=== PATIENT | female | born 1980 | race Caucasian/White ===

== ENCOUNTER → 2018-02-12 09:33 | Outpatient (CLI) | payer MEDICAID, SELFPAY ==
--- NOTE | 2018-02-12 09:46 | MRI_ITS ---
STUDY: MRI LEFT ANKLE WITHOUT CONTRAST REASON FOR EXAM: Ankle pain for 20 years. TECHNIQUE: Standardized fat and water weighted pulse sequences were obtained in all 3 orthogonal planes. COMPARISON: None. FINDINGS: Normal subcutis adipose space. There is a very small volume of fluid in the retromalleolar posterior tibialis tendon sheath (inversion recovery sagittal images 4-6). The posterior tibialis tendon is morphologically normal. Normal flexor digitorum longus tendon. Normal flexor hallucis longus tendon. Normal peroneus longus and brevis tendons. Normal tibialis anterior tendon. Normal extensor hallucis longus tendon. Normal extensor digitorum longus tendons. Normal Achilles tendon and teno-osseous insertion. Normal plantar fascia. Normal plantar calcaneal tubercles. Normal intrinsic muscles of the rearfoot. Normal distal tibiofibular syndesmotic ligamentous complex. Normal lateral ligamentous complex. There is mild edema in the sinus tarsi (inversion recovery sagittal images 11, 12). Normal deltoid ligamentous complexes. Normal plantar calcaneonavicular (spring) ligament. There is a small tibiotalar joint effusion (inversion recovery sagittal image 10). Normal talar dome. There is a posterior subtalar joint effusion with synovitis (inversion recovery sagittal images 12, 13). Normal talonavicular articulation. Normal calcaneocuboid articulation. Normal navicular-cuneiform articulations. 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 There is an os trigonum. MRI/Lower Ext Joint Only (Routine) IMPRESSION: Nonosseous talocalcaneal coalition with bone edema. Very mild posterior tibialis tenosynovitis Mild edema in the sinus tarsi. Posterior subtalar joint effusion with synovitis. Small tibiotalar joint effusion. Electronically Signed: Gen Patino MD at 12:23 EDT Tel , Service support ,
--- NOTE | 2018-02-12 09:46 | MRI_ITS ---
STUDY: MRI RIGHT ANKLE WITHOUT CONTRAST REASON FOR EXAM: Ankle pain for 20 years, no specific injury. TECHNIQUE: Standardized fat and water weighted pulse sequences were obtained in all 3 orthogonal planes. COMPARISON: None. FINDINGS: Normal subcutis adipose space. The posterior tibialis tendon is morphologically normal. Normal flexor digitorum longus tendon. Normal flexor hallucis longus tendon. Normal peroneus longus and brevis tendons. Normal tibialis anterior tendon. Normal extensor hallucis longus tendon. Normal extensor digitorum longus tendons. Normal Achilles tendon and teno-osseous insertion. Normal plantar fascia. Normal plantar calcaneal tubercles. Normal intrinsic muscles of the rearfoot. Normal distal tibiofibular syndesmotic ligamentous complex. Normal lateral ligamentous complex. There is edema in the sinus tarsi (inversion recovery sagittal images 9, 10). Normal deltoid ligamentous complexes. Normal plantar calcaneonavicular (spring) ligament. There is a small tibiotalar joint effusion (inversion recovery sagittal image 11). Normal talar dome. There is a posterior subtalar joint effusion with synovitis (inversion recovery sagittal images 10, 11). Normal talonavicular articulation. Normal calcaneocuboid articulation. Normal navicular-cuneiform articulations. 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 MRI/Lower Ext Joint Only (Routine) IMPRESSION: Nonosseous talocalcaneal coalition with bone edema. Mild edema in the sinus tarsi. Posterior subtalar joint effusion with synovitis. Small tibiotalar joint effusion. No demonstrated posterior tibialis tendinosis/tenosynovitis. Electronically Signed: Gen Patino MD at 12:22 EDT Tel , Service support ,
== END ==
PROVIDERS: Family Provider Family Medicine; PCP Family Medicine; Visit Provider Podiatrist
DX: M76.821 Posterior tibial tendinitis, right leg (principal); M76.822 Posterior tibial tendinitis, left leg; M25.571 Pain in right ankle and joints of right foot; M25.572 Pain in left ankle and joints of left foot; R26.2 Difficulty in walking, not elsewhere classified; R26.81 Unsteadiness on feet
CPT/HCPCS: 73721

== ENCOUNTER → 2020-07-06 17:10 | Outpatient (CLI) | payer MEDICAID, SELFPAY | PROVIDERS: PCP Family Medicine; Referring Provider Family Medicine; Visit Provider Family Medicine | DX: Z20.828 Contact with and (suspected) exposure to other viral communicable diseases (principal) | CPT/HCPCS: 87635; C9803; U0003 ==

== ENCOUNTER 2020-07-14 15:05 | Emergency (ER) | payer MEDICAID, SELFPAY ==
[2020-07-14 15:06] VITALS: BP 199/150; PULSE 101; RESP 18; TEMP 36.2; O2SAT 97; BMI 33.9
--- NOTE | 2020-07-14 15:20 | EKG12_ITS ---
Test Reason : ABNL PAIN Blood Pressure : / mmHG Vent. Rate : 103 BPM Atrial Rate : 103 BPM P-R Int : 152 ms QRS Dur : 082 ms QT Int : 370 ms P-R-T Axes : 025 243 016 degrees QTc Int : 484 ms Sinus tachycardia Right superior axis deviation Abnormal ECG Confirmed by FRANKLIN BLUE, SUMMER ([id number]), medical editor HEIDE RODRIGUEZ ([id number]) on 07/17/2020 1:02:11 PM Referred By: CHULA Confirmed By:SUMMER REID MD
--- NOTE | 2020-07-14 15:30 | ED.DCSUM_ITS ---
History of Present Illness Chief Complaint: Abd Pain Informant: Patient Onset: Yesterday Context: Gradual Onset Timing: Continuous Current Severity: Moderate Maximum Severity: Severe Narrative: The patient is a 39-year-old female with medical history significant for hypertension the presents to the emergency department abdominal pain. The patient states her symptoms began last night. She describes a bandlike pain across her upper abdomen. She states that she will feel nauseated mildly short of breath. She denies any fevers or chills. She states that it has never fully resolved. Is been rather constant and is made worse with movement and breathing. She states she is never had pain like this before. She denies history of prior abdominal surgery. She states she is otherwise been in her normal state of health. She denies any sick contacts. She is moving her bowels without issue. She denies any urinary symptoms. Prior similar symptoms: No Recent Illness/Hospitalization: No Past Medical History - Allergies and Home Meds Allergies/Adverse Reactions: Allergies No Known Allergies Allergy (Verified 07/14/20 15:08) Primary Care Physician: Basilio Dunham MD [Primary Care Provider] - Prior records reviewed: Yes Past Medical History: - - Hypertension Surgical History: noncontributory Smoking Status: Never smoker Review of Systems General: Denies: Chills, Fever, Sweats Eyes: Denies: Visual changes - bilaterally, Diplopia ENT: Denies: Rhinorrhea, Sore throat Cardiovascular: Denies: Chest pain, Palpitations Respiratory: Reports: Dyspnea. Denies: Cough, Dyspnea on exertion Gastrointestinal: Reports: Abdominal pain, Nausea. Denies: Vomiting, Diarrhea, Melena, Hematochezia Genitourinary: Denies: Dysuria, Hematuria, Frequency Musculoskeletal: Reports: Back pain. Denies: Extremity Pain Skin: Denies: Rash, Wounds Neurological: Denies: Headache, Weakness, Numbness Physical Exam Vital Signs/Narrative: Vital Signs Temp Pulse Resp BP Pulse Ox 07/14/20 15:06 97.1 F L 101 H 18 199/150 H 97 Inital Vital Signs reviewed: Yes General: Well nourished, Well developed, No Acute Distress Head: Normocephalic, Atraumatic Eyes: Perrl, EOMI ENT: Moist mucous membranes, No rhinorrhea Neck: Supple, Nontender Cardiovascular: Regular rate, Regular rhythm, No murmurs Respiratory: No distress, CTA bilaterally, Chest nontender Abdomen: Soft, Nondistended, Normal bowel sounds, Tender. Negative for: Nontender, Guarding, Rebound tenderness Back: Nontender, Normal Inspection Extremities: Nontender, No edema Skin: Normal color, No rash Neurological: Alert, Oriented x3, Cranial nerves II-XII grossly intact, Normal Strength, Normal Sensation Psychological: Normal affect, Normal Mood Diagnostic/Tx/Re-eval Clinical Impression(s) from Imaging Studies Chest CTA 07/14/20 16:09 IMPRESSION: Mild nonspecific diffuse interstitial thickening. Mild atelectasis within the dependent portion lungs. No focal infiltration. No pulmonary embolus aortic aneurysm periaortic leak or dissection. Electronically Signed: Adair Martinez MD at 18:42 EDT , Service support , Abnormal Lab Results 07/14/20 07/14/20 07/14/20 15:30 15:30 15:30 WBC 12.5 H RBC 4.70 Hgb 13.4 Hct 41.1 MCV 87.4 MCH 28.5 MCHC 32.6 RDW Std Deviation 42.8 RDW Coeff of Lyndsey 13.3 Plt Count 445 MPV 8.9 Immature Gran % (Auto) 0.500 Neut % (Auto) 68.3 Lymph % (Auto) 24.1 [place] % (Auto) 5.9 Eos % (Auto) 0.6 Baso % (Auto) 0.6 Absolute Neuts (auto) 8.5 H Absolute Lymphs (auto) 3.00 Nucleated RBC % 0 D-Dimer Quant (PE/DVT) 0.62 H* Sodium 140 Potassium 4.0 Chloride 107 Carbon Dioxide 25.0 Anion Gap 8 BUN 12 Creatinine 1.06 H Estim Creat Clear Calc 67.37 Est GFR (MDRD) Af Amer 74 Est GFR (MDRD) Non-Af 61 BUN/Creatinine Ratio 11.3 Glucose 95 Calcium 9.1 Total Bilirubin 0.30 AST 13 L ALT 21 Alkaline Phosphatase 62 Troponin I < 0.015 Total Protein 8.2 Albumin 3.9 Globulin 4.3 H Albumin/Globulin Ratio 0.9 Lipase 91 Serum , Qual Urine Color Urine Clarity Urine pH Ur Specific [place] Urine Protein Urine Glucose (UA) Urine Ketones Urine Occult Blood Urine Nitrite Urine Bilirubin Urine Urobilinogen Ur Leukocyte Esterase Urine RBC Urine WBC Ur Squamous Epith Cells Urine Bacteria Urine Mucus 07/14/20 07/14/20 16:30 16:35 WBC RBC Hgb Hct MCV MCH MCHC RDW Std Deviation RDW Coeff of Lyndsey Plt Count MPV Immature Gran % (Auto) Neut % (Auto) Lymph % (Auto) [place] % (Auto) Eos % (Auto) Baso % (Auto) Absolute Neuts (auto) Absolute Lymphs (auto) Nucleated RBC % D-Dimer Quant (PE/DVT) Sodium Potassium Chloride Carbon Dioxide Anion Gap BUN Creatinine Estim Creat Clear Calc Est GFR (MDRD) Af Amer Est GFR (MDRD) Non-Af BUN/Creatinine Ratio Glucose Calcium Total Bilirubin AST ALT Alkaline Phosphatase Troponin I Total Protein Albumin Globulin Albumin/Globulin Ratio Lipase Serum , Qual NEGATIVE Urine Color Yellow Urine Clarity Clear Urine pH 7.0 Ur Specific [place] 1.005 Urine Protein Negative Urine Glucose (UA) Normal Urine Ketones Negative Urine Occult Blood 25 H Urine Nitrite Negative Urine Bilirubin Negative Urine Urobilinogen Normal Ur Leukocyte Esterase Negative Urine RBC 0 SEEN Urine WBC 0 SEEN Ur Squamous Epith Cells 0-5 SEEN Urine Bacteria 1+ Urine Mucus 0 SEEN - Medical Decision Making The patient presents with midepigastric pain, shortness of breath, nausea. She was tachycardic on arrival. I obtained a d-dimer. This was mildly elevated. The patient underwent CT of the chest with CT of abdomen pelvis. CT does not show acute pulmonary embolus. I did review the CT of her abdomen with the radiologist. There was some mild gastritis. There does appear to be some focal fullness of the pancreas consistent with a mild focal pancreatitis. Her appendix was mildly dilated without any evidence of acute appendicitis. She has absolutely no pain in the right lower quadrant or the right side of the abdomen. Most of the pain is in the epigastric area into the left side of her chest. The patient was treated with analgesics and is feeling improved. I do feel that this is either pancreatitis or gastritis. I did discuss options with the patient. She wants to attempt home therapy. She will be placed on clear liquids. She will begin a short course of analgesics and antiemetics. She also be placed on Pepcid. She is comfortable with this plan of care and will be disc harged. Impression 1. Pancreatitis 2. Gastritis ED Disposition - Plan for ED Patient: Instructions: ED Pancreatitis Prescriptions: Hydrocodone Bitart/Apap 5-325 [Madill 5MG-325MG] 1 tab PO Q6H PRN PRN 3 Days #10 tab PRN Reason: Pain Prescription Printed Famotidine [Pepcid] 20 mg PO BID #28 tab Prescription Printed Ondansetron [Zofran Odt] 4 mg PO Q8H PRN PRN #10 tab PRN Reason: Nausea Prescription Printed Referrals: Basilio Dunham MD [Primary Care Provider] -
[2020-07-14] MEDS: 0.9% Normal Saline 1,000 ML 1000 ML IV (15:49)
[2020-07-14] MEDS: Ondansetron 4 MG/2 ML Vial IV (15:49)
[2020-07-14] MEDS: Morphine 4 MG/ML Syringe IV (15:49)
[2020-07-14 15:53] LABS: Absolute Neutrophil Count 8.5 X10^3/uL (2.0-7.7); Basophil# 0.07 X10^3/uL; Basophil% 0.6 % (0-1); Eosinophil# 0.08 X10^3/uL; Eosinophils% 0.6 % (0-5); Hematocrit 41.1 % (37-47); Hemoglobin 13.4 g/dL (12.0-15.0); Lymphocyte % 24.1 % (19-41); Mean Corp Hgb Conc 32.6 g/dL (32-36); Mean Corpuscular Hgb 28.5 pg (27.0-32.0); Mean Corpuscular Volume 87.4 fL (81-99); Mean Platelet Vol. 8.9 fl (6.2-12.0); Monocyte# 0.74 X10^3/uL; Monocyte% 5.9 % (0-10); NRBC Flagged by Analyzer 0 % (0-5); Neutrophil % 68.3 % (47-70); Platelet Count 445 K/mm3 (150-450); RBC Distribution Width CV 13.3 % (11.6-14.6); RBC Distribution Width SD 42.8 fl (35.1-43.9); White Blood Count 12.5 K/mm3 (4.4-11.0)
[2020-07-14 16:08] LABS: D-Dimer Quantitative (DVT/PE) 0.62 FEU/ug/m (0.27-0.49)
--- NOTE | 2020-07-14 16:09 | CT_ITS ---
STUDY: CT ABDOMEN AND PELVIS WITH CONTRAST REASON FOR EXAM: Female, 39 years old. EPIGASTRIC PAIN THAT RADIATES TO BACK RADIATION DOSAGE (If Supplied By Facility): CTDIvol = ( 23.61 ) mGy, DLP = ( 1119.38 ) mGycm TECHNIQUE: Transaxial images were obtained from the dome of the diaphragm to the symphysis pubis without oral contrast. IV 100mL Isovue-370 was administered. Sagittal and coronal images were reconstructed. Individualized dose optimization techniques were used for this CT. COMPARISON: None. FINDINGS: The visualized lung bases are unremarkable. The visualized portions of the heart are within normal limits. Normal liver. Normal gallbladder and extrahepatic biliary system. Normal spleen. There is mild asymmetric prominence of the pancreatic head and uncinate process demonstrating slight hypoattenuation possibly representing focal pancreatitis. Normal bilateral adrenal glands. Normal right kidney. Normal left kidney. There is concentric thickening of the sesay of gastric fundus and narrowing of the lumen which may be consistent with nonspecific gastritis. Normal small intestine. Normal colon. The appendix is very mildly dilated which may be due to early appendicitis however there is no significant thickening of the sesay or periappendiceal edema. Clinical correlation recommended in this regard Normal abdominal aorta. Normal inferior vena cava. Normal retroperitoneum. Normal urinary bladder. There are cystic changes of both adnexa of uncertain significance but may be further assessed with pelvic sonogram Normal abdominal wall. Normal osseous structures. CT/Abdomen/Pelvis W IV Cont ONLY IMPRESSION: Findings may be consistent with nonspecific gastritis and possible focal pancreatitis within the head and uncinate process. Well-defined pancreatic mass is not visualized however this may be further assessed with MRI if clinically warranted Mildly dilated appendix without definitive evidence for acute appendicitis. N.B. : The above information has been verbally conveyed by Adair Martinez MD to Murtaza Mann MD, on 07/14/2020 19:31:30 (ET). Electronically Signed: Adair Martinez MD at 20:12 EDT , Service support ,
--- NOTE | 2020-07-14 16:09 | CT_ITS ---
STUDY: CTA CHEST REASON FOR EXAM: Female, 39 years old. EPIGASTRIC PAIN THAT RADIATES TO BACK, CP RADIATION DOSAGE (If Supplied By Facility): CTDIvol = ( 13.82 ) mGy, DLP = ( 494.75 ) mGycm TECHNIQUE: The examination was performed with the intravenous administration of IV 100mL Isovue-370. Post-processing of the angiographic images was performed, with multiplanar reformation and 3D reconstruction. Individualized dose optimization techniques were used for this CT. COMPARISON: None. FINDINGS: Normal enhancement of the main pulmonary artery and right and left pulmonary arteries. Normal enhancement of the bilateral peripheral pulmonary arteries. There is no demonstrated pulmonary embolism. Normal thoracic aorta and visualized great vessels. There is no demonstrated aortic dissection. Normal heart and pericardium. Normal mediastinum. Normal hilar regions. Normal visualized trachea and bronchi. The lungs are well expanded. Mild diffuse nonspecific interstitial thickening. Normal pleura. Mild atelectasis within the dependent portion of the lungs. No focal infiltration or pulmonary nodule Normal chest wall structures. Normal osseous structures. Normal visualized upper abdomen. CT/CTA Chest W/WO Contrast IMPRESSION: Mild nonspecific diffuse interstitial thickening. Mild atelectasis within the dependent portion lungs. No focal infiltration. No pulmonary embolus aortic aneurysm periaortic leak or dissection. Electronically Signed: Adair Martinez MD at 18:42 EDT , Service support ,
[2020-07-14 16:29] LABS: ALB/GLOB Ratio 0.9 RATIO (0.9-2.4); AST(SGOT) 13 U/L (15-37); Alanine Aminotransfer ALT/SGPT 21 U/L (13-56); Albumin, Serum 3.9 g/dL (3.2-5.0); Alkaline Phosphatase 62 U/L (45-117); Anion Gap 8 (5-15); BUN 12 mg/dL (7-18); BUN/Creat Ratio 11.3 RATIO (10-20); Calcium,Total 9.1 mg/dL (8.5-10.1); Chloride 107 mmol/L (98-107); Creatinine, Serum 1.06 mg/dL (0.55-1.02); EST Glomerular Filtration Rate 61 mL/min (>60); Est Glom Filt Rate - Afr Amer 74 mL/min (>60); Estimated Creatinine Clearance 67.37 ml/min; Globulin 4.3 g/dL (2.2-4.2); Glucose 95 mg/dL (74-106); Lipase 91 U/L (73-393); Protein, Total 8.2 g/dL (6.4-8.2); Sodium Level 140 mmol/L (136-145)
[2020-07-14] MEDS: HYDROmorphone 1 MG/ML Syringe IV (16:37)
[2020-07-14 16:44] LABS: Mucous, Urine 0 SEEN /hpf (<or=2+); Red Blood Cells-Urine 0 SEEN /hpf (0-5); White Blood Cells 0 SEEN /hpf (0-5)
[2020-07-14 17:06] LABS: Color, Urine Yellow (Yellow); Glucose, Dipstick Normal (Normal); Ketone-Dipstick Negative (Negative); Leukocyte Esterase-Dipstick Negative /ul (Negative); Nitrite-Dipstick Negative (Negative); Occult Blood-Urine 25 /ul (Negative); Protein-Dipstick Negative (Negative); Specific Gravity, Urine 1.005 (1.002-1.030); Urine Bilirubin Dipstick Negative (Negative); Urine Clarity Clear (Clear); Urine Urobilinogen Normal (Normal)
[2020-07-14 17:32] LABS: Internal QC Validated? YES +Cl - CLEAR BKGD; Pregnancy, Serum, hCG Quali. NEGATIVE Negative
[2020-07-14 17:38] VITALS: RESP 16
[2020-07-14 17:41] LABS: Bacteria 1+ /hpf (None Seen); Squamous Epithelial Cells - UA 0-5 SEEN /hpf (5-10)
[2020-07-14 19:07] VITALS: RESP 16
[2020-07-14] MEDS: HYDROmorphone 0.5 MG/0.5 ML SYRINGE IV (20:18)
[2020-07-14 20:37] VITALS: BP 180/100; PULSE 75; RESP 15; O2SAT 98
== END 2020-07-14 20:38 | disposition home or self-care (01) ==
LOC: ED 15:36
PROVIDERS: Emergency Provider Emergency Medicine; PCP Family Medicine
DX: K85.90 Acute pancreatitis without necrosis or infection, unspecified (principal); K29.70 Gastritis, unspecified, without bleeding; I10 Essential (primary) hypertension
CPT/HCPCS: 71275; 74177; 80053; 81001; 83690; 84484; 84703; 85025; 85379; 93005; 96374; 96375; 96376; 99284; J7030; Q9967; A4216; J2405

== ENCOUNTER 2020-07-20 18:41 | Inpatient (IN) | payer MEDICAID, SELFPAY ==
[2020-07-20 18:42] VITALS: BP 193/121; PULSE 99; RESP 16; TEMP 36.6; O2SAT 97; BMI 34.2
[2020-07-20 19:11] LABS: Absolute Lymphocyte Count 2.67 X10^3/uL (0.83-4.51); Absolute Neutrophil Count 7.5 X10^3/uL (2.0-7.7); Basophil# 0.05 X10^3/uL; Basophil% 0.5 % (0-1); Eosinophil# 0.12 X10^3/uL; Eosinophils% 1.1 % (0-5); Hematocrit 36.8 % (37-47); Hemoglobin 12.1 g/dL (12.0-15.0); Lymphocyte # 2.67 X10^3/ul (4.0); Lymphocyte % 24.1 % (19-41); Mean Corp Hgb Conc 32.9 g/dL (32-36); Mean Corpuscular Hgb 28.8 pg (27.0-32.0); Mean Corpuscular Volume 87.6 fL (81-99); Mean Platelet Vol. 8.7 fl (6.2-12.0); Monocyte# 0.67 X10^3/uL; Monocyte% 6.1 % (0-10); NRBC Flagged by Analyzer 0 % (0-5); Neutrophil # 7.48 X10^3/uL (2.7-7.7); Neutrophil % 67.6 % (47-70); Platelet Count 392 K/mm3 (150-450); RBC Distribution Width CV 13.2 % (11.6-14.6); RBC Distribution Width SD 42.2 fl (35.1-43.9); White Blood Count 11.1 K/mm3 (4.4-11.0)
[2020-07-20 19:26] LABS: Anion Gap 4 (5-15); BUN 14 mg/dL (7-18); BUN/Creat Ratio 12.6 RATIO (10-20); Calcium,Total 9.2 mg/dL (8.5-10.1); Chloride 106 mmol/L (98-107); Creatinine, Serum 1.11 mg/dL (0.55-1.02); EST Glomerular Filtration Rate 58 mL/min (>60); Est Glom Filt Rate - Afr Amer 70 mL/min (>60); Estimated Creatinine Clearance 64.33 ml/min; Glucose 85 mg/dL (74-106); Potassium 3.8 mmol/L (3.5-5.1); Sodium Level 137 mmol/L (136-145)
[2020-07-20 19:59] LABS: Bacteria 0 SEEN /hpf (None Seen); Mucous, Urine 0 SEEN /hpf (<or=2+); Red Blood Cells-Urine 0 SEEN /hpf (0-5); Squamous Epithelial Cells - UA 0 SEEN /hpf (5-10); White Blood Cells 0 SEEN /hpf (0-5)
[2020-07-20 20:01] LABS: Internal QC Validated? YES +Cl - CLEAR BKGD; Pregnancy, Serum, hCG Quali. NEGATIVE Negative
[2020-07-20 20:04] LABS: Color, Urine Yellow (Yellow); Glucose, Dipstick Normal (Normal); Ketone-Dipstick Negative (Negative); Leukocyte Esterase-Dipstick Negative /ul (Negative); Nitrite-Dipstick Negative (Negative); Occult Blood-Urine Negative /ul (Negative); Protein-Dipstick Negative (Negative); Urine Bilirubin Dipstick Negative (Negative); Urine Clarity Clear (Clear); Urine Urobilinogen Normal (Normal); Urine pH 6.5 (5.0 - 8.0)
--- NOTE | 2020-07-20 20:41 | CT_ITS ---
We are attempting to reach an attending provider to discuss findings. An addendum with communication details will be sent when the communication is complete. HISTORY: RLQ PAIN, PREV CT 07/14/20 SHOWED MILDLY DILATED APPENDIX W/O SIGNS OF APPENDICITIS ADDITIONAL HISTORY: None provided. EXAMINATION/TECHNIQUE: CT Abdomen And Pelvis W/ Contrast Injection CONTRAST: 100mL Isovue-300 IV contrast. Enteric contrast was given. A radiation dose optimization technique was used for this scan. COMPARISON: 07/14/2020 FINDINGS: LOWER THORAX: No consolidation or pleural effusion. LIVER: No concerning focal lesion. GALLBLADDER: No radiopaque calculi. BILE DUCTS: No significant biliary dilatation. SPLEEN: Unremarkable. PANCREAS: Unremarkable. ADRENAL GLANDS: Unremarkable. KIDNEYS/URETERS: Unremarkable. BOWEL: No bowel obstruction. No significant bowel wall thickening. APPENDIX: Enlarged measuring 11 mm with surrounding inflammatory changes. Trace adjacent fluid. No localized fluid collection. FREE FLUID: No significant free fluid. FREE AIR: None. LYMPH NODES: No pathologic appearing adenopathy. PERITONEUM, RETROPERITONEUM AND MESENTERY: Otherwise unremarkable. VASCULATURE: Unremarkable as imaged. PELVIS: Unremarkable bladder. ABDOMINAL WALL: Unremarkable. OSSEOUS AND SOFT TISSUE STRUCTURES: No acute skeletal findings. CT/Abdomen/Pelvis WITH Contrast IMPRESSION: Acute appendicitis. Individualized dose optimization techniques were used for this CT. at 2229 Reported and signed by: Shavonne White MD Electronically Signed: Shavonne White MD at 22:29 EDT Tel , Service support ,
[2020-07-20] MEDS: 0.9% Normal Saline 1,000 ML 150 ML IV (20:47)
[2020-07-20] MEDS: HYDROmorphone 1 MG/ML Syringe IV ×2 (20:47→23:16)
--- NOTE | 2020-07-20 20:47 | ED.DCSUM_ITS ---
History of Present Illness Chief Complaint: Abd Pain Informant: Patient Onset: Weeks - 1 Narrative: Patient sent in here by PCP for concerns of appendicitis with right lower quadrant pain. Patient history of upper abdominal pain started a week ago was seen in the ED 6 days ago with a work-up. She had no lower quadrant pain at that time reports everything was in the epigastric region. She was worked up and found to have nonspecific gastritis possible pancreatitis on CT. Labs reviewed noted at 12.5 white count time normal lipase. There was discussion with her PCP for close outpatient follow-up. She reports she followed up today. However 4 days ago pain started moving into the mid lower abdomen. She denies fevers vomiting or diarrhea. She denies urinary symptoms. She states pain has been persistent for 4 days, states the car rides and bumps have been worsening. She was found to have isolated right lower quadrant pain in the office was sent here. Her CT scan did note a mildly dilated appendix at that time, however clinically reported no right lower quadrant pain. Patient reports she ate a small bowl of spaghetti and salad at 5 PM this evening. She drank a bottle of water in triage. Past medical history of hypertension. Denies any surgical history is. Prior similar symptoms: No Past Medical History - Allergies and Home Meds Allergies/Adverse Reactions: Allergies No Known Allergies Allergy (Verified 07/20/20 18:42) Past Medical History: - - Hypertension Surgical History: noncontributory Smoking Status: Current every day smoker - Family History Maternal Family History: Reports: No pertinent history Review of Systems General: Denies: Chills, Fever, Sweats Eyes: Denies: Visual changes - bilaterally, Diplopia ENT: Denies: Rhinorrhea, Sore throat Cardiovascular: Denies: Chest pain, Palpitations Respiratory: Denies: Dyspnea, Cough, Dyspnea on exertion Gastrointestinal: Reports: Abdominal pain. Denies: Nausea, Vomiting, Diarrhea, Melena, Hematochezia Genitourinary: Denies: Dysuria, Hematuria, Frequency Musculoskeletal: Denies: Back pain, Extremity Pain Skin: Denies: Rash, Wounds Neurological: Denies: Headache, Weakness, Numbness Physical Exam Vital Signs/Narrative: Vital Signs Temp Pulse Resp BP Pulse Ox 07/20/20 18:42 97.9 F 99 16 193/121 H 97 Inital Vital Signs reviewed: Yes General: Well nourished, Well developed, No Acute Distress Head: Normocephalic, Atraumatic Eyes: Perrl, EOMI ENT: Moist mucous membranes, No rhinorrhea Neck: Supple, Nontender Cardiovascular: Regular rate, Regular rhythm, No murmurs Respiratory: No distress, CTA bilaterally, Chest nontender Abdomen: Soft, Nondistended, Normal bowel sounds, - - Right lower quadrant tenderness to deep palpation, no guarding or rebound, negative Rovsing's. Back: Nontender, Normal Inspection Extremities: Nontender, No edema Skin: Normal color, No rash Neurological: Alert, Oriented x3, Cranial nerves II-XII grossly intact, Normal Strength, Normal Sensation Psychological: Normal affect, Normal Mood Diagnostic/Tx/Re-eval Clinical Impression(s) from Imaging Studies Abdomen/Pelvis CT 07/20/20 20:41 IMPRESSION: Acute appendicitis. Individualized dose optimization techniques were used for this CT. at 2229 Reported and signed by: Shavonne White MD Electronically Signed: Shavonne White MD at 22:29 EDT Tel , Service support , ADDENDUM: 07/20/209 IMPRESSION: Acute appendicitis. Individualized dose optimization techniques were used for this CT. at 2229 Reported and signed by: Shavonne White MD N.B. : The above information has been verbally conveyed by Shavonne White MD to Ancelmo Miller DO, on 07/20/2020 22:32:42 (ET). Electronically Signed: Shavonne White MD at 22:29 EDT Tel , Service support , - Medical Decision Making Patient vital signs stable, patient had laboratory initiated in triage due to busy department. Labs reviewed had a white count 11.5 improved from 6 days ago. Creatinine normal. I added on a liver and lipase due to her nonspecific pancreatitis from 6 days ago. With now right lower quadrant abdominal pain in reported mild dilated appendix from 6 days ago, I did speak with on-call surgeon Dr. Baer, agrees with re-contrast imagings due to other nonspecific findings on her initial scan. Patient treated with Dilaudid, be kept n.p.o. with IV fluids. Surgeon did review the CT before the read. Confirms appendicitis. This was later confirmed by radiologist. She started on Zosyn edition Dilaudid, she will be taken to the OR this evening. She is admitted under surgery service. ED Disposition - Plan for ED Patient: Disposition: Acute Care [facility] Diagnosis: Acute appendicitis
[2020-07-20] MEDS: Ondansetron 4 MG/2 ML Vial IV (20:59)
[2020-07-20 21:05] LABS: Prothrombin Time (Protime)PT. 12.5 SECONDS (11.7-14.9)
[2020-07-20 21:14] LABS: AST(SGOT) 13 U/L (15-37); Alanine Aminotransfer ALT/SGPT 19 U/L (13-56); Albumin, Serum 3.6 g/dL (3.2-5.0); Alkaline Phosphatase 63 U/L (45-117); Bilirubin, Direct 0.08 mg/dL (0.00-0.30); Globulin 3.9 g/dL (2.2-4.2); Protein, Total 7.5 g/dL (6.4-8.2)
[2020-07-20 21:18] LABS: Lipase 80 U/L (73-393)
[2020-07-20 22:13] VITALS: RESP 16
--- NOTE | 2020-07-20 22:46 | PCM.CONS.GEN ---
Problem List (1) Acute appendicitis Status: Acute Qualifiers: Acute appendicitis type: with generalized peritonitis Appendicitis gangrene presence: unspecified whether gangrene present Appendicitis perforation presence: unspecified whether perforation present Appendicitis abscess presence: without abscess Qualified Code(s): K35.20 - Acute appendicitis with generalized peritonitis, without abscess Reason for Consult Date of Consultation: 07/20/20 History of Present Illness: Patient sent in here by PCP for concerns of appendicitis with right lower quadrant pain. Patient history of upper abdominal pain started a week ago was seen in the ED 6 days ago with a work-up. She had no lower quadrant pain at that time reports everything was in the epigastric region. She was worked up and found to have nonspecific gastritis possible pancreatitis on CT. Labs reviewed noted at 12.5 white count time normal lipase. There was discussion with her PCP for close outpatient follow-up. She reports she followed up today. However 4 days ago pain started moving into the mid lower abdomen. She denies fevers vomiting or diarrhea. She denies urinary symptoms. She states pain has been persistent for 4 days, states the car rides and bumps have been worsening. She was found to have isolated right lower quadrant pain in the office was sent here. Her CT scan did note a mildly dilated appendix at that time, however clinically reported no right lower quadrant pain. Patient reports she ate a small bowl of spaghetti and salad at 5 PM this evening. She drank a bottle of water in triage. Past medical history of hypertension. Denies any surgical history CAT scan of the abdomen and pelvis with IV and p.o. contrast was obtained tonight. Reading is consistent with acute appendicitis with inflammatory changes around the dilated appendix. There was also fluid in the pelvis. Past Medical History Past Medical History (Chronic Problems): Chronic Problems Tobacco use disorder (Chronic) Allergies No Known Allergies Allergy (Verified 07/20/20 18:42) Home Medications: Ambulatory Orders Medication Instructions Recorded Fluoxetine [Prozac] 60 mg PO DAILY 02/28/14 Hydrochlorothiazide [Hctz] 12.5 mg PO DAILY 11/10/16 Famotidine [Pepcid] 20 mg PO BID #28 tab 07/14/20 Ondansetron [Zofran Odt] 4 mg PO Q8H PRN PRN #10 tab 07/14/20 Surgical History: no surgical history, noncontributory Smoking Status: Current some day smoker - *Family History Maternal History Items: No pertinent history Review of Systems Constitutional: Reports: Anorexia Cardiovascular: Denies: Chest Pain, Chest Pressure, Chest Tightness, Palpitations Respiratory: Denies: Cough, Hemoptysis, Shortness of breath at rest, Shortness of breath upon exertion, Wheezing Gastrointestinal: Reports: Abdominal Pain, Nausea, Vomiting Genitourinary: Denies: Dysuria, Frequency, Hematuria, Urgency Patient Problems: Active and Suspected Problems Acute appendicitis (Acute) - Physical Exam Vitals/I&O's: Vital Signs Temp Pulse Resp BP Pulse Ox 97.9 F 99 16 193/121 H 97 07/20/20 18:42 07/20/20 18:42 07/20/20 22:13 07/20/20 18:42 07/20/20 18:42 Oxygen Delivery Method Room Air Weight: 212 lb Body Mass Index (BMI) 34.2 General: Alert, Oriented x3 Lungs: Clear to auscultation Cardiovascular: Regular rate, Regular Rhythm, No murmurs Abdomen: Soft, Tender - Patient has some generalized peritoneal signs. She really is not localized to the right lower quadrant and I am quite worried that she probably has a ruptured appendicitis. Laboratory Results 07/20/20 19:01: WBC 11.1 H, RBC 4.20, Hgb 12.1, Hct 36.8 L, MCV 87.6, MCH 28.8, MCHC 32.9, RDW Std Deviation 42.2, RDW Coeff of Lyndsey 13.2, Plt Count 392, MPV 8.7, Immature Gran % (Auto) 0.600, Neut % (Auto) 67.6, Lymph % (Auto) 24.1, [place] % (Auto) 6.1, Eos % (Auto) 1.1, Baso % (Auto) 0.5, Absolute Neuts (auto) 7.5, Absolute Lymphs (auto) 2.67, Nucleated RBC % 0 07/20/20 19:01: Sodium 137, Potassium 3.8, Chloride 106, Carbon Dioxide 27.0, Anion Gap 4 L, BUN 14, Creatinine 1.11 H, Estim Creat Clear Calc 64.33, Est GFR (MDRD) Af Amer 70, Est GFR (MDRD) Non-Af 58 L, BUN/Creatinine Ratio 12.6, Glucose 85, Calcium 9.2 07/20/20 19:01: Serum , Qual NEGATIVE 07/20/20 19:01: Total Bilirubin 0.20, Direct Bilirubin 0.08, AST 13 L, ALT 19, Alkaline Phosphatase 63, Total Protein 7.5, Albumin 3.6, Globulin 3.9 07/20/20 19:01: Lipase 80 07/20/20 19:01: PT 12.5, INR 1.0, APTT 31.0 07/20/20 19:45: Urine Color Yellow, Urine Clarity Clear, Urine pH 6.5, Ur Specific [place] 1.010, Urine Protein Negative, Urine Glucose (UA) Normal, Urine Ketones Negative, Urine Occult Blood Negative, Urine Nitrite Negative, Urine Bilirubin Negative, Urine Urobilinogen Normal, Ur Leukocyte Esterase Negative, Urine RBC 0 SEEN, Urine WBC 0 SEEN, Ur Squamous Epith Cells 0 SEEN, Urine Bacteria 0 SEEN, Urine Mucus 0 SEEN 07/20/20 21:00: Blood Type O NEGATIVE, Antibody Screen NEGATIVE Current Medications Sodium Chloride () 1,000 mls @ 150 mls/hr IV .[id number] KAREEM Last Admin: 07/20/20 20:47 Dose: 150 mls/hr Documented by: Piperacillin Sod/Tazobactam (Sod 4.5 gm/ Sodium Chloride) 100 mls @ 200 mls/hr IV X1 ONE Stop: 07/20/20 23:04 Assessment/Plan All Active Problems Acute appendicitis (Acute) Tachycardia (Acute) My plan is to perform a laparoscopic appendectomy. Risk benefits to include bleeding infection possible need for further surgery. Patient understands that she may have a ruptured appendix and/or possibly a retrocecal appendix and she may need to have a drain placed. Patient is also aware that she could get delayed abscesses from this as well. We briefly discussed possibilities of blood clots heart attacks pneumonias and strokes all questions asked were answered and she is willing to proceed. Office Visits / Consults: [id number] IP Consult L4 - Modifier 57
[2020-07-20 23:19] VITALS: BP 149/110; PULSE 98; RESP 16; TEMP 37; O2SAT 95; BMI 34.2
[2020-07-20 23:23] VITALS: BP 149/110; PULSE 98; RESP 16; TEMP 37; O2SAT 95
--- NOTE | 2020-07-20 23:32 | ED.RN ---
gave report to RN in OR. ok for pt.
--- NOTE | 2020-07-20 23:45 | APP_PTH ---
PATIENT: JENS LOCKE LOC: MS3 U#:[id number] AGE/SX: 39/F ROOM: MS305 RE07/21/[address]: Dr. Adarsh Baer MD : [id number] BED: 1 DIS: 07/24/2020 SPEC #: [id number] RECD: 07/21/20 08:48 STATUS: HANY HERRERA #: [id number] DAVID: 07/20/20 23:[address]: Adarsh Baer DEPT: SURGICAL PATHOLOGY RECD BY: Nabil Shook ENTERED: 07/21/20 09:22 SP TYPE: APPENDIX OTHR DR: Dr. Basilio Dunham MD Tissues: Appendix, NOS Procedures: Surgery Specimen Level III HEADER OPERATION: Laparoscopic appendectomy PRE-OP DIAGNOSIS: Acute appendicitis TISSUE SUBMITTED: Appendix MICROSCOPIC DIAGNOSIS Appendix, appendectomy: Acute eosinophilic appendicitis. Acute serositis. AM:luis 07/22/20 MICROSCOPIC DESCRIPTION Slides are reviewed. GROSS DESCRIPTION Received in fixative is one container labeled with the patient's name and designated appendix. The specimen consists of an appendix measuring 6.5 cm in length and up to 1 cm in diameter. No gross perforations are evident. Serial sections reveal a patent lumen with fecal material. No mass lesion is identified. C[employer]ing Barista sections are submitted in one cassette. / AM:luis 07/21/20 TC:2 CPT: 73284
--- NOTE | 2020-07-20 23:54 | OP.PCM_ITS ---
Problem List (1) Acute appendicitis Status: Acute Qualifiers: Acute appendicitis type: with generalized peritonitis Appendicitis gangrene presence: unspecified whether gangrene present Appendicitis perforation presence: with perforation Appendicitis abscess presence: without abscess Qualified Code(s): K35.20 - Acute appendicitis with generalized peritonitis, without abscess Report of Operation Date of Procedure: 07/20/20 Pre-Operative Diagnosis: Acute appendicitis Post-Operative Diagnosis: Ruptured retrocecal appendicitis Surgery/Procedure Performed:: Laparoscopic appendectomy Type of Anesthesia:: General Anesthesiologist: Karsten Arteaga Drains: 15 round Dexter-Villagomez Estimated Blood Loss (mL): <25 cc Description of Procedure: Patient was brought in the operating room. Placed in the supine position. Under excellent general trach intubation abdomen was sterilely prepped and draped in usual fashion. Local was injected infraumbilically. Dissection was carried down to the fascia. The fascia is grasped with a [place]. Varies needle was placed inside the abdomen. Abdomen was insufflated 15 torr. A 10/12 trocar was placed without difficulty. Suprapubic #5 trocar was placed the left lower quadrant #5 trocar was placed over these under direct visualization without injury to underlying structures. Patient was placed in the headdown and rotated to the left position patient was noted to have a retrocecal appendicitis that was probably at least a week old with pus then rupture noted. I had to mobilize the terminal ileum and the right colon and cecal area partially so that I could identify the base of the appendix I dissected the base of the appendix free first I placed a 45 linear cutter and transected I have good hemostasis it took quite a bit of sharp dissection to take the terminal ileum off of this ruptured appendix but I was able to do that I saw no injury to the terminal ileum I used the Enseal to come down on the mesoappendix I had good hemostasis I placed a specimen a specimen bag and delivered through the umbilical port. The entire area here was raw on the retroperitoneum I used touch cautery and [address] op obvious bleeding I irrigated out the area. I placed a 15 round Dexter-Villagomez drain from the right upper quadrant incision down across this ruptured area and into the pelvis. I sutured this to the skin with a 3-0 nylon. I remove the trochars under direct visualization good mistakes was noted. I closed the fascia the umbilical port with a [id number] stitch of 0 Vicryl. Skin incisions were closed with subcuticular stitches of 4-0 Monocryl. Steri-Strips were applied sterile dressings were applied and the patient tolerated the procedure well. - Admit VTE Documentation VTE Present on Admission: No VTE Mechan Device Prophylaxis: SCD's VTE Pharm Prophylaxis ordered?: No Reason prophylaxis not ordered:: Treatment Not Indicated [id number]: [id number] Laparoscopy appendectomy
[2020-07-21] VITALS (14 sets, daily range): BP systolic 138–171; BP diastolic 82–117; PULSE 96–110; RESP 14–18; TEMP 36.2–37.7; O2SAT 94–100; BMI 34.2
[2020-07-21] MEDS: Lactated Ringers 1,000 ML 100 ML IV ×3 (01:26→06:10)
[2020-07-21] MEDS: HYDROmorphone 0.5 MG/0.5 ML SYRINGE IV ×7 (04:40→22:25)
--- NOTE | 2020-07-21 04:55 | NURSING ---
Sats 87-88% on room air when pt was sleeping. O2 placed at 2L via n/c and sats are now 97%. Mayra GUPTA aware.
[2020-07-21 06:12] LABS: Absolute Lymphocyte Count 1.35 X10^3/uL (0.83-4.51); Absolute Neutrophil Count 11.1 X10^3/uL (2.0-7.7); Basophil# 0.04 X10^3/uL; Basophil% 0.3 % (0-1); Eosinophil# 0.02 X10^3/uL; Eosinophils% 0.2 % (0-5); Hematocrit 33.9 % (37-47); Hemoglobin 10.7 g/dL (12.0-15.0); Lymphocyte # 1.35 X10^3/ul (4.0); Lymphocyte % 10.1 % (19-41); Mean Corp Hgb Conc 31.6 g/dL (32-36); Mean Corpuscular Hgb 28.5 pg (27.0-32.0); Mean Corpuscular Volume 90.4 fL (81-99); Mean Platelet Vol. 8.9 fl (6.2-12.0); Monocyte# 0.73 X10^3/uL; Monocyte% 5.5 % (0-10); NRBC Flagged by Analyzer 0 % (0-5); Neutrophil # 11.11 X10^3/uL (2.7-7.7); Neutrophil % 83.4 % (47-70); Platelet Count 369 K/mm3 (150-450); RBC Distribution Width CV 13.4 % (11.6-14.6); RBC Distribution Width SD 44.3 fl (35.1-43.9); Red Blood Count 3.75 M/mm3 (4.2-5.4); White Blood Count 13.3 K/mm3 (4.4-11.0)
[2020-07-21] MEDS: oxyCODONE 5 MG Tablet PO ×5 (06:15→23:32)
[2020-07-21] MEDS: 0.9% Saline Lock 10 ML Syringe IV ×3 (06:15→17:34)
[2020-07-21 06:44] LABS: ALB/GLOB Ratio 0.9 RATIO (0.9-2.4); AST(SGOT) 11 U/L (15-37); Alanine Aminotransfer ALT/SGPT 17 U/L (13-56); Albumin, Serum 3.2 g/dL (3.2-5.0); Alkaline Phosphatase 53 U/L (45-117); Amylase 49 U/L (25-115); Anion Gap 4 (5-15); BUN 11 mg/dL (7-18); BUN/Creat Ratio 11.1 RATIO (10-20); Calcium,Total 8.1 mg/dL (8.5-10.1); Chloride 105 mmol/L (98-107); EST Glomerular Filtration Rate 66 mL/min (>60); Est Glom Filt Rate - Afr Amer 80 mL/min (>60); Estimated Creatinine Clearance 71.41 ml/min; Globulin 3.5 g/dL (2.2-4.2); Glucose 109 mg/dL (74-106); Lipase 51 U/L (73-393); Potassium 3.9 mmol/L (3.5-5.1); Protein, Total 6.7 g/dL (6.4-8.2); Sodium Level 136 mmol/L (136-145)
[2020-07-21] MEDS: FLUoxetine 20 MG Capsule 60 MG PO (08:43)
[2020-07-21] MEDS: hydroCHLOROthiazide 12.5mg 12.5 MG PO (08:44)
[2020-07-21] MEDS: Famotidine 20 MG Tablet PO ×2 (08:44→22:15)
--- NOTE | 2020-07-21 11:47 | CASEMGMT ---
RN CM Assessment Note Intro role of CM to patient who is awake and alert, but still very painful. Assessment abbreviated due to her pain. Presentation: abd pain Diagnosis: appendectomy for ruptured appendix PCP: Dr. Dunham Specialists: Dr. Baer Insurance: [facility] Prescription Benefit: yes LNOK: Daughter, son. Sister Camilla is listed as next of kin Living Arrangements: lives in apartment with 12 steps. Patient was able to do the stairs prior to surgery. States she will need to do stair on discharge at least to get into home Tranportation: Patient's boyfriend or family drive, pt does not drive. DME: none Patient DC Goals: Home, patient states she is not ready to go home due to pain. DC Plan: home on discharge. CM available for discharge planning coordination. Contact CM for any concerns/needs that may arise. Ernesto ENGLISH RN ACM
--- NOTE | 2020-07-21 14:38 | PCM.PN.SRG ---
Patient Problems: Active and Suspected Problems Acute appendicitis (Acute) Subjective: Still complaining of significant amounts of discomfort. Not passing any flatus as of yet. Objective: Dressings are dry LILLIAN drain only has serous fluid in it moderate amount of discomfort noted on palpation but no real peritoneal irritation - Physical Exam Vitals/I&O's: Vital Signs Temp Pulse Resp BP Pulse Ox 98.6 F 108 H 18 171/117 H 97 07/21/20 14:12 07/21/20 14:12 07/21/20 14:12 07/21/20 14:12 07/21/20 14:12 Oxygen Flow Rate (L/min) 2 Oxygen Delivery Method Room Air Weight: 212 lb Body Mass Index (BMI) 34.2 Intake and Output for Last 24 Hours 07/19/20 07/20/20 07/21/20 23:59 23:59 23:59 Intake Total 375 / 1000 4690.91 / 4690.91 Output Total 1750 / 1750 Balance 375 / 1000 2940.91 / 2940.91 Laboratory Results 07/20/20 19:01: WBC 11.1 H, RBC 4.20, Hgb 12.1, Hct 36.8 L, MCV 87.6, MCH 28.8, MCHC 32.9, RDW Std Deviation 42.2, RDW Coeff of Lyndsey 13.2, Plt Count 392, MPV 8.7, Immature Gran % (Auto) 0.600, Neut % (Auto) 67.6, Lymph % (Auto) 24.1, [place] % (Auto) 6.1, Eos % (Auto) 1.1, Baso % (Auto) 0.5, Absolute Neuts (auto) 7.5, Absolute Lymphs (auto) 2.67, Nucleated RBC % 0 07/20/20 19:01: Sodium 137, Potassium 3.8, Chloride 106, Carbon Dioxide 27.0, Anion Gap 4 L, BUN 14, Creatinine 1.11 H, Estim Creat Clear Calc 64.33, Est GFR (MDRD) Af Amer 70, Est GFR (MDRD) Non-Af 58 L, BUN/Creatinine Ratio 12.6, Glucose 85, Calcium 9.2 07/20/20 19:01: Serum , Qual NEGATIVE 07/20/20 19:01: Total Bilirubin 0.20, Direct Bilirubin 0.08, AST 13 L, ALT 19, Alkaline Phosphatase 63, Total Protein 7.5, Albumin 3.6, Globulin 3.9 07/20/20 19:01: Lipase 80 07/20/20 19:01: PT 12.5, INR 1.0, APTT 31.0 07/20/20 19:45: Urine Color Yellow, Urine Clarity Clear, Urine pH 6.5, Ur Specific [place] 1.010, Urine Protein Negative, Urine Glucose (UA) Normal, Urine Ketones Negative, Urine Occult Blood Negative, Urine Nitrite Negative, Urine Bilirubin Negative, Urine Urobilinogen Normal, Ur Leukocyte Esterase Negative, Urine RBC 0 SEEN, Urine WBC 0 SEEN, Ur Squamous Epith Cells 0 SEEN, Urine Bacteria 0 SEEN, Urine Mucus 0 SEEN 07/20/20 21:00: Blood Type O NEGATIVE, Antibody Screen NEGATIVE 07/21/20 05:30: WBC 13.3 H, RBC 3.75 L, Hgb 10.7 L, Hct 33.9 L, MCV 90.4, MCH 28.5, MCHC 31.6 L, RDW Std Deviation 44.3 H, RDW Coeff of Lyndsey 13.4, Plt Count 369, MPV 8.9, Immature Gran % (Auto) 0.500, Neut % (Auto) 83.4 H, Lymph % (Auto) 10.1 L, [place] % (Auto) 5.5, Eos % (Auto) 0.2, Baso % (Auto) 0.3, Absolute Neuts (auto) 11.1 H, Absolute Lymphs (auto) 1.35, Nucleated RBC % 0 07/21/20 05:30: Sodium 136, Potassium 3.9, Chloride 105, Carbon Dioxide 27.0, Anion Gap 4 L, BUN 11, Creatinine 1.00, Estim Creat Clear Calc 71.41, Est GFR (MDRD) Af Amer 80, Est GFR (MDRD) Non-Af 66, BUN/Creatinine Ratio 11.1, Glucose 109 H, Calcium 8.1 L, Total Bilirubin 0.40, AST 11 L, ALT 17, Alkaline Phosphatase 53, Total Protein 6.7, Albumin 3.2, Globulin 3.5, Albumin/Globulin Ratio 0.9, Amylase 49, Lipase 51 L Current Medications Famotidine (Pepcid) 20 mg PO BID KAREEM Last Admin: 07/21/20 08:44 Dose: 20 mg Documented by: Fluoxetine HCl (Prozac) 60 mg PO DAILY [facility] Last Admin: 07/21/20 08:43 Dose: 60 mg Documented by: Hydrochlorothiazide () 12.5 mg PO DAILY [facility] Last Admin: 07/21/20 08:44 Dose: 12.5 mg Documented by: Hydromorphone HCl (Dilaudid Inj) 0.5 - 1 mg IV Q2H PRN PRN PRN Reason: Pain Score 1-10/10 Last Admin: 07/21/20 14:16 Dose: 1 mg Documented by: Piperacillin Sod/Tazobactam (Sod 3.375 gm/ Sodium Chloride) 50 mls @ 12.5 mls/hr IV Q8 [facility] Last Admin: 07/21/20 14:09 Dose: 12.5 mls/hr Documented by: Lactated Ringer's () 1,000 mls @ 50 mls/hr IV .Q20H KAREEM Last Infusion: 07/21/20 10:27 Dose: 0 mls/hr Documented by: Sodium Chloride () 250 mls @ 15 mls/hr IV .[id number] PRN PRN Reason: Saline Flush Last Infusion: 07/21/20 14:10 Dose: 0 mls/hr Documented by: Sodium Chloride () 250 mls @ 15 mls/hr IV .[id number] PRN PRN Reason: Additional IVPB Infusion Ondansetron HCl (Zofran) 4 mg IV Q8H PRN PRN PRN Reason: NAUSEA Oxycodone HCl (Oxyir) 5 - 10 mg PO Q4H PRN PRN PRN Reason: Pain Score 6-10/10 Last Admin: 07/21/20 10:22 Dose: 10 mg Documented by: Sodium Chloride () 10 - 40 ml IV UD PRN PRN Reason: SALINE FLUSH Last Admin: 07/21/20 14:16 Dose: 10 ml Documented by: Medical Necessity - Tobacco Use Smoking Status: Current some day smoker Tobacco Use: Cigarettes Assessment/Plan All Active Problems Acute appendicitis (Acute) Tachycardia (Acute) Postoperative day #1. We will certainly need to be in another day continue IV antibiotics will allow her to advance her diet as she sees fit. I have encouraged her to get up and ambulate as much as possible.
[2020-07-22] VITALS (10 sets, daily range): BP systolic 143–161; BP diastolic 81–96; PULSE 75–100; RESP 18–20; TEMP 36.7–37.3; O2SAT 76–98
[2020-07-22] MEDS: HYDROmorphone 0.5 MG/0.5 ML SYRINGE IV ×3 (02:45→07:48)
[2020-07-22] MEDS: Ondansetron 4 MG/2 ML Vial IV ×2 (02:48→14:44)
[2020-07-22] MEDS: Lactated Ringers 1,000 ML 50 ML IV ×2 (05:24→20:32)
[2020-07-22] MEDS: oxyCODONE 5 MG Tablet PO ×4 (05:30→21:48)
--- NOTE | 2020-07-22 07:05 | PCM.PN.HOSP ---
Patient Problems: Active and Suspected Problems Acute appendicitis (Acute) Subjective: Ms Cunningham is a 39 yo female who presented to the ED yesterday by her PCP 2/2 RLQ pain with concern for appendicitis. She evidently started have pain in her upper abdomen about 1 week ago and was seen in the ED at that time (7 days ago). All of her pain was in the epigastric region at that time. Her workup at that time was non-specific with possible pancreatitis on CT. She was discharged with close outpt follow-up. About 4 days prior to presentation the pain started moving to her mid lower abdomen and then yesterday with f/u to her PCP she was noted to have RLQ pain. Upon presentation she denied fevers, vomiting and diarrhea. A CT done in the ED showed appendicitis. She did have peritoneal signs on exam. She was started on Zosyn in the ED and was taken to the OR last evening for a laparoscopic appendectomy. Her appendix was ruptured and pus was noted. A LILLIAN drain was placed at the conclusion of surgery. She currently is afebrile and hypertensive. VSS are stable with SpO2 95%. Her white count is elevated to 13.3 with a L shift and she is mildly anemic but her lab otherwise are stable. Pt currently is c/o pain and states that she is very uncomfortable. Was just dosed with 1/2 dose Dilaudid and nsg is at bedside and will get the other 1/2 dose. Pt was upset she wasnt given the full dose and I explained that while we want her pain controlled we do not want her overmedicated so it is better to go slowly. Also explained that pain meds could increase her risk for ileus. Vitals/I&O's: Vital Signs Temp Pulse Resp BP Pulse Ox 99.1 F 100 20 H 155/96 H 95 07/22/20 02:45 07/22/20 02:45 07/22/20 02:45 07/22/20 02:45 07/22/20 02:45 Oxygen Flow Rate (L/min) 2 Oxygen Delivery Method Nasal Cannula Weight: 96.162 kg Body Mass Index (BMI) 34.2 Intake and Output for Last 24 Hours 07/20/20 07/21/20 07/22/20 23:59 23:59 23:59 Intake Total 375 / 1000 5940.91 / 5940.91 1142.42 / 1142.42 Output Total 3260 / 3260 830 / 830 Balance 375 / 1000 2680.91 / 2680.91 312.42 / 312.42 General: Alert, Oriented x3, Cooperative, No apparent distress, Well developed, Well nourished, - - Middle aged WF lying in bed, nsg at bedside, pt appears mildly uncomfortable HEENT: Atraumatic, PERRLA, EOMI, Normocephalic, EAC Clear Oral: Moist Mucosa Lungs: Clear to auscultation, Normal air movement, No rhonchi, No wheeze, No rales Cardiovascular: Regular rate, Regular Rhythm, Normal S1, Normal S2, No murmurs, No Ectopic Activity, No rub noted, No Gallop Abdomen: Bowel Sounds Present, Soft, Non-Distended, No Hepato-splenomegaly, Passing Flatus, Tender - diffusely, - - incisions noted and without sig drainage or bleeding, R LILLIAN drain noted with serous fluid in bulb Extremities: No clubbing, No cyanosis, No edema, Capillary Refill Less than 3 Seconds, Peripheral Pulses Normal Neurological: Cranial nerves II-XII grossly intact, Neuro grossly intact Psych/Mental Status: Normal Affect, Agitated, Alert and oriented to time, place, person, mood and affect Current Medications Famotidine (Pepcid) 20 mg PO BID [facility] Last Admin: 07/21/20 22:15 Dose: 20 mg Documented by: Fluoxetine HCl (Prozac) 60 mg PO DAILY [facility] Last Admin: 07/21/20 08:43 Dose: 60 mg Documented by: Hydrochlorothiazide () 12.5 mg PO DAILY [facility] Last Admin: 07/21/20 08:44 Dose: 12.5 mg Documented by: Hydromorphone HCl (Dilaudid Inj) 0.5 - 1 mg IV Q2H PRN PRN PRN Reason: Pain Score 1-10/10 Last Admin: 07/22/20 02:45 Dose: 1 mg Documented by: Piperacillin Sod/Tazobactam (Sod 3.375 gm/ Sodium Chloride) 50 mls @ 12.5 mls/hr IV Q8 [facility] Last Admin: 07/22/20 05:31 Dose: 12.5 mls/hr Documented by: Lactated Ringer's () 1,000 mls @ 50 mls/hr IV .Q20H [facility] Last Admin: 07/22/20 05:24 Dose: 50 mls/hr Documented by: Sodium Chloride () 250 mls @ 15 mls/hr IV .[id number] PRN PRN Reason: Saline Flush Last Infusion: 07/22/20 05:33 Dose: 0 mls/hr Documented by: Sodium Chloride () 250 mls @ 15 mls/hr IV .[id number] PRN PRN Reason: Additional IVPB Infusion Ondansetron HCl (Zofran) 4 mg IV Q8H PRN PRN PRN Reason: NAUSEA Last Admin: 07/22/20 02:48 Dose: 4 mg Documented by: Oxycodone HCl (Oxyir) 5 - 10 mg PO Q4H PRN PRN PRN Reason: Pain Score 6-10/10 Last Admin: 07/22/20 05:30 Dose: 10 mg Documented by: Sodium Chloride () 10 - 40 ml IV UD PRN PRN Reason: SALINE FLUSH Last Admin: 07/21/20 17:34 Dose: 10 ml Documented by: Medical Necessity - Tobacco Use Smoking Status: Current some day smoker Tobacco Use: Cigarettes Assessment/Plan All Active Problems Acute appendicitis (Acute) Tachycardia (Acute) Perforated Appendix s/p Appendectomy POD #1 -Regular diet ordered per GS -IVF are at 50 cc/hr--> continue until PO intake is adequate for fluids -pain meds -bowel regimen -continue Zosyn -IS Sepsis with Peritonitis 2/2 Ruptured Appendix -continue Zosyn would treat for a total of 7-10 days -should be able to d/c on cipro to complete course once stable Leukocytosis -as above Acute Anemia -suspect related to surgery an volume status -no s/o acute bleeding -monitor and repeat in am HTN -on HCTZ 12.5 at home -this is ordered now -will continue an monitor Depression -continue Prozac GERD -continue H2 feli DVT Prophylaxis SCD and early ambulation Code Status -Full Inpatient E&M: 08277 Subs Hosp L2
[2020-07-22 07:18] LABS: Absolute Lymphocyte Count 1.54 X10^3/uL (0.83-4.51); Absolute Neutrophil Count 8.4 X10^3/uL (2.0-7.7); Basophil# 0.03 X10^3/uL; Basophil% 0.3 % (0-1); Eosinophil# 0.08 X10^3/uL; Eosinophils% 0.7 % (0-5); Hematocrit 34.8 % (37-47); Hemoglobin 10.8 g/dL (12.0-15.0); Lymphocyte # 1.54 X10^3/ul (4.0); Lymphocyte % 13.9 % (19-41); Mean Corpuscular Hgb 28.4 pg (27.0-32.0); Mean Corpuscular Volume 91.6 fL (81-99); Mean Platelet Vol. 8.7 fl (6.2-12.0); Monocyte# 0.97 X10^3/uL; Monocyte% 8.8 % (0-10); NRBC Flagged by Analyzer 0 % (0-5); Neutrophil % 75.9 % (47-70); Platelet Count 335 K/mm3 (150-450); RBC Distribution Width CV 13.3 % (11.6-14.6); RBC Distribution Width SD 44.4 fl (35.1-43.9); White Blood Count 11.1 K/mm3 (4.4-11.0)
[2020-07-22 07:49] LABS: ALB/GLOB Ratio 0.8 RATIO (0.9-2.4); AST(SGOT) 12 U/L (15-37); Alanine Aminotransfer ALT/SGPT 14 U/L (13-56); Albumin, Serum 2.9 g/dL (3.2-5.0); Alkaline Phosphatase 55 U/L (45-117); Anion Gap 5 (5-15); BUN 9 mg/dL (7-18); BUN/Creat Ratio 8.5 RATIO (10-20); Calcium,Total 8.3 mg/dL (8.5-10.1); Chloride 103 mmol/L (98-107); Creatinine, Serum 1.06 mg/dL (0.55-1.02); EST Glomerular Filtration Rate 61 mL/min (>60); Est Glom Filt Rate - Afr Amer 74 mL/min (>60); Estimated Creatinine Clearance 67.37 ml/min; Globulin 3.7 g/dL (2.2-4.2); Glucose 108 mg/dL (74-106); Potassium 3.6 mmol/L (3.5-5.1); Protein, Total 6.6 g/dL (6.4-8.2); Sodium Level 136 mmol/L (136-145)
[2020-07-22] MEDS: HYDROmorphone 1 MG/ML Syringe IV ×2 (08:52→23:36)
[2020-07-22] MEDS: FLUoxetine 20 MG Capsule 60 MG PO (10:30)
[2020-07-22] MEDS: Famotidine 20 MG Tablet PO ×2 (10:30→21:48)
[2020-07-22] MEDS: hydroCHLOROthiazide 12.5mg 12.5 MG PO (10:30)
--- NOTE | 2020-07-22 10:43 | CT_ITS ---
STUDY: CT ABDOMEN AND PELVIS WITH CONTRAST REASON FOR EXAM: Female, 39 years old. COMPLAINING OF ABDOMINAL PAIN NOT PASSING GAS. APPY 07/20 RADIATION DOSAGE (If Supplied By Facility): CTDIvol = ( 16.62 ) mGy, DLP = ( 1345.20 ) mGycm TECHNIQUE: Transaxial images were obtained from the dome of the diaphragm to the symphysis pubis with oral contrast. Oral and amp; IV Gastrografin and amp; 100mL Isovue-370 was administered. Sagittal and coronal images were reconstructed. Individualized dose optimization techniques were used for this CT. COMPARISON: Comparison is made with prior examination dated 07/20/2020. FINDINGS: Mild degree of increased markings at the right lung base suggestive of atelectasis. The visualized portions of the heart are within normal limits. Normal liver. Normal gallbladder and extrahepatic biliary system. Normal spleen. Normal pancreas. Normal bilateral adrenal glands. Normal right kidney. Normal left kidney. Normal visualized stomach. There is evidence of diffuse circumferential wall thickening of the distal ileum and terminal ileum. Minimally distended fluid-filled small bowel loops. Contrast is seen within the colon. Normal colon. The patient is status post appendectomy. A drainage tube is seen in the right lower quadrant at the site of the surgery. There are increased markings within the peritoneal fat in the right lower quadrant most likely secondary to postsurgical changes. Normal abdominal aorta. Normal inferior vena cava. Normal retroperitoneum. Normal urinary bladder. There is a 4.8 cm x 2.1 some septated cyst in the right ovary. There is also evidence of a 2.9 cm x 1.4 cm cyst in the left ovary. Normal abdominal wall. Normal osseous structures. CT/Abdomen/Pelvis WITH Contrast IMPRESSION: Status post appendectomy with postsurgical changes seen in the right lower quadrant. Percutaneous drainage catheter is seen at the operative site. Diffuse circumferential wall thickening of the terminal ileum and distal ileum. Bilateral ovarian cysts. Electronically Signed: Camacho Staley, at 11:10 EDT , Service support ,
--- NOTE | 2020-07-22 10:56 | NURSING ---
pt to ct scan via bed
[2020-07-22] MEDS: Ketorolac 15 MG/ML Vial IV ×2 (14:43→20:33)
[2020-07-22] MEDS: 0.9% Saline Lock 10 ML Syringe IV ×2 (20:34→23:36)
[2020-07-22] MEDS: Acetaminophen 500 MG Tablet 1000 MG PO (21:47)
--- NOTE | 2020-07-22 21:50 | NURSING ---
pt walked a half lap in the tran with the high school history teacher.
[2020-07-22] MEDS: Miconazole-7 Nitrate Cream 1 APPLIC VAGINAL (23:08)
--- NOTE | 2020-07-22 23:57 | NURSING ---
Removed fingernail mosotho and replaced pulse ox sensor. O2 sats immediately improved.
[2020-07-23 03:22] VITALS: BP 124/78; PULSE 87; RESP 16; TEMP 36.7; O2SAT 93
[2020-07-23] MEDS: Ketorolac 15 MG/ML Vial IV ×4 (03:23→20:42)
--- NOTE | 2020-07-23 05:47 | NURSING ---
Pt states she passed gas
[2020-07-23] MEDS: oxyCODONE 5 MG Tablet PO ×4 (05:48→23:13)
[2020-07-23] MEDS: Acetaminophen 500 MG Tablet 1000 MG PO ×3 (05:53→20:51)
[2020-07-23 08:19] LABS: Absolute Lymphocyte Count 0.86 X10^3/uL (0.83-4.51); Absolute Neutrophil Count 4.7 X10^3/uL (2.0-7.7); Basophil# 0.01 X10^3/uL; Basophil% 0.2 % (0-1); Eosinophil# 0.13 X10^3/uL; Eosinophils% 2.1 % (0-5); Hematocrit 34.4 % (37-47); Hemoglobin 10.8 g/dL (12.0-15.0); Lymphocyte # 0.86 X10^3/ul (4.0); Lymphocyte % 13.7 % (19-41); Mean Corp Hgb Conc 31.4 g/dL (32-36); Mean Corpuscular Hgb 28.4 pg (27.0-32.0); Mean Corpuscular Volume 90.5 fL (81-99); Mean Platelet Vol. 8.7 fl (6.2-12.0); Monocyte% 9.5 % (0-10); NRBC Flagged by Analyzer 0 % (0-5); Neutrophil # 4.66 X10^3/uL (2.7-7.7); Platelet Count 330 K/mm3 (150-450); RBC Distribution Width SD 42.9 fl (35.1-43.9); White Blood Count 6.3 K/mm3 (4.4-11.0)
--- NOTE | 2020-07-23 08:21 | PN_ITS ---
Patient Problems: Active and Suspected Problems Acute appendicitis (Acute) Subjective: Chief complaint: Follow-up after consultation for postoperative medical management. Patient seen and examined. No acute events overnight. This morning, she still complaining of abdominal pain but improved. Still complaining of nausea without vomiting. She had episode of diarrhea. She denies fever or chills. She has been afebrile, other vital signs are stable. - Physical Exam Vitals/I&O's: Vital Signs Temp Pulse Resp BP Pulse Ox 98.1 F 87 16 124/78 H 93 07/23/20 03:22 07/23/20 03:22 07/23/20 03:22 07/23/20 03:22 07/23/20 03:22 Oxygen Flow Rate (L/min) 2 Oxygen Delivery Method Room Air Weight: 212 lb 1.355 oz Body Mass Index (BMI) 34.2 Intake and Output for Last 24 Hours 07/21/20 07/22/20 07/23/20 23:59 23:59 23:59 Intake Total 5940.91 / 5940.91 2672.42 / 2672.42 486.25 / 486.25 Output Total 3260 / 3260 3460 / 3460 860 / 860 Balance 2680.91 / 2680.91 -787.58 / -787.58 -373.75 / -373.75 General: Alert, Oriented x3, Cooperative, - - She is in mild to moderate pain. HEENT: Atraumatic, PERRLA, EOMI, Normocephalic Oral: Moist Mucosa, No Gingival or Mucosal Lesions/ Ulcerations Neck: Supple, No JVD, Negative Carotid Bruits, Trachea Midline, Thyroid Normal Size and Texture Lungs: Clear to auscultation, Normal air movement, No rhonchi, No wheeze, No rales, Diminished Cardiovascular: Regular rate, Regular Rhythm, Normal S1, Normal S2, PMI Normal Abdomen: Soft, Non-Distended, No Hepato-splenomegaly, Hypoactive Bowel Sounds, Tender Extremities: No clubbing, No cyanosis, No edema Skin: No rashes, No breakdown Lymphatic: No Cervical, Supraclavicular, or Inguinal Adenopathy Neurological: Cranial nerves II-XII grossly intact, Neuro grossly intact Psych/Mental Status: Normal Affect, Appropriate, Alert and oriented to time, place, person, mood and affect Laboratory Results 10/01/20 07:45: WBC 6.3, RBC 3.80 L, Hgb 10.8 L, Hct 34.4 L, MCV 90.5, MCH 28.4, MCHC 31.4 L, RDW Std Deviation 42.9, RDW Coeff of Lyndsey 13.0, Plt Count 330, MPV 8.7, Immature Gran % (Auto) 0.500, Neut % (Auto) 74.0 H, Lymph % (Auto) 13.7 L, [place] % (Auto) 9.5, Eos % (Auto) 2.1, Baso % (Auto) 0.2, Absolute Neuts (auto) 4.7, Absolute Lymphs (auto) 0.86, Nucleated RBC % 0 Current Medications Acetaminophen (Tylenol) 1,000 mg PO Q8 [facility] Last Admin: 07/23/20 05:53 Dose: 1,000 mg Documented by: Famotidine (Pepcid) 20 mg PO BID [facility] Last Admin: 07/22/20 21:48 Dose: 20 mg Documented by: Fluoxetine HCl (Prozac) 60 mg PO DAILY [facility] Last Admin: 07/22/20 10:30 Dose: 60 mg Documented by: Hydrochlorothiazide () 12.5 mg PO DAILY [facility] Last Admin: 07/22/20 10:30 Dose: 12.5 mg Documented by: Hydromorphone HCl (Dilaudid Inj) 1 - 2 mg IV Q2H PRN PRN PRN Reason: Pain Score 1-10/10 Last Admin: 07/22/20 23:36 Dose: 1 mg Documented by: Piperacillin Sod/Tazobactam (Sod 3.375 gm/ Sodium Chloride) 50 mls @ 12.5 mls/hr IV Q8 [facility] Last Admin: 07/23/20 05:54 Dose: 12.5 mls/hr Documented by: Sodium Chloride () 250 mls @ 15 mls/hr IV .[id number] PRN PRN Reason: Saline Flush Last Infusion: 07/23/20 05:54 Dose: 0 mls/hr Documented by: Sodium Chloride () 250 mls @ 15 mls/hr IV .[id number] PRN PRN Reason: Additional IVPB Infusion Lactated Ringer's () 1,000 mls @ 50 mls/hr IV .Q20H [facility] Last Admin: 07/22/20 20:32 Dose: 50 mls/hr Documented by: Ketorolac Tromethamine (Toradol (Bkc)) 15 mg IV Q6H [facility] Stop: 07/23/20 21:01 Last Admin: 07/23/20 03:23 Dose: 15 mg Documented by: Miconazole Nitrate (Monistat 7) 1 applic VAGINAL QHS [facility] Last Admin: 07/22/20 23:08 Dose: 1 applicatio Documented by: Ondansetron HCl (Zofran) 4 mg IV Q8H PRN PRN PRN Reason: NAUSEA Last Admin: 07/22/20 14:44 Dose: 4 mg Documented by: Oxycodone HCl (Oxyir) 5 - 10 mg PO Q4H PRN PRN PRN Reason: Pain Score 6-10/10 Last Admin: 07/23/20 05:48 Dose: 10 mg Documented by: Sodium Chloride () 10 - 40 ml IV UD PRN PRN Reason: SALINE FLUSH Last Admin: 07/22/20 23:36 Dose: 10 ml Documented by: Medical Necessity - Tobacco Use Smoking Status: Current some day smoker Tobacco Use: Cigarettes Assessment/Plan All Active Problems Acute appendicitis (Acute) This is a 39 years old female patient presented to the emergency room because of abdominal pain, found to have acute appendicitis on CT scan abdomen, underwent laparoscopic appendectomy and she was found to have perforation with generalized peritonitis and without abscess formation. #1 acute perforated appendicitis/peritonitis: Status post laparoscopic appendectomy, postoperative day 3. Patient is on IV Zosyn, IV fluids and IV Dilaudid for pain. She is still having abdominal pain with nausea but improving. She has been afebrile, WBC is back to normal. LFT was unremarkable. Serum was negative. Lipase was normal. She is on full liquid diet. General surgery on the case. Plan to continue same treatment. #2 anemia: Acute postoperative anemia due to surgery and hemodilution. Baseline hemoglobin has been normal. Today's hemoglobin is 10.8 g/dL, no evidence of active bleeding. No indication for blood transfusion. Plan to monitor. #3 hypertension: Blood pressure stable, continue HCTZ. #4 depression: Stable, continue Prozac. #5 GERD: Continue Pepcid. #6 DVT prophylaxis: SCDs, ambulate. This note was generated with [employer] dictation software. It may contain incorrect words, spelling, and punctuation that were not noted in checking the note before signing. Inpatient E&M: 80452 Subs Hosp L2
[2020-07-23 08:50] VITALS: BP 134/82; PULSE 88; RESP 16; TEMP 36.9; O2SAT 93
[2020-07-23] MEDS: FLUoxetine 20 MG Capsule 60 MG PO (08:59)
[2020-07-23] MEDS: Famotidine 20 MG Tablet PO ×2 (08:59→20:51)
[2020-07-23] MEDS: hydroCHLOROthiazide 12.5mg 12.5 MG PO (08:59)
--- NOTE | 2020-07-23 09:55 | PN.SURG_ITS ---
Patient Problems: Active and Suspected Problems Acute appendicitis (Acute) Subjective: Patient states she feels slightly better than she did yesterday. She is passing some gas. She still has some nausea. Objective: Abdomen is soft she is tender around her incisions. - Physical Exam Vitals/I&O's: Vital Signs Temp Pulse Resp BP Pulse Ox 98.4 F 88 16 134/82 H 93 07/23/20 08:50 07/23/20 08:50 07/23/20 08:50 07/23/20 08:50 07/23/20 08:50 Oxygen Flow Rate (L/min) 2 Oxygen Delivery Method Room Air Weight: 212 lb 1.355 oz Body Mass Index (BMI) 34.2 Intake and Output for Last 24 Hours 07/21/20 07/22/20 07/23/20 23:59 23:59 23:59 Intake Total 5940.91 / 5940.91 2672.42 / 2672.42 536.25 / 536.25 Output Total 3260 / 3260 3460 / 3460 860 / 860 Balance 2680.91 / 2680.91 -787.58 / -787.58 -323.75 / -323.75 Laboratory Results 07/23/20 07:45: WBC 6.3, RBC 3.80 L, Hgb 10.8 L, Hct 34.4 L, MCV 90.5, MCH 28.4, MCHC 31.4 L, RDW Std Deviation 42.9, RDW Coeff of Lyndsey 13.0, Plt Count 330, MPV 8.7, Immature Gran % (Auto) 0.500, Neut % (Auto) 74.0 H, Lymph % (Auto) 13.7 L, [place] % (Auto) 9.5, Eos % (Auto) 2.1, Baso % (Auto) 0.2, Absolute Neuts (auto) 4.7, Absolute Lymphs (auto) 0.86, Nucleated RBC % 0 Current Medications Acetaminophen (Tylenol) 1,000 mg PO Q8 [facility] Last Admin: 07/23/20 05:53 Dose: 1,000 mg Documented by: Famotidine (Pepcid) 20 mg PO BID [facility] Last Admin: 07/23/20 08:59 Dose: 20 mg Documented by: Fluoxetine HCl (Prozac) 60 mg PO DAILY [facility] Last Admin: 07/23/20 08:59 Dose: 60 mg Documented by: Hydrochlorothiazide () 12.5 mg PO DAILY [facility] Last Admin: 07/23/20 08:59 Dose: 12.5 mg Documented by: Hydromorphone HCl (Dilaudid Inj) 1 - 2 mg IV Q2H PRN PRN PRN Reason: Pain Score 1-10/10 Last Admin: 07/22/20 23:36 Dose: 1 mg Documented by: Piperacillin Sod/Tazobactam (Sod 3.375 gm/ Sodium Chloride) 50 mls @ 12.5 mls/hr IV Q8 [facility] Last Infusion: 07/23/20 09:54 Dose: Infused Documented by: Sodium Chloride () 250 mls @ 15 mls/hr IV .[id number] PRN PRN Reason: Saline Flush Last Infusion: 07/23/20 09:54 Dose: 15 mls/hr Documented by: Sodium Chloride () 250 mls @ 15 mls/hr IV .[id number] PRN PRN Reason: Additional IVPB Infusion Lactated Ringer's () 1,000 mls @ 50 mls/hr IV .Q20H [facility] Last Admin: 07/22/20 20:32 Dose: 50 mls/hr Documented by: Ketorolac Tromethamine (Toradol (Bkc)) 15 mg IV Q6H [facility] Stop: 07/23/20 21:01 Last Admin: 07/23/20 08:59 Dose: 15 mg Documented by: Miconazole Nitrate (Monistat 7) 1 applic VAGINAL QHS [facility] Last Admin: 07/22/20 23:08 Dose: 1 applicatio Documented by: Ondansetron HCl (Zofran) 4 mg IV Q8H PRN PRN PRN Reason: NAUSEA Last Admin: 07/22/20 14:44 Dose: 4 mg Documented by: Oxycodone HCl (Oxyir) 5 - 10 mg PO Q4H PRN PRN PRN Reason: Pain Score 6-10/10 Last Admin: 07/23/20 05:48 Dose: 10 mg Documented by: Sodium Chloride () 10 - 40 ml IV UD PRN PRN Reason: SALINE FLUSH Last Admin: 07/22/20 23:36 Dose: 10 ml Documented by: Medical Necessity - Tobacco Use Smoking Status: Current some day smoker Tobacco Use: Cigarettes Assessment/Plan All Active Problems Acute appendicitis (Acute) Postoperative day #2. Continue the antibiotics were making headway's with regards to her white count and her blood pressure hopefully will be able to get her home tomorrow.
[2020-07-23] MEDS: Lactated Ringers 1,000 ML 50 ML IV (13:45)
[2020-07-23 13:50] VITALS: BP 130/87; PULSE 101; RESP 16; TEMP 36.8; O2SAT 95
[2020-07-23] MEDS: Ondansetron 4 MG/2 ML Vial IV (15:29)
[2020-07-23] MEDS: Miconazole-7 Nitrate Cream 1 APPLIC VAGINAL (20:45)
[2020-07-23 20:55] VITALS: BP 149/95; PULSE 86; RESP 16; TEMP 37.5; O2SAT 98
[2020-07-24 02:28] VITALS: BP 129/75; PULSE 78; RESP 18; TEMP 36.9; O2SAT 92
[2020-07-24] MEDS: Acetaminophen 500 MG Tablet 1000 MG PO (06:12)
[2020-07-24] MEDS: oxyCODONE 5 MG Tablet PO ×2 (06:12→10:48)
[2020-07-24 07:06] VITALS: O2SAT 94
--- NOTE | 2020-07-24 07:46 | PN_ITS ---
Patient Problems: Active and Suspected Problems Acute appendicitis (Acute) Subjective: Chief complaint: Follow-up after consultation for postoperative medical management Patient seen and examined. No acute events overnight. Abdominal pain continue to improve slowly, sometimes gets worse upon standing but it is tolerable. David ed fever or chills. She has been tolerating full liquid diet. Vital signs are stable. - Physical Exam Vitals/I&O's: Vital Signs Temp Pulse Resp BP Pulse Ox 98.4 F 78 18 129/75 H 94 07/24/20 02:28 07/24/20 02:28 07/24/20 02:28 07/24/20 02:28 07/24/20 07:06 Oxygen Flow Rate (L/min) 2 Oxygen Delivery Method Room Air Weight: 212 lb 1.355 oz Body Mass Index (BMI) 34.2 Intake and Output for Last 24 Hours 07/22/20 07/23/20 07/24/20 23:59 23:59 23:59 Intake Total 2672.42 / 2672.42 2101.08 / 2101.08 130.5 / 130.5 Output Total 3460 / 3460 1120 / 1200 160 / 160 Balance -787.58 / -787.58 981.08 / 901.08 -29.5 / -29.5 General: Alert, Oriented x3, Cooperative, No apparent distress HEENT: Atraumatic, PERRLA, EOMI, Normocephalic Oral: Moist Mucosa, No Gingival or Mucosal Lesions/ Ulcerations Neck: Supple, No JVD, Negative Carotid Bruits, Trachea Midline, Thyroid Normal Size and Texture Lungs: Clear to auscultation, Normal air movement, No rhonchi, No wheeze, No rales Cardiovascular: Regular rate, Regular Rhythm, Normal S1, Normal S2, PMI Normal Abdomen: Bowel Sounds Present, Soft, Non-Distended, No Hepato-splenomegaly, Tend er Extremities: No clubbing, No cyanosis, No edema Skin: No rashes, No breakdown Lymphatic: No Cervical, Supraclavicular, or Inguinal Adenopathy Neurological: Cranial nerves II-XII grossly intact, Neuro grossly intact Psych/Mental Status: Normal Affect, Appropriate, Alert and oriented to time, place, person, mood and affect Laboratory Results 07/23/20 07:45: WBC 6.3, RBC 3.80 L, Hgb 10.8 L, Hct 34.4 L, MCV 90.5, MCH 28.4, MCHC 31.4 L, RDW Std Deviation 42.9, RDW Coeff of Lyndsey 13.0, Plt Count 330, MPV 8.7, Immature Gran % (Auto) 0.500, Neut % (Auto) 74.0 H, Lymph % (Auto) 13.7 L, [place] % (Auto) 9.5, Eos % (Auto) 2.1, Baso % (Auto) 0.2, Absolute Neuts (auto) 4.7, Absolute Lymphs (auto) 0.86, Nucleated RBC % 0 Current Medications Acetaminophen (Tylenol) 1,000 mg PO Q8 [facility] Last Admin: 07/24/20 06:12 Dose: 1,000 mg Documented by: Famotidine (Pepcid) 20 mg PO BID [facility] Last Admin: 07/23/20 20:51 Dose: 20 mg Documented by: Fluoxetine HCl (Prozac) 60 mg PO DAILY [facility] Last Admin: 07/23/20 08:59 Dose: 60 mg Documented by: Hydrochlorothiazide () 12.5 mg PO DAILY [facility] Last Admin: 07/23/20 08:59 Dose: 12.5 mg Documented by: Hydromorphone HCl (Dilaudid Inj) 1 - 2 mg IV Q2H PRN PRN PRN Reason: Pain Score 1-10/10 Last Admin: 07/22/20 23:36 Dose: 1 mg Documented by: Piperacillin Sod/Tazobactam (Sod 3.375 gm/ Sodium Chloride) 50 mls @ 12.5 mls/hr IV Q8 [facility] Last Admin: 07/24/20 06:12 Dose: 12.5 mls/hr Documented by: Sodium Chloride () 250 mls @ 15 mls/hr IV .[id number] PRN PRN Reason: Saline Flush Last Infusion: 07/24/20 06:12 Dose: 0 mls/hr Documented by: Sodium Chloride () 250 mls @ 15 mls/hr IV .[id number] PRN PRN Reason: Additional IVPB Infusion Lactated Ringer's () 1,000 mls @ 50 mls/hr IV .Q20H [facility] Last Admin: 07/23/20 13:45 Dose: 50 mls/hr Documented by: Miconazole Nitrate (Monistat 7) 1 applic VAGINAL QHS [facility] Last Admin: 07/23/20 20:45 Dose: 1 applicatio Documented by: Ondansetron HCl (Zofran) 4 mg IV Q8H PRN PRN PRN Reason: NAUSEA Last Admin: 07/23/20 15:29 Dose: 4 mg Documented by: Oxycodone HCl (Oxyir) 5 - 10 mg PO Q4H PRN PRN PRN Reason: Pain Score 6-10/10 Last Admin: 07/24/20 06:12 Dose: 10 mg Documented by: Sodium Chloride () 10 - 40 ml IV UD PRN PRN Reason: SALINE FLUSH Last Admin: 07/22/20 23:36 Dose: 10 ml Documented by: Medical Necessity - Tobacco Use Smoking Status: Current some day smoker Tobacco Use: Cigarettes Assessment/Plan All Active Problems Acute appendicitis (Acute) This is a 39 years old female patient presented to the emergency room because of abdominal pain, found to have acute appendicitis on CT scan abdomen, underwent laparoscopic appendectomy and she was found to have perforation with generalized peritonitis and without abscess formation. #1 acute perforated appendicitis/peritonitis: Status post laparoscopic appendectomy, postoperative day 4. Remained on IV Zosyn, IV fluids and IV Dilaudid for pain. Abdominal pain has been improving slowly, pain is manageable. She is tolerating full liquid diet. Her vital signs are stable, afebrile. LFT was unremarkable. Serum was negative. Lipase was normal. General surgery on the case. Possible DC home today. #2 anemia: Acute postoperative anemia due to surgery and hemodilution. Baseline hemoglobin has been normal. Yesterday's hemoglobin is 10.8 g/dL, no evidence of active bleeding. No indication for blood transfusion. #3 hypertension: Blood pressure stable, continue HCTZ. #4 depression: Stable, continue Prozac. #5 GERD: Continue Pepcid. #6 DVT prophylaxis: SCDs, ambulate. This note was generated with [employer] dictation software. It may contain incorrect words, spelling, and punctuation that were not noted in checking the note before signing. Inpatient E&M: 99650 Subs Hosp L2
[2020-07-24 08:06] VITALS: BP 156/90; PULSE 80; RESP 16; TEMP 36.9; O2SAT 94
[2020-07-24] MEDS: Lactated Ringers 1,000 ML 50 ML IV (08:27)
[2020-07-24] MEDS: hydroCHLOROthiazide 12.5mg 12.5 MG PO (09:31)
[2020-07-24] MEDS: FLUoxetine 20 MG Capsule 60 MG PO (09:31)
[2020-07-24] MEDS: Famotidine 20 MG Tablet PO (09:31)
[2020-07-24] MEDS: Acetaminophen 325 MG Tablet PO (10:48)
[2020-07-24 11:19] VITALS: BP 156/90; PULSE 80; RESP 16; TEMP 36.9; O2SAT 94
--- NOTE | 2020-07-24 11:19 | PCM.DC.APPY ---
Discharge Diet: Light diet - advance as tolerated - if you have questions about your diet instructions, please talk to you doctor. Discharge Activity: May Not Drive - for 3-5 days or while taking narcotic pain meds. May shower in (days): 1 Call your doctor if your incision/area has: Continuous Slow Oozing, Sudden Increased Bleeding, Increased Pain/ Swelling, Increased Redness, Foul Smelling Discharge Call your doctor if you observe: Fever of 101 or Higher Suture Line Care: Avoid Pulling/Pushing, Avoid Pinching/Bending Additional Dressing/Incision Instructions:: Keep dressing clean and dry. Change or remove dressing in 2 days. Leave steri strips for 1 week. May protect with a gauze bandaid. Medications to take at Discharge Fluoxetine [Prozac] 60 mg PO DAILY 02/28/14 Hydrochlorothiazide [Hctz] 12.5 mg PO DAILY 11/10/16 Famotidine [Pepcid] 20 mg PO BID #28 tab 07/14/20 Ondansetron [Zofran Odt] 4 mg PO Q8H PRN PRN #10 tab 07/14/20 Gabapentin 300 mg PO QHS 07/21/20 busPIRone [Buspar] 5 mg PO TID 07/21/20 Oxycodone HCl/Acetaminophen [Percocet 5/325] 1 - 2 tablet PO Q4H PRN PRN 6 Days #30 tablet 07/24/20 Allergies/Adverse Reactions: Allergies No Known Allergies Allergy (Verified 07/20/20 18:42) The following prescriptions were given: Oxycodone HCl/Acetaminophen [Percocet 5/325] 1 - 2 tablet PO Q4H PRN PRN 6 Days #30 tablet PRN Reason: Pain Transmission Status: Received by NATALIYA CHUN-1953 [facility] Primary Care Physician: Basilio Dunham MD [Primary Care Provider] - Test Results: Test results from this visit will be discussed in further detail at your follow-up appointment, if applicable. Please Follow Up With: Adarsh Baer MD - [phone] When: Call to make a follow up appointment with your doctor in 1 week.
--- NOTE | 2020-07-24 11:21 | PCM.DC.SUM ---
Discharge Date and Diagnosis - Problem List Patient Problems: Active and Suspected Problems Acute appendicitis (Acute) Date of Admission: 08/19/20 Date of Discharge: 07/24/20 - Primary Discharge Diagnosis Acute Problems: Active Problems Acute appendicitis (Acute) - Secondary Discharge Diagnosis Chronic Problems: Chronic Problems GERD (gastroesophageal reflux disease) (Chronic) Hypertension (Chronic) Depression (Chronic) Tobacco use disorder (Chronic) Hospital Course and Treatment Operations: appendectomy - Laparoscopic appendectomy Summary of Care Provided: The patient is a 39 year old F who presented with a ruptured retrocecal appendicitis. Subsequently underwent a laparoscopic appendectomy with a drain placed on the she was continued on IV antibiotics her course improved over the next several days LILLIAN only had serous fluid coming out of it her white count improved to normalization. She is tolerating a diet. Her LILLIAN was removed and she was subsequently discharged home. She was not given any antibiotics. She was given a prescription for Percocet. Patient Problems: Active and Suspected Problems Acute appendicitis (Acute) Subjective: Pain is improved. Having bowel movements. Objective: LILLIAN drain was removed. Dressings are dry. - Physical Exam Vitals/I&O's: Vital Signs Temp Pulse Resp BP Pulse Ox 98.5 F 80 16 156/90 H 94 07/24/20 08:06 07/24/20 08:06 07/24/20 08:06 07/24/20 08:06 07/24/20 08:06 Oxygen Flow Rate (L/min) 2 Oxygen Delivery Method Room Air Weight: 212 lb 1.355 oz Body Mass Index (BMI) 34.2 Intake and Output for Last 24 Hours 07/22/20 07/23/20 07/24/20 23:59 23:59 23:59 Intake Total 2672.42 / 2672.42 2101.08 / 2101.08 1218.0 / 1218.0 Output Total 3460 / 3460 1120 / 1200 160 / 160 Balance -787.58 / -787.58 981.08 / 901.08 1058.0 / 1058.0 Current Medications Acetaminophen (Tylenol) 1,000 mg PO Q8 [facility] Last Admin: 07/24/20 06:12 Dose: 1,000 mg Documented by: Famotidine (Pepcid) 20 mg PO BID [facility] Last Admin: 07/24/20 09:31 Dose: 20 mg Documented by: Fluoxetine HCl (Prozac) 60 mg PO DAILY [facility] Last Admin: 07/24/20 09:31 Dose: 60 mg Documented by: Hydrochlorothiazide () 12.5 mg PO DAILY [facility] Last Admin: 07/24/20 09:31 Dose: 12.5 mg Documented by: Hydromorphone HCl (Dilaudid Inj) 1 - 2 mg IV Q2H PRN PRN PRN Reason: Pain Score 1-10/10 Last Admin: 07/22/20 23:36 Dose: 1 mg Documented by: Piperacillin Sod/Tazobactam (Sod 3.375 gm/ Sodium Chloride) 50 mls @ 12.5 mls/hr IV Q8 [facility] Last Infusion: 07/24/20 10:12 Dose: Infused Documented by: Sodium Chloride () 250 mls @ 15 mls/hr IV .[id number] PRN PRN Reason: Saline Flush Last Infusion: 07/24/20 07:00 Dose: Infused Documented by: Sodium Chloride () 250 mls @ 15 mls/hr IV .[id number] PRN PRN Reason: Additional IVPB Infusion Lactated Ringer's () 1,000 mls @ 50 mls/hr IV .Q20H [facility] Last Infusion: 07/24/20 10:30 Dose: Infused Documented by: Miconazole Nitrate (Monistat 7) 1 applic VAGINAL QHS [facility] Last Admin: 07/23/20 20:45 Dose: 1 applicatio Documented by: Ondansetron HCl (Zofran) 4 mg IV Q8H PRN PRN PRN Reason: NAUSEA Last Admin: 07/23/20 15:29 Dose: 4 mg Documented by: Oxycodone HCl (Oxyir) 5 - 10 mg PO Q4H PRN PRN PRN Reason: Pain Score 6-10/10 Last Admin: 07/24/20 06:12 Dose: 10 mg Documented by: Sodium Chloride () 10 - 40 ml IV UD PRN PRN Reason: SALINE FLUSH Last Admin: 07/22/20 23:36 Dose: 10 ml Documented by: Discharge Diet: Light diet - advance as tolerated - if you have questions about your diet instructions, please talk to you doctor. Discharge Activity: May Not Drive - for 3-5 days or while taking narcotic pain meds. May shower in (days): 1 Call your doctor if your incision/area has: Continuous Slow Oozing, Sudden Increased Bleeding, Increased Pain/ Swelling, Increased Redness, Foul Smelling Discharge Call your doctor if you observe: Fever of 101 or Higher Suture Line Care: Avoid Pulling/Pushing, Avoid Pinching/Bending Additional Dressing/Incision Instructions:: Keep dressing clean and dry. Change or remove dressing in 2 days. Leave steri strips for 1 week. May protect with a gauze bandaid. Home Medications: Medications to take at Discharge Fluoxetine [Prozac] 60 mg PO DAILY 02/28/14 Hydrochlorothiazide [Hctz] 12.5 mg PO DAILY 11/10/16 Famotidine [Pepcid] 20 mg PO BID #28 tab 07/14/20 Ondansetron [Zofran Odt] 4 mg PO Q8H PRN PRN #10 tab 07/14/20 Gabapentin 300 mg PO QHS 07/21/20 busPIRone [Buspar] 5 mg PO TID 07/21/20 Oxycodone HCl/Acetaminophen [Percocet 5/325] 1 - 2 tablet PO Q4H PRN PRN 6 Days #30 tablet 07/24/20 Following Prescriptions Were Given to Patient: Oxycodone HCl/Acetaminophen [Percocet 5/325] 1 - 2 tablet PO Q4H PRN PRN 6 Days #30 tablet PRN Reason: Pain Transmission Status: Received by NATALIYA CHUN-1953 [facility] Primary Care Physician: Basilio Dunham MD [Primary Care Provider] - Please Follow Up With: Adarsh Baer MD - [phone] When: Call to make a follow up appointment with your doctor in 1 week. Medical Necessity - Tobacco Use Smoking Status: Current some day smoker Tobacco Use: Cigarettes Meaningful Use Info Meaningful Use Diagnoses (Choose all that apply): None applicable
== END 2020-07-24 12:07 | disposition home or self-care (01) | DRG 233 ==
LOC: ED 20:41 → MS3 23:11
PROVIDERS: Admitting Provider Surgery; Emergency Provider Emergency Medicine; PCP Family Medicine; Referring Provider Surgery; Visit Provider Surgery
PROC: 0DTJ4ZZ Resection of Appendix, Percutaneous Endoscopic Approach (ICD-10-PCS; CPT 44970; principal; 2020-07-20 23:45)
DX: K35.32 Acute appendicitis with perforation, localized peritonitis, and gangrene, without abscess (principal); I10 Essential (primary) hypertension; Z23 Encounter for immunization; F17.210 Nicotine dependence, cigarettes, uncomplicated; R00.0 Tachycardia, unspecified; F32.9 Major depressive disorder, single episode, unspecified; K21.9 Gastro-esophageal reflux disease without esophagitis; D64.9 Anemia, unspecified; F41.9 Anxiety disorder, unspecified
CPT/HCPCS: 36415; 74177; 80048; 80053; 80076; 81001; 82150; 83690; 84703; 85025; 85610; 85730; 86850; 86900; 86901; 88304; 99251; 99284; 99406; J7030; J7050; J7120; Q9967; 90686; A4216; C1760; G0463; J2405

== ENCOUNTER 2021-05-09 00:48 | Emergency (ER) | payer MEDICAID, SELFPAY ==
[2020-07-21 02:18] VITALS: BMI 34.2
[2021-05-09] VITALS (7 sets, daily range): BP systolic 93–138; BP diastolic 58–105; PULSE 91–110; RESP 16–24; TEMP 36.2; O2SAT 84–97; BMI 33.7
--- NOTE | 2021-05-09 01:09 | EX.ED.SAOD ---
HPI History of Present Illness Chief Complaint: Overdose Detail of Chief Complaint: Patient went unconscious after a dose of IV heroin tonight. She states she Informant: patient and EMS Onset/Context/Timing Onset: Today Context: Sudden Onset Timing: Continuous Current Severity: Gone Maximum Severity: Severe Associated Symptoms Associated Symptoms: Negative for vomiting*, diarrhea* and fever* Narrative Narrative: 40-year-old female said she is new to using heroin. Was injected with IV heroin in her right arm earlier tonight. Reportedly at the scene by bystanders she was given Narcan x2. Squad gave her to intranasally and to IV to revive her. She reportedly was not cyanotic. She denies any complaints. No headache, chest pain, shortness of breath or abdominal pain. She denies any injury. Reportedly was sitting down when she went unconscious from the overdose. She also states she has been drinking today. Prior similar symptoms: No Recent Illness/Hospitalization: No [facility] Medical History Acute appendicitis Depression GERD (gastroesophageal reflux disease) Hypertension Tobacco use disorder Home Medications fluoxetine 60 mg PO DAILY 02/28/14 [History Last Taken 07/19/20 22:00] gabapentin 300 mg PO QHS 05/09/21 [History Last Taken Unknown] lisinopril 10 mg PO DAILY 05/09/21 [History Last Taken Unknown] lorazepam 05/09/21 [History Last Taken Unknown] Allergy/AdvReac Type Severity Reaction Status Date / Time No Known Allergies Allergy Verified 05/09/21 00:49 Surgical History History of laparoscopic appendectomy (~07/20/20) Social History Smoking Status: Current some day smoker tobacco type: cigarettes ROS ROS ED ROS Narrative Denies any recent illness. Review of Systems ROS Unobtainable: Denies due to encephalopathy Constitutional Constitutional ED: Denies fever(s) Eyes Eyes: Denies change in vision ENT ENT ED: Denies ear pain Cardiovascular Cardiovascular: Denies chest pain Respiratory/Chest Respiratory/Chest: Denies cough or dyspnea Gastrointestinal Gastrointestinal: Denies abdominal pain, diarrhea, nausea or vomiting Genitourinary Genitourinary ED: Denies dysuria or urinary frequency Musculoskeletal Musculoskeletal: Denies arthralgias or myalgias Integumentary Denies rash Neurologic Neurologic: Denies headache(s) Psychiatric Psychiatric: Denies depression Endocrine Endocrinology: Denies polydipsia or polyuria Hematologic/Lymphatic Hematologic/Lymphatic: Denies easy bruising Allergic/Immunologic Allergic/Immunologic ED: Denies urticaria EXAM Physical Exam Narrative Exam Narrative: Middle-aged female no acute distress. Vital signs stable afebrile. Does not look septic or toxic. Currently no acute distress. Awake and alert. H EENT exam unremarkable. Atraumatic. Neck nontender. Lungs clear to auscultation bilaterally. Heart regular rhythm rate about 110 no murmur. Chest wall nontender. Abdomen soft nontender. Moving all 4 extremities. Neurovascularly intact. Nontender. No edema. Bruising right forearm track ho right forearm. No infection. No warmth or redness. No cellulitis. Back nontender. Neurologically she is awake and alert. She is answering questions and following commands. She is forthcoming with answering the questions. Const Vital Signs: 05/09/21 00:52 05/09/21 01:25 05/09/21 01:43 Temperature 97.1 F L Temperature Source Oral Pulse Rate 110 H Respiratory Rate 16 Blood Pressure 138/105 H Blood Pressure Mean 116 Pulse Ox 95 92 96 Oxygen Delivery Method Room Air Nasal Cannula Nasal Cannula Oxygen Flow Rate (L/min) 4 05/09/21 02:43 05/09/21 03:34 05/09/21 04:26 Temperature Temperature Source Pulse Rate 91 100 95 Respiratory Rate 21 H 22 H 24 H Blood Pressure 99/63 122/87 H 93/58 L Blood Pressure Mean 75 98 69 Pulse Ox 97 97 93 Oxygen Delivery Method Nasal Cannula Nasal Cannula Room Air Oxygen Flow Rate (L/min) 2 2 Positive well nourished and well developed; Negative for unkempt General Appearance ED: well developed and NAD; Negative for unkempt HEENT Reports moist mucous membranes atraumatic; Negative for trauma or tenderness Eyes PERRL and EOMs intact bilaterally Neck no lymphadenopathy, supple and no JVD Thyroid: Negative for tender Lymph Lymphatic: no lymphadenopathy noted Chest Wall inspection of chest normal and palpation of chest normal Resp normal respiratory effort and clear to auscultation bilaterally Cardio regular rhythm, S1 normal heart sound, S2 normal heart sound and no murmurs Cardio Narrative: No murmur appreciated. Rate: tachycardic GI soft to palpation, non-tender, non-distended and no masses Inspection: Negative for abdominal distention Palpation: Negative for tender, guarding or rigid Back/Spine no CVA tenderness Extremity Extremity Narrative: Bruising right forearm. Track ho right forearm. No signs of infection. Normal range of motion. Nontender. No deformity. General Extremety ED: Negative for edema or tenderness General Extremity: Negative for edema Neuro oriented x3 and CN's II-XII intact bilaterally Sensorium / Orientation: alert, oriented to person, oriented to place and oriented to time; Negative for confused, lethargic or stuporous Motor Exam: strength 5/5 throughout Psych mental status grossly normal and thought process normal Appearance: Negative for unkempt Skin Lesions: no lesions Rashes: no rashes MDM MDM MDM Narrative Medical decision making narrative: Patient an accidental heroin overdose tonight. She will be counseled on drug abuse and the risk of due to overdose. Alcohol level be obtained in the BGT. Her exam at this time is benign. She will be observed. Repeat exam at 2:08 AM patient is resting comfortably. I woke her up. When she goes to sleep she desats she was placed on 4 L nasal cannula O2. Currently she is in no distress. Her lungs remain clear on exam. Patient was given 1 additional dose of Narcan in the emergency department. She has been observed throughout the night. She clinically has no objective reason for hypoxia. That is since resolved. She has been resting throughout the night and has been watched in the emergency department multiple hours. She is not on oxygen anymore and her pulse ox is in the mid 90s or higher. Clinically looks good on repeat exam at 6:35 AM and will be discharged to home. Lab Data Attestation: I reviewed the patient's lab results. Lab results narrative: While patient was being observed in the emergency department she would go to sleep and would become hypoxic with a pulse ox in the mid 80s. With her accidental heroin overdose tonight my concern was that she may have possibly aspirated. Obtained portable 1 view chest x-ray which showed no acute process. CBC shows a normal white count 8. Hemoglobin 12. Her alcohol level was only 35 which is well below intoxicated level. Her glucose is 122. Electrolytes unremarkable normal creatinine and gap. Labs: Laboratory Results - last 24 hr 05/09/21 05/09/21 05/09/21 01:12 01:15 01:15 WBC RBC Hgb Hct MCV MCH MCHC RDW Std Deviation RDW Coeff of Lyndsey Plt Count MPV Immature Gran % (Auto) Neut % (Auto) Lymph % (Auto) Sutton % (Auto) Eos % (Auto) Baso % (Auto) Absolute Neuts (auto) Absolute Lymphs (auto) Nucleated RBC % Sodium 132 L Potassium 4.8 Chloride 100 Carbon Dioxide 18.0 L Anion Gap 14 BUN 8 Creatinine 1.03 H Estim Creat Clear Calc 68.65 Est GFR (MDRD) Af Amer 76 Est GFR (MDRD) Non-Af 63 BUN/Creatinine Ratio 7.8 L Glucose 117 H Calcium 8.3 L Ethyl Alcohol 35.0 POC Glucose 122 H 05/09/21 01:45 WBC 8.8 RBC 4.33 Hgb 12.1 Hct 37.5 MCV 86.6 MCH 27.9 MCHC 32.3 RDW Std Deviation 41.6 RDW Coeff of Lyndsey 13.4 Plt Count 341 MPV 8.6 Immature Gran % (Auto) 0.600 Neut % (Auto) 76.4 H Lymph % (Auto) 17.6 L Sutton % (Auto) 4.8 Eos % (Auto) 0.3 Baso % (Auto) 0.3 Absolute Neuts (auto) 6.7 Absolute Lymphs (auto) 1.54 Nucleated RBC % 0 Sodium Potassium Chloride Carbon Dioxide Anion Gap BUN Creatinine Estim Creat Clear Calc Est GFR (MDRD) Af Amer Est GFR (MDRD) Non-Af BUN/Creatinine Ratio Glucose Calcium Ethyl Alcohol POC Glucose Radiography Diagnostic Testing: Radiology Impression Chest X-Ray 05/09/21 01:40 IMPRESSION: Normal x-ray examination of the chest. Electronically Signed: Jojo Zamora MD at 2:07 EDT , Service support , Portable 1 view chest x-ray interpreted by myself shows no acute abnormality. Radiologist also read the film and agrees. Rhythm Strip Rhythm Strip: Sinus Tach Rate: 107 Ectopy: None EKG Initial EKG: Attestation: I personally reviewed and interpreted this EKG as follows: Interpretation: Sinus Rhythm, No Acute Injury Pattern and Sinus Tachycardia Comments: Sinus tachycardia rate of 107 no acute signs of HI nor ischemia. Prior EKG tracings: not available for review Discharge Plan Triage Chief Complaint: Overdose ED Provider: Willi Hernandez Dx/Rx/DC Orders Clinical Impression: Accidental heroin overdose, Drug abuse Instructions: Heroin Addiction, ED Overdose, Opiate Prescriptions: No Action fluoxetine 20 MG capsule 60 mg PO DAILY RF: 0 lisinopril 10 mg tablet 10 mg PO DAILY RF: 0 lorazepam 0.5 mg tablet RF: 0 gabapentin 300 mg capsule 300 mg PO QHS RF: 0 Primary Care Provider: Basilio Dunham Referrals: Basilio Dunham MD [Primary Care Provider] - As Needed [facility] [STAFF PHYSICIAN] - As soon as possible Activity Restrictions/Additional Instructions: Strongly recommend you following up with 180. You need to stop the cycle of heroin or any other drug use before you become addicted or you.I have an accidental overdose. Disposition Disposition: Home, Self Care
[2021-05-09 01:21] LABS: Bedside Glucose 122 mg/dL (70-110)
--- NOTE | 2021-05-09 01:40 | EKG12_ITS ---
Test Reason : OVERDOSE Blood Pressure : / mmHG Vent. Rate : 107 BPM Atrial Rate : 107 BPM P-R Int : 150 ms QRS Dur : 086 ms QT Int : 364 ms P-R-T Axes : 026 053 028 degrees QTc Int : 485 ms Sinus tachycardia Otherwise normal ECG Confirmed by FRANKLIN BLUE, SUMMER ([id number]), desk editor HEIDE RODRIGUEZ ([id number]) on 05/10/2021 2:27:14 PM Referred By: MEAGHAN Confirmed By:SUMMER REID MD
--- NOTE | 2021-05-09 01:40 | RAD_ITS ---
STUDY: X-RAY CHEST REASON FOR EXAM: Female, 40 years old. chest pain TECHNIQUE: Single AP portable view of the chest. COMPARISON: 11/10/2016. FINDINGS: The lungs are clear and expanded. There is no demonstrated pleural abnormality. Normal size heart. Normal mediastinum and maykel. Normal visualized pulmonary arteries. Normal visualized aortic arch and descending thoracic aorta. Normal visualized thoracic spine. Normal visualized ribs, clavicles, and shoulders. There is no demonstrated abnormality of the visualized soft tissue structures of the upper abdomen. RAD/Chest 1 View (Portable) IMPRESSION: Normal x-ray examination of the chest. Electronically Signed: Jojo Zamora MD at 2:07 EDT , Service support ,
[2021-05-09 01:52] LABS: Absolute Lymphocyte Count 1.54 X10^3/uL (0.83-4.51); Absolute Neutrophil Count 6.7 X10^3/uL (2.0-7.7); Basophil# 0.03 X10^3/uL; Basophil% 0.3 % (0-1); Eosinophil# 0.03 X10^3/uL; Eosinophils% 0.3 % (0-5); Hematocrit 37.5 % (37-47); Hemoglobin 12.1 g/dL (12.0-15.0); Lymphocyte # 1.54 X10^3/ul (0.83-4.51); Lymphocyte % 17.6 % (19-41); Mean Corp Hgb Conc 32.3 g/dL (32-36); Mean Corpuscular Hgb 27.9 pg (27.0-32.0); Mean Corpuscular Volume 86.6 fL (81-99); Mean Platelet Vol. 8.6 fl (6.2-12.0); Monocyte# 0.42 X10^3/uL; Monocyte% 4.8 % (0-10); NRBC Flagged by Analyzer 0 % (0-5); Neutrophil % 76.4 % (47-70); Platelet Count 341 K/mm3 (150-450); RBC Distribution Width CV 13.4 % (11.6-14.6); RBC Distribution Width SD 41.6 fl (35.1-43.9); Red Blood Count 4.33 M/mm3 (4.2-5.4); White Blood Count 8.8 K/mm3 (4.4-11.0)
[2021-05-09 02:05] LABS: Anion Gap 14 (5-15); BUN 8 mg/dL (7-18); BUN/Creat Ratio 7.8 RATIO (10-20); Calcium,Total 8.3 mg/dL (8.5-10.1); Chloride 100 mmol/L (98-107); Creatinine, Serum 1.03 mg/dL (0.55-1.02); EST Glomerular Filtration Rate 63 mL/min (>60); Est Glom Filt Rate - Afr Amer 76 mL/min (>60); Estimated Creatinine Clearance 68.65 ml/min; Glucose 117 mg/dL (74-106); Potassium 4.8 mmol/L (3.5-5.1); Sodium Level 132 mmol/L (136-145)
[2021-05-09] MEDS: Naloxone 2 MG/2 ML Syringe IV (02:40)
--- NOTE | 2021-05-09 02:41 | ED.RN ---
pt ambulated with pulse ox, pt pulse ox dropped to 86% and she was very unsteady, got the pt back into bed, narcan given.
== END 2021-05-09 06:46 | disposition home or self-care (01) ==
PROVIDERS: Emergency Provider Emergency Medicine; PCP Family Medicine
DX: T40.1X1A Poisoning by heroin, accidental (unintentional), initial encounter (principal); F17.210 Nicotine dependence, cigarettes, uncomplicated; I10 Essential (primary) hypertension; F32.9 Major depressive disorder, single episode, unspecified; Z79.899 Other long term (current) drug therapy
CPT/HCPCS: 71045; 80048; 82077; 82962; 85025; 93005; 96374; 99285; A4216

== ENCOUNTER 2021-06-11 22:09 | Emergency (ER) | payer MEDICAID, SELFPAY ==
[2021-06-11 22:10] VITALS: BP 140/91; PULSE 117; RESP 18; TEMP 36.6; O2SAT 96; BMI 33.9
--- NOTE | 2021-06-11 22:13 | RAD_ITS ---
STUDY: X-RAY - RIGHT RADIUS AND ULNA REASON FOR EXAM: Female, 40 years old. INJURY, shut arm in door, mid forearm reason TECHNIQUE: AP and lateral radiographic view(s) of the forearm. COMPARISON: None. FINDINGS: Mid forearm soft tissue swelling noted. Normal visualized radius. Normal visualized ulna. There is no demonstrated acute fracture. RAD/Forearm 2 Views IMPRESSION: Mid forearm soft tissue swelling without underlying fracture. Electronically Signed: Carlito Kumar MD at 22:38 EDT Tel , Service support ,
[2021-06-11 23:01] VITALS: BP 140/91; PULSE 105; RESP 15; O2SAT 97
--- NOTE | 2021-06-11 23:01 | EDS_ITS ---
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 No other injuries. [facility] Medical History Acute appendicitis Depression GERD (gastroesophageal reflux disease) Hypertension Tobacco use disorder Home Medications fluoxetine 60 mg PO DAILY 02/28/14 [History Last Taken 07/19/20 22:00] gabapentin 300 mg PO QHS 05/09/21 [History Last Taken Unknown] lisinopril 10 mg PO DAILY 05/09/21 [History Last Taken Unknown] lorazepam 05/09/21 [History Last Taken Unknown] Allergy/AdvReac Type Severity Reaction Status Date / Time No Known Allergies Allergy Verified 06/11/21 22:12 Surgical History History of laparoscopic appendectomy (~07/20/20) Social History Smoking Status: Current some day smoker tobacco type: cigarettes ROS ROS ED Constitutional Constitutional ED: Denies chills or fever(s) Musculoskeletal Musculoskeletal: Reports extremity pain; Denies neck pain Integumentary Reports other Details: Right upper extremity bruising ; Denies Abrasions, rash or wounds Neurologic Neurologic: Denies paresthesias or weakness EXAM Physical Exam Const Vital Signs: 06/11/21 22:10 Temperature 97.8 F Temperature Source Temporal Pulse Rate 117 H Respiratory Rate 18 Blood Pressure 140/91 H Blood Pressure Mean 107 Pulse Ox 96 Oxygen Delivery Method Room Air Positive well nourished and well developed General Appearance ED: well developed and NAD Neck full ROM and supple Back/Spine normal ROM and normal to inspection Extremity Extremity Narrative: Multiple ecchymoses/small hematomas dorsal and volar right mid forearm. No apparent injuries at the wrist or the elbow. Contusions are tender. All compartments are soft and nondistended. Full range of motion at the wrist, fingers, and elbow without any bony tenderness. Neuro oriented x3, no focal motor deficits and no sensory deficits noted Sensorium / Orientation: alert Psych mental status grossly normal and thought process normal Skin no wounds Rashes: no rashes MDM MDM MDM Narrative Medical decision making narrative: 2 view x-ray of the right forearm is negative on my interpretation. Radiologist confirms. Patient was given Naprosyn, ice pack, note for work, supportive care advised. No evidence of compartment syndrome at this time she is doing well clinically. Radiography Diagnostic Testing: Radiology Impression Forearm X-Ray 06/11/21 22:13 IMPRESSION: Mid forearm soft tissue swelling without underlying fracture. Electronically Signed: Carlito Kumar MD at 22:38 EDT Tel , Service support , Discharge Plan Triage Chief Complaint: Upper Extremity Injury ED Provider: Arun Armstrong Dx/Rx/DC Orders Clinical Impression: Contusion of forearm, right Instructions: ED Contusion, Upper Extremity Prescriptions: No Action fluoxetine 20 MG capsule 60 mg PO DAILY RF: 0 lisinopril 10 mg tablet 10 mg PO DAILY RF: 0 lorazepam 0.5 mg tablet RF: 0 gabapentin 300 mg capsule 300 mg PO QHS RF: 0 Stand Alone Forms: ED Work / School Excuse Primary Care Provider: Basilio uDnham Referrals: Basilio Dunham MD [Primary Care Provider] - As Needed Disposition Disposition: Home, Self Care
[2021-06-11] MEDS: Naproxen 250 MG Tablet 500 MG PO (23:25)
== END 2021-06-11 23:01 | disposition home or self-care (01) ==
LOC: ED 23:30
PROVIDERS: Emergency Provider Emergency Medicine; PCP Family Medicine
DX: S50.11XA Contusion of right forearm, initial encounter (principal); F17.210 Nicotine dependence, cigarettes, uncomplicated; W22.09XA Striking against other stationary object, initial encounter
CPT/HCPCS: 73090; 99283

== ENCOUNTER 2021-08-10 23:56 | Emergency (ER) | payer MEDICAID, SELFPAY ==
[2021-08-10 23:57] VITALS: BP 201/138; PULSE 86; RESP 15; TEMP 36.2; O2SAT 99; BMI 34.2
[2021-08-11 01:49] VITALS: PULSE 72; RESP 18; O2SAT 95
[2021-08-11 01:52] VITALS: BP 178/110
--- NOTE | 2021-08-11 03:20 | EDS_ITS ---
HPI History of Present Illness Chief Complaint: Dental Informant: patient Onset/Context/Timing Onset: Days (4) Context: Gradual Onset Timing: Continuous Quality: Aching Location: Left lower molar Worsened by: Nothing Relieved by: - (Nothing) Associated Symptoms Assocated Symptom - Dental: jaw swelling, face swelling, cold sensitivity and hot sensitivity; Negative for fever Narrative Narrative: Patient presents with toothache that has been getting worse over the past 4 days. Patient states she has an appoint with her dentist later today but she does not feel she can take the pain until then. Patient describes her pain as aching. Patient states the pain is over the left lower molar. Patient states she has been taking Tylenol and ibuprofen with no improvement. Patient states she has also been using Orajel with no improvement. Patient admits to hot and cold sensitivity. Patient also admits to some mild jaw and facial swelling. Patient states she is on an antibiotic for an infection in her tooth. [facility] Medical History Acute appendicitis Depression GERD (gastroesophageal reflux disease) Hypertension Physical exam, pre-employment Tobacco use disorder Home Medications fluoxetine 80 mg PO DAILY 02/28/14 [History Last Taken 07/19/20 22:00] gabapentin 300 mg PO QHS PRN 05/09/21 [History Last Taken Unknown] lisinopril 10 mg PO DAILY 05/09/21 [History Last Taken Unknown] amoxicillin 875 mg PO BID 08/11/21 [History Last Taken Unknown] Allergy/AdvReac Type Severity Reaction Status Date / Time No Known Allergies Allergy Verified 08/10/21 23:57 Surgical History History of laparoscopic appendectomy (~07/20/20) Social History Smoking Status: Current some day smoker tobacco type: cigarettes ROS ROS ED Constitutional Constitutional ED: Denies chills or fever(s) Eyes Eyes: Denies blurry vision or change in vision ENT ENT ED: Denies rhinorrhea or sore throat Cardiovascular Cardiovascular: Denies chest pain or palpitations Respiratory/Chest Respiratory/Chest: Reports cough and dyspnea Gastrointestinal Gastrointestinal: Reports nausea and vomiting Genitourinary Genitourinary ED: Denies dysuria or hematuria Musculoskeletal Musculoskeletal: Denies back pain or neck pain Integumentary Denies abscess or rash Neurologic Neurologic: Denies headache(s) or weakness Allergic/Immunologic Allergic/Immunologic ED: Denies mouth swelling or urticaria EXAM Physical Exam Const Vital Signs: 08/10/21 23:57 08/11/21 01:49 08/11/21 01:52 Temperature 97.2 F L Temperature Source Temporal Pulse Rate 86 72 Respiratory Rate 15 18 Blood Pressure 201/138 H 178/110 H Blood Pressure Mean 159 132 Pulse Ox 99 95 Oxygen Delivery Method Room Air Room Air 08/11/21 03:24 Temperature Temperature Source Pulse Rate 74 Respiratory Rate 16 Blood Pressure Blood Pressure Mean Pulse Ox Oxygen Delivery Method Positive well nourished and well developed General Appearance ED: well developed HEENT HEENT Narrative: There is tenderness over the left lower first molar. There are dental caries which have been filled. There is mild gingival edema. There is no fluctuance. There is no discharge or drainage. There is no abscess. There is no sublingual edema. There is no evidence of Sergio's angina. Mouth ED: Yes oral and palatal mucosa normal Mouth: oral and palatal mucosa normal Teeth and Gingiva: caries Throat: posterior oropharynx normal Eyes PERRL Neck supple and no JVD General: normal visual inspection; Negative for anterior neck swelling or submandibular swelling Resp normal respiratory effort and clear to auscultation bilaterally Cardio regular rate and regular rhythm Neuro oriented x3, CN's II-XII intact bilaterally, moves all extremities, no focal motor deficits and no sensory deficits noted Sensorium / Orientation: alert Psych mental status grossly normal MDM MDM MDM Narrative Medical decision making narrative: Patient was given an injection of morphine here. Patient was instructed to follow-up with her dentist later today. Patient was instructed to return if worse in any way. Patient was instructed to continue her antibiotics until gone. Patient understood and was agreeable with the plan. All questions were answered. Discharge Plan Triage Chief Complaint: Dental ED Provider: Floyd Cummings Dx/Rx/DC Orders Clinical Impression: Odontalgia Instructions: ED Dental Pain Prescriptions: No Action fluoxetine 20 MG capsule 80 mg PO DAILY RF: 0 lisinopril 10 mg tablet 10 mg PO DAILY RF: 0 gabapentin 300 mg capsule 300 mg PO QHS PRN (Reason: Cramps) RF: 0 amoxicillin 875 mg tablet 875 mg PO BID RF: 0 Primary Care Provider: Basilio Dunham Referrals: Basilio Dunham MD [Primary Care Provider] - Dentist,Your [STAFF PHYSICIAN] - Keep Baljinder appointment Disposition Disposition: Home, Self Care Discharge Date/Time: 08/11/21 03:46
[2021-08-11 03:24] VITALS: PULSE 74; RESP 16
[2021-08-11] MEDS: Morphine 4 MG/ML Syringe IM (03:27)
== END 2021-08-11 03:46 | disposition home or self-care (01) ==
PROVIDERS: Emergency Provider Emergency Medicine; PCP Family Medicine
DX: K08.89 Other specified disorders of teeth and supporting structures (principal); F17.210 Nicotine dependence, cigarettes, uncomplicated; I10 Essential (primary) hypertension; F32.9 Major depressive disorder, single episode, unspecified; Z79.899 Other long term (current) drug therapy
CPT/HCPCS: 96372; 99282

== ENCOUNTER 2021-12-10 19:34 | Emergency (ER) | payer MEDICAID, SELFPAY ==
[2021-12-10 19:35] VITALS: BP 156/113; PULSE 102; RESP 18; TEMP 35.6; BMI 33.0
--- NOTE | 2021-12-10 20:50 | CT_ITS ---
STUDY: CT ABDOMEN AND PELVIS WITH CONTRAST REASON FOR EXAM: Female, 41 years old. luq pain RADIATION DOSAGE (If Supplied By Facility): CTDIvol = ( 12.97 ) mGy, DLP = ( 1041.71 ) mGycm TECHNIQUE: Transaxial images were obtained from the dome of the diaphragm to the symphysis pubis without oral contrast. IV 100mL Isovue-370 was administered. Sagittal and coronal images were reconstructed. Individualized dose optimization techniques were used for this CT. COMPARISON: None. FINDINGS: The visualized lung bases are unremarkable. The visualized portions of the heart are within normal limits. Normal liver. Normal gallbladder and extrahepatic biliary system. Normal spleen. Normal pancreas. Normal bilateral adrenal glands. Normal right kidney. Normal left kidney. Normal visualized stomach. Normal small intestine. Normal colon. There are surgical clips in the region of the appendix consistent with a prior appendectomy. Normal abdominal aorta. Normal inferior vena cava. Normal retroperitoneum. Normal urinary bladder. Normal visualized uterus. Normal abdominal wall. Normal osseous structures. CT/Abdomen/Pelvis W IV Cont ONLY IMPRESSION: Normal enhanced CT of the abdomen and pelvis. Electronically Signed: Travis Sutton DO at 22:36 [facility] ,
--- NOTE | 2021-12-10 20:51 | ED.VIS.GI ---
HPI HPI - GI History of Present Illness Chief Complaint: Abd Pain Narrative Narrative: 41-year-old female with left upper quadrant pain for 4 months. She states it comes and goes. It sometimes achy and sometimes sharp. She has no nausea, vomiting, diarrhea, constipation. She denies urinary complaints. She is been able to eat and drink normally. She is making normal urine and stool. She has previous history of appendicitis and appendectomy. She has past medical history of hypertension. PFSH PFS Medical History Acute appendicitis Cocaine abuse Depression GERD (gastroesophageal reflux disease) Hypertension Physical exam, pre-employment Tobacco use disorder Home Medications fluoxetine 80 mg PO DAILY 02/28/14 [History Last Taken 07/19/20 22:00] gabapentin 300 mg PO QHS PRN 05/09/21 [History Last Taken Unknown] lisinopril 10 mg PO DAILY 05/09/21 [History Last Taken Unknown] amoxicillin 875 mg PO BID 08/11/21 [History Last Taken Unknown] Allergy/AdvReac Type Severity Reaction Status Date / Time No Known Allergies Allergy Verified 08/10/21 23:57 Surgical History History of laparoscopic appendectomy (~07/20/20) Social History Smoking Status: Current some day smoker tobacco type: cigarettes ROS ROS ED Constitutional Constitutional ED: Denies chills or fever(s) ENT ENT ED: Denies rhinorrhea or sore throat Cardiovascular Cardiovascular: Denies chest pain or palpitations Respiratory/Chest Respiratory/Chest: Denies cough, dyspnea or sputum Gastrointestinal Gastrointestinal: Reports abdominal pain; Denies constipation, diarrhea, nausea or vomiting Genitourinary Genitourinary ED: Denies dysuria or hematuria Musculoskeletal Musculoskeletal: Denies arthralgias, back pain, myalgias or neck pain Integumentary Denies rash Neurologic Neurologic: Denies headache(s) or weakness Psychiatric Psychiatric: Denies anxiety or depression EXAM Physical Exam Const Vital Signs: 12/10/21 19:35 Temperature 96.1 F L Temperature Source Temporal Pulse Rate 102 H Respiratory Rate 18 Blood Pressure 156/113 H Blood Pressure Mean 127 Positive well nourished and obese General Appearance ED: NAD; Negative for pallor Nutritional Appearance: obese HEENT Reports moist mucous membranes normocephalic and atraumatic Eyes PERRL and EOMs intact bilaterally General Eye ED: Negative for pale conjunctiva or scleral icterus Resp normal respiratory effort and clear to auscultation bilaterally Cardio regular rate and regular rhythm GI non-distended Auscultation: normoactive bowel sounds Palpation: soft and tender LUQ Neuro CN's II-XII intact bilaterally and moves all extremities Sensorium / Orientation: alert, oriented to person, oriented to place and oriented to time Motor Exam: strength 5/5 throughout Psych mental status grossly normal and thought process normal Skin General Skin Exam: Negative for jaundice or pallor MDM MDM MDM Narrative Medical decision making narrative: 41-year-old female presenting with left upper quadrant pain which has had for 4 months and it waxes and wanes. She states it is always there and always hurts but sometimes it hurts worse. Is not associated with food. She does not have fever, chills, nausea, vomiting, diarrhea, constipation. She has not seen another provider for this in the last 4 months. I did obtain blood work and her CBC and CMP are within normal limits. Urinalysis is negative for infection. Patient states that the last time she was told that she was fine she ended up with a ruptured appendicitis. For this reason I did do a CT of the abdomen pelvis with IV contrast which was negative for acute intra-abdominal findings. She was given Toradol for her pain. She states her pain is still not gone. I did certified rehabilitation counselor her that if she had 4 months of pain I likely would not be able to make her pain go away but I would give her referral to Dr. Metzger that she has chronic abdominal pain. She was amenable to this. She will be discharged home in stable condition. Impression: 1. Abdominal pain Lab Data Attestation: I reviewed the patient's lab results. Labs: Laboratory Results - last 24 hr 12/10/21 12/10/21 12/10/21 21:26 21:26 21:38 WBC 9.9 RBC 4.31 Hgb 12.3 Hct 37.2 MCV 86.3 MCH 28.5 MCHC 33.1 RDW Std Deviation 42.9 RDW Coeff of Lyndsey 13.8 Plt Count 380 MPV 8.7 Immature Gran % (Auto) 0.400 Neut % (Auto) 58.7 Lymph % (Auto) 31.3 [place] % (Auto) 8.9 Eos % (Auto) 0.4 Baso % (Auto) 0.3 Absolute Neuts (auto) 5.8 Absolute Lymphs (auto) 3.08 Nucleated RBC % 0 Sodium 140 Potassium 3.5 Chloride 109 H Carbon Dioxide 26.0 Anion Gap 5 BUN 18 Creatinine 1.16 H Estim Creat Clear Calc 60.35 Est GFR (MDRD) Af Amer 66 Est GFR (MDRD) Non-Af 55 L BUN/Creatinine Ratio 15.5 Glucose 85 Calcium 9.1 Total Bilirubin 0.30 AST 13 L ALT 17 Alkaline Phosphatase 54 Total Protein 7.4 Albumin 3.7 Globulin 3.7 Albumin/Globulin Ratio 1.0 Lipase 108 Urine Color Yellow Urine Clarity Clear Urine pH 5.0 Ur Specific [place] 1.025 Urine Protein 30 H Urine Glucose (UA) Normal Urine Ketones 5 H Urine Occult Blood 10 H Urine Nitrite Negative Urine Bilirubin Negative Urine Urobilinogen Normal Ur Leukocyte Esterase 25 H Urine RBC 0 SEEN Urine WBC 0-5 SEEN Ur Squamous Epith Cells 0-5 SEEN Urine Bacteria 0 SEEN Hyaline Casts 0-5 SEEN Urine Mucus 0 SEEN Radiography Diagnostic Testing: Clinical Impression(s) from Imaging Studies Abdomen/Pelvis CT 12/10/21 20:50 IMPRESSION: Normal enhanced CT of the abdomen and pelvis. Electronically Signed: Travis Sutton DO at 22:36 EST , Discharge Plan Triage Chief Complaint: Abd Pain ED Provider: Javon Somers Dx/Rx/DC Orders Instructions: ED Abdominal Pain Unkn Cause Fem Prescriptions: No Action fluoxetine 20 MG capsule 80 mg PO DAILY RF: 0 lisinopril 10 mg tablet 10 mg PO DAILY RF: 0 gabapentin 300 mg capsule 300 mg PO QHS PRN (Reason: Cramps) RF: 0 amoxicillin 875 mg tablet 875 mg PO BID RF: 0 Primary Care Provider: Basilio Dunham Referrals: Korey Metzger DO [STAFF PHYSICIAN] - As soon as possible Basilio Dunham MD [Primary Care Provider] - Disposition Disposition: Home, Self Care Discharge Date/Time: 12/10/21 23:52
[2021-12-10] MEDS: Ondansetron 4 MG/2 ML Vial IV (21:31)
[2021-12-10] MEDS: Ketorolac 15 MG/ML Vial IV (21:31)
[2021-12-10 21:41] LABS: Absolute Lymphocyte Count 3.08 X10^3/uL (0.83-4.51); Absolute Neutrophil Count 5.8 X10^3/uL (2.0-7.7); Basophil# 0.03 X10^3/uL; Basophil% 0.3 % (0-1); Eosinophil# 0.04 X10^3/uL; Eosinophils% 0.4 % (0-5); Hematocrit 37.2 % (37-47); Hemoglobin 12.3 g/dL (12.0-15.0); Lymphocyte # 3.08 X10^3/ul (0.83-4.51); Lymphocyte % 31.3 % (19-41); Mean Corp Hgb Conc 33.1 g/dL (32-36); Mean Corpuscular Hgb 28.5 pg (27.0-32.0); Mean Corpuscular Volume 86.3 fL (81-99); Mean Platelet Vol. 8.7 fl (6.2-12.0); Monocyte# 0.88 X10^3/uL; Monocyte% 8.9 % (0-10); NRBC Flagged by Analyzer 0 % (0-5); Neutrophil # 5.78 X10^3/uL (2.7-7.7); Neutrophil % 58.7 % (47-70); Platelet Count 380 K/mm3 (150-450); RBC Distribution Width CV 13.8 % (11.6-14.6); RBC Distribution Width SD 42.9 fl (35.1-43.9); Red Blood Count 4.31 M/mm3 (4.2-5.4); White Blood Count 9.9 K/mm3 (4.4-11.0)
[2021-12-10 21:47] LABS: Bacteria 0 SEEN /hpf (None Seen); Mucous, Urine 0 SEEN /hpf (<or=2+); Red Blood Cells-Urine 0 SEEN /hpf (0-5)
[2021-12-10 21:52] LABS: Color, Urine Yellow (Yellow); Glucose, Dipstick Normal (Normal); Ketone-Dipstick 5 mg/dl (Negative); Leukocyte Esterase-Dipstick 25 /ul (Negative); Nitrite-Dipstick Negative (Negative); Occult Blood-Urine 10 /ul (Negative); Protein-Dipstick 30 mg/dl (Negative); Specific Gravity, Urine 1.025 (1.002-1.030); Urine Bilirubin Dipstick Negative (Negative); Urine Clarity Clear (Clear); Urine Urobilinogen Normal (Normal)
[2021-12-10 21:52] LABS: AST(SGOT) 13 U/L (15-37); Alanine Aminotransfer ALT/SGPT 17 U/L (13-56); Albumin, Serum 3.7 g/dL (3.2-5.0); Alkaline Phosphatase 54 U/L (45-117); Anion Gap 5 (5-15); BUN 18 mg/dL (7-18); BUN/Creat Ratio 15.5 RATIO (10-20); Calcium,Total 9.1 mg/dL (8.5-10.1); Chloride 109 mmol/L (98-107); Creatinine, Serum 1.16 mg/dL (0.55-1.02); EST Glomerular Filtration Rate 55 mL/min (>60); Est Glom Filt Rate - Afr Amer 66 mL/min (>60); Estimated Creatinine Clearance 60.35 ml/min; Globulin 3.7 g/dL (2.2-4.2); Glucose 85 mg/dL (74-106); Lipase 108 U/L (73-393); Potassium 3.5 mmol/L (3.5-5.1); Protein, Total 7.4 g/dL (6.4-8.2); Sodium Level 140 mmol/L (136-145)
[2021-12-10 22:05] LABS: Hyaline Cast 0-5 SEEN /lpf (0-5); Squamous Epithelial Cells - UA 0-5 SEEN /hpf (5-10); White Blood Cells 0-5 SEEN /hpf (0-5)
== END 2021-12-10 23:52 | disposition home or self-care (01) ==
PROVIDERS: Emergency Provider Student in an Organized Health Care Education/Training Program; PCP Family Medicine; Visit Provider Student in an Organized Health Care Education/Training Program
DX: R10.12 Left upper quadrant pain (principal); F17.210 Nicotine dependence, cigarettes, uncomplicated; E66.9 Obesity, unspecified
CPT/HCPCS: 74177; 80053; 81001; 83690; 85025; 96374; 96375; 96376; 99281; 99282; Q9967; A4216; J2405

== ENCOUNTER 2022-05-27 20:38 | Emergency (ER) | payer MEDICAID, SELFPAY ==
[2022-05-27 20:39] VITALS: BP 172/130; PULSE 122; RESP 20; TEMP 37.1; O2SAT 100; BMI 34.7
--- NOTE | 2022-05-27 21:10 | EKG12_ITS ---
Test Reason : CP Blood Pressure : / mmHG Vent. Rate : 121 BPM Atrial Rate : 121 BPM P-R Int : 130 ms QRS Dur : 088 ms QT Int : 318 ms P-R-T Axes : 028 113 017 degrees QTc Int : 451 ms Sinus tachycardia Low voltage QRS (Limb Leads) Poor R wave progression Confirmed by GARRICK BLUE, LUCILA ([id number]), art editor HEIDE RODRIGUEZ ([id number]) on 05/30/2022 1:06:35 PM Referred By: KARIS Confirmed By:LUCILA MCCAULEY MD
[2022-05-27 21:24] LABS: Absolute Lymphocyte Count 2.51 X10^3/uL (0.83-4.51); Absolute Neutrophil Count 11.4 X10^3/uL (2.0-7.7); Basophil# 0.05 X10^3/uL; Basophil% 0.3 % (0-1); Eosinophil# 0.01 X10^3/uL; Eosinophils% 0.1 % (0-5); Hematocrit 41.7 % (37-47); Hemoglobin 13.3 g/dL (12.0-15.0); Lymphocyte # 2.51 X10^3/ul (0.83-4.51); Lymphocyte % 16.5 % (19-41); Mean Corp Hgb Conc 31.9 g/dL (32-36); Mean Corpuscular Hgb 27.8 pg (27.0-32.0); Mean Corpuscular Volume 87.2 fL (81-99); Mean Platelet Vol. 8.8 fl (6.2-12.0); Monocyte# 1.12 X10^3/uL; Monocyte% 7.4 % (0-10); NRBC Flagged by Analyzer 0 % (0-5); Neutrophil # 11.39 X10^3/uL (2.7-7.7); Neutrophil % 75.1 % (47-70); Platelet Count 485 K/mm3 (150-450); RBC Distribution Width CV 14.6 % (11.6-14.6); RBC Distribution Width SD 46.4 fl (35.1-43.9); Red Blood Count 4.78 M/mm3 (4.2-5.4); White Blood Count 15.2 K/mm3 (4.4-11.0)
[2022-05-27] MEDS: Mag Hydrox/Al Hydrox/Simeth 30 ML UDC PO (21:28)
--- NOTE | 2022-05-27 21:29 | ED.VIS.CHEST ---
HPI History of Present Illness Chief Complaint: Chest Pain Informant: patient Onset/Context/Timing Onset: Today Activity at onset: activity on onset (Awoke with symptoms) Timing: Continuous Quality: Positive for Heaviness Location: Left Chest (Radiating into left shoulder and left periscapular area, now the right shoulder as well) Current Severity: Moderate Maximum Severity: Moderate Worsened By: Nothing; Not Worsened By Breathing Relieved By: Nothing Associated Symptoms: Positive for Vomiting (Once this morning), Dyspnea and Palpitations ([place] some racing some today, but not prior to the onset of discomfort); Negative for Diaphoresis, Cough, Fever or Lightheadedness Narrative Narrative: Patient states she has had chest heaviness all day today. She woke up with it. She states she drank beer heavily last night with others. States she has had this heaviness before, but it has never lasted this long, all day and evening. She states when she walks upstairs she is a little short of breath but that is better when she rests. She denies any leg pain or swelling. No history of DVT or PE. She is a smoker, but not regularly, and she is on no exogenous female hormones. No recent long trips or immobilization or surgery/hospitalization. She denies any pleuritic nature to the discomfort. She admits that the discomfort persisted longer than usual so it has freaked me out. Patient states she has been having left upper quadrant pain as well, but that is chronic, she states it is a little worse than usual but similar. She states she has had that ever since my appendix burst and needed surgery. [facility] Medical History Acute appendicitis Cocaine abuse Depression GERD (gastroesophageal reflux disease) Hypertension Physical exam, pre-employment Tobacco use disorder Home Medications fluoxetine 20 mg capsule 80 mg PO DAILY mood 02/28/14 [History Last Taken 07/19/20 22:00] gabapentin 300 mg capsule 300 mg PO QHS PRN Cramps 05/09/21 [History Last Taken Unknown] lisinopril 10 mg tablet 10 mg PO DAILY 05/09/21 [History Last Taken Unknown] Allergy/AdvReac Type Severity Reaction Status Date / Time No Known Allergies Allergy Verified 08/10/21 23:57 Surgical History History of laparoscopic appendectomy (~07/20/20) Social History (Updated 05/27/22 @ 23:[address] Arun Armstrong MD) Smoking Status: Current some day smoker tobacco type: cigarettes substance use type: crack/cocaine ROS ROS ED Constitutional Constitutional ED: Denies chills or fever(s) Eyes Eyes: Denies change in vision or diplopia ENT ENT ED: Denies rhinorrhea or sore throat Cardiovascular Cardiovascular: Reports chest pain and racing heartbeat; Denies leg edema, orthopnea or palpitations Respiratory/Chest Respiratory/Chest: Reports dyspnea on exertion; Denies cough or orthopnea Gastrointestinal Gastrointestinal: Reports as per HPI, abdominal pain and vomiting; Denies diarrhea or nausea Genitourinary Genitourinary ED: Denies dysuria or hematuria Musculoskeletal Musculoskeletal: Denies back pain or neck pain Integumentary Denies abscess or rash Neurologic Neurologic: Denies headache(s), paresthesias or weakness Psychiatric Psychiatric: Reports anxiety; Denies suicidal thoughts EXAM Physical Exam Const Vital Signs: 05/27/22 20:39 05/27/22 20:48 05/27/22 21:24 Temperature 98.7 F Temperature Source Oral Pulse Rate 122 H Respiratory Rate 20 H Respiratory Effort Normal Non-Labored Blood Pressure 172/130 H Blood Pressure Mean 144 Pulse Ox 100 Oxygen Delivery Method Room Air Room Air 05/27/22 22:26 Temperature Temperature Source Pulse Rate 120 H Respiratory Rate 18 Respiratory Effort Blood Pressure 176/100 H Blood Pressure Mean 125 Pulse Ox 97 Oxygen Delivery Method Room Air Positive well nourished, well developed and obese General Appearance ED: well developed and NAD Nutritional Appearance: obese HEENT Reports moist mucous membranes normocephalic and atraumatic Eyes PERRL and EOMs intact bilaterally Neck full ROM and supple Resp normal respiratory effort and clear to auscultation bilaterally Cardio regular rate, regular rhythm and no murmurs Rate: tachycardic GI non-distended GI Narrative: Mild tenderness left upper quadrant without guarding or rebound otherwise benign abdomen Auscultation: normoactive bowel sounds Palpation: soft Back/Spine no CVA tenderness General Back: other FROM Extremity normal to inspection General Extremety ED: Negative for edema, pulses abnormal or tenderness General Extremity: Negative for edema or pulses abnormal Neuro oriented x3, CN's II-XII intact bilaterally and no sensory deficits noted Sensorium / Orientation: awake and alert Motor Exam: strength 5/5 throughout Psych mental status grossly normal Psych Narrative: Anxious but otherwise unremarkable psychiatric exam Skin no rashes or lesions noted and no wounds Heart Score History: Moderately Suspicious ECG: Normal Age: </= 45 years Risk Factors: 1 or 2 Risk Factors Troponin: </= Normal Limit Score: 2 MDM MDM MDM Narrative Medical decision making narrative: While obtaining work-up, patient was initially given a GI cocktail given her history of chronic left upper quadrant pain and the fact that she drank a lot of alcohol last night, considering the possibility of GI-related chest discomfort and alcoholic gastritis. This did not help her chest discomfort at all. She remained with a resting tachycardia, now down to 115 range from the 120s, clinically stable and speaking in full sentences without tachypnea. She has a nonspecific leukocytosis of 15.2, her troponin is well within normal limits at 12 after having pain all day, but her D-dimer is elevated so she was sent for CT angiography of the chest after reviewing her 1 view chest x-ray which on my interpretation is normal. CT angiography shows no definite pulmonary emboli and no other definite acute pathology. Small pulmonary nodules were noted, she is a smoker, but they are small and no specific follow-up is recommended. Other than her resting tachycardia, she is clinically stable. I saw that she has a history of substance use in her chart; I asked her about this. She states she does not use any IV drugs, she did once and has not since then. She does however, occasionally use cocaine and her last use was last night while she was drinking with friends. She developed no chest discomfort last night, and today her EKG shows no ischemic abnormalities and her troponin is negative making cocaine chest pain a less likely etiology for her symptoms, which are also less suspicious for PE. She also states that she has been having symptoms similar to this off-and-on for somewhere between 6 months and a year, but she has never been seen in the ER for it because it was never this severe. She did talk to her PCP about it, he wanted her to get a cardiac stress test and some other tests that she is unsure of, and she admits that she did not follow-up for those tests. She has been hypertensive here, and she states her blood pressure always seems to be up despite her being compliant with her blood pressure medication, and often times when it is up she gets chest tightness and anxiety similar to what she has had today, which could also be the primary cause of her discomfort. I also discussed with her of not able to rule out atrial tachycardia, she does not want to undergo cardioversion right now. At this time I recommend following up closely with her doctor and avoiding cocaine use. Prior to discharge she was given doses of oral clonidine and IV Ativan, she has a ride home and she is comfortable with this overall plan. Lab Data Attestation: I reviewed the patient's lab results. Labs: Laboratory Results - last 24 hr 05/27/22 05/27/22 05/27/22 21:00 21:00 21:00 WBC 15.2 H RBC 4.78 Hgb 13.3 Hct 41.7 MCV 87.2 MCH 27.8 MCHC 31.9 L RDW Std Deviation 46.4 H RDW Coeff of Lyndsey 14.6 Plt Count 485 H MPV 8.8 Immature Gran % (Auto) 0.600 Neut % (Auto) 75.1 H Lymph % (Auto) 16.5 L [place] % (Auto) 7.4 Eos % (Auto) 0.1 Baso % (Auto) 0.3 Absolute Neuts (auto) 11.4 H Absolute Lymphs (auto) 2.51 Nucleated RBC % 0 D-Dimer Quant (PE/DVT) 0.72 H* Sodium 136 Potassium 3.7 Chloride 101 Carbon Dioxide 25.0 Anion Gap 10 BUN 14 Creatinine 1.10 H Estim Creat Clear Calc 63.64 Est GFR (MDRD) Af Amer 71 Est GFR (MDRD) Non-Af 58 L BUN/Creatinine Ratio 12.7 Glucose 102 Calcium 9.6 Troponin I High Sens 12 Radiography Chest X-Ray - ED: 1 View, Read by ED Physician, No Acute Disease and No Infiltrates Diagnostic Testing: Clinical Impression(s) from Imaging Studies Chest X-Ray 05/27/22 21:56 IMPRESSION: 1. No radiographic evidence of acute cardiopulmonary disease. Electronically Signed: Murtaza Ceballos DO at 22:16 EDT , Chest CTA 05/27/22 22:10 IMPRESSION: No pulmonary embolism exemplified. Inadequate density of contrast lower lobes could obscure pulmonary emboli in the lower lobes. No pulmonary embolism suggested. No acute cardiopulmonary disease. Several right and left upper lobe pulmonary nodules, 4 mm or smaller; no follow-up recommended unless patient has had a significant cancer risk. Electronically Signed: Murtaza DO Lin at 23:12 EDT , Rhythm Strip Rhythm Strip: Sinus Tach Rate: 120 Ectopy: None EKG Initial EKG: Attestation: I personally reviewed and interpreted this EKG as follows: Interpretation: No Acute Injury Pattern and Sinus Tachycardia Discharge Plan Triage Chief Complaint: Chest Pain ED Provider: Arun Armstrong Dx/Rx/DC Orders Clinical Impression: Chest pain, Tachycardia, Anxiety, Accelerated hypertension, Cocaine abuse Instructions: ED Chest Pain, Uncertain Cause Prescriptions: No Action fluoxetine 20 MG capsule 80 mg PO DAILY lisinopril 10 mg tablet 10 mg PO DAILY gabapentin 300 mg capsule 300 mg PO QHS PRN (Reason: Cramps) Label Comments: take 1 capsule by mouth at bedtime Primary Care Provider: Basilio Dunham Referrals: Basilio Dunham MD [Primary Care Provider] - 3-5 Days Disposition Disposition: Home, Self Care
[2022-05-27 21:41] LABS: Anion Gap 10 (5-15); BUN 14 mg/dL (7-18); BUN/Creat Ratio 12.7 RATIO (10-20); Calcium,Total 9.6 mg/dL (8.5-10.1); Chloride 101 mmol/L (98-107); EST Glomerular Filtration Rate 58 mL/min (>60); Est Glom Filt Rate - Afr Amer 71 mL/min (>60); Estimated Creatinine Clearance 63.64 ml/min; Glucose 102 mg/dL (74-106); Potassium 3.7 mmol/L (3.5-5.1); Sodium Level 136 mmol/L (136-145); Troponin-I HS 12 pg/mL (3.0-54.0)
[2022-05-27 21:45] LABS: D-Dimer Quantitative (DVT/PE) 0.72 FEU/ug/m (0.27-0.49)
--- NOTE | 2022-05-27 21:56 | RAD_ITS ---
INDICATION: chest pain EXAMINATION/TECHNIQUE: X-RAY - XR Chest 1 View COMPARISON: 05/09/2021 chest x-ray FINDINGS: LINES/DEVICES: None. LUNGS: Symmetric normal lung volumes. No airspace opacity or abnormal interstitial pattern. No nodule or mass. No pleural effusion or pneumothorax. MEDIASTINUM AND CARDIOVASCULAR STRUCTURES: Normal size and contour of the cardiomediastinal silhouette. No evidence of pulmonary vascular congestion. BONES AND SOFT TISSUES: No fracture or focal osseous lesion. RAD/Chest 1 View (Portable) IMPRESSION: 1. No radiographic evidence of acute cardiopulmonary disease. Electronically Signed: Murtaza Ceballos DO at 22:16 EDT ,
--- NOTE | 2022-05-27 22:10 | CT_ITS ---
STUDY: CTA CHEST REASON FOR EXAM: Female, 41 years old. cp, sob, tachycardia, elevated d-dimer RADIATION DOSAGE (If Supplied By Facility): CTDIvol = ( 11.43 ) mGy, DLP = ( 565.02 ) mGycm TECHNIQUE: The examination was performed with the intravenous administration of IV 100mL Isovue-370. Post-processing of the angiographic images was performed, with multiplanar reformation and 3D reconstruction. Individualized dose optimization techniques were used for this CT. COMPARISON: Chest x-ray from earlier the same evening and CT angiography of the chest 07/14/2020. FINDINGS: High density contrast in the main pulmonary arteries and upper lobe pulmonary arteries however significantly decreased density of contrast in the lung bases. No significant motion. No pulmonary artery filling defect exemplified however minimal contrast in the lower lobe segmental arteries could miss a pulmonary embolism. If there is high clinical concern for pulmonary embolism, repeat exam should be considered. No right heart strain or other findings suspicious for pulmonary embolism. No pulmonary infarct. Normal size heart. No pericardial fluid. No mediastinal or hilar lymphadenopathy. There is a small sliding hiatal hernia. No airspace opacity or abnormal interstitial pattern. There several small pulmonary nodules, 4 mm or smaller seen in the right and left upper lobes; axial image 217, left upper lobe, axial image 208 right upper lobe and to 2 right upper lobe and image 171 right upper lobe. Thyroid gland and base of the neck are within normal limits. No axillary lymphadenopathy. No fracture or focal osseous lesion. Visualized solid and hollow viscus organs are within normal limits of the exam. CT/CTA Chest W/WO Contrast IMPRESSION: No pulmonary embolism exemplified. Inadequate density of contrast lower lobes could obscure pulmonary emboli in the lower lobes. No pulmonary embolism suggested. No acute cardiopulmonary disease. Several right and left upper lobe pulmonary nodules, 4 mm or smaller; no follow-up recommended unless patient has had a significant cancer risk. Electronically Signed: Murtaza Ceballos DO at 23:12 EDT ,
[2022-05-27] MEDS: 0.9% Normal Saline 1,000 ML 999 ML IV (22:24)
[2022-05-27 22:26] VITALS: BP 176/100; PULSE 120; RESP 18; O2SAT 97
[2022-05-27] MEDS: LORazepam 2 MG/ML Syringe 1 MG IV (23:38)
[2022-05-27] MEDS: cloNIDine HCl 0.2 MG Tablet PO (23:39)
[2022-05-27 23:41] VITALS: BP 170/126; PULSE 116; RESP 18; O2SAT 99
[2022-05-28 00:16] VITALS: BP 155/99; PULSE 105; RESP 18; O2SAT 100
== END 2022-05-28 00:23 | disposition home or self-care (01) ==
PROVIDERS: Emergency Provider Emergency Medicine; PCP Family Medicine; Visit Provider Emergency Medicine
DX: R07.9 Chest pain, unspecified (principal); F14.10 Cocaine abuse, uncomplicated; R00.0 Tachycardia, unspecified; F41.9 Anxiety disorder, unspecified; I10 Essential (primary) hypertension; F17.210 Nicotine dependence, cigarettes, uncomplicated; E66.9 Obesity, unspecified; F32.A Depression, unspecified; Z79.899 Other long term (current) drug therapy
CPT/HCPCS: 71045; 71275; 80048; 84484; 85025; 85379; 93005; 96374; 99284; Q9967

== ENCOUNTER 2022-05-28 20:39 | Emergency (ER) | payer MEDICAID, SELFPAY ==
[2022-05-28 20:41] VITALS: BP 114/64; PULSE 126; RESP 20; TEMP 36.7; O2SAT 94; BMI 34.7
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
--- NOTE | 2022-05-28 22:02 | EKG12_ITS ---
Test Reason : Blood Pressure : / mmHG Vent. Rate : 107 BPM Atrial Rate : 107 BPM P-R Int : 136 ms QRS Dur : 080 ms QT Int : 354 ms P-R-T Axes : 011 -54 003 degrees QTc Int : 472 ms Sinus tachycardia Left anterior fascicular block Anterolateral infarct , age undetermined Abnormal ECG Confirmed by FRANKLIN BLUE, SUMMER ([id number]), market editor HEIDE RODRIGUEZ ([id number]) on 05/30/2022 1:16:34 PM Referred By: Confirmed By:SUMMER REID MD
--- NOTE | 2022-05-28 22:04 | CT_ITS ---
STUDY: CT BRAIN WITHOUT CONTRAST REASON FOR EXAM: Female, 41 years old. ams RADIATION DOSAGE (If Supplied By Facility): CTDIvol = ( 44.99 ) mGy, DLP = ( 745.49 ) mGycm TECHNIQUE: Transaxial CT imaging of the brain was performed without administration of intravenous contrast material. Individualized dose optimization techniques were used for this CT. COMPARISON: No relevant priors. FINDINGS: Normal soft tissue structures. Normal calvarium. Normal size ventricles and extra-axial spaces for the patient''s age. Normal white matter tracts of the cerebral hemispheres. Normal basal ganglia and thalami. Normal brainstem. Normal cerebellum. There is no intracranial hemorrhage. There are no findings of an acute ischemic infarction. Normal visualized paranasal sinuses. CT/Brain/Head without Contrast IMPRESSION: Normal unenhanced CT scan of the brain. Electronically Signed: Travis Sutton DO at 23:07 EDT ,
[2022-05-28] MEDS: Aspirin 81 MG TAB.CHEW 324 MG PO (22:19)
[2022-05-28 22:28] LABS: Absolute Lymphocyte Count 2.38 X10^3/uL (0.83-4.51); Absolute Neutrophil Count 7.5 X10^3/uL (2.0-7.7); Basophil# 0.04 X10^3/uL; Basophil% 0.4 % (0-1); Eosinophil# 0.01 X10^3/uL; Eosinophils% 0.1 % (0-5); Hematocrit 37.1 % (37-47); Lymphocyte # 2.38 X10^3/ul (0.83-4.51); Mean Corp Hgb Conc 32.3 g/dL (32-36); Mean Corpuscular Hgb 27.8 pg (27.0-32.0); Mean Corpuscular Volume 85.9 fL (81-99); Mean Platelet Vol. 8.7 fl (6.2-12.0); Monocyte# 0.85 X10^3/uL; Monocyte% 7.9 % (0-10); NRBC Flagged by Analyzer 0 % (0-5); Neutrophil # 7.45 X10^3/uL (2.7-7.7); Platelet Count 417 K/mm3 (150-450); RBC Distribution Width CV 14.2 % (11.6-14.6); RBC Distribution Width SD 44.2 fl (35.1-43.9); Red Blood Count 4.32 M/mm3 (4.2-5.4); White Blood Count 10.8 K/mm3 (4.4-11.0)
--- NOTE | 2022-05-28 22:34 | RAD_ITS ---
STUDY: X-RAY CHEST REASON FOR EXAM: Female, 41 years old. chest pain TECHNIQUE: Single AP portable view of the chest. COMPARISON: Chest x-ray yesterday FINDINGS: The lungs are clear and expanded. There is no demonstrated pleural abnormality. Normal size heart. Normal mediastinum and maykel. Normal visualized pulmonary arteries. Normal visualized aortic arch and descending thoracic aorta. Normal visualized thoracic spine. Normal visualized ribs, clavicles, and shoulders. There is no demonstrated abnormality of the visualized soft tissue structures of the upper abdomen. RAD/Chest 1 View (Portable) IMPRESSION: Normal x-ray examination of the chest. Electronically Signed: Travis Sutotn DO at 22:53 EDT ,
[2022-05-28 22:57] LABS: Alcohol, Blood (Medical)-Serum < 3.0 mg/dL
[2022-05-28 23:01] LABS: Amphetamine Urine VISTA POSITIVE (<1000 ng/mL); Barbiturate Urine VISTA NEGATIVE (< 200 ng/mL); Benzodiazepine Urine VISTA NEGATIVE (< 200 ng/mL); Cocaine Urine VISTA POSITIVE (< 300 ng/mL); Ecstacy Urine VISTA POSITIVE (< 500 ng/mL); Methadone Urine VISTA NEGATIVE (< 300 ng/mL); PCP Urine VISTA NEGATIVE (< 25 ng/mL); THC Urine VISTA NEGATIVE (< 50 ng/mL); Vista UDS pH Range 4
[2022-05-28 23:02] LABS: ALB/GLOB Ratio 1.1 RATIO (0.9-2.4); AST(SGOT) 20 U/L (15-37); Alanine Aminotransfer ALT/SGPT 20 U/L (13-56); Alkaline Phosphatase 60 U/L (45-117); Anion Gap 8 (5-15); BUN 25 mg/dL (7-18); BUN/Creat Ratio 9.7 RATIO (10-20); Calcium,Total 9.6 mg/dL (8.5-10.1); Chloride 105 mmol/L (98-107); Creatinine, Serum 2.59 mg/dL (0.55-1.02); EST Glomerular Filtration Rate 22 mL/min (>60); Est Glom Filt Rate - Afr Amer 26 mL/min (>60); Estimated Creatinine Clearance 27.03 ml/min; Globulin 3.8 g/dL (2.2-4.2); Glucose 101 mg/dL (74-106); Lipase 116 U/L (73-393); Potassium 3.7 mmol/L (3.5-5.1); Protein, Total 7.8 g/dL (6.4-8.2); Sodium Level 137 mmol/L (136-145); Troponin-I HS 10 pg/mL (3.0-54.0)
[2022-05-28] MEDS: 0.9% Normal Saline 1,000 ML 999 ML IV (23:15)
== END 2022-05-29 00:19 | disposition home or self-care (01) ==
PROVIDERS: Emergency Provider Student in an Organized Health Care Education/Training Program; PCP Family Medicine; Visit Provider Student in an Organized Health Care Education/Training Program
DX: N17.9 Acute kidney failure, unspecified (principal); F15.10 Other stimulant abuse, uncomplicated; F14.10 Cocaine abuse, uncomplicated; F17.210 Nicotine dependence, cigarettes, uncomplicated; F41.9 Anxiety disorder, unspecified; F32.A Depression, unspecified; I10 Essential (primary) hypertension; Z79.899 Other long term (current) drug therapy
CPT/HCPCS: 70450; 71045; 80053; 80307; 82077; 83690; 84484; 85025; 93005; 99283; J7030

== ENCOUNTER 2022-08-12 23:13 | Emergency (ER) | payer MEDICAID, SELFPAY ==
[2022-08-12 23:14] VITALS: BP 158/116; PULSE 126; RESP 18; TEMP 36.4; BMI 32.3
--- NOTE | 2022-08-13 00:04 | EX.ED.DYSGE1 ---
HPI History of Present Illness Chief Complaint: Ear Problem Informant: patient Narrative Narrative: Increasing left facial burning and pain today. Last 2 weeks had some sinus congestion left ear pain. She [facility] a [facility] placed on Sudafed and Flonase. She has been using Tylenol. Burning started today. No facial weakness. No fevers. Denies similar symptoms in the past. Prior similar symptoms: No PFSH PFSH Medical History Acute appendicitis Cocaine abuse Depression GERD (gastroesophageal reflux disease) Hypertension Physical exam, pre-employment Tobacco use disorder Home Medications fluoxetine 20 mg capsule 80 mg PO DAILY mood 02/28/14 [History Last Taken 07/19/20 22:00] gabapentin 300 mg capsule 300 mg PO QHS PRN Cramps 05/09/21 [History Last Taken Unknown] lisinopril 10 mg tablet 10 mg PO DAILY 05/09/21 [History Last Taken Unknown] carbamazepine 100 mg tablet,extended release,12 hr (Tegretol XR) 100 mg PO BID #14 tabs 08/12/22 [Rx Last Taken Unknown] Allergy/AdvReac Type Severity Reaction Status Date / Time No Known Allergies Allergy Verified 08/10/21 23:57 Surgical History History of laparoscopic appendectomy (~07/20/20) Social History Smoking Status: Current some day smoker tobacco type: cigarettes substance use type: crack/cocaine ROS ROS ED Constitutional Constitutional ED: Denies chills, fever(s) or sweats Eyes Eyes: Denies change in vision ENT ENT ED: Reports other Details: Left facial burning ; Denies dysphagia or sore throat Cardiovascular Cardiovascular: Denies chest pain, leg edema, palpitations or racing heartbeat Respiratory/Chest Respiratory/Chest: Denies cough, dyspnea or dyspnea on exertion Gastrointestinal Gastrointestinal: Denies abdominal pain, diarrhea, nausea or vomiting Genitourinary Genitourinary ED: Denies dysuria, hematuria or urinary frequency Musculoskeletal Musculoskeletal: Denies back pain, extremity pain or neck pain Integumentary Denies rash or wounds Neurologic Neurologic: Denies headache(s), paresthesias or weakness EXAM Physical Exam Const Vital Signs: 08/12/22 23:14 08/12/22 23:14 Temperature 97.5 F L 97.5 F L Temperature Source Temporal Temporal Pulse Rate 126 H 126 H Respiratory Rate 18 18 Blood Pressure 158/116 H 158/116 H Blood Pressure Mean 130 130 Constitutional Narrative: Patient is tearful, answering questions appropriately. Nontoxic. HEENT Reports moist mucous membranes HEENT Narrative: Tender palpation left forehead left maxillary there is no rash. TMs are normal bilaterally. No swollen turbinates. No posterior pharyngeal erythema. normocephalic and atraumatic Eyes PERRL, EOMs intact bilaterally and conjunctivae normal General Eye ED: Yes normal appearance of both eyes Neck no lymphadenopathy and supple General: Negative for tenderness Chest Wall Chest: Negative for tenderness Resp normal respiratory effort and normal air movement Effort and Inspection: symmetric chest movement; Negative for respiratory distress Cardio regular rhythm and no murmurs Rate: tachycardic Peripheral Pulses: pulses 2+ throughout GI normal to inspection, nondistended, normoactive bowel sounds and non-tender Palpation: Negative for guarding or rebound tenderness present Back/Spine no CVA tenderness and no thoracic nor lumbar tenderness Extremity normal to inspection General Extremety ED: Negative for edema or tenderness General Extremity: Negative for edema Neuro oriented x3 and no sensory deficits noted Sensorium / Orientation: awake and alert Skin no rashes or lesions noted and no wounds MDM MDM MDM Narrative Medical decision making narrative: Patient exam concerns for left-sided trigeminal neuralgia. There is no current rash. Discussed with patient treatment recommendations. She started on Tegretol. She is appointment on Monday to see her doctor. From review of records seen 2 months ago had JULITA creatinine 2.59. Creatinine clearance was 22. She had a talk screen positive for cocaine, amphetamines, ecstasy. Apparently admitted to having a drug binge at that time. With her history discussed avoiding NSAIDs for her to continue Tylenol. Tegretol will be continued 100 mg twice daily at this time. She will follow-up with her PCP as scheduled on Monday for reevaluation with outpatient retesting. Discharge Plan Triage Chief Complaint: Ear Problem ED Provider: Ancelmo Miller Dx/Rx/DC Orders Clinical Impression: Trigeminal neuralgia of left side of face, CKD (chronic kidney disease), Left facial pain Instructions: ED Trigeminal Neuralgia Prescriptions: New carbamazepine [Tegretol XR] 100 mg tablet extended release 12 hr 100 mg PO BID Qty: 14 0RF No Action fluoxetine 20 MG capsule 80 mg PO DAILY lisinopril 10 mg tablet 10 mg PO DAILY gabapentin 300 mg capsule 300 mg PO QHS PRN (Reason: Cramps) Label Comments: take 1 capsule by mouth at bedtime Primary Care Provider: Basilio Dunham Referrals: Basilio Dunham MD [Primary Care Provider] - Keep Baljinder appointment Activity Restrictions/Additional Instructions: Take medication as prescribed for your symptoms. Keep your follow-up with your doctor on Monday for reevaluation. He also had creatinine of 2.59 on your last visit 2 months ago that needs to be rechecked as an outpatient. Disposition Disposition: Home, Self Care
[2022-08-13] MEDS: carBAMazepine 200 MG Tablet 100 MG PO (00:09)
== END 2022-08-13 00:14 | disposition home or self-care (01) ==
LOC: ED 08-13 00:07
PROVIDERS: Emergency Provider Emergency Medicine; PCP Family Medicine; Visit Provider Emergency Medicine
DX: G50.0 Trigeminal neuralgia (principal); N18.9 Chronic kidney disease, unspecified; R51.9 Headache, unspecified; F17.210 Nicotine dependence, cigarettes, uncomplicated
CPT/HCPCS: 99283

== ENCOUNTER 2022-09-20 20:58 | Emergency (ER) | payer MEDICAID, SELFPAY ==
[2022-09-20 20:59] VITALS: BP 220/135; PULSE 100; RESP 16; TEMP 36.7; O2SAT 100; BMI 33.6
--- NOTE | 2022-09-20 21:58 | EDS_ITS ---
HPI History of Present Illness Chief Complaint: Dental Informant: patient Onset/Context/Timing Onset: Days (2 days) Context: Gradual Onset Current Severity: Moderate Maximum Severity: Severe Narrative Narrative: Patient presents secondary to left-sided dental pain. She states that a couple years ago they tried to extract her wisdom tooth but was not able. She was most to see an oral surgeon but never followed up. 2 days ago the left lower jaw became painful. When she woke from a nap tonight her left face was swollen. [facility] Medical History Acute appendicitis Cocaine abuse Depression GERD (gastroesophageal reflux disease) Hypertension Physical exam, pre-employment Tobacco use disorder Home Medications fluoxetine 20 mg capsule 80 mg PO DAILY mood 02/28/14 [History Last Taken 07/19/20 22:00] gabapentin 300 mg capsule 300 mg PO QHS PRN Cramps 05/09/21 [History Last Taken Unknown] lisinopril 10 mg tablet 10 mg PO DAILY 05/09/21 [History Last Taken Unknown] carbamazepine 100 mg tablet,extended release,12 hr (Tegretol XR) 100 mg PO BID #14 tabs 08/12/22 [Rx Last Taken Unknown] hydrocodone-acetaminophen 5-325mg 5mg-325mg 1 tab PO Q6H PRN pain 3 days #10 tabs 09/20/22 [Rx Last Taken Unknown] penicillin V potassium 250 mg tablet 500 mg PO 4X/DAY #40 tabs 09/20/22 [Rx Last Taken Unknown] Allergy/AdvReac Type Severity Reaction Status Date / Time No Known Allergies Allergy Verified 09/20/22 20:58 Surgical History History of laparoscopic appendectomy (~07/20/20) Social History Smoking Status: Current some day smoker tobacco type: cigarettes substance use type: crack/cocaine ROS ROS ED Constitutional Constitutional ED: Denies chills or fever(s) Eyes Eyes: Denies change in vision or discharge from eye(s) ENT ENT ED: Reports other Details: Left-sided dental pain ; Denies discharge from eye(s), rhinorrhea or sore throat Cardiovascular Cardiovascular: Denies chest pain or palpitations Respiratory/Chest Respiratory/Chest: Denies cough or dyspnea Gastrointestinal Gastrointestinal: Denies abdominal pain, nausea or vomiting Genitourinary Genitourinary ED: Denies difficulty urinating or dysuria Musculoskeletal Musculoskeletal: Denies back pain or extremity pain Integumentary Denies Abrasions or rash Neurologic Neurologic: Denies headache(s) or weakness Psychiatric Psychiatric: Denies anxiety or depression Allergic/Immunologic Allergic/Immunologic ED: Denies lip swelling or urticaria EXAM Physical Exam Const Vital Signs: 09/20/22 20:59 Temperature 98.0 F Temperature Source Temporal Pulse Rate 100 Respiratory Rate 16 Blood Pressure 220/135 H Blood Pressure Mean 163 Pulse Ox 100 Oxygen Delivery Method Room Air Positive well nourished and well developed General Appearance ED: well developed HEENT Reports normocephalic and head/scalp atraumatic HEENT Narrative: Minimal left-sided facial edema. No erythema. Intraoral examination reveals that the left third mandibular molar is growing in an abnormal angle. The left second molar had been previously extracted. Posterior pharynx examination is unremarkable. There is no evidence of Sergio's angina. Eyes PERRL and EOMs intact bilaterally Neck supple Chest Wall inspection of chest normal and palpation of chest normal Resp normal respiratory effort and clear to auscultation bilaterally Cardio regular rate and regular rhythm GI normal to inspection, nondistended, normoactive bowel sounds Palpation: soft Extremity normal to inspection Neuro oriented x3 and no sensory deficits noted Sensorium / Orientation: alert Motor Exam: strength 5/5 throughout Psych mental status grossly normal Skin no rashes or lesions noted MDM MDM MDM Narrative Medical decision making narrative: Patient be treated with Dayday Qureshi. She is going to call her dentist tomorrow. I will have blood pressure rechecked prior to discharge. Discharge Plan Triage Chief Complaint: Dental ED Provider: Cyndi Acevedo Dx/Rx/DC Orders Clinical Impression: Odontalgia Instructions: ED Dental Pain Prescriptions: New penicillin V potassium 250 mg tablet 500 mg PO 4X/DAY Qty: 40 0RF hydrocodone-acetaminophen 5-325 mg tablet 1 tab PO Q6H PRN (Reason: pain) 3 Days Qty: 10 0RF No Action fluoxetine 20 MG capsule 80 mg PO DAILY lisinopril 10 mg tablet 10 mg PO DAILY gabapentin 300 mg capsule 300 mg PO QHS PRN (Reason: Cramps) Label Comments: take 1 capsule by mouth at bedtime carbamazepine [Tegretol XR] 100 mg tablet extended release 12 hr 100 mg PO BID Qty: 14 0RF Primary Care Provider: Basilio Dunham Referrals: Basilio Dunham MD [Primary Care Provider] - Activity Restrictions/Additional Instructions: Follow-up with your dentist as soon as possible. Disposition Disposition: Home, Self Care
[2022-09-20] MEDS: HYDROcodone Bitartrate/Apap 5/325 Tablet PO (22:02)
[2022-09-20] MEDS: Penicillin Vk 250 MG Tablet 500 MG PO (22:02)
[2022-09-20 22:31] VITALS: BP 195/120; BP 200/125; PULSE 75; RESP 15; O2SAT 97
== END 2022-09-20 22:32 | disposition home or self-care (01) ==
PROVIDERS: Emergency Provider Emergency Medicine; PCP Family Medicine; Visit Provider Emergency Medicine
DX: K08.89 Other specified disorders of teeth and supporting structures (principal); F17.210 Nicotine dependence, cigarettes, uncomplicated
CPT/HCPCS: 99283

== ENCOUNTER 2023-03-13 03:10 | Emergency (ER) | payer MEDICAID, SELFPAY ==
[2023-03-13 03:11] VITALS: BP 126/99; PULSE 120; RESP 28; TEMP 36.6; O2SAT 100; BMI 30.2
--- NOTE | 2023-03-13 03:16 | EKG12_ITS ---
Test Reason : DYSRHYTHMIA Blood Pressure : / mmHG Vent. Rate : 109 BPM Atrial Rate : 109 BPM P-R Int : 124 ms QRS Dur : 090 ms QT Int : 376 ms P-R-T Axes : 023 -31 038 degrees QTc Int : 506 ms Sinus tachycardia Left axis deviation Abnormal ECG Confirmed by FRANKLIN BLUE, SUMMER ([id number]), television news video editor HEIDE RODRIGUEZ ([id number]) on 03/15/2023 2:14:30 PM Referred By: PL Confirmed By:SUMMER REID MD
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
[2023-03-13] MEDS: 0.9% Normal Saline 1,000 ML 1000 ML IV (03:24)
[2023-03-13 03:35] LABS: Absolute Lymphocyte Count 3.25 X10^3/uL (0.83-4.51); Absolute Neutrophil Count 7.7 X10^3/uL (2.0-7.7); Basophil# 0.04 X10^3/uL; Basophil% 0.3 % (0-1); Eosinophil# 0.03 X10^3/uL; Eosinophils% 0.3 % (0-5); Hematocrit 34.3 % (37-47); Hemoglobin 11.4 g/dL (12.0-15.0); Lymphocyte # 3.25 X10^3/ul (0.83-4.51); Lymphocyte % 27.1 % (19-41); Mean Corp Hgb Conc 33.2 g/dL (32-36); Mean Corpuscular Hgb 28.3 pg (27.0-32.0); Mean Corpuscular Volume 85.1 fL (81-99); Mean Platelet Vol. 9.1 fl (6.2-12.0); Monocyte# 0.93 X10^3/uL; Monocyte% 7.8 % (0-10); NRBC Flagged by Analyzer 0 % (0-5); Neutrophil # 7.69 X10^3/uL (2.7-7.7); Platelet Count 420 K/mm3 (150-450); RBC Distribution Width CV 14.4 % (11.6-14.6); RBC Distribution Width SD 44.2 fl (35.1-43.9); Red Blood Count 4.03 M/mm3 (4.2-5.4)
--- NOTE | 2023-03-13 03:45 | RAD_ITS ---
INDICATION: SOB EXAMINATION/TECHNIQUE: X-RAY - XR Chest 1 View AP portable. 3:42 AM COMPARISON: 05/28/2022 FINDINGS: LINES/DEVICES: None. LUNGS: No consolidation. No pneumothorax. MEDIASTINUM: Unremarkable. CARDIAC SILHOUETTE: Not enlarged. BONES AND SOFT TISSUES: No acute abnormalities. RAD/Chest 1 View (Portable) IMPRESSION: No evidence of active intrathoracic disease. Electronically Signed: Cherri Holder MD at 4:17 EDT ,
[2023-03-13 03:50] LABS: Alcohol, Blood (Medical)-Serum < 3.0 mg/dL
[2023-03-13 03:53] LABS: Anion Gap 16 (5-15); BUN 20 mg/dL (7-18); BUN/Creat Ratio 7.2 RATIO (10-20); Calcium,Total 9.9 mg/dL (8.5-10.1); Chloride 102 mmol/L (98-107); Creatinine, Serum 2.79 mg/dL (0.55-1.02); EST Glomerular Filtration Rate 20 mL/min (>60); Est Glom Filt Rate - Afr Amer 24 mL/min (>60); Glucose 109 mg/dL (74-106); Potassium 3.5 mmol/L (3.5-5.1); Sodium Level 136 mmol/L (136-145)
[2023-03-13 04:08] LABS: Internal QC Validated? YES +Cl - CLEAR BKGD; Pregnancy, Serum, hCG Quali. NEGATIVE Negative
[2023-03-13 04:36] LABS: Blood Gas Specimen Type VEN; O2 Delivery Device Room Air; VBG BASE EXCESS -6 mmol/L (-1.0-3.5); VBG Bicarbonate 17 mmol/L (22-26); VBG PO2 41 mmHg (25-40); VBG SO2 84 % (50-70); VBG TCO2 17 mmol/L (23-33); VBG pCO2 19.8 mmHg (41-51); VBG pH 7.53 (7.32-7.42)
[2023-03-13 04:42] LABS: Salicylate 2.2 mg/dL (2.8-20.0)
--- NOTE | 2023-03-13 04:44 | ED.RN ---
Pt behavior bizarre and acting erratic. Pt thrashing and attempting to leave room multiple times. Pt instructed to stay in room to receive IV fluids and stay on night monitor. Pt stated, You're a lot of help bitch. Pt then yelled through closed door I'll walk out of here. Dr. Champion notified about pt wishes.
[2023-03-13 04:50] LABS: Amphetamine Urine VISTA POSITIVE (<1000 ng/mL); Barbiturate Urine VISTA NEGATIVE (< 200 ng/mL); Benzodiazepine Urine VISTA NEGATIVE (< 200 ng/mL); Cocaine Urine VISTA NEGATIVE (< 300 ng/mL); Ecstacy Urine VISTA POSITIVE (< 500 ng/mL); Methadone Urine VISTA NEGATIVE (< 300 ng/mL); PCP Urine VISTA NEGATIVE (< 25 ng/mL); THC Urine VISTA NEGATIVE (< 50 ng/mL); Vista UDS pH Range 4
[2023-03-13] MEDS: LORazepam 2 MG/ML Syringe 1 MG IV (05:05)
[2023-03-13 05:19] LABS: Carboxyhemoglobin Frac (CO) 1.1 % (0.0-1.5)
[2023-03-13 05:28] VITALS: BP 144/89; PULSE 109; RESP 22; O2SAT 100
== END 2023-03-13 05:28 | disposition home or self-care (01) ==
PROVIDERS: Emergency Provider Emergency Medicine; PCP Family Medicine; Visit Provider Emergency Medicine
DX: F15.180 Other stimulant abuse with stimulant-induced anxiety disorder (principal); F17.210 Nicotine dependence, cigarettes, uncomplicated; I10 Essential (primary) hypertension; F32.A Depression, unspecified; Z79.899 Other long term (current) drug therapy
CPT/HCPCS: 71045; 80048; 80307; 80320; 80329; 82077; 82375; 82803; 84703; 85025; 93005; 96361; 96374; 99284; J7030; A4216; G0480

== ENCOUNTER 2023-03-30 09:06 | Emergency (ER) | payer MEDICAID, SELFPAY ==
[2023-03-30 09:11] VITALS: BP 161/106; PULSE 121; RESP 16; TEMP 36.7; O2SAT 98; BMI 32.3
--- NOTE | 2023-03-30 09:21 | NURSING ---
PT extremely paranoid, pacing, attempting to enter nurses station, not direcetable not wanting to stay in room to be assessed by physician. RN Camille advised that pt to can either stay in room to be seen or leave as she was outside of nurses' station yelling. Pt ambulated out of ambulance bay. HRO and security notified.
--- NOTE | 2023-03-30 09:31 | ED.RN ---
Patient brought back in by HRO so be seen at a patient. Dr. Armstrong attempting to assess patient, pt. refuses to answer questions and is asking for sarah
--- NOTE | 2023-03-30 09:54 | ED.RN ---
Dr. jaramillo attempting to assess pt. Pt. refusing exam and continues to say Where is sarah get sarah
[2023-03-30] MEDS: Ziprasidone IM 20 MG/ML VIAL IM (09:58)
[2023-03-30 10:15] LABS: Absolute Lymphocyte Count 2.53 X10^3/uL (0.83-4.51); Absolute Neutrophil Count 5.8 X10^3/uL (2.0-7.7); Basophil# 0.06 X10^3/uL; Basophil% 0.6 % (0-1); Eosinophil# 0.02 X10^3/uL; Eosinophils% 0.2 % (0-5); Hematocrit 36.8 % (37-47); Hemoglobin 12.1 g/dL (12.0-15.0); Lymphocyte # 2.53 X10^3/ul (0.83-4.51); Lymphocyte % 27.1 % (19-41); Mean Corp Hgb Conc 32.9 g/dL (32-36); Mean Corpuscular Hgb 28.3 pg (27.0-32.0); Mean Corpuscular Volume 86.2 fL (81-99); Mean Platelet Vol. 8.7 fl (6.2-12.0); Monocyte# 0.84 X10^3/uL; NRBC Flagged by Analyzer 0 % (0-5); Neutrophil # 5.82 X10^3/uL (2.7-7.7); Neutrophil % 62.6 % (47-70); Platelet Count 536 K/mm3 (150-450); RBC Distribution Width CV 14.1 % (11.6-14.6); RBC Distribution Width SD 44.3 fl (35.1-43.9); Red Blood Count 4.27 M/mm3 (4.2-5.4); White Blood Count 9.3 K/mm3 (4.4-11.0)
[2023-03-30 10:16] LABS: Mucous, Urine 0 SEEN /hpf (<or=2+)
[2023-03-30 10:26] LABS: Color, Urine Yellow (Yellow); Glucose, Dipstick 50 mg/dl (Normal); Ketone-Dipstick 50 mg/dl (Negative); Leukocyte Esterase-Dipstick 25 /ul (Negative); Nitrite-Dipstick Positive (Negative); Occult Blood-Urine 25 /ul (Negative); Protein-Dipstick 30 mg/dl (Negative); Urine Bilirubin Dipstick Negative (Negative); Urine Clarity Sl. Cloudy (Clear); Urine Urobilinogen 1 mg/dl (Normal)
[2023-03-30 10:36] LABS: ALB/GLOB Ratio 1.1 RATIO (0.9-2.4); AST(SGOT) 19 U/L (15-37); Alanine Aminotransfer ALT/SGPT 24 U/L (13-56); Albumin, Serum 4.3 g/dL (3.2-5.0); Alkaline Phosphatase 60 U/L (45-117); Anion Gap 6 (5-15); BUN 22 mg/dL (7-18); Calcium,Total 9.5 mg/dL (8.5-10.1); Chloride 109 mmol/L (98-107); Creatinine, Serum 1.47 mg/dL (0.55-1.02); EST Glomerular Filtration Rate 42 mL/min (>60); Est Glom Filt Rate - Afr Amer 50 mL/min (>60); Estimated Creatinine Clearance 47.15 ml/min; Glucose 98 mg/dL (74-106); Potassium 3.9 mmol/L (3.5-5.1); Protein, Total 8.3 g/dL (6.4-8.2); Sodium Level 136 mmol/L (136-145); Thyroid Stim Hormone (TSH) 0.95 uIU/mL (0.358-3.74)
[2023-03-30 10:37] LABS: Internal QC Validated? YES +Cl - CLEAR BKGD; Pregnancy, Serum, hCG Quali. NEGATIVE Negative
[2023-03-30 10:37] LABS: Bacteria 2+ /hpf (None Seen); Red Blood Cells-Urine 0-5 SEEN /hpf (0-5); Squamous Epithelial Cells - UA 0-5 SEEN /hpf (5-10); Transitional Epithelial - Ur 0-5 SEEN /hpf (0-5); White Blood Cells 0-5 SEEN /hpf (0-5)
[2023-03-30 10:42] LABS: Alcohol, Blood (Medical)-Serum < 3.0 mg/dL
--- NOTE | 2023-03-30 10:42 | CT_ITS ---
STUDY: CT BRAIN WITHOUT CONTRAST REASON FOR EXAM: Female, 42 years old. Altered mental status RADIATION DOSAGE (If Supplied By Facility): CTDIvol = ( 44.99 ) mGy, DLP = ( 880.47 ) mGycm TECHNIQUE: Transaxial CT imaging of the brain was performed without administration of intravenous contrast material. Individualized dose optimization techniques were used for this CT. COMPARISON: Comparison is made with prior study May 28, 2022. FINDINGS: Normal soft tissue structures. Normal calvarium. Normal size ventricles and extra-axial spaces for the patient''s age. Questionable focal area decreased attenuation in the right frontal lobe deep in the white matter. Correlation with MRI is recommended. Normal basal ganglia and thalami. Normal brainstem. Normal cerebellum. There is no intracranial hemorrhage. There are no findings of an acute ischemic infarction. Normal visualized paranasal sinuses. CT/Brain/Head without Contrast IMPRESSION: Questionable focal area of decreased attenuation in the right frontal lobe deep in the white matter. Correlation with MRI is recommended. Electronically Signed: Camacho Staley MD at 11:07 EDT ,
[2023-03-30 10:53] LABS: Amphetamine Urine VISTA POSITIVE (<1000 ng/mL); Barbiturate Urine VISTA NEGATIVE (< 200 ng/mL); Benzodiazepine Urine VISTA NEGATIVE (< 200 ng/mL); Cocaine Urine VISTA NEGATIVE (< 300 ng/mL); Ecstacy Urine VISTA POSITIVE (< 500 ng/mL); Methadone Urine VISTA NEGATIVE (< 300 ng/mL); PCP Urine VISTA NEGATIVE (< 25 ng/mL); THC Urine VISTA NEGATIVE (< 50 ng/mL); Vista UDS pH Range 5
[2023-03-30 11:33] VITALS: RESP 17
[2023-03-30 11:50] VITALS: PULSE 88; O2SAT 97
--- NOTE | 2023-03-30 12:34 | MRI_ITS ---
HISTORY: psychosis, abnormal CT. TECHNIQUE: Multiplanar and multisequence MR images of the brain were obtained without contrast. 281 images. COMPARISON: CT earlier same day. FINDINGS: BRAIN PARENCHYMA: Multiple foci and small zones of increased T2 FLAIR signal in the bilateral cerebral white matter, some with a perpendicular orientation to the lateral ventricles and accounting for this CT findings. No abnormal focus of restricted diffusion. No acute intracranial hemorrhage identified. CSF SPACES: Cerebral ventricles, cortical sulci, and other extra-axial CSF spaces within normal limits in size for age. No significant midline shift or other mass effect.No extra-axial fluid collection. VASCULAR SYSTEM: Major intracranial flow voids are maintained. PARANASAL SINUSES AND MASTOID AIR CELLS: Trace fluid in the mastoid air cells. ORBITS: Symmetric contents. MRI/Brain without Contrast IMPRESSION: Moderate chronic white matter changes which can be seen with chronic small vessel ischemic gliosis, other vascular etiology, or sequela of nonspecific demyelination or inflammation. No evidence for acute infarct. Electronically Signed: Mary Najera MD at 15:01 EDT ,
--- NOTE | 2023-03-30 12:37 | EX.ED.VIS.PS ---
HPI HPI - Psych History of Present Illness Chief Complaint: Substance Abuse Informant: patient and EMS Narrative Narrative: Patient was brought here by EMS after the police were called because she was agitated, running around the neighborhood early in the morning, screaming, and altered. The was apparently alerted to this by the police and did not know this was occurring prior. The patient is here alone, when I asked her what brought her to the ER, she seems disoriented, she does not know, she tries to leave, she tries to go to the water fountain behind the nursing station, she tells staff this is ridiculous, what did you do with Jewel? The patient is redirected to her room, and she goes on and on about someone named him and is asking us what we did with Jewel, and that we should have him arrested, etc. She is not making any sense. She is not giving appropriate answers to questions. She admitted to police here that she had used methamphetamine and also admitted that she was having some type of hallucinations. [facility] Medical History Acute appendicitis Cocaine abuse Depression GERD (gastroesophageal reflux disease) Hypertension Physical exam, pre-employment Tobacco use disorder Home Medications fluoxetine 20 mg capsule 80 mg PO DAILY mood 02/28/14 [History Last Taken 07/19/20 22:00] gabapentin 300 mg capsule 300 mg PO QHS PRN Cramps 05/09/21 [History Last Taken Unknown] lisinopril 10 mg tablet 10 mg PO DAILY 05/09/21 [History Last Taken Unknown] carbamazepine 100 mg tablet,extended release,12 hr (Tegretol XR) 100 mg PO BID #14 tabs 08/12/22 [Rx Last Taken Unknown] hydrocodone-acetaminophen 5-325mg 5mg-325mg 1 tab PO Q6H PRN pain 3 days #10 tabs 09/20/22 [Rx Last Taken Unknown] penicillin V potassium 250 mg tablet 500 mg PO 4X/DAY #40 tabs 09/20/22 [Rx Last Taken Unknown] Allergy/AdvReac Type Severity Reaction Status Date / Time No Known Allergies Allergy Verified 09/20/22 20:58 Surgical History History of laparoscopic appendectomy (~07/20/20) Social History Smoking Status: Current some day smoker tobacco type: cigarettes substance use type: crack/cocaine ROS ROS ED Constitutional Constitutional ED: Denies chills or fever(s) Eyes Eyes: Denies change in vision or diplopia ENT ENT ED: Reports ear pain left; Denies rhinorrhea or sore throat Cardiovascular Cardiovascular: Denies chest pain or palpitations Respiratory/Chest Respiratory/Chest: Denies cough or dyspnea Gastrointestinal Gastrointestinal: Denies abdominal pain, diarrhea, nausea or vomiting Genitourinary Genitourinary ED: Denies dysuria or hematuria Musculoskeletal Musculoskeletal: Denies back pain or neck pain Integumentary Denies abscess or rash Neurologic Neurologic: Reports headache(s); Denies paresthesias or weakness Psychiatric Psychiatric: Reports as per HPI, confusion and paranoia; Denies suicidal ideation EXAM Physical Exam Const Vital Signs: 03/30/23 09:11 03/30/23 11:33 03/30/23 11:50 Temperature 98.1 F Temperature Source Temporal Pulse Rate 121 H 88 Respiratory Rate 16 17 Blood Pressure 161/106 H Blood Pressure Mean 124 Pulse Ox 98 97 Oxygen Delivery Method Room Air Room Air Room Air 03/30/23 13:01 03/30/23 15:10 Temperature Temperature Source Pulse Rate 94 Respiratory Rate 17 18 Blood Pressure 120/93 H Blood Pressure Mean 102 Pulse Ox 99 Oxygen Delivery Method Room Air Room Air Positive well nourished and well developed General Appearance ED: well developed and NAD HEENT Reports moist mucous membranes HEENT Narrative: normal external ear exam, nontender mastoid processes bilat. Refuses further ear examination. normocephalic and atraumatic Eyes PERRL and EOMs intact bilaterally Neck full ROM, no lymphadenopathy and supple General: Negative for tenderness Resp normal respiratory effort and clear to auscultation bilaterally Cardio regular rate, regular rhythm and no murmurs GI non-tender and non-distended Auscultation: normoactive bowel sounds Palpation: soft Back/Spine no CVA tenderness General Back: other FROM Extremity normal to inspection General Extremety ED: Negative for edema, pulses abnormal or tenderness General Extremity: Negative for edema or pulses abnormal Neuro CN's II-XII intact bilaterally, no sensory deficits noted and gait normal Neuro Narrative: not oriented; will not answer all questions; psychomotor agitation Sensorium / Orientation: awake and alert Motor Exam: strength 5/5 throughout Psych Psych Narrative: Agitated. Psychomotor agitation. Walking around the room in the hallways, occasionally redirectable, not physically violent. Keeps talking about Jewel and asking people where he is and does not understand why we would not know Skin no rashes or lesions noted and no wounds MDM MDM MDM Narrative Medical decision making narrative: The patient seems psychotic, and she does not appear to have the capacity to make appropriate decisions for herself and her care at this time, so I pink slipped her temporarily so that we could keep her here and run medical testing. See below, the capacity assessment was performed at this time. I tried multiple times, as did staff to redirect the patient verbally, but she really was not comprehending any of this. I put an order in for a as needed dose of Geodon, she ended up being amenable to it and we gave it to her so that we could help keep her from being so agitated to enable us to perform testing including a CT of the head which was done. I reviewed the images and the report which I agree with. An MRI was recommended since the patient has an abnormality in the frontal lobe on CT that is nonspecific. Before getting the MRI, her Jewel arrived who was not here before, and I had this discussion with him, and expressed my concern that the frontal lobe manages behavior and this abnormality could be related to her acute psychosis. He understands this, and the reason for the MRI, but states she is much better now and he suspects this was all related to her using methamphetamine which she has a history of doing but she has never been this bad as far as being agitated and psychotic. We were able to obtain the MRI reviewed those images and the report which I agree with, basically shows chronic abnormalities that could be consistent with a demyelinating or other primary ORGAN TUNER pathology, it could also be due to chronic abnormalities due to microvascular disease which could be related to her chronic drug use in my judgment. I discussed all this with the patient and her . She is comfortable with going home with them, she is making more sense now and is redirectable verbally, and I am comfortable with him taking her home which is what he wants to do. I recommend close outpatient neurologic follow-up, and advised that it may be helpful to see if her condition persists if she stops using methamphetamine. The rest of her work-up was unremarkable. It is noted that she tested positive for nitrite on her urine, but the rest of it is negative so I am sending it for a culture but I do not think it needs to be treated, she denies any urinary symptoms. History & Record Review Discussion w/independent historian: Patient and Family Additional record(s) reviewed:: Prior ED visit (prior episodes of paranoia, suspected to be drug-induced) Lab Data Attestation: I reviewed the patient's lab results. Labs: Laboratory Results - last 24 hr 03/30/23 03/30/23 03/30/23 10:03 10:03 10:03 WBC 9.3 RBC 4.27 Hgb 12.1 Hct 36.8 L MCV 86.2 MCH 28.3 MCHC 32.9 RDW Std Deviation 44.3 H RDW Coeff of Lyndsey 14.1 Plt Count 536 H MPV 8.7 Immature Gran % (Auto) 0.500 Neut % (Auto) 62.6 Lymph % (Auto) 27.1 [place] % (Auto) 9.0 Eos % (Auto) 0.2 Baso % (Auto) 0.6 Absolute Neuts (auto) 5.8 Absolute Lymphs (auto) 2.53 Nucleated RBC % 0 Sodium 136 Potassium 3.9 Chloride 109 H Carbon Dioxide 21.0 Anion Gap 6 BUN 22 H Creatinine 1.47 H Estim Creat Clear Calc 47.15 Est GFR (MDRD) Af Amer 50 L Est GFR (MDRD) Non-Af 42 L BUN/Creatinine Ratio 15.0 Glucose 98 Calcium 9.5 Total Bilirubin 0.80 AST 19 ALT 24 Alkaline Phosphatase 60 Total Protein 8.3 H Albumin 4.3 Globulin 4.0 Albumin/Globulin Ratio 1.1 TSH 0.95 Serum , Qual Urine Color Urine Clarity Urine pH Ur Specific [place]co Urine Protein Urine Glucose (UA) Urine Ketones Urine Occult Blood Urine Nitrite Urine Bilirubin Urine Urobilinogen Ur Leukocyte Esterase Urine RBC Urine WBC Ur Squamous Epith Cells Ur Transition Epith Cell Urine Bacteria Urine Mucus Urine Opiates Screen Urine Methadone Screen Ur Barbiturates Screen Ur Phencyclidine Scrn Ur Amphetamines Screen MDMA (Ecstasy) Screen U Benzodiazepines Scrn Urine Cocaine Screen U Cannabinoids Screen Ur Drug Screen Comment Ethyl Alcohol < 3.0 03/30/23 03/30/23 03/30/23 10:03 10:10 10:10 WBC RBC Hgb Hct MCV MCH MCHC RDW Std Deviation RDW Coeff of Lyndsey Plt Count MPV Immature Gran % (Auto) Neut % (Auto) Lymph % (Auto) [place] % (Auto) Eos % (Auto) Baso % (Auto) Absolute Neuts (auto) Absolute Lymphs (auto) Nucleated RBC % Sodium Potassium Chloride Carbon Dioxide Anion Gap BUN Creatinine Estim Creat Clear Calc Est GFR (MDRD) Af Amer Est GFR (MDRD) Non-Af BUN/Creatinine Ratio Glucose Calcium Total Bilirubin AST ALT Alkaline Phosphatase Total Protein Albumin Globulin Albumin/Globulin Ratio TSH Serum , Qual NEGATIVE Urine Color Yellow Urine Clarity Sl. Cloudy Urine pH 5.0 Ur Specific [place]co 1.030 Urine Protein 30 H Urine Glucose (UA) 50 H Urine Ketones 50 H Urine Occult Blood 25 H Urine Nitrite Positive H Urine Bilirubin Negative Urine Urobilinogen 1 H Ur Leukocyte Esterase 25 H Urine RBC 0-5 SEEN Urine WBC 0-5 SEEN Ur Squamous Epith Cells 0-5 SEEN Ur Transition Epith Cell 0-5 SEEN Urine Bacteria 2+ Urine Mucus 0 SEEN Urine Opiates Screen NEGATIVE Urine Methadone Screen NEGATIVE Ur Barbiturates Screen NEGATIVE Ur Phencyclidine Scrn NEGATIVE Ur Amphetamines Screen POSITIVE H MDMA (Ecstasy) Screen POSITIVE H U Benzodiazepines Scrn NEGATIVE Urine Cocaine Screen NEGATIVE U Cannabinoids Screen NEGATIVE Ur Drug Screen Comment Ethyl Alcohol Radiography Diagnostic Testing: Clinical Impression(s) from Imaging Studies Brain CT 03/30/23 10:42 IMPRESSION: Questionable focal area of decreased attenuation in the right frontal lobe deep in the white matter. Correlation with MRI is recommended. Electronically Signed: Camacho Staley MD at 11:07 EDT , Brain MRI 03/30/23 12:34 IMPRESSION: Moderate chronic white matter changes which can be seen with chronic small vessel ischemic gliosis, other vascular etiology, or sequela of nonspecific demyelination or inflammation. No evidence for acute infarct. Electronically Signed: Mary Najera MD at 15:01 EDT , Rhythm Strip Rhythm Strip: Sinus Tach Rate: 115 Ectopy: None Discharge Plan Triage Chief Complaint: Substance Abuse ED Provider: Arun Armstrong Dx/Rx/DC Orders Clinical Impression: Acute psychosis, Methamphetamine abuse Prescriptions: No Action fluoxetine 20 MG capsule 80 mg PO DAILY lisinopril 10 mg tablet 10 mg PO DAILY gabapentin 300 mg capsule 300 mg PO QHS PRN (Reason: Cramps) Label Comments: take 1 capsule by mouth at bedtime carbamazepine [Tegretol XR] 100 mg tablet extended release 12 hr 100 mg PO BID Qty: 14 0RF penicillin V potassium 250 mg tablet 500 mg PO 4X/DAY Qty: 40 0RF hydrocodone-acetaminophen 5-325 mg tablet 1 tab PO Q6H PRN (Reason: pain) 3 Days Qty: 10 0RF Primary Care Provider: Basilio Dunham Referrals: Omar Dickerson MD [Non-Staff -Ordering Privileges] - As soon as possible Basilio Dunham MD [Primary Care Provider] - [facility] [Non-Staff] - (if desired for addiction/drug abuse problems) Disposition Disposition: Home, Self Care Capacity Capacity Assessment Tool Can the patient make a choice & communicate that choice?: No Can the patient understand benefits, risks and alternatives?: No Can the patient make a logical, rational choice?: No Is there an impending, emergent risk to the patient?: Unable to Determine (Prior to testing/work-up, but nothing obvious clinically on exam) Does the patient have an Advance Directive?: No Is there a Surrogate Available?: No
[2023-03-30 13:01] VITALS: RESP 17
--- NOTE | 2023-03-30 13:03 | ED.RN ---
WHEN THIS RN WAS COMPLETING MRI QUESTIONNAIRE, PT STATES SHE GETS CLAUSTROPHOBIC AND HAS RESTLESS LEGS. PT DENIES WANTING ANY MEDICATION PRIOR TO MRI. DR. KARIS COOL.
[2023-03-30 15:10] VITALS: BP 120/93; PULSE 94; RESP 18; O2SAT 99
[2023-03-30 15:55] VITALS: BP 132/66; PULSE 98; RESP 18; TEMP 37.4; O2SAT 99
--- NOTE | 2023-03-30 16:01 | ED.RN ---
PER DR. DYSON PT OKAY TO BE DISCHARGED WITH [facility]. THIS RN GAVE DISCHARGE INSTRUCTIONS TO BOTH PT AND [facility], INSTRUCTED PT NOT TO DRIVE.
== END 2023-03-30 16:11 | disposition home or self-care (01) ==
PROVIDERS: Emergency Provider Emergency Medicine; PCP Family Medicine; Visit Provider Emergency Medicine
DX: F23 Brief psychotic disorder (principal); F15.10 Other stimulant abuse, uncomplicated; F17.210 Nicotine dependence, cigarettes, uncomplicated
CPT/HCPCS: 70450; 70551; 80053; 80307; 81001; 82077; 84443; 84703; 85025; 87077; 87086; 87088; 87186; 87811; 96372; 99283; J3486

== ENCOUNTER 2025-05-08 21:24 | Emergency (ER) | payer SELFPAY ==
[2025-05-08 21:25] VITALS: BP 252/164; PULSE 100; RESP 20; TEMP 37.1; O2SAT 99; BMI 28.4
[2025-05-08] MEDS: Lorazepam 2 MG/ML WCH Syringe IM (22:37)
--- OUTSIDE RECORDS SUMMARY | 2025-05-08 22:39 | XMS RPT_ITS | CCD ---
Author Organization [facility] Team Providers Care Oxygen Therapy Technician Name Role Phone Basilio Colón MD Primary Care Provider BASILIO COLÓN Primary Care Unavailable RANJIT MCLEOD Admitting Unavailable EVA CHRISTIANSON Attending Unavailable Basilio Colón MD Primary Care Provider Yobani BLUE, Demario SO Unavailable Basilio Colón Primary Care Unavailable Ancelmo Miller Attending Unavailable Cyndi Acevedo Attending Unavailable Basilio Colón Primary Care Unavailable Basilio Colón Primary Care Unavailable Manjeet Champion Attending Unavailable Arun Armstrong Attending Unavailable Basilio Colón Primary Care Unavailable Arun Armstrong Attending Unavailable Basilio Colón Primary Care Unavailable Eldon, Basilio Primary Care Unavailable Javon Somers Attending Unavailable PHYSICIAN, NOT RECORDED Primary Care Physician Basilio Newby MD Primary Care Provider Yobani BLUE, Demario SO Unavailable [phone] BASILIO COLÓN MD Primary Care Physician DR RICARDO PITTS DO Attending Unavailable BASILIO COLÓN MD Primary Care Unavailable JAIDEN ROMERO MD Attending Unavail able PHYSICIAN, NOT RECORDED Primary Care UnavailDR RICARDO Ivy DO Attending Unavailable BASILIO COLÓN MD Primary Care Unavailable Steffanie Christian APRN.CNP Unavailable Marine Moya APRN.CNP Unavailable Medications Current Medications Medication Drug Class(es) Dates Sig (Normalized) Sig (Original) acetaminophen 325 mg / HYDROcodone bitartrate 5 mg oral tablet (15 sources) Opioid Agonist Start: 03-26-2024 End: 03-28-2024 take 1 tablet by mouth three times daily [place] 325- 5 mg oral tablet Dose = 1 tab(s), Oral, TID, X 2 day(s), # 6 tab(s), 0 Refill(s), Abscess, 72.7 Start Date: 03/26/24 Stop Date: 03/28/24 Status: Ordered Start: 09-24-2022 take 1 tablet by [facility] th every six hours as needed for pain HYDROcodone-acetaminophen (NORCO) 5-325 mg per tablet Indications: Lumbar radiculitis Take 1 tablet by mouth every 6 hours as needed for pain. 12 tablet 0 09/24/2022 Active Start: 09-20-2022 take 1 tablet by [facility] th every six hours Hydrocodone-Acetaminophen Active 1 TABLE T PO EVERY 6 HOURS 10 September 20, 2022 Start: 09-08-2022 take 1 tablet by [facility] th every eight hours as needed for pain HYDROcodone-acetaminophen (NORCO) 5-325 mg per tablet Indications: Lumbar radiculitis Take 1 tablet by mouth every 8 hours as needed for pain. 28 tablet 0 09/08/2022 Active Start: 07-14-2020 End: 07-17-2020 take 1 tablet by mouth every six hours as needed Hydrocodone-Acetaminophen Discontinued 1 TABLET PO EVERY 6 HOURS NEEDED 07 25July 14, 2020 July 17, 2020 12:03am Start: 08-21-2013 End: 11-28-2013 take 1 tablet by mouth every six hours as needed Hydrocodone-Acetaminophen Discontinued 1 - 2 TABLET PO EVERY 6 HOURS NEEDED 2013 11:00pm November 28, 2013 6:23pm Start: 08-21-2013 End: 11-28-2013 take 1 tablet by mouth every six hours as needed Hydrocodone-Acetaminophen Discontinued 1 - 2 TABLET PO EVERY 6 HOURS NEEDED August 21, 2013 12:00am November 28, 2013 7:23pm Comment on above: Take 1 tablet by [facility] th every 8 hours as needed for pain. Take 1 tablet by [facility] th every 6 hours as needed for pain. Blood Pressure Monitor (BLOOD PRESSURE KIT) (4 sources) Start: 05-18-2023 Blood Pressure Monitor (BLOOD PRESSURE KIT) Indications: Essential hypertension 1 Each once daily. 1 Each 05/18/2023 Active Start: 05-18-2023 Blood Pressure Monitor (BLOOD PRESSURE KIT) Indications: Essential hypertension 1 Each once daily. 1 Each 0 05/18/2023 Active Comment on above: 1 Each once daily. 12 hr carBAMazepine 100 mg extended release oral tablet (2 sources) Mood Stabilizer Start: 08-12-20 take 1 tablet by mouth twice daily Carbamazepine (Tegretol Xr) 100 mg tablet extended release 12 hr Active 100 MG PO TWICE A DAY August 12, 2022 12:00am cephalexin 500 mg oral capsule (1 source) Cephalosporin Antibacterial Start: 03-26-20 End: 04-05-20 cephalexin 500 mg oral capsule Dose : 500 mg = 1 cap(s), Oral, QID, Take with a probiotic, X 10 day(s), # 40 cap(s), 0 Refill(s), 04/05/24 10:12:00 PM EDT, 72.7 Start Date: 03/26/24 Stop Date: 04/05/24 Status: Ordered doxycycline hyclate 100 mg oral tablet (1 source) Tetracycline-class Drug Start: 03-26-20 End: 04-05-20 doxycycline hyclate 100 mg oral tablet Dose : 100 mg = 1 tab(s), Oral, BID, Take with a probiotic, X 10 day(s), # 20 tab(s), 0 Refill(s), 04/05/24 10:12:00 PM EDT, 72.7 Start Date: 03/26/24 Stop Date: 04/05/24 Status: Ordered fluconazole 150 mg oral tablet (1 source) Azole Antifungal Start: 02-02-20 End: 02-02-20 take 1 tablet by mouth once fluconazole (DIFLUCAN) 150 mg tablet Take 1 tablet by mouth one time only for 1 dose. 1 tablet 0 02/01/2022 02/01/2022 Active Comment on above: Take 1 tablet by [facility] one time only for 1 dose. gabapentin 300 mg oral capsule (11 sources) Anti-epileptic Agent Start: 05-18-20 End: 08-16-20 take 1 capsule by mouth once daily at bedtime gabapentin (NEURONTIN) 300 mg capsule Indications: Lumbar radiculitis Take 1 capsule by mouth daily at bedtime for 90 days. 30 capsule 2 05/18/2023 08/16/2023 Active Start: 05-09-2021 End: 12-07-2022 take 300 mg by mouth at bedtime Gabapentin Active 300 MG PO AT BEDTIME May 09, 2021 12:00am Start: 03-24-2021 take 1 capsule by mo [facility] once daily at bedtime gabapentin (NEURONTIN) 300 mg capsule Take 1 capsule by mouth daily at bedtime for 90 days. 30 capsule 5 03/24/2021 Active Comment on above: Take 1 capsule by mo [facility] daily at bedtime for 90 days. Take 1 capsule by mo [facility] three times daily for 90 days. lisinopril 20 mg oral tablet (16 sources) Angiotensin Converting Enzyme Inhibitor Start: take 1 tablet by mouth once daily lisinopril (ZESTRIL) 20 mg tablet Indications: Essential hypertension Take 1 tablet by mouth once daily. 30 tablet 2 05/18/2023 Active Start: 05-09-2021 End: 12-01-2022 take 10 mg by mouth once daily Lisinopril Active 10 MG PO DAILY May 09, 2021 12:00am Comment on above: Take 1 tablet by [facility] once daily. metroNIDAZOLE 500 mg oral tablet (1 source) Nitroimidazole Antimicrobial Start: 02-23-20 End: 03-01-20 take 1 tablet by mouth twice daily metroNIDAZOLE (FLAGYL) 500 mg tablet Indications: Bacterial vaginosis Take 1 tablet by mouth twice daily for 7 days. 14 tablet 0 02/22/2023 03/01/2023 Active Comment on above: Take 1 tablet by [facility] twice daily for 7 days. naproxen 250 mg oral tablet (1 source) Nonsteroidal Anti-inflammatory Drug Start: 09-17-20 End: 09-27-20 naproxen 250 mg oral tablet Dose : 250 mg = 1 tab(s), Oral, BID, X 10 day(s), # 20 tab(s), 0 Refill(s), 09/27/23 1:48:00 AM EST Start Date: 09/17/23 Stop Date: 09/27/23 Status: Ordered PARoxetine hydrochloride 20 mg oral tablet (4 sources) Serotonin Reuptake Inhibitor Start: 05-18-20 take 1 tablet by mouth once daily PARoxetine (PAXIL) 20 mg tablet Indications: Mood disorder Take 1 tablet by mouth once daily. 30 tablet 2 05/18/2023 Active Comment on above: Take 1 tablet by [facility] th once daily. penicillin v potassium 250 mg oral tablet (2 sources) Start: 09-20-20 take 500 mg by mouth four times daily Penicillin V Potassium Active 500 MG PO 4 TIMES DAILY September 20, 2022 1:00am Completed/Discontinued Medications Medication Drug Class(es) Dates Sig (Normalized) Sig (Original) acetaminophen 325 mg / oxyCODONE hydrochloride 5 mg oral tablet (4 sources) Opioid Agonist Start: 07-24-2020 End: 07-30-2020 take 1 tablet by mouth every four hours as needed Oxycodone-Acetamino phen Discontinued 1 - 2 TABLET PO EVERY 4 HOURS NEEDED 21 04July 24, 2020 July 30, 2020 12:02am busPIRone hydrochloride 5 mg oral tablet (5 sources) Start: 03-24-2021 take 1 tablet by mouth three times daily busPIRone (BUSPAR) 5 mg tablet Indications: Anxiety Take 1 tablet by mouth three times daily. 90 tablet 5 03/24/2021 Active Comment on above: Take 1 tablet by [facility] th three times daily. cyclobenzaprine hydrochloride 10 mg oral tablet (5 sources) Muscle Relaxant Start: 03-24-2021 take 1 tablet by mouth three times daily as needed cyclobenzaprine (FLEXERIL) 10 mg tablet Indications: Tension headache Take 1 tablet by mouth three times daily as needed (primarily bedtime). 30 tablet 1 03/24/2021 Active Comment on above: Take 1 tablet by [facility] three times daily as needed (primarily bedtime). diazePAM 2 mg oral tablet (4 sources) Benzodiazepine Start: 08-21-2013 End: 11-28-2013 take 2 mg by mouth three times daily as needed Diazepam Discontinued 2 MG PO 3 TIMES DAILY NEEDED August 21, 2013 12:00am November 28, 2013 7:23pm FLUoxetine 20 mg oral capsule (11 sources) Serotonin Reuptake Inhibitor Start: 09-02-2022 take 3 capsules by mouth once daily FLUoxetine (PROZAC) 20 mg capsule Indications: Anxiety Take 3 capsules by mouth once daily. 90 capsule 5 09/02/2022 Active Start: 12-14-2021 take 3 capsules by m outh once daily FLUoxetine (PROZAC) 20 mg capsule Take 3 capsules by mouth once daily. 90 capsule 5 12/14/2021 Active Start: 02-28-2014 take 80 mg by mouth once daily Fluoxetine Active 80 MG PO DAILY February 28, 2014 12:00am Comment on above: Take 3 capsules by m [facility] once daily. L. acidophilus-L. rhamnosus 15 billion cell cap (5 sources) Start: 02-01-20 22 take 1 capsule by mouth once daily L. acidophilus-L. rhamnosus 15 billion cell cap Take 1 capsule by mouth once daily. Keep in the refrigerator. 30 capsule 11 01/31/2022 Active Comment on above: Take 1 capsule by mo [facility] once daily. Keep in the refrigerator. omeprazole 20 mg delayed release oral capsule (5 sources) Proton Pump Inhibitor Start: 01-01-20 take 1 capsule by mouth once daily before breakfast omeprazole (PRILOSEC) 20 mg capsule Indications: Abdominal pain, unspecified abdominal location , Left lower quadrant abdominal pain Take 1 capsule by mouth daily before breakfast. 1/2 hr before meal. 30 capsule 1 12/31/2020 Active Comment on above: Take 1 capsule by [facility] daily before breakfast. 1/2 hr before meal. ondansetron 4 mg disintegrating oral tablet (5 sources) Serotonin-3 Receptor Antagonist Start: 07-20-20 take 1 tablet by mouth every eight hours as needed ondansetron orally disintegrating (ZOFRAN ODT) 4 mg disintegrating tablet Take 1 tablet by mouth every 8 hours as needed. 20 tablet 0 07/20/2020 Active Comment on above: Take 1 tablet by [facility] every 8 hours as needed. Problems Active Problems Problem Classification Problem Date Documented Date Episodic/Chronic Anxiety disorders (17 sources) Anxiety; Translations: [Anxiety disorder, unspecified] Onset: 05-07-2013 05-07-2013 Chronic Appendicitis and other appendiceal conditions (4 sources) Acute appendicitis; Translations: [Unspecified acute appendicitis] 07-31-2020 Episodic Cardiac dysrhythmias (4 sources) Tachycardia; Translations: [Tachycardia, unspecified] 06-05-2022 Episodic Chronic kidney disease (2 sources) Chronic kidney disease; Translations: [Chronic kidney disease, unspecified] 08-13-2022 Chronic Esophageal disorders (16 sources) Gastroesophageal reflux disease; Translations: [Gastro-esophageal reflux disease without esophagitis] Onset: 01-31-2022 01-31-2022 Chronic Essential hypertension (17 sources) Malignant hypertension; Translations: [Essential (primary) hypertension] Onset: 11-02-2016 09-02-2022 Chronic Headache; including migraine (2 sources) Pain in face; Translations: [Left-sided face pain] 08-13-2022 Episodic Headache; including migraine (1 source) Headache; including migraine; Translations: [Headache, unspecified] Onset: 08-18-2022 Immunizations and screening for infectious disease (11 sources) Patient encounter status; Translations: [Encounter for screening for infections with a predominantly sexual mode of transmission] Episodic Osteoarthritis (12 sources) Localized, primary osteoarthritis of the ankle and/or foot; Translations: [Primary osteoarthritis, unspecified ankle and foot] Onset: 04-07-2017 04-07-2017 Chronic Other connective tissue disease (1 source) Enthesopathy; Translations: [Enthesopathy, unspecified] Onset: 09-17-2023 Episodic Other female genital disorders (1 source) Vaginal irritation; Translations: [Other specified noninflammatory disorders of vagina] Episodic Other female genital disorders (1 source) Vaginal discharge; Translations: [Other specified noninflammatory disorders of vagina] Episodic Other hereditary and degenerative nervous system conditions (8 sources) Restless legs; Translations: [Restless legs syndrome] Onset: 09-02-2022 09-02-2022 Chronic Other nervous system disorders (2 sources) Trigeminal neuralgia; Translations: [Trigeminal neuralgia] 08-13-2022 Episodic Other nutritional; endocrine; and metabolic disorders (7 sources) Obese class I; Translations: [Obesity, unspecified] Onset: 09-23-2022 09-24-2022 Chronic Residual codes; unclassified (1 source) Severe pain; Translations: [Pain, unspecified] 05-26-2023 Episodic Schizophrenia and other psychotic disorders (1 source) Brief psychotic disorder; Translations: [Acute psychosis] 03-30-2023 Episodic Skin and subcutaneous tissue infections (1 source) Abscess of skin and/or subcutaneous tissue; Translations: [Cutaneous abscess, unspecified] Onset: 03-26-2024 Episodic Substance-related disorders (20 sources) Drug abuse; Translations: [Other psychoactive substance abuse, uncomplicated] Onset: 01-31-2022 01-31-2022 Chronic Superficial injury; contusion (4 sources) Contusion of forearm; Translations: [Contusion of right forearm, initial encounter] 06-11-2021 Episodic Past or Other Problems Problem Classification Problem Date Documented Date Episodic/Chronic Disorders of teeth and jaw (11 sources) Toothache; Translations: [Other specified disorders of teeth and supporting structures] Onset: 09-21-2022 Resolved: 09-24-2022 08-19-2021 Episodic Mood disorders (7 sources) Depressive disorder; Translations: [Depression] Onset: 12-11-2012 Resolved: 03-24-2021 07-31-2020 Chronic Mycoses (2 sources) Opportunistic mycosis; Translations: [Candidiasis, unspecified] Onset: 09-23-2022 Resolved: 09-24-2022 09-24-2022 Episodic Nonspecific chest pain (9 sources) Chest pain; Translations: [Chest pain, unspecified] Onset: 06-01-2022 11-11-2016 Episodic Other connective tissue disease (12 sources) Bilateral dysfunction of posterior tibial tendon of feet; Translations: [Posterior tibial tendinitis, right leg] Onset: 04-07-2017 04-07-2017 Episodic Other lower respiratory disease (8 sources) Multiple nodules of lung; Translations: [Other nonspecific abnormal finding of lung field] Onset: 06-08-2022 06-08-2022 Episodic Other non-traumatic joint disorders (12 sources) Flail joint; Translations: [Flail joint, unspecified ankle and foot] Onset: 04-07-2017 04-07-2017 Episodic Residual codes; unclassified (12 sources) Tobacco user; Translations: [Tobacco use] Onset: 01-31-2022 01-31-2022 Episodic Spondylosis; intervertebral disc disorders; other back problems (14 sources) Sciatica; Translations: [Sciatica, unspecified side] Onset: 03-19-2014 03-19-2014 Episodic Substance-related disorders (20 sources) Opioid abuse; Translations: [Opioid use, unspecified, uncomplicated] Onset: 05-10-2021 05-10-2021 Episodic Unclassified (1 source) Patient encounter status 01-21-2025 Results Test Name Value Interpretation Reference Range Facility .Auto Diffon 03-26-2024 Basophil, Absolute 0.0 10 3/mcL Normal 0.0-0.2 [facility] ([place]) Comment on above: Performed By: #### B MP, CBC, GFR, ADIFF, W, ANEU #### [address] [address] Basophils/100 WBC (Bld) 0.5 % Normal 0.0-2.5 [facility] ([place]) Comment on above: Performed By: #### B MP, CBC, GFR, ADIFF, MDW, ANEU #### [address] [address] Eosinophil, Absolute 0.2 10 3/mcL Normal 0.0-0.4 [facility] ([place]) Comment on above: Performed By: #### B MP, CBC, GFR, ADIFF, W, ANEU #### [address] [address] Eosinophils/100 WBC (Bld) 2.5 % Normal 0.0-7.0 [facility] ([place]) Comment on above: Performed By: #### B MP, CBC, GFR, ADIFF, MDW, ANEU #### [address] [address] Lymphocyte, Absolute 2.2 10 3/mcL Normal 0.8-3.9 [facility] ([place]) Comment on above: Performed By: #### B MP, CBC, GFR, ADIFF, W, ANEU #### [address] [address] Lymphocytes/100 WBC (Bld) 29.8 % Normal 10.0-50.0 [facility] ([place]) Comment on above: Performed By: #### B MP, CBC, GFR, ADIFF, MDW, ANEU #### [address] [address] Monocyte, Absolute 0.6 10 3/mcL Normal 0.2-1.0 [facility] ([place]) Comment on above: Performed By: #### B MP, CBC, GFR, ADIFF, MDW, ANEU #### [address] [address] Monocytes/100 WBC (Bld) 7.8 % Normal 1.7-13.0 [facility] ([place]) Comment on above: Performed By: #### B MP, CBC, GFR, VALERIA ALSTON, ANEU #### [address] [address] Neutrophils/100 WBC (Bld) 59.4 % Normal 37.0-80.0 [facility] ([place]) Comment on above: Performed By: #### B MP, CBC, GFR, VAELRIA ALSTON, ANEU #### [address] [address] .GFRon 03-26-2024 GFR Non- 56 ml/min/1.73sqm Normal [facility] ([place]) Comment on above: Result Comment: GFR Population mean for , Non- Americans Ages 20-29 = 116 mL/min/1.73 sq.m. Ages 30-39 = 107 mL/min/1.73 sq.m. Ages 40-49 = 99 mL/min/1.73 sq.m. Ages 50-59 = 93 mL/min/1.73 sq.m. Ages 60-69 = 85 mL/min/1.73 sq.m. Ages 70+ = 75 mL/min/1.73 sq.m. Chronic Kidney Disease: Less than 60 mL/min/1.73 square meters End Stage Renal Disease: Less than 15 mL/min/1.73 square meters Performed By: #### B MP, CBC, GFR, VALERIA ALSTON, ANEU #### [address] [address] GFR 67 ml/min/1.73sqm Normal [facility] ([place]) Comment on above: Result Comment: GFR Population mean for , Non- Americans Ages 20-29 = 116 mL/min/1.73 sq.m. Ages 30-39 = 107 mL/min/1.73 sq.m. Ages 40-49 = 99 mL/min/1.73 sq.m. Ages 50-59 = 93 mL/min/1.73 sq.m. Ages 60-69 = 85 mL/min/1.73 sq.m. Ages 70+ = 75 mL/min/1.73 sq.m. Chronic Kidney Disease: Less than 60 mL/min/1.73 square meters End Stage Renal Disease: Less than 15 mL/min/1.73 square meters Performed By: #### B MP, CBC, GFR, VALERIA ALSTON, ANEU #### [address] [address] .MDWon 03-26-2024 Monocyte Distribution Width 17.38 Normal 0.00-20.00 [facility] ([place] Comment on above: Result Comment: For ED adult patients suspected of sepsis, MDW<=20.0 does not rule out sepsis or risk of sepsis Performed By: #### B MP, CBC, GFR, VALERIA ALSTON, ANEU #### [address] [address] .NEUABSon 03-26-2024 Neutrophil, Absolute 4.3 10 3/mcL Normal 2.9-6.2 [facility] ([place]) Comment on above: Performed By: #### B MP, CBC, GFR, VALERIA ALSTON, ANEU #### [address] [address] BMPon 03-26-2024 BUN/Creatinine Ratio 14 ratio Normal 7-27 [facility]) Comment on above: Performed By: #### B MP, CBC, GFR, VALERIA ALSTON, ANEU #### [address] [address] Calcium [Mass/Vol] 8.5 mg/dL Normal 8.4-10.2 [facility] ([place]) Comment on above: Performed By: #### B MP, CBC, GFR, VALERIA ALSTON, ANEU #### [address] [address] Chloride [Moles/Vol] 103 mmol/L Normal 98-107 [facility] ([place] Comment on above: Performed By: #### B MP, CBC, GFR, ADVALERIA ÁLVAREZ, ANEU #### [address] [address] CO2 [Moles/Vol] 30 mmol/L High 22-29 [facility] ([place] Comment on above: Performed By: #### B MP, CBC, GFR, VALERIA ALSTON, ANEU #### [address] [address] Creatinine [Mass/Vol] 1.08 mg/dL High 0.55-1.02 [facility] ([place]) Comment on above: Performed By: #### B MP, CBC, GFR, VALERIA ALSTON, ANEU #### [address] [address] Electrolyte Balance 6.0 mEq/L Normal 4.0-15.0 [facility] ([place]) Comment on above: Performed By: #### B MP, CBC, GFR, VALERIA ALSTON, ANEU #### [address] [address] Glucose [Mass/Vol] 96 mg/dL Normal 70-105 [facility] ([place] Comment on above: Performed By: #### B MP, CBC, GFR, VALERIA ALSTON, ANEU #### [address] [address] Potassium [Moles/Vol] 3.5 mmol/L Normal 3.5-5.1 [facility] ([place]) Comment on above: Performed By: #### B MP, CBC, GFR, VALERIA ALSTON, ANEU #### [address] [address] Sodium [Moles/Vol] 139 mmol/L Normal 136-145 [facility] ([place] Comment on above: Performed By: #### B MP, CBC, GFR, VALERIA ALSTON, ANEU #### [address] [address] Urea nitrogen [Mass/Vol] 15 mg/dL Normal 7-18 [facility] ([place] Comment on above: Performed By: #### B MP, CBC, GFR, VALERIA ALSTON, ANEU #### [address] [address] CBCon 03-26-2024 Erythrocyte distribution width (RBC) [Ratio] 13.3 % Normal 11.5-14.5 [facility] ([place] Comment on above: Performed By: #### B MP, CBC, GFR, VALERIA ALSTON, ANEU #### [address] [address] Hematocrit (Bld) [Volume fraction] 34.6 % Low 37.0-47.0 [facility] ([place] Comment on above: Performed By: #### B MP, CBC, GFR, VALERIA ALSTON, ANEU #### [address] [address] Hgb 11.5 G/dL Low 12.0-16.0 [facility] ([place] Comment on above: Performed By: #### B MP, CBC, GFR, VALERIA ALSTON, ANEU #### [address] [address] MCH (RBC) [Entitic mass] 29.0 pg Normal 27.0-31.2 [facility] ([place] Comment on above: Performed By: #### B MP, CBC, GFR, VALERIA ALSTON, ANEU #### [address] [address] MCHC 33.3 G/dL Normal 33.0-37.0 [facility] ([place] Comment on above: Performed By: #### B MP, CBC, GFR, VALERIA ALSTON, ANEU #### [address] [address] MCV (RBC) [Entitic vol] 87.1 fL Normal 80.0-94.0 [facility] ([place] Comment on above: Performed By: #### B MP, CBC, GFR, VALERIA ALSTON, ANEU #### [address] [address] Platelet 393 10 3/mcL Normal 130-400 [facility] ([place] Comment on above: Performed By: #### B MP, CBC, GFR, VALERIA ALSTON, ANEU #### [address] [address] Platelet mean volume (Bld) [Entitic vol] 6.1 fL Low 7.4-10.4 [facility] ([place] Comment on above: Performed By: #### B MP, CBC, GFR, VALERIA ALSTON, ANEU #### [address] [place], [place] [address] RBC 3.98 10 6/mcL Low 4.20-5.40 [facility] ([place] Comment on above: Performed By: #### B MP, CBC, GFR, VALERIA ALSTON, ANEU #### [address] [place], [place] [address] WBC 7.2 10 3/mcL Normal 4.6-10.8 [facility] ([place] Comment on above: Performed By: #### B MP, CBC, GFR, VALERIA ALSTON, ANEU #### [address] [place], [place] [address] LABORATORYOrdered By: SYSTEM SYSTEM on 03-26-2024 Basophil, Absolute 0.0 103/mcL Normal 0.0 - 0.2 10^3/mcL AO Workflow SS Basophils/100 WBC (Bld) 0.5 % Normal 0.0 - 2.5 % AO Workflow SS Calcium [Mass/Vol] 8.5 mg/dL Normal 8.4 - 10. 2 mg/dL AO ADM SS Chloride [Moles/Vol] 103 mmol/L Normal 98 - 10 7 mmol/L AO ADM SS CO2 [Moles/Vol] 30 mmol/L High 22 - 29 mmol/L AO AD M SS Creatinine [Mass/Vol] 1.08 mg/dL High 0.55 - 1.02 mg/dL AO ADM SS Electrolyte Balance 6.0 mEq/L Normal 4.0 - 15 .0 mEq/L AO ADM SS Eosinophil, Absolute 0.2 103/mcL Normal 0.0 - 0 .4 10^3/mcL AO Workflow SS Eosinophils/100 WBC (Bld) 2.5 % Normal 0.0 - 7.0 % AO Workflow SS Erythrocyte distribution width (RBC) [Ratio] 13.3 % Normal 11.5 - 14.5 % AO Workflow SS GFR/1.73 sq M.predicted among blacks MDRD (S/P/Bld) [Vol rate/Area] 67 ml/min/1.73sqm Invalid Interpretation Code AO Chemistry S Comment on above: Interpretive Data: GFR Population mean for , Non- Americans Ages 20-29 = 116 mL/min/1.73 sq.m. Ages 30-39 = 107 mL/min/1.73 sq.m. Ages 40-49 = 99 mL/min/1.73 sq.m. Ages 50-59 = 93 mL/min/1.73 sq.m. Ages 60-69 = 85 mL/min/1.73 sq.m. Ages 70+ = 75 mL/min/1.73 sq.m. Chronic Kidney Disease: Less than 60 mL/min/1.73 square meters End Stage Renal Disease: Less than 15 mL/min/1.73 square meters GFR/1.73 sq M.predicted among non-blacks MDRD (S/P/Bld) [Vol rate/Area] 56 ml/min/1.73sqm Invalid Interpretation Code AO Chemistry S Comment on above: Interpretive Data: GFR Population mean for , Non- Americans Ages 20-29 = 116 mL/min/1.73 sq.m. Ages 30-39 = 107 mL/min/1.73 sq.m. Ages 40-49 = 99 mL/min/1.73 sq.m. Ages 50-59 = 93 mL/min/1.73 sq.m. Ages 60-69 = 85 mL/min/1.73 sq.m. Ages 70+ = 75 mL/min/1.73 sq.m. Chronic Kidney Disease: Less than 60 mL/min/1.73 square meters End Stage Renal Disease: Less than 15 mL/min/1.73 square meters Glucose [Mass/Vol] 96 mg/dL Normal 70 - 105 mg/dL AO ADM SS Hematocrit (Bld) [Volume fraction] 34.6 % Low 37.0 - 47.0 % AO Workflow SS Hemoglobin (Bld) [Mass/Vol] 11.5 G/dL Low 12.0 - 16.0 G/dL AO Workflow SS Lymphocyte, Absolute 2.2 103/mcL Normal 0.8 - 3 .9 10^3/mcL AO Workflow SS Lymphocytes/100 WBC (Bld) 29.8 % Normal 10.0 - 50.0 % AO Workflow SS MCH (RBC) [Entitic mass] 29.0 pg Normal 27.0 - 31.2 pg AO Workflow SS MCHC 33.3 G/dL Normal 33.0 - 37.0 G/dL AO Workflow SS MCV (RBC) [Entitic vol] 87.1 fL Normal 80.0 - 94.0 fL AO Workflow SS Monocyte distribution width Auto (Bld) [Entitic vol] 17.38 1 Normal 0.00 - 20.00 AO Workflow SS Comment on above: Result Comment: For ED adult patients suspected of sepsis, MDW<=20.0 does not rule out sepsis or risk of sepsis Monocyte, Absolute 0.6 103/mcL Normal 0.2 - 1.0 10^3/mcL AO Workflow SS Monocytes/100 WBC (Bld) 7.8 % Normal 1.7 - 13.0 % AO Workflow SS Neutrophil, Absolute 4.3 103/mcL Normal 2.9 - 6 .2 10^3/mcL AO Workflow SS Neutrophils/100 WBC (Bld) 59.4 % Normal 37.0 - 80.0 % AO Workflow SS Platelet mean volume (Bld) [Entitic vol] 6.1 fL Low 7.4 - 10.4 fL AO Workflow SS Platelets (Bld) [#/Vol] 393 103/mcL Normal 130 - 400 10^3/mcL AO Workflow SS Potassium [Moles/Vol] 3.5 mmol/L Normal 3.5 - 5.1 mmol/L AO ADM SS RBC (Bld) [#/Vol] 3.98 106/mcL Low 4.20 - 5.4 0 10^6/mcL AO Workflow SS Sodium [Moles/Vol] 139 mmol/L Normal 136 - 145 mmol/L AO ADM SS Urea nitrogen [Mass/Vol] 15 mg/dL Normal 7 - 18 mg/dL AO ADM SS Urea nitrogen/Creatinine [Mass ratio] 14 ratio Normal 7 - 27 ratio AO ADM SS WBC (Bld) [#/Vol] 7.2 103/mcL Normal 4.6 - 10.8 10^3/mcL AO Workflow SS XR ELBOW MINIMUM 3 VIEWS LEF Ton 09-17-2023 XR ELBOW MINIMUM 3 VIEWS LEFT ORIGINAL EXAMINATION: THREE XRAY VIEWS OF THE LEFT ELBOW 09/17/2023 1:36 am COMPARISON: None. HISTORY: ORDERING SYSTEM PROVIDED HISTORY: Reason for Exam: pain FINDINGS: There is no fracture of the left elbow. Radiohumeral and ulnohumeral alignment is normal. The joint spaces are normal. There is no evidence of joint effusion. No soft tissue swelling is detected. IMPRESSION: No radiographic abnormality of the left elbow. Interpreted by: Walter Salazar MD Preliminary Report By: Walter Salazar MD Electronically signed By Walter Salazar MD Dictated Date: 09/17/2023 1:40:42 AM Prelim Date: 09/17/2023 1:41:53 AM Sign Date: 09/17/2023 1:41:53 AM Ordering Provider: JAIDEN ROMERO [facility] ([place] Urine Cultureon 04-01-2023 [facility] Escherichia coli [place] Count >100,000 Escherichia coli: REACTION Ampicillin Islt MARITZA >=32 R Ampicillin+Sulbac Islt MARITZA 16 I ceFAZolin Islt MARITZA <=4 S Cefepime Islt MARITZA <=0.12 S cefTRIAXone Islt MARITZA <=0.25 S Ciprofloxacin Islt MARITZA >=4 R Ertapenem Islt MARITZA <=0.12 S B-Lactamase Extended Susc Islt NEG Gentamicin Islt MARITZA <=1 S Imipenem Islt MARITZA <=0.25 S levoFLOXacin Islt MARITZA >=8 R Nitrofurantoin Islt MARITZA <=16 S Pip+Tazo Islt MARITZA <=4 S Tobramycin Islt MARITZA <=1 S TMP SMX Islt MARITZA <=20 S Normal [facility] Comment on above: Performed By: #### M 100.2200 #### [facility] [address] [place], [address] Absolute lymphocyte countOrd ered By: Dr. Armstrong on 03-30-2023 Lymphocytes Auto (Unsp spec) [#/Vol] 2.53 10*3/uL 0.83-4.51 [facility] Alcohol, Blood (Medical)-Ser umon 03-30-2023 SERUM ETOH < 3.0 Normal [facility] Comment on above: Result Comment: The serum:whole blood ethanol ratio is approximately 1.14 and varies slightly with hematocrit. Medical Alcohol reference interval and critical value in non-tolerant individuals; 50 - 100 Impairment 100 Intoxication 100 - 250 Severe Poisoning 250 - 400 Deep/possible fatal coma Performed By: #### L 505.5000, L100.0100, L500.4050, L700.6800, L501.9520, L501.9100 #### [facility] [place], [address] Basophil percentageOrdered B y: Dr. Armstrong on 03-30-2023 Basophil percentage 0-5 SEEN /hpf 0-5 [facility] Basophils/100 WBC (Bld) 0.6 % 0-1 [facility] Bilirubin [Mass/Vol] 0.80 mg/dL 0.20-1.00 [facility] Comment on above: For patients on eltr ombopag therapy, use of Dimension Ashley TBIL is not recommended. Chloride [Moles/Vol] 109 mmol/L 98-107 [facility] Eosinophils/100 WBC (Bld) 0.2 % 0-5 [facility] Glucose [Mass/Vol] 98 mg/dL 74-106 [facility] Neutrophils (Bld) [#/Vol] 5.8 10*3/uL 2.0-7.7 [facility] Neutrophils/100 WBC (Bld) 62.6 % 47-70 [facility] Potassium [Moles/Vol] 3.9 mmol/L 3.5-5.1 [facility] Protein [Mass/Vol] 8.3 g/dL 6.4-8.2 [facility] Sodium [Moles/Vol] 136 mmol/L 136-145 [facility] WBC (Bld) [#/Vol] 9.3 10*3/uL 4.4-11.0 [facility] Beta hCG serum qualOrdered B y: Dr. Armstrong on 03-30-2023 Beta HCG ( test) Ql Negative [facility] Bilirubin Test strip Ql (U)O rdered By: Dr. Armstrong on 03-30-2023 Bilirubin Ql (U) Negative Negative [facility] Blood erythrocytes count (nu mber/volume)Ordered By: Dr. Armstrong on 03-30-2023 RBC (Bld) [#/Vol] 4.27 10*6/uL 4.2-5.4 [facility] Blood hemoglobin measurement (mass/volume)Ordered By: Dr. Armstrong on 03-30-2023 Hemoglobin (Bld) [Mass/Vol] 12.1 g/dL 12.0-15.0 [facility] Blood lymphocytes/100 leukoc ytesOrdered By: Dr. Armstrong on 03-30-2023 Lymphocytes/100 WBC (Bld) 27.1 % 19-41 [facility] Blood monocytes/100 leukocyt esOrdered By: Dr. Armstrong on 03-30-2023 Monocytes/100 WBC (Bld) 9.0 % 0-10 [facility] Blood platelet mean volumeOr dered By: Dr. Armstrong on 03-30-2023 Platelet mean volume (Bld) [Entitic vol] 8.7 fL 6.2-12.0 [facility] Brain without Contraston Brain without Contrast [facility] Imaging Services [address] [place] [address] Brain without Contrast MR#: [id number] Acct: [id number] Name: KASSIDY LOCKE Rep #: [id number] : 1980 F 42 From: Mary morin MD PCP: Dr. Basilio Colón MD Status: [facility] ER Study: Brain without Contrast Date of Exam: 03/30/23 Exam# [id number] Ordering Dr: Arun Armstrong MD HISTORY: psychosis, abnormal CT. TECHNIQUE: Multiplanar and multisequence MR images of the brain were obtained without contrast. 281 images. COMPARISON: CT earlier same day. FINDINGS: BRAIN PARENCHYMA: Multiple foci and small zones of increased T2 FLAIR signal in the bilateral cerebral white matter, some with a perpendicular orientation to the lateral ventricles and accounting for this CT findings. No abnormal focus of restricted diffusion. No acute intracranial hemorrhage identified. CSF SPACES: Cerebral ventricles, cortical sulci, and other extra-axial CSF spaces within normal limits in size for age. No significant midline shift or other mass effect.No extra-axial fluid collection. VASCULAR SYSTEM: Major intracranial flow voids are maintained. PARANASAL SINUSES AND MASTOID AIR CELLS: Trace fluid in the mastoid air cells. ORBITS: Symmetric contents. MRI/Brain without Contrast IMPRESSION: Moderate chronic white matter changes which can be seen with chronic small vessel ischemic gliosis, other vascular etiology, or sequela of nonspecific demyelination or inflammation. No evidence for acute infarct. Electronically Signed: Mary Najera MD at 15:01 EDT , CC: Dr. Arun Armstrong MD; Dr. Basilio Colón MD Char Filter Tank Tender: Signed Normal [facility] Brain/Head without Contrasto n 03-30-2023 Brain/Head without Contrast [facility] Imaging Services [address] [place] [address] Brain/Head without Contrast MR#: [id number] Acct: [id number] Name: KASSIDY LOCKE Rep #: [id number] : 1980 F 42 From: Camacho kimbrough MD PCP: Dr. Basilio Colón MD Status: REG ER Study: Brain/Head without Contrast Date of Exam: 06/14 Exam# [id number] Ordering Dr: Arun Armstrong MD STUDY: CT BRAIN WITHOUT CONTRAST REASON FOR EXAM: Female, 42 years old. Altered mental status RADIATION DOSAGE (If Supplied By Facility): CTDIvol = ( 44.99 ) mGy, DLP = ( 880.47 ) mGycm TECHNIQUE: Transaxial CT imaging of the brain was performed without administration of intravenous contrast material. Individualized dose optimization techniques were used for this CT. COMPARISON: Comparison is made with prior study May 28, 2022. FINDINGS: Normal soft tissue structures. Normal calvarium. Normal size ventricles and extra-axial spaces for the patient''s age. Questionable focal area decreased attenuation in the right frontal lobe deep in the white matter. Correlation with MRI is recommended. Normal basal ganglia and thalami. Normal brainstem. Normal cerebellum. There is no intracranial hemorrhage. There are no findings of an acute ischemic infarction. Normal visualized paranasal sinuses. CT/Brain/Head without Contrast IMPRESSION: Questionable focal area of decreased attenuation in the right frontal lobe deep in the white matter. Correlation with MRI is recommended. Electronically Signed: Camacho Staley MD at 11:07 EDT , CC: Dr. Arun Armstrong MD; Dr. Basilio Colón MD Char Filter Tank Tender: Signed Normal [facility] CBC W/Diff, Automatedon 06-0 -2022 Absolute Lymph 2.53 X10 3/uL Normal 0.83-4.51 [facility] Comment on above: Performed By: #### L 505.5000, L100.0100, L500.4050, L700.6800, L501.9520, L501.9100 #### [facility] [address] [place], [address] Absolute Neut 5.8 X10 3/uL Normal 2.0-7.7 [facility] Comment on above: Performed By: #### L 505.5000, L100.0100, L500.4050, L700.6800, L501.9520, L501.9100 #### [facility] [address] [place], [address] Basophils/100 WBC (Bld) 0.6 % Normal 0-1 [facility] Comment on above: Performed By: #### L 505.5000, L100.0100, L500.4050, L700.6800, L501.9520, L501.9100 #### [facility] [address] [place], [address] Eosinophils/100 WBC (Bld) 0.2 % Normal 0-5 [facility] Comment on above: Performed By: #### L 505.5000, L100.0100, L500.4050, L700.6800, L501.9520, L501.9100 #### [facility] [address] [place], [address] Erythrocyte distribution width (RBC) [Ratio] 14.1 % Normal 11.6-14.6 [facility] Comment on above: Performed By: #### L 505.5000, L100.0100, L500.4050, L700.6800, L501.9520, L501.9100 #### [facility] [address] [place], [address] Hematocrit (Bld) [Volume fraction] 36.8 % Low 37-47 [facility] Comment on above: Performed By: #### L 505.5000, L100.0100, L500.4050, L700.6800, L501.9520, L501.9100 #### [facility] [address] [place], [address] Hemoglobin (Bld) [Mass/Vol] 12.1 g/dL Normal 12.0-15.0 [facility] Comment on above: Performed By: #### L 505.5000, L100.0100, L500.4050, L700.6800, L501.9520, L501.9100 #### [facility] [address] [place], [address] IG% 0.500 Normal 0.0-0.9 [facility] Comment on above: Result Comment: IG% - Immature Granulocytes (promyelocytes, myelocytes and metamyelocytes) > 1% indicates that a LEFT SHIFT is Present. Performed By: #### L 505.5000, L100.0100, L500.4050, L700.6800, L501.9520, L501.9100 #### [facility] [address] [place], [address] Lymphocytes/100 WBC (Bld) 27.1 % Normal 19-41 [facility] Comment on above: Performed By: #### L 505.5000, L100.0100, L500.4050, L700.6800, L501.9520, L501.9100 #### [facility] [address] [place], [address] MCH (RBC) [Entitic mass] 28.3 pg Normal 27.0-32.0 [facility] Comment on above: Performed By: #### L 505.5000, L100.0100, L500.4050, L700.6800, L501.9520, L501.9100 #### [facility] [address] [place], [address] MCHC (RBC) [Mass/Vol] 32.9 g/dL Normal 32-36 [facility] Comment on above: Performed By: #### L 505.5000, L100.0100, L500.4050, L700.6800, L501.9520, L501.9100 #### [facility] [address] [place], [address] MCV (RBC) [Entitic vol] 86.2 fL Normal 81-99 [facility] Comment on above: Performed By: #### L 505.5000, L100.0100, L500.4050, L700.6800, L501.9520, L501.9100 #### [facility] [address] [place], [address] Monocytes/100 WBC (Bld) 9.0 % Normal 0-10 [facility] Comment on above: Performed By: #### L 505.5000, L100.0100, L500.4050, L700.6800, L501.9520, L501.9100 #### [facility] [address] [place], [address] Neutrophils/100 WBC (Bld) 62.6 % Normal 47-70 [facility] Comment on above: Performed By: #### L 505.5000, L100.0100, L500.4050, L700.6800, L501.9520, L501.9100 #### [facility] [address] [place], [address] Nucleated RBC (Bld) [#/Vol] 0 10*3/uL Normal 0-5 [facility] Comment on above: Performed By: #### L 505.5000, L100.0100, L500.4050, L700.6800, L501.9520, L501.9100 #### [facility] [address] [place], [address] Platelet mean volume (Bld) [Entitic vol] 8.7 fL Normal 6.2-12.0 [facility] Comment on above: Performed By: #### L 505.5000, L100.0100, L500.4050, L700.6800, L501.9520, L501.9100 #### [facility] [address] [place], [address] Platelets (Bld) [#/Vol] 536 10*3/uL High 150-450 [facility] Comment on above: Performed By: #### L 505.5000, L100.0100, L500.4050, L700.6800, L501.9520, L501.9100 #### [facility] [address] [place], [address] RBC (Bld) [#/Vol] 4.27 10*6/uL Normal 4.2-5.4 [facility] Comment on above: Performed By: #### L 505.5000, L100.0100, L500.4050, L700.6800, L501.9520, L501.9100 #### [facility] [address] [place], [address] RDW SD 44.3 fl High 35.1-43.9 [facility] Comment on above: Performed By: #### L 505.5000, L100.0100, L500.4050, L700.6800, L501.9520, L501.9100 #### [facility] [address] [place], [address] WBC (Bld) [#/Vol] 9.3 10*3/uL Normal 4.4-11.0 [facility] Comment on above: Performed By: #### L 505.5000, L100.0100, L500.4050, L700.6800, L501.9520, L501.9100 #### [facility] [address] [place], [address] COVID 19 AG RAPID (ALONSO CAPPS Jared)on 03-30-2023 SARS-CoV-2 (COVID-19) RNA JORGITO+probe Ql (Unsp spec) *Negative results from patients with symptom onset beyond five days should be treated as presumptive and confirmed by a molecular assay if clinically necessary. Negative results should not be used as the sole basis for treatment or for patient management. SARS-CoV-2 Ag Resp Ql IA.rapid *Positive results do not differentiate between SARS-CoV and SARS-CoV-2. If differentiation of the specific SARS virus is desired an additional sample and an additional order is required. SARS-CoV-2 Ag Resp Ql IA.rapid * This test has not been FDA cleared or approved; the test has been authorized by FDA under an Emergency Use Authorization (EAU) for use by laboratories certified under CLIA that meet the requirements to perform moderate, high, or waived complexity tests. SARS-CoV-2 Ag Resp Ql IA.rapid Normal Reference Range: Negative SARS-CoV-2 (COVID 19) Negative RAPID METHOD [employer] COVID19 Ag Card Normal [facility] Comment on above: Performed By: #### L 501.4020, L100.0100, L500.2500 #### [facility] [address] [place], [address] COVID-19 virus antigen assay Ordered By: Dr. Armstrong on 03-30-2023 SARS-CoV-2 (COVID-19) Ag IA.rapid Ql (Resp) [facility] Comprehensive Metabolic Prof ilon 03-30-2023 Albumin [Mass/Vol] 4.3 g/dL Normal 3.2-5.0 [facility] Comment on above: Performed By: #### L 505.5000, L100.0100, L500.4050, L700.6800, L501.9520, L501.9100 #### [facility] [address] [place], [address] Albumin/Globulin [Mass ratio] 1.1 {ratio} Normal 0.9-2.4 [facility] Comment on above: Performed By: #### L 505.5000, L100.0100, L500.4050, L700.6800, L501.9520, L501.9100 #### [facility] [address] [place], [address] ALK P 60 U/L Normal 45-117 [facility] Comment on above: Performed By: #### L 505.5000, L100.0100, L500.4050, L700.6800, L501.9520, L501.9100 #### [facility] [address] [place], [address] ALT [Catalytic activity/Vol] 24 U/L Normal 13-56 [facility] Comment on above: Performed By: #### L 505.5000, L100.0100, L500.4050, L700.6800, L501.9520, L501.9100 #### [facility] [address] [place], [address] AST [Catalytic activity/Vol] 19 U/L Normal 15-37 [facility] Comment on above: Performed By: #### L 505.5000, L100.0100, L500.4050, L700.6800, L501.9520, L501.9100 #### [facility] [address] [place], [address] Bilirubin [Mass/Vol] 0.80 mg/dL Normal 0.20-1.00 [facility] Comment on above: Result Comment: For patients on eltrombopag therapy, use of Dimension Ashley TBIL is not recommended. Performed By: #### L 505.5000, L100.0100, L500.4050, L700.6800, L501.9520, L501.9100 #### [facility] [address] [place], [address] BUN/CRE 15.0 RATIO Normal 10-20 [facility] Comment on above: Performed By: #### L 505.5000, L100.0100, L500.4050, L700.6800, L501.9520, L501.9100 #### [facility] [address] [place], [address] CA,Total 9.5 mg/dL Normal 8.5-10.1 [facility] Comment on above: Performed By: #### L 505.5000, L100.0100, L500.4050, L700.6800, L501.9520, L501.9100 #### [facility] [address] [place], [address] Chloride [Moles/Vol] 109 mmol/L High 98-107 [facility] Comment on above: Performed By: #### L 505.5000, L100.0100, L500.4050, L700.6800, L501.9520, L501.9100 #### [facility] [address] [place], [address] CO2 [Moles/Vol] 21.0 mmol/L Normal 21.0-32.0 [facility] Comment on above: Performed By: #### L 505.5000, L100.0100, L500.4050, L700.6800, L501.9520, L501.9100 #### [facility] [address] [facility] [address] Creatinine [Mass/Vol] 1.47 mg/dL High 0.55-1.02 [facility] Comment on above: Result Comment: The validity of the calculated GFR GFRAA in patients over 70 years has not been determined. Clinical correlation is essential. Performed By: #### L 505.5000, L100.0100, L500.4050, L700.6800, L501.9520, L501.9100 #### [facility] [address] [place], [address] ECRCL 47.15 ml/min Normal [facility] Comment on above: Performed By: #### L 505.5000, L100.0100, L500.4050, L700.6800, L501.9520, L501.9100 #### [facility] [address] [place], [address] EST GFR - AA 50 mL/min Low >60 [facility] Comment on above: Result Comment: Afri can Wallisian GFR Calc Performed By: #### L 505.5000, L100.0100, L500.4050, L700.6800, L501.9520, L501.9100 #### [facility] [address] [place], [address] GAP 6 Normal 5-15 [facility] Comment on above: Performed By: #### L 505.5000, L100.0100, L500.4050, L700.6800, L501.9520, L501.9100 #### [facility] [address] [place], [address] GFR/1.73 sq M.predicted among non-blacks MDRD (S/P/Bld) [Vol rate/Area] 42 mL/min/{1.73_m2} Low >60 [facility] Comment on above: Result Comment: Non- GFR Calc Performed By: #### L 505.5000, L100.0100, L500.4050, L700.6800, L501.9520, L501.9100 #### [facility] [address] [place], [address] Globulin (S) [Mass/Vol] 4.0 g/dL Normal 2.2-4.2 [facility] Comment on above: Performed By: #### L 505.5000, L100.0100, L500.4050, L700.6800, L501.9520, L501.9100 #### [facility] [address] [place], [address] Glucose [Mass/Vol] 98 mg/dL Normal 74-106 [facility] Comment on above: Performed By: #### L 505.5000, L100.0100, L500.4050, L700.6800, L501.9520, L501.9100 #### [facility] [address] [place], [address] Potassium [Moles/Vol] 3.9 mmol/L Normal 3.5-5.1 [facility] Comment on above: Performed By: #### L 505.5000, L100.0100, L500.4050, L700.6800, L501.9520, L501.9100 #### [facility] [address] [place], [address] Sodium [Moles/Vol] 136 mmol/L Normal 136-145 [facility] Comment on above: Performed By: #### L 505.5000, L100.0100, L500.4050, L700.6800, L501.9520, L501.9100 #### [facility] [address] [place], [address] T PROT 8.3 g/dL High 6.4-8.2 [facility] Comment on above: Performed By: #### L 505.5000, L100.0100, L500.4050, L700.6800, L501.9520, L501.9100 #### [facility] [address] [place], [address] Urea nitrogen [Mass/Vol] 22 mg/dL High 7-18 [facility] Comment on above: Performed By: #### L 505.5000, L100.0100, L500.4050, L700.6800, L501.9520, L501.9100 #### [facility] [address] [place], [address] Determination of erythrocyte mean corpuscular volume (MCV)Ordered By: Dr. Armstrong on 03-30-2023 MCV (RBC) [Entitic vol] 86.2 fL 81-99 [facility] Emergency Department Summary on 03-30-2023 Emergency Department Summary [facility] Medical Records Department [address] [place] [address] Emergency Department Summary 03/30/23 MR#: [id number] Acct: [id number] Name: KASSIDY LOCKE Rep #: [id number] : 1980 42 From: Arun Armstrong MD PCP: Dr. Basilio Colón MD Status:REG ER Location: ED HPI HPI - Psych History of Present Illness Chief Complaint: Substance Abuse Informant: patient and EMS Narrative Narrative: Patient was brought here by EMS after the police were called because she was agitated, running around the neighborhood early in the morning, screaming, and altered. The was apparently alerted to this by the police and did not know this was occurring prior. The patient is here alone, when I asked her what brought her to the ER, she seems disoriented, she does not know, she tries to leave, she tries to go to the water fountain behind the nursing station, she tells staff this is ridiculous, what did you do with Jewel? The patient is redirected to her room, and she goes on and on about someone named him and is asking us what we did with Jewel, and that we should have him arrested, etc. She is not making any sense. She is not giving appropriate answers to questions. She admitted to police here that she had used methamphetamine and also admitted that she was having some type of hallucinations. [facility] Medical History Acute appendicitis Cocaine abuse Depression GERD (gastroesophageal reflux disease) Hypertension Physical exam, pre-employment Tobacco use disorder Home Medications fluoxetine 20 mg capsule 80 mg PO DAILY mood 02/28/14 [History Last Taken 07/19/20 22:00] gabapentin 300 mg capsule 300 mg PO QHS PRN Cramps 05/09/21 [History Last Taken Unknown] lisinopril 10 mg tablet 10 mg PO DAILY 05/09/21 [History Last Taken Unknown] carbamazepine 100 mg tablet,extended release,12 hr (Tegretol XR) 100 mg PO BID #14 tabs 08/12/22 [Rx Last Taken Unknown] hydrocodone-acetaminoph en 5-325mg 5mg-325mg 1 tab PO Q6H PRN pain 3 days #10 tabs 09/20/22 [Rx Last Taken Unknown] penicillin V potassium 250 mg tablet 500 mg PO 4X/DAY #40 tabs 09/20/22 [Rx Last Taken Unknown] Allergy/AdvReac Type Severity Reaction Status Date / Time No Known Allergies Allergy Verified 09/20/22 20:58 Surgical History History of laparoscopic appendectomy ( 07/20/20) Social History Smoking Status: Current some day smoker tobacco type: cigarettes substance use type: crack/cocaine ROS ROS ED Constitutional Constitutional ED: Denies chills or fever(s) Eyes Eyes: Denies change in vision or diplopia ENT ENT ED: Reports ear pain left; Denies rhinorrhea or sore throat Cardiovascular Cardiovascular: Denies chest pain or palpitations Respiratory/Chest Respiratory/Chest: Denies cough or dyspnea Gastrointestinal Gastrointestinal: Denies abdominal pain, diarrhea, nausea or vomiting Genitourinary Genitourinary ED: Denies dysuria or hematuria Musculoskeletal Musculoskeletal: Denies back pain or neck pain Integumentary Denies abscess or rash Neurologic Neurologic: Reports headache(s); Denies paresthesias or weakness Psychiatric Psychiatric: Reports as per HPI, confusion and paranoia; Denies suicidal ideation EXAM Physical Exam Const Vital Signs: 03/30/23 09:11 03/30/23 11:33 03/30/23 11:50 Temperature 98.1 F Temperature Source Temporal Pulse Rate 121 H 88 Respiratory Rate 16 17 Blood Pressure 161/106 H Blood Pressure Mean 124 Pulse Ox 98 97 Oxygen Delivery Method Room Air Room Air Room Air 03/30/23 13:01 03/30/23 15:10 Temperature Temperature Source Pulse Rate 94 Respiratory Rate 17 18 Blood Pressure 120/93 H Blood Pressure Mean 102 Pulse Ox 99 Oxygen Delivery Method Room Air Room Air Positive well nourished and well developed General Appearance ED: well developed and NAD HEENT Reports moist mucous membranes HEENT Narrative: normal external ear exam, nontender mastoid processes bilat. Refuses further ear examination. normocephalic and atraumatic Eyes PERRL and EOMs intact bilaterally Neck full ROM, no lymphadenopathy and supple General: Negative for tenderness Resp normal respiratory effort and clear to auscultation bilaterally Cardio regular rate, regular rhythm and no murmurs GI non-tender and non-distended Auscultation: normoactive bowel sounds Palpation: soft Back/Spine no CVA tenderness General Back: other FROM Extremity normal to inspection General Extremety ED: Negative for edema, pulses abnormal or tenderness General Extremity: Negative for edema or pulses abnormal Neuro CN's II-XII intact bilateral (more content not included)... Normal [facility] Hematocrit Auto (Bld) [Volum e fraction]Ordered By: Dr. Armstrong on 03-30-2023 Hematocrit (Bld) [Volume fraction] 36.8 % 37-47 [facility] Ketones Test strip Ql (U)Ord ered By: Dr. Armstrong on 03-30-2023 Ketones Ql (U) 50 mg/dl Negative [facility] Laboratory - Chemistry and C hemistry - challengeOrdered By: Dr. Armstrong on 03-30-2023 ALP [Catalytic activity/Vol] 60 U/L 45-117 [facility] ALT [Catalytic activity/Vol] 24 U/L 13-56 [facility] CO2 [Moles/Vol] 21.0 mmol/L 21.0-32.0 [facility] Globulin (S) [Mass/Vol] 4.0 g/dL 2.2-4.2 [facility] Urea nitrogen/Creatinine [Mass ratio] 15.0 mg/mg 10-20 [facility] - Drug toxicology Ordered By: Dr. Armstrong on 03-30-2023 Amphetamines Ql (U) Positive <1000 ng/mL [facility] Benzodiazepines Ql (U) Negative < 200 ng/mL [facility] Cannabinoids Screen Ql (U) Negative < 50 ng/mL [facility] Cocaine Ql (U) Negative < 300 ng/mL [facility] Opiates Ql (U) Negative < 300 ng/mL [facility] - Hematology and Cell countsOrdered By: Dr. Armstrong on 03-30-2023 Erythrocyte distribution width (RBC) [Entitic vol] 44.3 fL 35.1-43.9 [facility] Erythrocyte distribution width (RBC) [Ratio]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 palpable mass. No bruit is heard. GENITOURINARY: No tenderness over the bladder. No CVA tenderness. No history of incontinence. MUSCULOSKELETAL: Atraumatic. No peripheral ed (more content not included)... Normal [facility] HCO3 (dA) [Moles/Vol]Order ed By: Dr. Champion on 03-13-2023 HCO3 (Bld) [Moles/Vol] 17 mmol/L - [facility] Hematocrit Auto (Bld) [Volum e fraction]Ordered By: Dr. Champion on 03-13-2023 Hematocrit (Bld) [Volume fraction] 34.3 % 37-47 [facility] - Chemistry and C hemistry - challengeOrdered By: Dr. Champion on 03-13-2023 CO2 [Moles/Vol] 17 mmol/L 23-33 [facility] CO2 [Moles/Vol] 18.0 mmol/L 21.0-32.0 [facility] Urea nitrogen/Creatinine [Mass ratio] 7.2 mg/mg 10-20 [facility] - Drug toxicology Ordered By: Dr. Champion on 03-13-2023 Amphetamines Ql (U) Positive <1000 ng/mL [facility] Benzodiazepines Ql (U) Negative < 200 ng/mL [facility] Cannabinoids Screen Ql (U) Negative < 50 ng/mL [facility] Cocaine Ql (U) Negative < 300 ng/mL [facility] Opiates Ql (U) Negative < 300 ng/mL [facility] - Hematology and Cell countsOrdered By: Dr. Champion on 03-13-2023 Erythrocyte distribution width (RBC) [Entitic vol] 44.2 fL 35.1-43.9 [facility] Erythrocyte distribution width (RBC) [Ratio] 14.4 % 11.6-14.6 [facility] Immature granulocytes/100 WBC (Bld) 0.500 % 0.0-0.9 [facility] Comment on above: IG% - Immature Granu locytes (promyelocytes, myelocytes and metamyelocytes) > 1% indicates that a LEFT SHIFT is Present. MCH (RBC) [Entitic mass] 28.3 pg 27.0-32.0 [facility] Nucleated RBC/100 WBC (Bld) [Ratio] 0 % 0-5 [facility] MCHC Auto (RBC) [Mass/Vol]Or dered By: Dr. Champion on 03-13-2023 MCHC (RBC) [Mass/Vol] 33.2 g/dL 32-36 [facility] No Panel InformationOrdered By: Dr. Champion on 03-13-2023 Bed Mix Venous Bld PCO2 at Pat Temp 19.8 mmHg 41-51 [facility] Blood Gas Specimen Type TIARRA [facility] Oxygen Delivery Device Room Air [facility] Venous Blood Base Excess -6 mmol/L -1.0-3.5 [facility] Methyl Alcohol Level, Quant See comment [facility] Comment on above: TEST RESULTS LIMITS Methanol <0.10 g/dL 0.000-0.010 Detection Limit = 0.010This test was developed and its performance characteristicsdetermined by [employer]. It has not been cleared orapproved by the Food and Drug Administration.Performed at: [address] [id number] Director: Ilan Diamond MD, Phone: [phone] MDMA (Ecstasy) Screen Positive < 500 ng/mL [facility] Urine Barbiturates Screen Negative < 200 ng/mL [facility] Urine Drug Screen Comment [facility] Comment on above: CONFIRMATORY TESTING FOR ALL POSITIVE URINE DRUG SCREENRESULTS WILL ONLY BE SENT OUT UPON PHYSICIAN ORDER. VISTA Urine Drug Screen methods provide only preliminaryanalytical test results. A more specific alternate chemicalmethod must be used in order to obtain a confirmedanalytical result. Gas chromatography/mass spectrometery(GC/MS) is the preferred confirmatory method. Clinicalconsideration and professional judgement should be appliedto any drug of abuse test result, particularly whenpreliminary positive results are used. URINE TCA TESTING MUST BE ORDERED SEPARATELY. USE TESTMNEMONIC: [facility] Urine Methadone Screen Negative < 300 ng/mL [facility] Estimated Creatinine Clearance Calc 25.80 ml/min [facility] Estimated GFR (MDRD) Amer 24 mL/min >60 [facility] Comment on above: GFR Calc Estimated GFR (MDRD) Non-Af Amer 20 mL/min >60 [facility] Comment on above: Non- GFR Calc Ethyl Alcohol Level < 3.0 mg/dL [facility] Comment on above: The serum:whole bloo d ethanol ratio is approximately 1.14and varies slightly with hematocrit. Medical Alcohol reference interval and critical value innon-tolerant individuals; 50 - 100 Impairment 100 Intoxication 100 - 250 Severe Poisoning 250 - 400 Deep/possible fatal coma PO2 venousOrdered By: Dr. Lisa xiong on 03-13-2023 Oxygen (BldV) [Partial pressure] 41 mm[Hg] 25-40 [facility] Platelets bldOrdered By: Dr. Champion on 03-13-2023 Platelets (Bld) [#/Vol] 420 10*3/uL 150-450 [facility] ,Serum,hCG Quali.on 03-13-2023 HCG, SERUM QUAL Negative Normal [facility] Comment on above: Performed By: #### L 501.4020, L100.0100, L500.2500 #### [facility] [address] [place], [address] Salicylateon 03-13-2023 SALICYLATE 2.2 mg/dL Low 2.8-20.0 [facility] Comment on above: Performed By: #### L 501.4020, L100.0100, L500.2500 #### [facility] [address] [place], [address] Serum or plasma calcium andres urement (mass/volume)Ordered By: Dr. Champion on 03-13-2023 Calcium [Mass/Vol] 9.9 mg/dL 8.5-10.1 [facility] Serum or plasma creatinine m easurement (mass/volume)Ordered By: Dr. Champion on 03-13-2023 Creatinine [Mass/Vol] 2.79 mg/dL 0.55-1.02 [facility] Comment on above: The validity of the calculated GFR & GFRAA in patients over 70 years has not been determined. Clinical correlation is essential. Serum or plasma salicylates measurement (mass/volume)Ordered By: Dr. Champion on 03-13-2023 Salicylates [Mass/Vol] 2.2 mg/dL 2.8-20.0 [facility] Serum or plasma urea nitroge n measurement (mass/volume)Ordered By: Dr. Champion on 03-13-2023 Urea nitrogen [Mass/Vol] 20 mg/dL 7-18 [facility] Thin prep Papanicolaou smear with manual screeningOrdered By: Dr. Champion on 03-13-2023 Thin prep Papanicolaou smear with manual screening 16 5-15 [facility] Urine Drug Screen (VISTA)on 03-13-2023 AMPHETAMINES Positive Abnormal <1000 ng/mL [facility] Comment on above: Performed By: #### L 501.4020, L100.0100, L500.2500 #### [facility] [address] [place], [address] BARBITIURATES Negative Normal < 200 ng/mL [facility] Comment on above: Performed By: #### L 501.4020, L100.0100, L500.2500 #### [facility] [address] [place], [address] BENZODIAZIPINE Negative Normal < 200 ng/mL [facility] Comment on above: Performed By: #### L 501.4020, L100.0100, L500.2500 #### [facility] [address] [place] [id number] COCAINE Negative Normal < 300 ng/mL [facility] Comment on above: Performed By: #### L 501.4020, L100.0100, L500.2500 #### [facility] [address] [place], [address] ECSTACY Positive Abnormal < 500 ng/mL [facility] Comment on above: Performed By: #### L 501.4020, L100.0100, L500.2500 #### [facility] [address] [place], [address] METHADONE Negative Normal < 300 ng/mL [facility] Comment on above: Performed By: #### L 501.4020, L100.0100, L500.2500 #### [facility] [address] [place], [address] OPIATES Negative Normal < 300 ng/mL [facility] Comment on above: Performed By: #### L 501.4020, L100.0100, L500.2500 #### [facility] [address] [place], [address] PCP Negative Normal < 25 ng/mL [facility] Comment on above: Performed By: #### L 501.4020, L100.0100, L500.2500 #### [facility] [address] [place], [address] THC Negative Normal < 50 ng/mL [facility] Comment on above: Performed By: #### L 501.4020, L100.0100, L500.2500 #### [facility] [address] [place], [address] VISTA UDS PH 4 Normal [facility] Comment on above: Performed By: #### L 501.4020, L100.0100, L500.2500 #### [facility] [address] [place], [address] Urine phencyclidine (PCP) de tectionOrdered By: Dr. Champion on 03-13-2023 Phencyclidine Ql (U) Negative < 25 ng/mL [facility] Venous Blood Gason 3 Blood Gas Type TIARRA Normal [facility] Comment on above: Performed By: #### L 501.4020, L100.0100, L500.2500 #### [facility] [address] [place], [address] CO2 [Moles/Vol] 17 mmol/L Low 23-33 [facility] Comment on above: Performed By: #### L 501.4020, L100.0100, L500.2500 #### [facility] [address] [place], [address] HCO3 (Bld) [Moles/Vol] 17 mmol/L Low 22-26 [facility] Comment on above: Performed By: #### L 501.4020, L100.0100, L500.2500 #### [facility] [address] [place], [address] O2 Delivery Dev Room Air Normal [facility] Comment on above: Performed By: #### L 501.4020, L100.0100, L500.2500 #### [facility] [address] [place], [address] VBG BE -6 mmol/L Low -1.0-3.5 [facility] Comment on above: Performed By: #### L 501.4020, L100.0100, L500.2500 #### [facility] [address] [place], [address] VBG pCO2 19.8 mmHg Low 41-51 [facility] Comment on above: Performed By: #### L 501.4020, L100.0100, L500.2500 #### [facility] [address] [place], [address] VBG pH 7.53 High 7.32-7.42 [facility] Comment on above: Performed By: #### L 501.4020, L100.0100, L500.2500 #### [facility] [address] [place], [address] VBG PO2 41 mmHg High 25-40 [facility] Comment on above: Performed By: #### L 501.4020, L100.0100, L500.2500 #### [facility] [address] [place], [address] VBG SO2 84 High 50-70 [facility] Comment on above: Performed By: #### L 501.4020, L100.0100, L500.2500 #### [facility] [address] [place], [address] Vital signsOrdered By: Dr. Latanya jordan on 03-13-2023 Oxygen saturation in Blood 84 % 50-70 [facility] pH measurementOrdered By: Dr Micheal Champion on 03-13-2023 pH (Unsp spec) 7.53 [pH] 7.32-7.42 [facility] BACTERIAL VAGINOSIS AMPLIFIC ATIONon 02-22-2023 Lactobacillus crispatus+gasseri+radha enii + Gardnerella vaginalis + Atopobium vaginae rRNA JORGITO+probe Ql (Vag fld) Positive Abnormal Negative for bacterial vaginosis [facility] C. trachomatis+N. gonorrhoea e DNA JORGITO+probe Ql (Unsp spec)on 02-22-2023 C. trachomatis DNA JORGITO+probe Ql (Unsp spec) Negative Negative for Chlamydia trachomatis by amplificaton [facility] N. gonorrhoeae DNA JORGITO+probe Ql (Unsp spec) Negative Negative for Neisseria gonorrhoeae by amplification [facility] EVELYN / TRICHOMONAS AMPLIF ICATIONon 02-22-2023 C. glabrata RNA JORGITO+probe Ql (Vag fld) Negative Negative for Evelyn glabrata [facility] Evelyn albicans, C. dubliniensis, C. parapsilosis, and C. tropicalis RNA JORGITO+probe Ql (Vag fld) Negative Negative for Evelyn species [facility] T. vaginalis DNA JORGITO+probe Ql (Unsp spec) Negative Negative for Trichomonas vaginalis by amplification [facility] HEP B SURF AG SCRNon 023 HBV surface Ag Ql (S) Negative Negative [facility] HEP C AB IA W/CONF SCRNon HCV Ab Ql (S) Negative Negative [facility] HIV 1+2 Ab IA Qlon HIV 1 and 2 Ab IA.rapid Nom [facility] HIV 1+2 Ab+HIV1 p24 Ag IA Ql Non-Reactive Nonreactive [facility] HIV Interpretation [facility] Reagin and Treponema pallidu m IgG and IgM [Interp]on 02-21-2023 Syphilis Interpretation Cannot exclude recent Treponemal infection if specimen collected within 7-10 days after appearance of suspect lesions or 2-3 weeks after an exposure. Clinical correlation is required. [facility] T. pallidum IgG+IgM IA Ql (S) Non-Reactive Nonreactive [facility] CNDSon 09-24-2022 CNDS HNO ID: [id number] Author: Eva Christianson DO Service: Hospital Medicine Author Type: Physician Type: Discharge Summary Filed: 09/24/2022 8:19 PM Note Text: DISCHARGE SUMMARY PATIENT NAME: Kassidy Locke Code Status: Full Code Highest Readmission Risk Score: 12 The 30 day readmissions risk score is derived from an internally validated risk model which evaluates patient level characteristics, utilization history, medication orders and lab results up until the day of discharge. Patients with a score of 40 or above are considered highest risk for readmission. Specific patient level drivers will be listed at the bottom of the summary. Admission Information Admission Information ADMIT DATE: 09/21/2022 DISCHARGE DATE: 09/24/2022 MY DOCTORS AND MEDICAL TEAM: My Main Hospital Doctor: Eva Christianson DO Primary Care Provider: Basilio Colón MD My Medical Team Members: Treatment Team: Attending Provider: Eva Christianson DO Consulting: Arti Werner DMD Attending: MR TONY GARCIA MY CONDITION AT DISCHARGE: Good REASON I WAS IN THE HOSPITAL: Dental abscess SUMMARY OF WHAT HAPPENED WHILE I WAS IN THE HOSPITAL: Patient admitted for IV antibiotics and pain control, went to surgery for tooth extraction. Treated for antibiotic-induced yeast infection that was starting from outpatient prior penicillin, supportive care. Discussed follow-up with Dr. Hilton for Monday at office. OTHER PROBLEMS/DIAGNOSIS: Principal Problem (Resolved): Dental abscess Active Problems: Anxiety Sciatica Essential hypertension Gastroesophageal reflux disease Tobacco user RLS (restless legs syndrome) Nicotine use disorder, F17.2 Obesity, Class I, BMI 30-34.9 Resolved Problems: Antibiotic-induced yeast infection OPERATIONS PERFORMED WHILE IN THE HOSPITAL: Tooth extraction IMPORTANT TEST/PROCEDURES: No procedures performed TEST RESULTS NOT AVAILABLE AT THIS TIME: No pending results Discharge Disposition Discharge Disposition: Home With Self Care Activity When You Leave the Hospital No driving for: No driving while taking narcotic pain medication Resume pre-hospital activity Diet Instructions Resume your pre-hospital diet Soft Foods For Pain When You Leave the Hospital Apply a covered cold pack to the area Use acetaminophen (Tylenol) as recommended on the bottle Wound/Surgical Site Care Some bleeding from the wound/surgical site can be expected. If excessive, see a doctor at once Call Your Doctor If There is an unusual odor from the wound area There is severe pain at the operative site You have a severe headache You have lightheadedness, fainting, or confusion You have persistent nausea/vomiting over 24 hours You have persistent or heavy bleeding You have redness, swelling, pus or drainage from the wound You have swollen glands or cold and clammy skin Your temperature is greater than 101F Follow Up Appointments Follow-Up Appointment Call to confirm but was discussed When: In 2 days Patient/Parents to call for appointment?: Yes Demario Hilton MD, DDS [phone] [address] [id number] PCP Requested Referral Additional Provider to Provider Information: Treatment Team: Attending Provider: Eva Christianson DO Consulting: Arti Werner DMD Attending: MR TONY GARCIA Transitions of Care Critical Issues: SPECIALIST FOLLOW-UP: Demario Hilton MD, DDS LABS AND PROCEDURES PENDING AT DISCHARGE: No pending results. FOLLOW-UP APPOINTMENTS ALREADY SCHEDULED WITH A [facility] PROVIDER: No future appointments. ALLERGIES No Known Allergies DISCHARGE MEDICATION: Current Discharge Medication List CONTINUE these medications which have CHANGED HYDROcodone-acetaminoph en (NORCO) 1 tablet Take 1 tablet by mouth every 6 hours as needed for pain. Qty: 12 tablet Refills: 0 Associated Diagnoses:Lumbar radiculitis CONTINUE these medications which have NOT CHANGED gabapentin (NEURONTIN) 300 mg Take 300 mg by mouth three times daily. Qty: 90 capsule Refills: 2 FLUoxetine (PROzac) 60 mg Take 60 mg by mouth once daily. Qty: 90 capsule Refills: 5 Associated Diagnoses:Anxiety lisinopril (ZESTRIL, PRINIVIL) 10 mg Take 10 mg by mouth once daily. Qty: 30 tablet Refills: 5 Associated Diagnoses:Essential hypertension STOP taking these medications penicillin V potassium (V-CILLIN, VEETIDS) 500 mg Comments: Reason for Stopping: Discharge Physical Exam: VITAL SIGNS: BP 165/99 Pulse 79 Temp 36.5 ?C (97.7 ?F) (Oral) Resp 17 Ht 170.2 cm (5' 7) Wt 96.7 kg (213 lb 3.2 oz) LMP 01/11/2022 (Exact Date) SpO2 96% BMI 33.39 kg/m? GENERAL: Alert, no distress, cooperative, Morbidly Obese LUNGS: Lungs clear to auscultation, Good diaphragmatic excursion CARDIAC: Normal S1 and S2; no rubs, murmurs, or gallops ABDOMEN: Abdomen soft, non-tender, BS normal, No masses or organomegaly EXTREMI (more content not included)... [facility] ANES POSTPROC EVALon 022 ANES POSTPROC EVAL HNO ID: [id number] Author: Carlito Manuel DO Service: ? Author Type: Physician Type: Anesthesia Postprocedure Evaluation Filed: 09/23/2022 3:27 PM Note Text: POST ANESTHESIA EVALUATION NOTE : 1980 Procedure Summary Date: 09/23/22 Room / Location: OR / OR Anesthesia Start: 1408 Anesthesia Stop: 1441 Procedures: EXTRACTION TEETH (Mouth) EXAM UNDER ANESTHESIA ORAL (Mouth) Diagnosis: Unspecified dental caries (Unspecified dental caries [K02.9]) Surgeons: Demario Hilton MD, DDS Responsible Provider: Carlito Manuel DO Anesthesia Type: general ASA Status: 2 Anesthesia Type: general Airway Type: LMA Last Vitals Vitals Value Taken Time BP 149/82 09/23/22 1515 Temp 36.9 ?C (98.4 ?F) 09/23/22 1454 Pulse 83 09/23/22 1525 Resp 20 09/23/22 1515 SpO2 96 % 09/23/22 1525 Vitals shown include unvalidated device data. Post Anesthesia Patient Status Patient Evaluation: PACU. Neurological Status: aware and responsive. Pulmonary Status: breathing comfortably on room air Airway Control: returned to baseline unsupported. Cardiovascular Status: stable. Pain Management: clinically adequate Postoperative Hydration: acceptable. Intraoperative Events: no significant anesthesia events Post Operative Nausea/Vomiting Status: no significant post operative nausea or vomiting Recommendation: continue current plan of care. Anesthesia Observations No Documentation SIGNATURE: Carlito Manuel DO PATIENT NAME: Kassidy Locke DATE: September 23, 2022 TIME: 3:27 PM CSN: [id number] [facility] ANES PRE-OPon 09-23-2022 ANES PRE-OP HNO ID: [id number] Author: Pelon Nolasco MD Service: Anesthesiology Author Type: Physician Type: Anesthesia Preprocedure Evaluation Filed: 09/23/2022 1:55 PM Note Text: ANESTHESIOLOGY DAY OF SURGERY NOTE : 1980 Procedure Information Date/Time: 09/23/22 1400 Procedures: EXTRACTION TEETH (Mouth) EXAM UNDER ANESTHESIA ORAL (Mouth) Location: MR OR 10 / MR OR Surgeons: Demario Hilton MD, DDS Estimated body mass index is 33.39 kg/m? as calculated from the following: Height as of this encounter: 170.2 cm (5' 7). Weight as of this encounter: 96.7 kg (213 lb 3.2 oz). Most recent hematocrit and potassium results: Hematocrit 38.8 09/21/2022 Potassium 4.2 09/21/2022 Relevant Problems CARDIO (+) Essential hypertension GI (+) Gastroesophageal reflux disease I - PHYSICAL EVALUATION AIRWAY Patient intubated: No. Tracheostomy tube not present Mallampati: II. TM distance: >3 FB. Neck ROM: full ROM without neurological symptoms. Mouth opening: adequate. Short neck: no. Thick neck: no Marley present: no DENTAL Dental findings: teeth intact. Additional exam findings: no II - ANESTHESIA PLAN ASA Score: 2 Anesthetic Plan: general The patient is not a current smoker. NPO Status: adequate [address] Monitoring Plan Monitoring plan: standard ASA. Post Procedure Analgesic Plan Postoperative analgesic plan: parenteral or oral opioids and multimodal analgesia. Informed Consent Anesthetic risks, benefits, alternatives, personnel and consent discussed: yes. Patient / Responsible [employer] agrees to proceed: yes Patient / Surrogate agrees to blood products: blood products not planned Potential Anesthesia issues that may suggest increased risk of complications or contraindication to planned procedure: potential difficult intubation. No vitals data found for the desired time range. Facility-Administered Medications as of 09/23/2022 Medication Dose Route Frequency - [MAR Hold due to Transfer] fluconazole 200 mg tab(s) (DIFLUCAN) 200 mg ORAL ONCE - [MAR Hold due to Transfer] FLUoxetine 60 mg cap(s) (PROzac) 60 mg ORAL DAILY - [MAR Hold due to Transfer] gabapentin 300 mg cap(s) (NEURONTIN) 300 mg ORAL q 8 H PRN - [MAR Hold due to Transfer] famotidine 20 mg injection (PEPCID) 20 mg INTRAVENOUS BID - [] iv contrast (radiology procedure) INTRAVENOUS DIRECTED PRN - [COMPLETED] keTORolac 15 mg injection (TORADOL) 15 mg INTRAVENOUS ONCE - [COMPLETED] morphine 4 mg injection 4 mg INTRAVENOUS ONCE - [COMPLETED] NaCl 0.9% 1,000 mL iv bolus 1,000 mL INTRAVENOUS ONCE - [MAR Hold due to Transfer] NaCl 0.9% iv flush bag 20 mL INTRAVENOUS PRN - [MAR Hold due to Transfer] sodium chloride 0.9 % (flush) 3-5 mL (BD POSIFLUSH) 3-5 mL INTRAVENOUS q 12 H - [MAR Hold due to Transfer] dextrose 5% in NaCl 0.9% iv infusion 75 mL/hr INTRAVENOUS CONTINUOUS - [MAR Hold due to Transfer] morphine 4 mg injection 4 mg INTRAVENOUS q 3 H PRN - [MAR Hold due to Transfer] senna 17.2 mg tab(s) (SENOKOT) 17.2 mg ORAL DAILY PRN - [MAR Hold due to Transfer] lisinopril 10 mg tab(s) (ZESTRIL, PRINIVIL) 10 mg ORAL DAILY - [MAR Hold due to Transfer] clindamycin iv piggyback 600 mg in D5W 50 mL (CLEOCIN) 600 mg INTRAVENOUS q 6 H - [MAR Hold due to Transfer] keTORolac 15 mg injection (TORADOL) 15 mg INTRAVENOUS q 6 H Outpatient Medications as of 09/23/2022 Medication Sig - gabapentin (NEURONTIN) 300 mg capsule Take 1 capsule by mouth three times daily for 90 days. (Patient taking differently: Take 300 mg by mouth three times daily as needed (sciatic nerve pain).) - HYDROcodone-acetaminoph en (NORCO) 5-325 mg per tablet Take 1 tablet by mouth every 8 hours as needed for pain. - FLUoxetine (PROZAC) 20 mg capsule Take 3 capsules by mouth once daily. - lisinopril (ZESTRIL, PRINIVIL) 10 mg tablet Take 1 tablet by mouth once daily. I have interviewed and examined the patient. I have reviewed the medical record and/or the pre-anesthesia evaluation, pertinent labs, and test results. This contains updated information obtained within 48 hours of Surgery/Procedure. SIGNATURE: Pelon Nolasco MD PATIENT NAME: Kassidy Locke DATE: September 23, 2022 TIME: 1:52 PM CSN: [id number] [facility] Bacteria Spec Anaerobe Culto n 09-23-2022 Bacteria identified Anaer cx Nom (Unsp spec) Negative [facility] Comment on above: Performed By: #### 2 4321-2, HCG #### [facility] CLIA [id number] [address] [place] Bacteria Wnd Culton 09-23-20 22 Bacteria identified Cx Nom (Wound) ORGANISM ID: 1 Few Haemophilus parainfluenzae ORGANISM ID: 2 Few normal respiratory anderson GRAM STAIN: Rare Polymorphonuclear leukocytes No organisms seen Abnormal [facility] Comment on above: Performed By: #### 2 4321-2, HCG #### [facility] CLIA [id number] [address] [id number] [place] CONSULT PROGon 09-22-2022 CONSULT PROG HNO ID: [id number] Author: Demario Hilton MD, DDS Service: Oral/Maxillofacial Surgery Author Type: Dentist Type: Consult Progress Note Filed: 09/22/2022 9:49 PM Note Text: Summary: OMS Consult note OMS Consultation Note HD #1 42 yo f admitted overnight with left sided facial swelling. Patient states she was seen at [facility] and subsequently presented to [facility] ED. Patient complains of 2-3 day history of increasing swelling and pain of the left face and jaw. PMH/MEDS/PSH/PSocH/Jevon rgies noted in chart AF VSS WBC 10 Focused exam Sitting up in bed talking on phone at exam. Denies SOA, dypsnea, dysphagia Moderate left sided facial swelling at the level of the left mandibular angle. Soft and tender to palpation No overlying skin erythema and no extraoral drainage noted Inferior border of them mandible easily palpated and soft General dentition in reasonable condition Impacted tooth # 17 palpated intraorally with cusp tip protruding through gingiva and vary tender to palpation at this location Moderate limitation in mouth opening due to pain, but not concerning for severe trismus CT reviewed Panorex pending A/P 42 yo f with left buccal space/submasseteric space abscess likely associated with # 17 Plan for obtaining panorex and then to OR tomorrow afternoon for extraction # 17 with Incision and drainage NPO at midnight Continue IV ABX Normal [facility] Basic metabolic 2000 panelon 09-21-2022 Anion gap [Moles/Vol] 9 mmol/L Normal 5-16 [facility] Comment on above: Order Comment: Speci men Type: BLOOD SPECIMEN Ordering Facility: [facility] Address: [address] [place] [address] Performed By: #### 2 4321-2, HCG #### [facility] CLIA [id number] [address] [place] [address] [place] Calcium [Mass/Vol] 9.4 mg/dL Normal 8.5-10.5 [facility] Comment on above: Order Comment: Speci men Type: BLOOD SPECIMEN Ordering Facility: [facility] Address: [address] [address] Performed By: #### 2 4321-2, HCG #### [facility] CLIA [id number] [address] [place] [address] [place] Chloride [Moles/Vol] 103 mmol/L Normal 98-107 [facility] Comment on above: Order Comment: Speci men Type: BLOOD SPECIMEN Ordering Facility: [facility] Address: [address] [address] Performed By: #### 2 4321-2, HCG #### [facility] CLIA [id number] [address] [place] [address] [place] CO2 [Moles/Vol] 25 mmol/L Normal 21-32 [facility] Comment on above: Order Comment: Speci men Type: BLOOD SPECIMEN Ordering Facility: [facility] Address: [address] [address] Performed By: #### 2 4321-2, HCG #### [facility] CLIA [id number] [address] [place] [address] [facility] Creatinine [Mass/Vol] 0.74 mg/dL Normal 0.51-0.95 [facility] Comment on above: Order Comment: Natai partha Type: BLOOD SPECIMEN Ordering Facility: [facility] Address: [address] [place] [address] Result Comment: Jodi ents receiving either N-Acetylcysteine (NAC) or Metamizole prior to venipuncture, may have falsely depressed results. Performed By: #### 2 4321-2, HCG #### [facility] CLIA [id number] [address] [place] [address] [facility] ESTIMATED GLOMERULAR FILTRATION RATE 104 mL/min/1.73m??? Normal >=60 [facility] Comment on above: Order Comment: Jaz chavis Type: BLOOD SPECIMEN Ordering Facility: [facility] Address: [address] [place] [address] Result Comment: Denita mated Glomerular Filtration Rate (eGFR) is calculated using the 2020 CKD-EPI creatinine equation. This equation utilizes serum creatinine, sex, and age as parameters. The creatinine assay has traceable calibration to isotope dilution-mass spectrometry. Refer to KDIGO guidelines for clinical interpretation. In patients with unstable renal function, e.g. those with acute kidney injury, the eGFR may not accurately reflect actual GFR. Performed By: #### 2 4321-2, HCG #### [facility] CLIA [id number] [address] [place] [address] [place] Glucose [Mass/Vol] 95 mg/dL Normal 70-100 [facility] Comment on above: Order Comment: Natai partha Type: BLOOD SPECIMEN Ordering Facility: [facility] Address: [address] [place] [address] Result Comment: The [place] Diabetes Association (ADA) provides guidance for cutoff values for fasting glucose and random glucose. The ADA defines fasting as no caloric intake for at least 8 hours. Fasting plasma glucose results between 100 to 125 mg/dL indicate increased risk for diabetes (prediabetes). Fasting plasma glucose results greater than or equal to 126 mg/dL meet the criteria for diagnosis of diabetes. In the absence of unequivocal hyperglycemia, results should be confirmed by repeat testing. In a patient with classic symptoms of hyperglycemia or hyperglycemic crisis, random plasma glucose results greater than or equal to 200 mg/dL meet the criteria for diagnosis of diabetes. Reference: Standards of Medical Care in Diabetes 2016, [place] [employer] Association. Diabetes Care. 2016.39(Suppl 1). Results may be falsely elevated after the administration of Sulfapyridine. Results may be falsely depressed after the administration of Sulfasalazine. Performed By: #### 2 4321-2, HCG #### [facility] CLIA [id number] [address] [place] [address] [place] Potassium [Moles/Vol] 4.2 mmol/L Normal 3.5-5.1 [facility] Comment on above: Order Comment: Speci men Type: BLOOD SPECIMEN Ordering Facility: [facility] Address: [address] [place] [address] Performed By: #### 2 4321-2, HCG #### [facility] CLIA [id number] [address] [place] [address] [place] Sodium [Moles/Vol] 137 mmol/L Normal 136-145 [facility] Comment on above: Order Comment: Speci men Type: BLOOD SPECIMEN Ordering Facility: [facility] Address: [address] [address] Performed By: #### 2 4321-2, HCG #### [facility] CLIA [id number] [address] [place] [address] [place] Urea nitrogen [Mass/Vol] 14 mg/dL Normal 7-26 [facility] Comment on above: Order Comment: Speci men Type: BLOOD SPECIMEN Ordering Facility: [facility] Address: [address] [address] Performed By: #### 2 4321-2, HCG #### [facility] CLIA [id number] [address] [place] [address] [place] CBC W Auto Differential pane l (Bld)on 09-21-2022 Basophils (Bld) [#/Vol] 0.04 10*3/uL Normal <0.11 [facility] Comment on above: Order Comment: Speci men Type: BLOOD SPECIMEN Ordering Facility: [facility] Address: [address] [address] Performed By: #### 5 7021-8 #### [facility] CLIA [id number] [address] [place] [address] [place] Basophils/100 WBC (Bld) 0.4 % Normal [facility] Comment on above: Order Comment: Speci men Type: BLOOD SPECIMEN Ordering Facility: [facility] Address: [address] [address] Performed By: #### 5 7021-8 #### [facility] CLIA [id number] [address] [place] [address] [place] Differential cell count method Nom (Bld) Auto Normal [facility] Comment on above: Order Comment: Speci men Type: BLOOD SPECIMEN Ordering Facility: [facility] Address: [address] [address] Performed By: #### 5 7021-8 #### [facility] CLIA [id number] [address] [place] [address] [place] Eosinophils (Bld) [#/Vol] 0.07 10*3/uL Normal <0.46 [facility] Comment on above: Order Comment: Speci men Type: BLOOD SPECIMEN Ordering Facility: [facility] Address: [address] [address] Performed By: #### 5 7021-8 #### [facility] CLIA [id number] [address] [place] [address] [place] Eosinophils/100 WBC (Bld) 0.7 % Normal [facility] Comment on above: Order Comment: Speci men Type: BLOOD SPECIMEN Ordering Facility: [facility] Address: [address] [address] Performed By: #### 5 7021-8 #### [facility] CLIA [id number] [address] [place] [address] [place] Erythrocyte distribution width (RBC) [Ratio] 14.6 % Normal 11.5-15.0 [facility] Comment on above: Order Comment: Speci men Type: BLOOD SPECIMEN Ordering Facility: [facility] Address: [address] [place] [address] Performed By: #### 5 7021-8 #### [facility] CLIA [id number] [address] [place] [address] [place] Hematocrit (Bld) [Volume fraction] 38.8 % Normal 36.0-46.0 [facility] Comment on above: Order Comment: Speci men Type: BLOOD SPECIMEN Ordering Facility: [facility] Address: [address] [place] [address] Performed By: #### 5 7021-8 #### [facility] CLIA [id number] [address] [place] [address] [place] Hemoglobin (Bld) [Mass/Vol] 12.7 g/dL Normal 11.5-15.5 [facility] Comment on above: Order Comment: Speci men Type: BLOOD SPECIMEN Ordering Facility: [facility] Address: [address] [place] [address] Performed By: #### 5 7021-8 #### [facility] CLIA [id number] [address] [place] [address] [place] Immature granulocytes (Bld) [#/Vol] 0.05 10*3/uL Normal <0.10 [facility] Comment on above: Order Comment: Speci men Type: BLOOD SPECIMEN Ordering Facility: [facility] Address: [address] [place] [address] Performed By: #### 5 7021-8 #### [facility] CLIA [id number] [address] [place] [address] [place] Immature granulocytes/100 WBC (Bld) 0.5 % Normal [facility] Comment on above: Order Comment: Speci men Type: BLOOD SPECIMEN Ordering Facility: [facility] Address: [address] [place], [place] [address] [address] Performed By: #### 5 7021-8 #### [facility] CLIA [id number] [address] [place] [address] [place] Lymphocytes (Bld) [#/Vol] 2.42 10*3/uL Normal 1.00-4.00 [facility] Comment on above: Order Comment: Speci men Type: BLOOD SPECIMEN Ordering Facility: [facility] Address: [address] [place] [address] Performed By: #### 5 7021-8 #### [facility] CLIA [id number] [address] [place] [address] [place] Lymphocytes/100 WBC (Bld) 24.1 % Normal [facility] Comment on above: Order Comment: Speci men Type: BLOOD SPECIMEN Ordering Facility: [facility] Address: [address] [address] Performed By: #### 5 7021-8 #### [facility] CLIA [id number] [address] [place] [address] [place] MCH (RBC) [Entitic mass] 28.0 pg Normal 26.0-34.0 [facility] Comment on above: Order Comment: Speci men Type: BLOOD SPECIMEN Ordering Facility: [facility] Address: [address] [place] [address] Performed By: #### 5 7021-8 #### [facility] CLIA [id number] [address] [place] [address] [place] MCHC (RBC) [Mass/Vol] 32.7 g/dL Normal 30.5-36.0 [facility] Comment on above: Order Comment: Speci men Type: BLOOD SPECIMEN Ordering Facility: [facility] Address: [address] [place] [address] [address] Performed By: #### 5 7021-8 #### [facility] CLIA [id number] [address] [place] [address] [place] MCV (RBC) [Entitic vol] 85.5 fL Normal 80.0-100.0 [facility] Comment on above: Order Comment: Speci men Type: BLOOD SPECIMEN Ordering Facility: [facility] Address: [address] [address] Performed By: #### 5 7021-8 #### [facility] CLIA [id number] [address] [place] [address] [place] Monocytes (Bld) [#/Vol] 0.61 10*3/uL Normal <0.87 [facility] Comment on above: Order Comment: Speci men Type: BLOOD SPECIMEN Ordering Facility: [facility] Address: [address] [address] Performed By: #### 5 7021-8 #### [facility] CLIA [id number] [address] [place] [address] [place] Monocytes/100 WBC (Bld) 6.1 % Normal [facility] Comment on above: Order Comment: Speci men Type: BLOOD SPECIMEN Ordering Facility: [facility] Address: [address] Performed By: #### 5 7021-8 #### [facility] CLIA [id number] [address] [place] [address] [place] Neutrophils (Bld) [#/Vol] 6.84 10*3/uL Normal 1.45-7.50 [facility] Comment on above: Order Comment: Speci men Type: BLOOD SPECIMEN Ordering Facility: [facility] Address: [address] Performed By: #### 5 7021-8 #### [facility] CLIA [id number] [address] [place] [address] [place] Neutrophils/100 WBC (Bld) 68.2 % Normal [facility] Comment on above: Order Comment: Speci men Type: BLOOD SPECIMEN Ordering Facility: [facility] Address: [address] [address] Performed By: #### 5 7021-8 #### [facility] CLIA [id number] [address] [place] [address] [place] Nucleated RBC (Bld) [#/Vol] 10*3/uL Normal <0.01 [facility] Comment on above: Order Comment: Speci men Type: BLOOD SPECIMEN Ordering Facility: [facility] Address: [address] [address] Performed By: #### 5 7021-8 #### [facility] CLIA [id number] [address] [place] [address] [place] Nucleated RBC/100 WBC (Bld) [Ratio] 0.0 /100 WBC Normal [facility] Comment on above: Order Comment: Speci men Type: BLOOD SPECIMEN Ordering Facility: [facility] Address: [address] [place] [address] Performed By: #### 5 7021-8 #### [facility] CLIA [id number] [address] [place] [address] [place] Platelet mean volume (Bld) [Entitic vol] 8.3 fL Low 9.0-12.7 [facility] Comment on above: Order Comment: Speci men Type: BLOOD SPECIMEN Ordering Facility: [facility] Address: [address] [place] [address] Performed By: #### 5 7021-8 #### [facility] CLIA [id number] [address] [place] [address] [place] Platelets (Bld) [#/Vol] 375 10*3/uL Normal 150-400 [facility] Comment on above: Order Comment: Speci men Type: BLOOD SPECIMEN Ordering Facility: [facility] Address: [address] [place] [address] Performed By: #### 5 7021-8 #### [facility] CLIA [id number] [address] [place] [address] [place] RBC (Bld) [#/Vol] 4.54 10*6/uL Normal 3.90-5.20 [facility] Comment on above: Order Comment: Speci men Type: BLOOD SPECIMEN Ordering Facility: [facility] Address: [address] [place] [address] Performed By: #### 5 7021-8 #### [facility] CLIA [id number] [address] [place], [place] [id number] [facility] WBC (Bld) [#/Vol] 10.03 10*3/uL Normal 3.70-11.00 [facility] Comment on above: Order Comment: Speci men Type: BLOOD SPECIMEN Ordering Facility: [facility] Address: [place] [address] Performed By: #### 5 7021-8 #### [facility] CLIA [id number] [address] [place], [place] [id number] [facility] CONSULTon 09-21-2022 CONSULT HNO ID: [id number] Author: Arti Werner DMD Service: Dentistry Author Type: Resident Type: Consults Filed: 09/21/2022 5:46 PM Note Text: EMERGENCY DEPARTMENT NOTE: SUBJECTIVE: This is a 42 year old female with Tooth pain, Swelling in mouth, and Facial swelling. Onset was 1 day(s) ago, with worsening course since that time. The symptoms are localized to the left side of face. The patient also complains of inability to eat. The patient denies fever, chest pain, shortness of breath, and inability to swallow. PMH: PAST MEDICAL HISTORY Diagnosis Date Dysthymic disorder Depression (non-psychotic) Generalized anxiety disorder Anxiety, Generalized Hypertension ALLERGIES: ALLERGIES No Known Allergies MEDICATIONS: Current Facility-Administered Medications Medication Dose Route Frequency iv contrast (radiology procedure) INTRAVENOUS DIRECTED PRN NaCl 0.9% 1,000 mL iv bolus 1,000 mL INTRAVENOUS ONCE Current Outpatient Medications Medication Sig penicillin V potassium (V-CILLIN, VEETIDS) 250 mg tablet Take 500 mg by mouth four times daily. Start 09/21/22 for 10 days gabapentin (NEURONTIN) 300 mg capsule Take 1 capsule by mouth three times daily for 90 days. (Patient taking differently: Take 300 mg by mouth three times daily as needed (sciatic nerve pain).) HYDROcodone-acetaminoph en (NORCO) 5-325 mg per tablet Take 1 tablet by mouth every 8 hours as needed for pain. FLUoxetine (PROZAC) 20 mg capsule Take 3 capsules by mouth once daily. lisinopril (ZESTRIL, PRINIVIL) 10 mg tablet Take 1 tablet by mouth once daily. OBJECTIVE: Vital signs reviewed. General appearance: alert, moderate distress. Nose: normal, no crusting, no turbinate hypertrophy. Dental exam Buccal swelling , Submandibular swelling, and Trismus. Caries #17 Oropharynx: normal, no exudate present, and uvula midline ED COURSE: Triage notes reviewed and Vital signs reviewed The attending who evaluated and managed this patient was Dr. Salazar. ASSESSMENT / PLAN: Patient presents with buccal swelling secondary to caries #17. Patient has difficulty opening. Angle of mandible can be palpated bilaterally. Buccal tissue tender intra and extraorally. Patient to be admitted for IV antibiotics. Photo taken and discussed with Dr. Hilton. Patient to follow-up with oral surgery after admitted to hospital. Patient given opportunity to ask questions with all answered. Arti Werner, KYA [facility] CT NECK SOFT TISSUE W IVCONo n 09-21-2022 CT NECK SOFT TISSUE W IVCON * * *Final Report* * * DATE OF EXAM: Sep 21 2022 3:45PM 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 Technique: Enhanced neck CT with reconstructions Contrast: Isovue 250 Contrast Dose (cc): 100 Route of Administration: IV CT Dose-Length Product (DLP): 322.77 mGy*cm CT Dose Reduction Employed: Automated exposure control(AEC) and iterative recon Comparison:None Result: Left masseter muscle enlargement and hyperenhancement with surrounding inflammatory changes including involvement of the left platysma and ventral margin of the parotid gland. Left mandibular molar periapical lucency approximately 4 mm presumably periapical abscess. Artifact from dental amalgam with no convincing subperiosteal abscess. No peripherally enhancing muscle/soft tissue collection to suggest abscess. Unremarkable intracranial contents, orbits, paranasal sinuses, suggestive ears, oral cavity, pharynx, larynx, trachea, superior mediastinum, lung apices, vessels, and remaining glandular structures. Mild reversal normal cervical lordosis with multilevel degenerative changes without significant canal or neural foraminal compromise. No superimposed lytic or blastic process. Impression: Left masseter myositis and surrounding cellulitis presumably from left third mandibular molar periapical abscess. 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 Author Type: Registered Nurse Type: ED Notes Filed: 09/21/2022 9:23 PM Note Text: Report called to May GUPTA on 2M at this time [facility] ED NOTE HNO ID: [id number] Author: Liset Cano RN Service: ? Author Type: Registered Nurse Type: ED Notes Filed: 09/21/2022 9:03 PM Note Text: Attempt x1 to call report, unsuccessful, phone rang so long phone started ringing busy [facility] ED NOTE HNO ID: [id number] Author: Josue Kumar RPh Service: ? Author Type: Pharmacist Type: ED Notes Filed: 09/21/2022 5:14 PM Note Text: PHARMACY MEDICATION REVIEW Patient Name: Kassidy Locke : 1980 The below information represents the best possible medication history: Yes Medication history completed by: ED Pharmacist Josue Kumar RPh Source of history: Patient: Reliability of source: Appears reliable, clearly identified: Medication name, Medication route, Medication frequency, Timing of last dose, and Indications and Pharmacy records: [facility] Medication nonadherence identified: No barriers noted Reconciliation completed: No, patient not yet admitted. Patient interested in Bedside Delivery Services or using OP Pharmacy at discharge? No Preferred outpatient pharmacy: [id number] - [place] [address] - [address] [facility] [phone] [id number] Allergies: No Known Allergies Prior to Admission Medications Prescriptions Last Dose Informant Patient Reported? Taking? FLUoxetine (PROZAC) 20 mg capsule 09/21/2022 No Yes Sig: Take 3 capsules by mouth once daily. HYDROcodone-acetaminoph en (NORCO) 5-325 mg per tablet 09/21/2022 No Yes Sig: Take 1 tablet by mouth every 8 hours as needed for pain. gabapentin (NEURONTIN) 300 mg capsule No Yes Sig: Take 1 capsule by mouth three times daily for 90 days. Patient taking differently: Take 300 mg by mouth three times daily as needed (sciatic nerve pain). lisinopril (ZESTRIL, PRINIVIL) 10 mg tablet 09/21/2022 No Yes Sig: Take 1 tablet by mouth once daily. penicillin V potassium (V-CILLIN, VEETIDS) 250 mg tablet 09/21/2022 Yes Yes Sig: Take 500 mg by mouth four times daily. Start 09/21/22 for 10 days Facility-Administered Medications: None Josue Kumar RPh 09/21/2022 [facility] ED PROV NOTEon 09-21-2022 ED PROV NOTE HNO ID: [id number] Author: Oracio Valente MD Service: ? Author Type: Physician Type: ED Provider Notes Filed: 09/21/2022 5:14 PM Note Text: ED Provider Note Patient Name: Kassidy Locke : 1980 SERVICE DATE: 09/21/22 History Patient presents with: Dental Problem: Pt has dental abscess to left side of mouth, started antibiotics yesterday, was told to come here because we have an [employer] professional sports dentist 2-year-old presents here to the ED for evaluation of dental pain. History of hypertension, nondiabetic, no current dentist. Has had some left-sided mandibular molar odontalgia and in the last 24 hours has developed significant swelling of the left side of her face to the point where she has trismus. No fevers. She is able to take sips of water through a straw but really cannot eat any food. Denies chest pain shortness of breath abdominal pain or vomiting. No other acute complaints. Presents here to the ED for evaluation. PAST MEDICAL HISTORY Diagnosis Date Dysthymic disorder Depression (non-psychotic) Generalized anxiety disorder Anxiety, Generalized Hypertension PAST SURGICAL HISTORY Procedure Laterality Date NONE FAMILY HISTORY Problem Relation Age of Onset Diabetes Maternal Grandmother Diabetes Sister Social History Tobacco Use Smoking status: Every Day Types: Cigarettes Smokeless tobacco: Never Tobacco comments: has a Juul, not used lately Substance and Sexual Activity Alcohol use: No Comment: occasionally Drug use: No Sexual activity: Yes Partners: Male control/protection: None Comment: ok ALLERGIES No Known Allergies Review of Systems All other systems reviewed and are negative. Physical Exam Vitals [09/21/22 1223] BP Pulse Temp Temp src Resp SpO2 Weight Height (!) 215/117 (!) 98 37.2 ?C (98.9 ?F) Oral 17 98 % 98.9 kg (218 lb) 1.702 m (5' 7) Physical Exam HENT: Head: Normocephalic and atraumatic. Comments: Moderate amount of asymmetric left-sided facial swelling with induration over the left mandibular cheek area. Mild erythema. Nose: Nose normal. Mouth/Throat: Mouth: Mucous membranes are moist. Comments: 1 fingerbreadth trismus present. Intraoral inspection reveals no sublingual edema. No drooling dysphonia or stridor. She does have tenderness over a left mandibular molar with palpation. Eyes: Extraocular Movements: Extraocular movements intact. Pupils: Pupils are equal, round, and reactive to light. Cardiovascular: Rate and Rhythm: Normal rate and regular rhythm. Pulmonary: Effort: Pulmonary effort is normal. Breath sounds: Normal breath sounds. Abdominal: Palpations: Abdomen is soft. Tenderness: There is no abdominal tenderness. Musculoskeletal: Cervical back: Neck supple. Skin: General: Skin is warm and dry. Neurological: General: No focal deficit present. Mental Status: She is alert and oriented to person, place, and time. Psychiatric: Mood and Affect: Mood normal. Behavior: Behavior normal. Diagnostic Testing ED Labs Ordered and Reviewed CBC + DIFF - Abnormal; Notable for the following components: Result Value Ref Range MPV 8.3 (*) 9.0 - 12.7 fL All other components within normal limits Narrative: This is an appended report. These results have been appended to a previously verified report. BASIC METABOLIC PNL - Normal SEPSIS LACTATE - Normal Procedures ED Course / Clinical Impression ED Course as of 09/21/224 Oracio Valente's Documentation MonSep 21, [address] Werner. Agrees with IV antibiotic therapy and admission. She will discuss with Dr. Hilton. Will likely recommend require tooth extraction. Clinical Impressions as of 09/21/221713 Periapical abscess Results for orders placed or performed during the hospital encounter of 09/21/22 BASIC METABOLIC PNL Result Value Ref Range Glucose 95 70 - 100 mg/dL BUN 14 7 - 26 mg/dL Creatinine 0.74 0.51 - 0.95 mg/dL Sodium 137 136 - 145 mmol/L Potassium 4.2 3.5 - 5.1 mmol/L Chloride 103 98 - 107 mmol/L CO2 25 21 - 32 mmol/L Anion Gap 9 5 - 16 mmol/L Calcium, Total 9.4 8.5 - 10.5 mg/dL Estimated Glomerular Filtration Rate 104 >=60 mL/min/1.73m? CBC + DIFF Result Value Ref Range WBC 10.03 3.70 - 11.00 k/uL RBC 4.54 3.90 - 5.20 m/uL Hemoglobin 12.7 11.5 - 15.5 g/dL Hematocrit 38.8 36.0 - 46.0 % MCV 85.5 80.0 - 100.0 fL MCH 28.0 26.0 - 34.0 pg MCHC 32.7 30.5 - 36.0 g/dL RDW-CV 14.6 11.5 - 15.0 % Platelet Count 375 150 - 400 k/uL MPV 8.3 (L) 9.0 - 12.7 fL Neut% 68.2 % Abs Neut 6.84 1.45 - 7.50 k/uL Lymph% 24.1 % Abs Lymph 2.42 1.00 - 4.00 k/uL Arthur% 6.1 % Abs Arthur 0.61 <0.87 k/uL Eosin% 0.7 % Abs Eosin 0.07 <0.46 k/uL Baso% 0.4 % Abs Baso 0.04 <0.11 k/uL Immature Gran % 0.5 % Abs Immature Gran 0.05 <0.10 k/uL NRBC 0.0 /100 WBC Absolute nRBC <0.01 <0.01 k/uL Diff Type Auto SEPSIS LACTATE (more content not included)... Normal [facility] HCG QUAL BLDon 09-21-2022 HCG, QUALITATIVE Negative Normal Negative [facility] Comment on above: Order Comment: Speci men Type: BLOOD SPECIMEN Ordering Facility: [facility] Address: [place] [address] Performed By: #### 2 4321-2, HCG #### [facility] CLIA [id number] [address] [place] [address] [place] HISTORY PHYSICALon HISTORY PHYSICAL HNO ID: [id number] Author: Ranjit Mcleod MD Service: Hospital Medicine Author Type: Physician Type: HANDP Filed: 09/21/2022 5:41 PM Note Text: INTERNAL MEDICINE ADMISSION NOTE HISTORY AND PHYSICAL Patient Name: Kassidy Locke Admission Date: 09/21/2022 Date of Evaluation: 09/21/2022 Time of Evaluation: 5:29 PM CHIEF COMPLAINT: Left facial swelling. HPI: Kassidy Locke is a 42 year old with PMH of HTN and tobacco use. Presents with 1 day of left facial swelling, nausea yesterday. She had dental cavities for two years Afebrile. Patient denies sob, fever, headache, vomiting, diarrhea, or dysuria. REVIEW OF SYSTEMS: (since the onset of symptoms) 12 points review of system negative except above PAST MEDICAL HISTORY: PAST MEDICAL HISTORY Diagnosis Date Dysthymic disorder Depression (non-psychotic) Generalized anxiety disorder Anxiety, Generalized Hypertension PAST SURGICAL HISTORY: PAST SURGICAL HISTORY Procedure Laterality Date NONE SOCIAL HISTORY: Social History Tobacco Use Smoking status: Every Day Types: Cigarettes Smokeless tobacco: Never Tobacco comments: has a Juul, not used lately Substance Use Topics Alcohol use: No Comment: occasionally Drug use: No FAMILY HISTORY: FAMILY HISTORY Problem Relation Age of Onset Diabetes Maternal Grandmother Diabetes Sister HOME MEDICATIONS: Current Facility-Administered Medications Medication Dose Route Frequency iv contrast (radiology procedure) INTRAVENOUS DIRECTED PRN NaCl 0.9% 1,000 mL iv bolus 1,000 mL INTRAVENOUS ONCE Current Outpatient Medications Medication Sig penicillin V potassium (V-CILLIN, VEETIDS) 250 mg tablet Take 500 mg by mouth four times daily. Start 09/21/22 for 10 days gabapentin (NEURONTIN) 300 mg capsule Take 1 capsule by mouth three times daily for 90 days. (Patient taking differently: Take 300 mg by mouth three times daily as needed (sciatic nerve pain).) HYDROcodone-acetaminoph en (NORCO) 5-325 mg per tablet Take 1 tablet by mouth every 8 hours as needed for pain. FLUoxetine (PROZAC) 20 mg capsule Take 3 capsules by mouth once daily. lisinopril (ZESTRIL, PRINIVIL) 10 mg tablet Take 1 tablet by mouth once daily. ALLERGIES: ALLERGIES No Known Allergies PHYSICAL EXAM: Vital Signs: BP 188/108 Pulse (!) 92 Temp 37.2 ?C (98.9 ?F) (Oral) Resp 18 Ht 170.2 cm (5' 7) Wt 98.9 kg (218 lb) LMP 01/11/2022 (Exact Date) SpO2 97% BMI 34.14 kg/m? Body mass index is 34.14 kg/m?. General: Tearful. Eyes: Sclera anicteric ENMT: Left face swelling with warmth and erythema. Pulm: CTAB CV: RRR, S1/2 audible, no murmur Abd: Soft, non-tender, non-distended. BS+ Ext: No edema. Atraumatic Skin: No rashes Neuro: AANDO x 3. No focal deficits. DATA: LABORATORY TESTS: CBC: Recent Labs 09/21/22 1330 WBC 10.03 HB 12.7 PLT 375 MCV 85.5 NEUTP 68.2 ABSNEUT 6.84 LYMPHP 24.1 CHEM: Recent Labs 09/21/22 1330 NA 137 K 4.2 CA 9.4 ANION 9 CHLOR 103 CO2 25 GLUC 95 BUN 14 CREAT 0.74 HEPATIC: No results for input(s): ALT, AST, TBILI, ALKPHOS, ALB, TPROT, LIPASE in the last 168 hours. URINALYSIS:No results for input(s): SPGR, UBACTERIA, LEUKEST, SSA, UWBC, URBC, UHB, UPROT, UGLUC, UKET in the last 168 hours. Invalid input(s): NITR COAG: No results for input(s): APTT, INR in the last 168 hours. CARDIAC: No results for input(s): CKMB, CKMBP, TROPT, PBNP in the last 168 hours. Lab Results Component Value Date/Time CULT 10,000 - <50,000 CFU/ml Normal urogenital anderson 10/11/2017 03:21 PM BMP Latest Ref Rng AND Units 09/21/2022 12/31/2020 06/14/2019 GLUCOSE 70 - 100 mg/dL 95 88 66(L) BUN 7 - 26 mg/dL 14 22(H) 16 CREATININE 0.51 - 0.95 mg/dL 0.74 1.02(H) 0.95 SODIUM 136 - 145 mmol/L 137 141 138 POTASSIUM 3.5 - 5.1 mmol/L 4.2 3.8 3.4(L) CHLORIDE 98 - 107 mmol/L 103 104 99 CO2 21 - 32 mmol/L 25 28 23 ANION GAP 5 - 16 mmol/L 9 9 16 CALCIUM, TOTAL 8.5 - 10.5 mg/dL 9.4 9.4 9.1 eGFR >=60 mL/min/1.73m? 104 >60 >60 EGFR- - - >60 >60 EGFR-ALL OTHER RACES . - >60 >60 RADIOLOGY: CT NECK SOFT TISSUE W IVCON Result Date: 09/21/2022 Impression: Left masseter myositis and surrounding cellulitis presumably from left third mandibular molar periapical abscess. ASSESSMENT: Kassidy Locke is a 42 year old with PMH of HTN and tobacco use. Presented with 1 day of left facial swelling # Left dental abscess complicated by left masseter myositis # HTN urgency. Due to pain - IV clindamycin - C/w IV fluids - Schedule toradol 15mg q6hr - Morphine 4 mg IV prn q3 hours - prn senna - NPO pending dental recs - Cont home lisinopril 10mg daily # Tobacco use. Cessation recommended. Offered nicotine patch. Pt refused. Disclaimer This dictation was created using voice recognition software. Phonetic and/or minor grammatical errors may exist. SIGNATURE: Ranjit (more content not included)... [facility] SARS-CoV-2 RNA Resp Ql JORGITO+p dawood 09-21-2022 SARS-CoV-2 (COVID-19) RNA JORGITO+probe Ql (Resp) COVID 19 RESULT: SARS-CoV-2 (Agent of COVID-19) Not Detected by RT-PCR or equivalent method. This test has been authorized by FDA under an Emergency Use Authorization (EUA). [facility] Comment on above: Performed By: #### S LACT #### [facility] CLIA [id number] [address] [place] [address] [facility] SEPSIS LACTATEon 09-21-2022 Lactate [Moles/Vol] 0.6 mmol/L Normal 0.4-2.0 [facility] Comment on above: Order Comment: Speci men Type: BLOOD SPECIMEN Ordering Facility: [facility] Address: [place] [address] Performed By: #### S LACT #### [facility] CLIA [id number] [address] [place] [address] [facility] Emergency Department Summary on 09-20-2022 Emergency Department Summary [facility] Medical Records Department [address] [place] [address] Emergency Department Summary 09/20/22 MR#: [id number] Acct: [id number] Name: KASSIDY LOCKE Rep #: [id number] : 1980 42 From: Cyndi Acevedo MD PCP: Dr. Basilio Colón MD Status:DEP ER Location: ED HPI History of Present Illness Chief Complaint: Dental Informant: patient Onset/Context/Timing Onset: Days (2 days) Context: Gradual Onset Current Severity: Moderate Maximum Severity: Severe Narrative Narrative: Patient presents secondary to left-sided dental pain. She states that a couple years ago they tried to extract her wisdom tooth but was not able. She was most to see an oral surgeon but never followed up. 2 days ago the left lower jaw became painful. When she woke from a nap tonight her left face was swollen. [facility] Medical History Acute appendicitis Cocaine abuse Depression GERD (gastroesophageal reflux disease) Hypertension Physical exam, pre-employment Tobacco use disorder Home Medications fluoxetine 20 mg capsule 80 mg PO DAILY mood 02/28/14 [History Last Taken 07/19/20 22:00] gabapentin 300 mg capsule 300 mg PO QHS PRN Cramps 05/09/21 [History Last Taken Unknown] lisinopril 10 mg tablet 10 mg PO DAILY 05/09/21 [History Last Taken Unknown] carbamazepine 100 mg tablet,extended release,12 hr (Tegretol XR) 100 mg PO BID #14 tabs 08/12/22 [Rx Last Taken Unknown] hydrocodone-acetaminoph en 5-325mg 5mg-325mg 1 tab PO Q6H PRN pain 3 days #10 tabs 09/20/22 [Rx Last Taken Unknown] penicillin V potassium 250 mg tablet 500 mg PO 4X/DAY #40 tabs 09/20/22 [Rx Last Taken Unknown] Allergy/AdvReac Type Severity Reaction Status Date / Time No Known Allergies Allergy Verified 09/20/22 20:58 Surgical History History of laparoscopic appendectomy ( 07/20/20) Social History Smoking Status: Current some day smoker tobacco type: cigarettes substance use type: crack/cocaine ROS ROS ED Constitutional Constitutional ED: Denies chills or fever(s) Eyes Eyes: Denies change in vision or discharge from eye(s) ENT ENT ED: Reports other Details: Left-sided dental pain ; Denies discharge from eye(s), rhinorrhea or sore throat Cardiovascular Cardiovascular: Denies chest pain or palpitations Respiratory/Chest Respiratory/Chest: Denies cough or dyspnea Gastrointestinal Gastrointestinal: Denies abdominal pain, nausea or vomiting Genitourinary Genitourinary ED: Denies difficulty urinating or dysuria Musculoskeletal Musculoskeletal: Denies back pain or extremity pain Integumentary Denies Abrasions or rash Neurologic Neurologic: Denies headache(s) or weakness Psychiatric Psychiatric: Denies anxiety or depression Allergic/Immunologic Allergic/Immunologic ED: Denies lip swelling or urticaria EXAM Physical Exam Const Vital Signs: 09/20/22 20:59 Temperature 98.0 F Temperature Source Temporal Pulse Rate 100 Respiratory Rate 16 Blood Pressure 220/135 H Blood Pressure Mean 163 Pulse Ox 100 Oxygen Delivery Method Room Air Positive well nourished and well developed General Appearance ED: well developed HEENT Reports normocephalic and head/scalp atraumatic HEENT Narrative: Minimal left-sided facial edema. No erythema. Intraoral examination reveals that the left third mandibular molar is growing in an abnormal angle. The left second molar had been previously extracted. Posterior pharynx examination is unremarkable. There is no evidence of Sergio's angina. Eyes PERRL and EOMs intact bilaterally Neck supple Chest Wall inspection of chest normal and palpation of chest normal Resp normal respiratory effort and clear to auscultation bilaterally Cardio regular rate and regular rhythm GI normal to inspection, nondistended, normoactive bowel sounds Palpation: soft Extremity normal to inspection Neuro oriented x3 and no sensory deficits noted Sensorium / Orientation: alert Motor Exam: strength 5/5 throughout Psych mental status grossly normal Skin no rashes or lesions noted MDM MDM MDM Narrative Medical decision making narrative: Patient be treated with [place] and Pen-Vee K. She is going to call her dentist tomorrow. I will have blood pressure rechecked prior to discharge. Discharge Plan Triage Chief Complaint: Dental ED Provider: Cyndi Acevedo Dx/Rx/DC Orders Clinical Impression: Odontalgia Instructions: ED Dental Pain Prescriptions: New penicillin V potassium 250 mg tablet 500 mg PO 4X/DAY Qty: 40 0RF hydrocodone-acetaminoph en 5-325 mg tablet 1 tab PO Q6H PRN (Reason: pain) 3 Days Qty: 10 0RF No Action f (more content not included)... Normal [facility] Emergency Department Summary on 08-13-2022 Emergency Department Summary [facility] Medical Records Department [address] [place] [address] Emergency Department Summary 08/13/22 MR#: [id number] Acct: [id number] Name: KASSIDY LOCKE Rep #: [id number] : 1980 41 From: Ancelmo Daily PCP: Dr. Basilio Colón MD Status:REG ER Location: ED HPI History of Present Illness Chief Complaint: Ear Problem Informant: patient Narrative Narrative: Increasing left facial burning and pain today. Last 2 weeks had some sinus congestion left ear pain. She saw [facility] a week ago placed on Sudafed and Flonase. She has been using Tylenol. Burning started today. No facial weakness. No fevers. Denies similar symptoms in the past. Prior similar symptoms: No PFSH PFSH Medical History Acute appendicitis Cocaine abuse Depression GERD (gastroesophageal reflux disease) Hypertension Physical exam, pre-employment Tobacco use disorder Home Medications fluoxetine 20 mg capsule 80 mg PO DAILY mood 02/28/14 [History Last Taken 07/19/20 22:00] gabapentin 300 mg capsule 300 mg PO QHS PRN Cramps 05/09/21 [History Last Taken Unknown] lisinopril 10 mg tablet 10 mg PO DAILY 05/09/21 [History Last Taken Unknown] carbamazepine 100 mg tablet,extended release,12 hr (Tegretol XR) 100 mg PO BID #14 tabs 08/12/22 [Rx Last Taken Unknown] Allergy/AdvReac Type Severity Reaction Status Date / Time No Known Allergies Allergy Verified 08/10/21 23:57 Surgical History History of laparoscopic appendectomy ( 07/20/20) Social History Smoking Status: Current some day smoker tobacco type: cigarettes substance use type: crack/cocaine ROS ROS ED Constitutional Constitutional ED: Denies chills, fever(s) or sweats Eyes Eyes: Denies change in vision ENT ENT ED: Reports other Details: Left facial burning ; Denies dysphagia or sore throat Cardiovascular Cardiovascular: Denies chest pain, leg edema, palpitations or racing heartbeat Respiratory/Chest Respiratory/Chest: Denies cough, dyspnea or dyspnea on exertion Gastrointestinal Gastrointestinal: Denies abdominal pain, diarrhea, nausea or vomiting Genitourinary Genitourinary ED: Denies dysuria, hematuria or urinary frequency Musculoskeletal Musculoskeletal: Denies back pain, extremity pain or neck pain Integumentary Denies rash or wounds Neurologic Neurologic: Denies headache(s), paresthesias or weakness EXAM Physical Exam Const Vital Signs: 08/12/22 23:14 08/12/22 23:14 Temperature 97.5 F L 97.5 F L Temperature Source Temporal Temporal Pulse Rate 126 H 126 H Respiratory Rate 18 18 Blood Pressure 158/116 H 158/116 H Blood Pressure Mean 130 130 Constitutional Narrative: Patient is tearful, answering questions appropriately. Nontoxic. HEENT Reports moist mucous membranes HEENT Narrative: Tender palpation left forehead left maxillary there is no rash. TMs are normal bilaterally. No swollen turbinates. No posterior pharyngeal erythema. normocephalic and atraumatic Eyes PERRL, EOMs intact bilaterally and conjunctivae normal General Eye ED: Yes normal appearance of both eyes Neck no lymphadenopathy and supple General: Negative for tenderness Chest Wall Chest: Negative for tenderness Resp normal respiratory effort and normal air movement Effort and Inspection: symmetric chest movement; Negative for respiratory distress Cardio regular rhythm and no murmurs Rate: tachycardic Peripheral Pulses: pulses 2+ throughout GI normal to inspection, nondistended, normoactive bowel sounds and non-tender Palpation: Negative for guarding or rebound tenderness present Back/Spine no CVA tenderness and no thoracic nor lumbar tenderness Extremity normal to inspection General Extremety ED: Negative for edema or tenderness General Extremity: Negative for edema Neuro oriented x3 and no sensory deficits noted Sensorium / Orientation: awake and alert Skin no rashes or lesions noted and no wounds MDM MDM MDM Narrative Medical decision making narrative: Patient exam concerns for left-sided trigeminal neuralgia. There is no current rash. Discussed with patient treatment recommendations. She started on Tegretol. She is appointment on Monday to see her doctor. From review of records seen 2 months ago had JULITA creatinine 2.59. Creatinine clearance was 22. She had a talk screen positive for cocaine, amphetamines, ecstasy. Apparently admitted to having a drug binge at that time. With her history discussed avoiding NSAIDs for her to continue Tylenol. Tegretol will be continued 100 mg twice daily at this time. She will follow-up with her PCP as scheduled on Monday for reevaluation with outpatient retesting. Disch (more content not included)... Normal [facility] 12 Lead EKGon 05-29-2022 12 Lead EKG [facility] Cardiovascular Services [address] [place] [address] 12 Lead EKG 05/28/22 2210 MR#: [id number] Acct: [id number] Name: KASSIDY LOCKE Rep #: [id number] : 1980 41 From: Stuart Acosta MD Attending Dr: Status: DEP ER Ordering Dr: Javon Somers DO Date: 05/28/22 Location: ED Sex: F C Admitted: Test Reason : Blood Pressure : / mmHG Vent. Rate : 107 BPM Atrial Rate : 107 BPM P-R Int : 136 ms QRS Dur : 080 ms QT Int : 354 ms P-R-T Axes : 011 -54 003 degrees QTc Int : 472 ms Sinus tachycardia Left anterior fascicular block Anterolateral infarct , age undetermined Abnormal ECG Confirmed by FRANKLIN BLUE, STUART ([id number]), prepared foods supervisor HEIDE RODRIGUEZ ([id number]) on 05/30/2022 1:16:34 PM Referred By: Confirmed By:STUART ACOSTA MD 05/30/22 1316 Date Stuart Acosta MD CC: Dr. Javon Somers DO; Dr. Basilio Colón MD Signed Normal [facility] Alcohol, Blood (Medical)-Ser umon 05-29-2022 SERUM ETOH < 3.0 Normal [facility] Comment on above: Result Comment: The serum:whole blood ethanol ratio is approximately 1.14 and varies slightly with hematocrit. Medical Alcohol reference interval and critical value in non-tolerant individuals; 50 - 100 Impairment 100 Intoxication 100 - 250 Severe Poisoning 250 - 400 Deep/possible fatal coma Performed By: #### L 501.4020, L100.0100, L500.2500 #### [facility] [address] [facility], [address] Brain/Head without Contrasto n 05-29-2022 Brain/Head without Contrast [facility] Imaging Services [address] [place] [address] Brain/Head without Contrast MR#: [id number] Acct: [id number] Name: KASSIDY LOCKE Rep #: [id number] : 1980 F 41 From: Travis Sutton DO PCP: Dr. Basilio Colón MD Status: REG ER Study: Brain/Head without Contrast Date of Exam: 04/13 Exam# [id number] Ordering Dr: Javon Somers DO STUDY: CT BRAIN WITHOUT CONTRAST REASON FOR EXAM: Female, 41 years old. ams RADIATION DOSAGE (If Supplied By Facility): CTDIvol = ( 44.99 ) mGy, DLP = ( 745.49 ) mGycm TECHNIQUE: Transaxial CT imaging of the brain was performed without administration of intravenous contrast material. Individualized dose optimization techniques were used for this CT. COMPARISON: No relevant priors. FINDINGS: Normal soft tissue structures. Normal calvarium. Normal size ventricles and extra-axial spaces for the patient''s age. Normal white matter tracts of the cerebral hemispheres. Normal basal ganglia and thalami. Normal brainstem. Normal cerebellum. There is no intracranial hemorrhage. There are no findings of an acute ischemic infarction. Normal visualized paranasal sinuses. CT/Brain/Head without Contrast IMPRESSION: Normal unenhanced CT scan of the brain. Electronically Signed: Travis Sutton DO at 23:07 EDT , CC: Dr. Javon Somers DO; Dr. Basilio Colón MD Char Filter Tank Tender: Signed Normal [facility] CBC W/Diff, Automatedon 08-0 Absolute Lymph 2.38 X10 3/uL Normal 0.83-4.51 [facility] Comment on above: Performed By: #### L 501.4020, L100.0100, L500.2500 #### [facility] [address] [place], [address] Absolute Neut 7.5 X10 3/uL Normal 2.0-7.7 [facility] Comment on above: Performed By: #### L 501.4020, L100.0100, L500.2500 #### [facility] [address] [place], [address] Basophils/100 WBC (Bld) 0.4 % Normal 0-1 [facility] Comment on above: Performed By: #### L 501.4020, L100.0100, L500.2500 #### [facility] [address] [place], [address] Eosinophils/100 WBC (Bld) 0.1 % Normal 0-5 [facility] Comment on above: Performed By: #### L 501.4020, L100.0100, L500.2500 #### [facility] [address] [facility] [place], [address] Erythrocyte distribution width (RBC) [Ratio] 14.2 % Normal 11.6-14.6 [facility] Comment on above: Performed By: #### L 501.4020, L100.0100, L500.2500 #### [facility] [address] [facility], [address] Hematocrit (Bld) [Volume fraction] 37.1 % Normal 37-47 [facility] Comment on above: Performed By: #### L 501.4020, L100.0100, L500.2500 #### [facility] [address] [place], [address] Hemoglobin (Bld) [Mass/Vol] 12.0 g/dL Normal 12.0-15.0 [facility] Comment on above: Performed By: #### L 501.4020, L100.0100, L500.2500 #### [facility] [address] [facility], [address] IG% 0.600 Normal 0.0-0.9 [facility] Comment on above: Result Comment: IG% - Immature Granulocytes (promyelocytes, myelocytes and metamyelocytes) > 1% indicates that a LEFT SHIFT is Present. Performed By: #### L 501.4020, L100.0100, L500.2500 #### [facility] [address] [facility] [place], [address] Lymphocytes/100 WBC (Bld) 22.0 % Normal 19-41 [facility] Comment on above: Performed By: #### L 501.4020, L100.0100, L500.2500 #### [facility] [address] [place], [address] MCH (RBC) [Entitic mass] 27.8 pg Normal 27.0-32.0 [facility] Comment on above: Performed By: #### L 501.4020, L100.0100, L500.2500 #### [facility] [address] [place], [address] MCHC (RBC) [Mass/Vol] 32.3 g/dL Normal 32-36 [facility] Comment on above: Performed By: #### L 501.4020, L100.0100, L500.2500 #### [facility] [address] [place], [address] MCV (RBC) [Entitic vol] 85.9 fL Normal 81-99 [facility] Comment on above: Performed By: #### L 501.4020, L100.0100, L500.2500 #### [facility] [address] [place], [address] Monocytes/100 WBC (Bld) 7.9 % Normal 0-10 [facility] Comment on above: Performed By: #### L 501.4020, L100.0100, L500.2500 #### [facility] [address] [place], [address] Neutrophils/100 WBC (Bld) 69.0 % Normal 47-70 [facility] Comment on above: Performed By: #### L 501.4020, L100.0100, L500.2500 #### [facility] [address] [place], [address] Nucleated RBC (Bld) [#/Vol] 0 10*3/uL Normal 0-5 [facility] Comment on above: Performed By: #### L 501.4020, L100.0100, L500.2500 #### [facility] [address] [place], [address] Platelet mean volume (Bld) [Entitic vol] 8.7 fL Normal 6.2-12.0 [facility] Comment on above: Performed By: #### L 501.4020, L100.0100, L500.2500 #### [facility] [address] [place], [address] Platelets (Bld) [#/Vol] 417 10*3/uL Normal 150-450 [facility] Comment on above: Performed By: #### L 501.4020, L100.0100, L500.2500 #### [facility] [address] [place], [address] RBC (Bld) [#/Vol] 4.32 10*6/uL Normal 4.2-5.4 [facility] Comment on above: Performed By: #### L 501.4020, L100.0100, L500.2500 #### [facility] [address] [place], [address] RDW SD 44.2 fl High 35.1-43.9 [facility] Comment on above: Performed By: #### L 501.4020, L100.0100, L500.2500 #### [facility] [address] [place], [address] WBC (Bld) [#/Vol] 10.8 10*3/uL Normal 4.4-11.0 [facility] Comment on above: Performed By: #### L 501.4020, L100.0100, L500.2500 #### [facility] [address] [place], [address] Chest 1 View (Portable)on Chest 1 View (Portable) [facility] Imaging Services [address] [place] [address] Chest 1 View (Portable) MR#: [id number] Acct: [id number] Name: KASSIDY LOCKE Rep #: [id number] : 1980 F 41 From: Travis Sutton DO PCP: Dr. Basilio Colón MD Status: REG ER Study: Chest 1 View (Portable) Date of Exam: 05/28/22 Exam# [id number] Ordering Dr: Javon Somers DO STUDY: X-RAY CHEST REASON FOR EXAM: Female, 41 years old. chest pain TECHNIQUE: Single AP portable view of the chest. COMPARISON: Chest x-ray yesterday FINDINGS: The lungs are clear and expanded. There is no demonstrated pleural abnormality. Normal size heart. Normal mediastinum and maykel. Normal visualized pulmonary arteries. Normal visualized aortic arch and descending thoracic aorta. Normal visualized thoracic spine. Normal visualized ribs, clavicles, and shoulders. There is no demonstrated abnormality of the visualized soft tissue structures of the upper abdomen. RAD/Chest 1 View (Portable) IMPRESSION: Normal x-ray examination of the chest. Electronically Signed: Travis Sutton DO at 22:53 EDT , CC: Dr. Javon Somers DO; Dr. Basilio Colón MD Char Filter Tank Tender: Signed Normal [facility] Comprehensive Metabolic Prof ilon 05-29-2022 Albumin [Mass/Vol] 4.0 g/dL Normal 3.2-5.0 [facility] Comment on above: Order Comment: 'TROP ' Serial specimen #1, #2 or #3: 1 Performed By: #### L 501.4020, L100.0100, L500.2500 #### [facility] [address] [place], [address] Albumin/Globulin [Mass ratio] 1.1 {ratio} Normal 0.9-2.4 [facility] Comment on above: Order Comment: 'TROP ' Serial specimen #1, #2 or #3: 1 Performed By: #### L 501.4020, L100.0100, L500.2500 #### [facility] [address] [place], [address] ALK P 60 U/L Normal 45-117 [facility] Comment on above: Order Comment: 'TROP ' Serial specimen #1, #2 or #3: 1 Performed By: #### L 501.4020, L100.0100, L500.2500 #### [facility] [address] [place], [address] ALT [Catalytic activity/Vol] 20 U/L Normal 13-56 [facility] Comment on above: Order Comment: 'TROP ' Serial specimen #1, #2 or #3: 1 Performed By: #### L 501.4020, L100.0100, L500.2500 #### [facility] [address] [place], [address] AST [Catalytic activity/Vol] 20 U/L Normal 15-37 [facility] Comment on above: Order Comment: 'TROP ' Serial specimen #1, #2 or #3: 1 Performed By: #### L 501.4020, L100.0100, L500.2500 #### [facility] [address] [place], [address] Bilirubin [Mass/Vol] 0.60 mg/dL Normal 0.20-1.00 [facility] Comment on above: Order Comment: 'TROP ' Serial specimen #1, #2 or #3: 1 Result Comment: For patients on eltrombopag therapy, use of Dimension Ashley TBIL is not recommended. Performed By: #### L 501.4020, L100.0100, L500.2500 #### [facility] [address] [place], [address] BUN/CRE 9.7 RATIO Low 10-20 [facility] Comment on above: Order Comment: 'TROP ' Serial specimen #1, #2 or #3: 1 Performed By: #### L 501.4020, L100.0100, L500.2500 #### [facility] [address] [place], [address] CA,Total 9.6 mg/dL Normal 8.5-10.1 [facility] Comment on above: Order Comment: 'TROP ' Serial specimen #1, #2 or #3: 1 Performed By: #### L 501.4020, L100.0100, L500.2500 #### [facility] [address] [place], [address] Chloride [Moles/Vol] 105 mmol/L Normal 98-107 [facility] Comment on above: Order Comment: 'TROP ' Serial specimen #1, #2 or #3: 1 Performed By: #### L 501.4020, L100.0100, L500.2500 #### [facility] [address] [place], [address] CO2 [Moles/Vol] 24.0 mmol/L Normal 21.0-32.0 [facility] Comment on above: Order Comment: 'TROP ' Serial specimen #1, #2 or #3: 1 Performed By: #### L 501.4020, L100.0100, L500.2500 #### [facility] [address] [place], [address] Creatinine [Mass/Vol] 2.59 mg/dL High 0.55-1.02 [facility] Comment on above: Order Comment: 'TROP ' Serial specimen #1, #2 or #3: 1 Result Comment: The validity of the calculated GFR GFRAA in patients over 70 years has not been determined. Clinical correlation is essential. Performed By: #### L 501.4020, L100.0100, L500.2500 #### [facility] [address] [place], [address] ECRCL 27.03 ml/min Normal [facility] Comment on above: Order Comment: 'TROP ' Serial specimen #1, #2 or #3: 1 Performed By: #### L 501.4020, L100.0100, L500.2500 #### [facility] [address] [place], [address] EST GFR - AA 26 mL/min Low >60 [facility] Comment on above: Order Comment: 'TROP ' Serial specimen #1, #2 or #3: 1 Result Comment: Afri can Wallisian GFR Calc Performed By: #### L 501.4020, L100.0100, L500.2500 #### [facility] [address] [place], [address] GAP 8 Normal 5-15 [facility] Comment on above: Order Comment: 'TROP ' Serial specimen #1, #2 or #3: 1 Performed By: #### L 501.4020, L100.0100, L500.2500 #### [facility] [address] [place], [address] GFR/1.73 sq M.predicted among non-blacks MDRD (S/P/Bld) [Vol rate/Area] 22 mL/min/{1.73_m2} Low >60 [facility] Comment on above: Order Comment: 'TROP ' Serial specimen #1, #2 or #3: 1 Result Comment: Non- GFR Calc Performed By: #### L 501.4020, L100.0100, L500.2500 #### [facility] [address] [place], [address] Globulin (S) [Mass/Vol] 3.8 g/dL Normal 2.2-4.2 [facility] Comment on above: Order Comment: 'TROP ' Serial specimen #1, #2 or #3: 1 Performed By: #### L 501.4020, L100.0100, L500.2500 #### [facility] [address] [place], [address] Glucose [Mass/Vol] 101 mg/dL Normal 74-106 [facility] Comment on above: Order Comment: 'TROP '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 L 501.4020, L100.0100, L500.2500 #### [facility] [address] [place], [address] MCH (RBC) [Entitic mass] 27.8 pg Normal 27.0-32.0 [facility] Work Phone: Comment on above: Performed By: #### L 501.4020, L100.0100, L500.2500 #### [facility] [address] [place], [address] Nucleated RBC (Bld) [#/Vol] 0 10*3/uL Normal 0-5 [facility] Comment on above: Performed By: #### L 501.4020, L100.0100, L500.2500 #### [facility] [address] [place], [address] RDW SD 46.4 fl High 35.1-43.9 [facility] Comment on above: Performed By: #### L 501.4020, L100.0100, L500.2500 #### [facility] [address] [place], [address] Chest 1 View (Portable)on Chest 1 View (Portable) [facility] Imaging Services [address] [place] [address] Chest 1 View (Portable) MR#: [id number] Acct: [id number] Name: KASSIDY LOCKE Rep #: [id number] : 1980 F 41 From: Murtaza Ceballos DO PCP: Dr. Basilio Colón MD Status: REG ER Study: Chest 1 View (Portable) Date of Exam: 05/27/22 Exam# [id number] Ordering Dr: Arun Armstrong MD INDICATION: chest pain EXAMINATION/TECHNIQUE: X-RAY - XR Chest 1 View COMPARISON: 05/09/2021 chest x-ray FINDINGS: LINES/DEVICES: None. LUNGS: Symmetric normal lung volumes. No airspace opacity or abnormal interstitial pattern. No nodule or mass. No pleural effusion or pneumothorax. MEDIASTINUM AND CARDIOVASCULAR STRUCTURES: Normal size and contour of the cardiomediastinal silhouette. No evidence of pulmonary vascular congestion. BONES AND SOFT TISSUES: No fracture or focal osseous lesion. RAD/Chest 1 View (Portable) IMPRESSION: 1. No radiographic evidence of acute cardiopulmonary disease. Electronically Signed: Murtaza Ceballos DO at 22:16 EDT , CC: Dr. Arun Armstrong MD; Dr. Basilio Colón MD Char Filter Tank Tender: Signed Normal [facility] D-Dimer Quantitative (DVT/PE )on 05-27-2022 D-DIMER QUANT 0.72 FEU/ug/m Invalid Interpretation Code 0.27-0.49 [facility] Comment on above: Result Comment: CRIT ICAL VALUE VERIFIED. CALLED TO GAUTAM REDDY RN ED 05/27/222143 Murtaza Moreno. RESULTS READ BACK BY SAME . D-Dimer ELEVATED (>0.49): Additional studies and clinical assessments are indicated to conclude diagnosis of: Deep Vein Thrombosis (DVT) or Pulmonary Embolism (PE) Performed By: #### L 501.4020, L100.0100, L500.2500 #### [facility] [address] [place], [address] Determination of erythrocyte mean corpuscular volume (MCV)on 05-27-2022 MCV (RBC) [Entitic vol] 87.2 fL Normal 81-99 [facility] Work Phone: Comment on above: Performed By: #### L 501.4020, L100.0100, L500.2500 #### [facility] [address] [place], [address] Emergency Department Summary on 05-27-2022 Emergency Department Summary [facility] Medical Records Department [address] [place] [address] Emergency Department Summary 05/27/22 MR#: [id number] Acct: [id number] Name: KASSIDY LOCKE Rep #: [id number] : 1980 41 From: Arun Armstrong MD PCP: Dr. Basilio Colón MD Status:REG ER Location: ED HPI History of Present Illness Chief Complaint: Chest Pain Informant: patient Onset/Context/Timing Onset: Today Activity at onset: activity on onset (Awoke with symptoms) Timing: Continuous Quality: Positive for Heaviness Location: Left Chest (Radiating into left shoulder and left periscapular area, now the right shoulder as well) Current Severity: Moderate Maximum Severity: Moderate Worsened By: Nothing; Not Worsened By Breathing Relieved By: Nothing Associated Symptoms: Positive for Vomiting (Once this morning), Dyspnea and Palpitations (Flushing some racing some today, but not prior to the onset of discomfort); Negative for Diaphoresis, Cough, Fever or Lightheadedness Narrative Narrative: Patient states she has had chest heaviness all day today. She woke up with it. She states she drank beer heavily last night with others. States she has had this heaviness before, but it has never lasted this long, all day and evening. She states when she walks upstairs she is a little short of breath but that is better when she rests. She denies any leg pain or swelling. No history of DVT or PE. She is a smoker, but not regularly, and she is on no exogenous female hormones. No recent long trips or immobilization or surgery/hospitalization . She denies any pleuritic nature to the discomfort. She admits that the discomfort persisted longer than usual so it has freaked me out. Patient states she has been having left upper quadrant pain as well, but that is chronic, she states it is a little worse than usual but similar. She states she has had that ever since my appendix burst and needed surgery. [facility] Medical History Acute appendicitis Cocaine abuse Depression GERD (gastroesophageal reflux disease) Hypertension Physical exam, pre-employment Tobacco use disorder Home Medications fluoxetine 20 mg capsule 80 mg PO DAILY mood 02/28/14 [History Last Taken 07/19/20 22:00] gabapentin 300 mg capsule 300 mg PO QHS PRN Cramps 05/09/21 [History Last Taken Unknown] lisinopril 10 mg tablet 10 mg PO DAILY 05/09/21 [History Last Taken Unknown] Allergy/AdvReac Type Severity Reaction Status Date / Time No Known Allergies Allergy Verified 08/10/21 23:57 Surgical History History of laparoscopic appendectomy ( 07/20/20) Social History (Updated 05/27/22 @ 23:[address] Arun Armstrong MD) Smoking Status: Current some day smoker tobacco type: cigarettes substance use type: crack/cocaine ROS ROS ED Constitutional Constitutional ED: Denies chills or fever(s) Eyes Eyes: Denies change in vision or diplopia ENT ENT ED: Denies rhinorrhea or sore throat Cardiovascular Cardiovascular: Reports chest pain and racing heartbeat; Denies leg edema, orthopnea or palpitations Respiratory/Chest Respiratory/Chest: Reports dyspnea on exertion; Denies cough or orthopnea Gastrointestinal Gastrointestinal: Reports as per HPI, abdominal pain and vomiting; Denies diarrhea or nausea Genitourinary Genitourinary ED: Denies dysuria or hematuria Musculoskeletal Musculoskeletal: Denies back pain or neck pain Integumentary Denies abscess or rash Neurologic Neurologic: Denies headache(s), paresthesias or weakness Psychiatric Psychiatric: Reports anxiety; Denies suicidal thoughts EXAM Physical Exam Const Vital Signs: 05/27/22 20:39 05/27/22 20:48 05/27/22 21:24 Temperature 98.7 F Temperature Source Oral Pulse Rate 122 H Respiratory Rate 20 H Respiratory Effort Normal Non-Labored Blood Pressure 172/130 H Blood Pressure Mean 144 Pulse Ox 100 Oxygen Delivery Method Room Air Room Air 05/27/22 22:26 Temperature Temperature Source Pulse Rate 120 H Respiratory Rate 18 Respiratory Effort Blood Pressure 176/100 H Blood Pressure Mean 125 Pulse Ox 97 Oxygen Delivery Method Room Air Positive well nourished, well developed and obese General Appearance ED: well developed and NAD Nutritional Appearance: obese HEENT Reports moist mucous membranes normocephalic and atraumatic Eyes PERRL and EOMs intact bilaterally Neck full ROM and supple Resp normal respiratory effort and clear to auscultation bilaterally Cardio regular rate, regular rhythm and no murmurs Rate: tachycardic GI non-distended GI Narrative: Mild tenderness left upper quadrant without guarding or rebound otherwise benign abdomen Auscultati (more content not included)... Normal [facility] L501.4020on 05-27-2022 TROPONIN-I HS 12 pg/mL Normal 3.0-54.0 [facility] Comment on above: Order Comment: 'TROP ' Serial specimen #1, #2 or #3: 1 Result Comment: Plea se Note: New Test Units and Gender Specific Reference Ranges. For more information see Policy Stat Procedure Ashley High Sensitivity Troponin (TNIH) and attachments. Performed By: #### L [id number], L100.0100, L500.2500 #### [facility] [address] [place], [place], [id number] Laboratory - Chemistry and C hemistry - challengeon 05-27-2022 Urea nitrogen/Creatinine [Mass ratio] 12.7 mg/mg 10-20 [facility] Work Phone: Laboratory - Hematology and Cell countson 05-27-2022 Erythrocyte distribution width (RBC) [Entitic vol] 46.4 fL 35.1-43.9 [facility] Work Phone: Immature granulocytes/100 WBC (Bld) 0.600 % 0.0-0.9 [facility] Work Phone: Comment on above: IG% - Immature Granu locytes (promyelocytes, myelocytes and metamyelocytes) > 1% indicates that a LEFT SHIFT is Present. Nucleated RBC/100 WBC (Bld) [Ratio] 0 % 0-5 [facility] Work Phone: MCHC [Mass/volume] by Automa leoncio counton 05-27-2022 MCHC (RBC) [Mass/Vol] 31.9 g/dL Low 32-36 [facility] Work Phone: Comment on above: Performed By: #### L 501.4020, L100.0100, L500.2500 #### [facility] [address] [place], [place], [id number] No Panel Informationon 05-27 D-Dimer Quantitative (PE/DVT) 0.72 FEU/ug/m 0.27-0.49 [facility] Work Phone: Comment on above: CRITICAL VALUE VERIF IED. CALLED TO GAUTAM REDDY RN ED05/27/[id number] Murtaza Moreno.RESULTS READ BACK BY SAME . D-Dimer ELEVATED (>0.49): Additional studies and clinicalassessments are indicated to conclude diagnosis of:Deep Vein Thrombosis (DVT) or Pulmonary Embolism (PE) Estimated Creatinine Clearance Calc 63.64 ml/min [facility] Work Phone: Estimated GFR (MDRD) Amer 71 mL/min >60 [facility] Work Phone: Comment on above: GFR Calc Estimated GFR (MDRD) Non-Af Amer 58 mL/min >60 [facility] Work Phone: Comment on above: Non- GFR Calc Troponin I High Sensitivity 12 pg/mL 3.0-54.0 [facility] Work Phone: Comment on above: Please Note: New Shalonda t Units and Gender Specific Reference Ranges. For more information see Policy Stat Procedure Ashley High Sensitivity Troponin (TNIH) and attachments. Platelets bldon 05-27-2022 Platelets (Bld) [#/Vol] 485 10*3/uL High 150-450 [facility] Work Phone: Comment on above: Performed By: #### L [id number], L100.0100, L500.2500 #### [facility] [address] [place], [place], [id number] Serum or plasma calcium andres urement (mass/volume)on 05-27-2022 Calcium [Mass/Vol] 9.6 mg/dL 8.5-10.1 [facility] Work Phone: Serum or plasma creatinine m easurement (mass/volume)on 05-27-2022 Creatinine [Mass/Vol] 1.10 mg/dL High 0.55-1.02 [facility] Work Phone: Comment on above: The validity of the calculated GFR & GFRAA in patients over 70 years has not been determined. Clinical correlation is essential. Order Comment: 'TROP ' Serial specimen #1, #2 or #3: 1 Result Comment: The validity of the calculated GFR GFRAA in patients over 70 years has not been determined. Clinical correlation is essential. Performed By: #### L [id number], L100.0100, L500.2500 #### [facility] [address] [place], [place], [id number] Serum or plasma urea nitroge n measurement (mass/volume)on 05-27-2022 Urea nitrogen [Mass/Vol] 14 mg/dL Normal 7-18 [facility] Work Phone: Comment on above: Order Comment: 'TROP ' Serial specimen #1, #2 or #3: 1 Performed By: #### L [id number], L100.0100, L500.2500 #### [facility] [address] [place], [place], [id number] Thin prep Papanicolaou smear with manual screeningon 05-27-2022 Thin prep Papanicolaou smear with manual screening 10 5-15 [facility] Work Phone: SLIME SCREENINGon 02-07-[address] [facility] CNPNon 10-26-2017 [facility] KASSIDY SCOTT ([id number]) 1980 FDate Time Provider Department10/26/17 NICOLE GREEN (RN) CDLBME During your visit today, we recorded the following information about you:Nicole Green RN, RN 10/26/2017 1:24 PM SignedAttempted to call patient twice for reminder and instructions, no answer and novoicemail available.Allergies As of Date: 10/26/2017(No Known Allergies)Date Reviewed: 10/11/2017Reviewed by: Fela Lopez LPN - Fully AssessedReason for Visit: Reminder Call [1940]Prescriptions as of 10/26/2017 Sig: GABAPENTIN 300 MG CAPSULE Take 1 capsule by mouth daily* HYDROCHLOROTHIAZIDE 12.5 MG C* Take 1 capsule by mouth once * FLUOXETINE 20 MG CAPSULE Take 3 capsules by mouth once* CYCLOBENZAPRINE 10 MG TABLET Take 1 tablet by mouth three *Problem List As Of Date 10/26/2017 Noted Resolved Depression [F32.9] INVALID FOR* Anxiety [F41.9] INVALID FOR* Sciatica [M54.30] INVALID FOR* Essential hypertension [I10] INVALID FOR* Posterior tibial tendon dysfunction, bilateral *INVALID FOR* Primary localized osteoarthrosis, ankle and carmel*INVALID FOR* Flail joint, unspecified ankle and foot [M25.27*INVALID FOR* Status:Closed by NICOLE GREEN on 10/26/17 [facility] Vital Signs Date Time Vital Sign Value Performing Clinician Facility 03-26-2024 22:40-0400 Blood Pressure Cuff Size DR RICARDO PITTS DO [facility] 03-26-2024 22:40-[address] RICARDO PITTS DO [facility] 03-26-2024 22:40-[address] RICARDO PITTS DO [facility] 03-26-2024 22:40-0400 Diastolic Blood Pressure Non-Invasive 77 mm[Hg] DR RICARDO PITTS DO [facility] 03-26-2024 22:40-0400 Heart rate 94 /min DR RICARDO PITTS DO [facility] 03-26-2024 22:40-0400 Respiratory rate 18 /min DR RICARDO PITTS DO [facility] 03-26-2024 22:40-0400 Systolic Blood Pressure Non-Invasive 149 mm[Hg] DR RICARDO PITTS DO [facility] 03-26-2024 20:22-0400 Blood Pressure Cuff Size DR RICARDO PITTS DO [facility] 03-26-2024 20:22-[address] RICARDO PITTS DO [facility] 03-26-2024 20:22-[address] RICARDO PITTS DO [facility] 03-26-2024 20:22-0400 Body height 167.[address] RICARDO PITTS DO [facility] 03-26-2024 20:22-0400 Body temperature 98.6 [degF] DR RICARDO PITTS DO [facility] 03-26-2024 20:22-0400 Body weight 72.[address] RICARDO PITTS DO [facility] 03-26-2024 20:22-0400 Diastolic Blood Pressure Non-Invasive 136 mm[Hg] DR RICARDO PITTS DO [facility] 03-26-2024 20:22-0400 Heart rate 111 /min DR RICARDO PITTS DO [facility] 03-26-2024 20:22-0400 Respiratory rate 18 /min DR RICARDO PITTS DO [facility] 03-26-2024 20:22-0400 Systolic Blood Pressure Non-Invasive 210 mm[Hg] DR RICARDO PITTS DO [facility] 09-17-2023 02:20-0500 Diastolic Blood Pressure Non-Invasive 121 mm[Hg] JAIDEN ROMERO MD [facility] 09-17-2023 02:20-0500 Systolic Blood Pressure Non-Invasive 185 mm[Hg] JAIDEN ROMERO MD [facility] 09-17-2023 02:05-0500 Diastolic Blood Pressure Non-Invasive 134 mm[Hg] JAIDEN ROMERO MD [facility] 09-17-2023 02:05-0500 Heart rate 95 /min JAIDEN ROMERO MD [facility] 09-17-2023 02:05-0500 Systolic Blood Pressure Non-Invasive 188 mm[Hg] JAIDEN ROMERO MD [facility] 09-17-2023 01:43-0500 Diastolic Blood Pressure Non-Invasive 130 mm[Hg] JAIDEN ROMERO MD [facility] 09-17-2023 01:43-0500 Systolic Blood Pressure Non-Invasive 206 mm[Hg] JAIDEN ROMERO MD [facility] 09-17-2023 00:47-0500 Body height 167.6 cm JAIDEN ROMERO MD [facility] 09-17-2023 00:47-0500 Body temperature 99.14 [degF] JAIDEN ROMERO MD [facility] 09-17-2023 00:47-0500 Body weight 86.4 kg JAIDEN ROMERO MD [facility] 09-17-2023 00:47-0500 Heart rate 98 /min JAIDEN ROMERO MD [facility] 09-17-2023 00:47-0500 Respiratory rate 20 /min JAIDEN ROMERO MD [facility] 05-26-2023 13:35-0400 Body temperature 97.59 [degF] Corey Man SENIOR TELLER.[employer] OFFICER Work Phone: [facility] 05-26-2023 13:35-0400 Body weight 83.37 kg Corey Man SENIOR TELLER.[employer]TELLIGENCE OFFICER Work Phone: [facility] 05-26-2023 13:35-0400 Diastolic blood pressure 76 mm[Hg] Corey Man SENIOR TELLER.[employer] INTELLIGENCE OFFICER Work Phone: [facility] 05-26-2023 13:35-0400 Heart rate 83 /min Corey Man SENIOR TELLER.[employer] INTELLIGENCE OFFICER Work Phone: [facility] 05-26-2023 13:35-0400 Respiratory rate 18 /min Corey Man SENIOR TELLER.[employer] INTELLIGENCE OFFICER Work Phone: [facility] 05-26-2023 13:35-0400 Systolic blood pressure 122 mm[Hg] Corey Man SENIOR TELLER.[employer]IS[employer]OR INTELLIGENCE OFFICER Work Phone: [facility] 03-30-2023 15:55-0400 Body temperature 99.3 [degF] [facility] 03-30-2023 15:55-0400 Diastolic blood pressure 66 mm[Hg] [facility] 03-30-2023 15:55-0400 Heart rate 98 /min [facility] 03-30-2023 15:55-0400 Respiratory rate 18 /min [facility] 03-30-2023 15:55-0400 SaO2% (BldA) [Mass fraction] 99 % [facility] 03-30-2023 15:55-0400 Systolic blood pressure 132 mm[Hg] [facility] 03-30-2023 09:11-0400 Body height 167.[address] [facility] 03-30-2023 09:11-0400 Body mass index (BMI) [Ratio] 32.3 kg/m2 [facility] 03-30-2023 09:11-0400 Body weight 90.[address] [facility] 03-13-2023 05:28-0400 Diastolic blood pressure 89 mm[Hg] [facility] 03-13-2023 05:28-0400 Heart rate 109 /min [facility] 03-13-2023 05:28-0400 Respiratory rate 22 /min [facility] 03-13-2023 05:28-0400 SaO2% (BldA) [Mass fraction] 100 % [facility] 03-13-2023 05:28-0400 Systolic blood pressure 144 mm[Hg] [facility] 03-13-2023 03:11-0400 Body mass index (BMI) [Ratio] 30.2 kg/m2 [facility] 03-13-2023 03:11-0400 Body temperature 97.8 [degF] [facility] 03-13-2023 03:11-0400 Body weight 87.[address] [facility] 02-21-2023 09:57-0400 Body weight 92.53 kg Robina Gong APRN.CNM Work Phone: [facility] 02-21-2023 09:57-0400 Diastolic blood pressure 74 mm[Hg] Robina Gong APRN.CNM Work Phone: [facility] 02-21-2023 09:57-0400 Systolic blood pressure 122 mm[Hg] Robina Beltran GARZA Work Phone: [facility] 09-20-2022 22:31-0500 Diastolic blood pressure 125 mm[Hg] [facility] Work Phone: 09-20-2022 22:31-0500 Heart rate 75 /min [facility] Work Phone: 09-20-2022 22:31-0500 Respiratory rate 15 /min [facility] Work Phone: 09-20-2022 22:31-0500 SaO2% (BldA) [Mass fraction] 97 % [facility] Work Phone: 09-20-2022 22:31-0500 Systolic blood pressure 200 mm[Hg] [facility] Work Phone: 09-20-2022 20:59-0500 Body height 170.[address] [facility] Work Phone: 09-20-2022 20:59-0500 Body mass index (BMI) [Ratio] 33.6 kg/m2 [facility] Work Phone: 09-20-2022 20:59-0500 Body temperature 98 [degF] [facility] Work Phone: 09-20-2022 20:59-0500 Body weight 97.[address] [facility] Work Phone: 09-08-2022 14:31-0500 Diastolic blood pressure 130 mm[Hg] NA Hernandez PA-C Work Phone: [facility] 09-08-2022 14:31-0500 Heart rate 101 /min NA Hernandez PA-C Work Phone: [facility] 09-08-2022 14:31-0500 Systolic blood pressure 171 mm[Hg] NA Hernandez PA-C Work Phone: [facility] 09-08-2022 14:28-0500 Respiratory rate 20 /min NA Hernandez PA-C Work Phone: [facility] 09-08-2022 14:28-0500 SaO2% (BldA) [Mass fraction] 100 % NA Hernandez PA-C Work Phone: [facility] 08-12-2022 23:14-0400 Body mass index (BMI) [Ratio] 32.3 kg/m2 [facility] Work Phone: 08-12-2022 23:14-0400 Body temperature 97.5 [degF] [facility] Work Phone: 08-12-2022 23:14-0400 Body weight 93.[address] [facility] Work Phone: 08-12-2022 23:14-0400 Diastolic blood pressure 116 mm[Hg] [facility] Work Phone: 08-12-2022 23:14-0400 Heart rate 126 /min [facility] Work Phone: 08-12-2022 23:14-0400 Respiratory rate 18 /min [facility] Work Phone: 08-12-2022 23:14-0400 Systolic blood pressure 158 mm[Hg] [facility] Work Phone: 05-28-2022 20:41-0400 Body height 167.[address] [facility] Work Phone: 05-28-2022 20:41-0400 Body mass index (BMI) [Ratio] 34.7 kg/m2 [facility] Work Phone: 05-28-2022 20:41-0400 Body temperature 98.1 [degF] [facility] Work Phone: 05-28-2022 20:41-0400 Body weight 97.[address] [facility] Work Phone: 05-28-2022 20:41-0400 Diastolic blood pressure 64 mm[Hg] [facility] Work Phone: 05-28-2022 20:41-0400 Heart rate 126 /min [facility] Work Phone: 05-28-2022 20:41-0400 Respiratory rate 20 /min [facility] Work Phone: 05-28-2022 20:41-0400 SaO2% (BldA) [Mass fraction] 94 % [facility] Work Phone: 05-28-2022 20:41-0400 Systolic blood pressure 114 mm[Hg] [facility] Work Phone: 05-28-2022 00:16-0400 Diastolic blood pressure 99 mm[Hg] [facility] Work Phone: 05-28-2022 00:16-0400 Heart rate 105 /min [facility] Work Phone: 05-28-2022 00:16-0400 Respiratory rate 18 /min [facility] Work Phone: 05-28-2022 00:16-0400 SaO2% (BldA) [Mass fraction] 100 % [facility] Work Phone: 05-28-2022 00:16-0400 Systolic blood pressure 155 mm[Hg] [facility] Work Phone: 05-27-2022 20:39-0400 Body height [address] [facility] Work Phone: 05-27-2022 20:39-0400 Body mass index (BMI) [Ratio] 34.7 kg/m2 [facility] Work Phone: 05-27-2022 20:39-0400 Body temperature 98.7 [degF] [facility] Work Phone: 05-27-2022 20:39-0400 Body weight 97.[address] [facility] Work Phone: 01-31-2022 10:59-0400 Body height 166.4 cm Ayanna Bradford SENIOR TELLER.[facility] Work Phone: [facility] 01-31-2022 10:59-0400 Body weight 97.07 kg Ayanna Bradford SENIOR TELLER.[employer] INTELLIGENCE OFFICER Work Phone: [facility] 01-31-2022 10:59-0400 Diastolic blood pressure 86 mm[Hg] Ayanna Bradford SENIOR TELLER.MULT[employer]OR INTELLIGENCE OFFICER Work Phone: [facility] 01-31-2022 10:59-0400 Systolic blood pressure 128 mm[Hg] Ayanna Bradford SENIOR TELLER.MULT[employer]OR INTELLIGENCE OFFICER Work Phone: [facility] Encounters Encounter Date Encounter Type Care Provider Facility Start: 01-21-2025 End: 02-21-2025 ambulatory Basilio Colón MD Work Phone: [facility] Start: 03-26-2024 End: 03-26-2024 Emergency department patient visit DR RICARDO PITTS DO [facility] Start: 02-21-2024 ambulatory Basilio Colón MD Work Phone: [facility] Start: 09-17-2023 End: 09-17-2023 Emergency department patient visit JAIDEN ROMERO MD [facility] Start: 05-26-2023 End: 05-26-2023 Patient encounter procedure Corey Conway SENIOR TELLER.[employer] INTELLIGENCE OFFICER Work Phone: [facility] Comment on above: Severe pain (Primary Dx) Start: 05-19-2023 Telephone encounter Nan Hernandez PA-C Work Phone: [facility] Start: 03-30-2023 End: 03-30-2023 Emergency department patient visit Arun Armstrong Facility:[facility] Start: 03-30-2023 End: 03-30-2023 Emergency department patient visit [facility] Start: 03-15-2023 ambulatory Basilio Colón MD Work Phone: [facility] Start: 03-13-2023 End: 03-13-2023 Emergency department patient visit Basilio Saks Facility:[facility] Start: 03-13-2023 End: 03-13-2023 Emergency department patient visit [facility] Start: 02-23-2023 Telephone encounter Robina verma APRN.CNM Work Phone: [facility]/Gy[facility]cology Comment on above: Results Start: 02-21-2023 End: 02-21-2023 Patient encounter procedure Robina Gong APRN.CNM Work Phone: OB/Gynecology Comment on above: Vaginal discharge (P rimary Dx); Screening examination for STD (sexually transmitted disease) Start: 09-21-2022 End: 09-24-2022 Evaluation and management of inpatient BASILIO Muñoz ELDON Facility:[id number] Start: 09-20-2022 End: 09-21-2022 Emergency department patient visit Cyndi Acevedo Facility:[facility] Start: 09-20-2022 End: 09-20-2022 Emergency department patient visit [facility] Start: 09-08-2022 End: 09-08-2022 Patient encounter procedure Nan Hernandez PA-C Work Phone: [facility] Comment on above: Lumbar radiculitis ( Primary Dx) Start: 08-13-2022 End: 08-13-2022 Emergency department patient visit [facility] Facility:[facility] Start: 08-12-2022 End: 08-13-2022 Emergency department patient visit [facility] Start: 05-28-2022 End: 05-29-2022 Emergency department patient visit Basilio Saks Facility:[facility] Start: 05-28-2022 End: 05-29-2022 Emergency department patient visit [facility] Start: 05-27-2022 End: 05-28-2022 Emergency department patient visit Arun Karis Facility:[facility] Start: 05-27-2022 End: 05-28-2022 Emergency department patient visit [facility] Start: 02-07-2022 Documentation procedure Mammog darryl Coordinator [facility] Start: 02-07-2022 Letter encounter Mammography Coordinator [facility] Department Start: 02-07-2022 End: 02-07-2022 Subsequent hospital visit by physician Screen Mammo [facility] Comment on above: Encounter for screen ing mammogram for malignant neoplasm of breast [Z12.31] Start: 02-01-2022 Telephone encounter Ayanna quinones APRN.CNP Work Phone: OB/Gynecology Comment on above: Results Start: 01-31-2022 End: 01-31-2022 Patient encounter procedure Ayanna Richardson APRN.CNP Work Phone: OB/Gynecology Comment on above: Encounter for gyneco logical examination (general) (routine) without abnormal findings (Primary Dx); Screen for STD (sexually transmitted disease); Vaginal irritation; Encounter for screening mammogram for malignant neoplasm of breast Start: 01-31-2022 End: 01-31-2022 Patient encounter status Ayanna Richardson APRN.CNP Work Phone: OB/Gynecology Procedures Date Procedure Procedure Detail Performing Clinician Start: 03-30-2023 MRI of brain without contrast Start: 03-30-2023 CT of head without contrast Start: 03-13-2023 Plain chest X-ray Start: 02-21-2023 BACTERIAL VAGINOSIS AMPLIFICATION Robina Gong APRN.CNM Work Phone: Start: 02-21-2023 Iadna chlamydia trac homatis amplified probe tq Robina Gong APRN.CNM Work Phone: Start: 05-28-2022 Plain chest X-ray Start: 05-28-2022 CT of head without contrast Start: 05-27-2022 CT angiography of ch est with contrast Start: 05-27-2022 Plain chest X-ray Start: 02-07-2022 End: 02-07-2022 Screening mammography bi 2-view breast inc cad Ayanna Richardson APRN.CNP Work Phone: Start: 06-14-2019 Adult depression scr eening assessment Ayanna Richardson APRN.CNP Work Phone: Viral antigen assay Plan of Treatment Date Care Activity Detail Author Start: 06-23-2024 Covid-19 Vaccine ( season) Covid-19 Vaccine ( season) [facility] Start: 06-23-2024 Influenza vaccination C [facility] Start: 05-26-2024 BP CONTROLLED (<130/80) BP CONTROLLE D (<130/80) [facility] Start: 05-18-2024 ANNUAL PCP TEAM MANAGER BAR JARAD DISEASE VISIT ANNUAL PCP TEAM CHRONIC DISEASE VISIT [facility] Start: 02-22-2024 BP CONTROLLED (<130/80) BP CONTROLLE D (<130/80) [facility] Start: 12-29-2023 HPV TESTING HPV TESTING [facility] Start: 12-29-2023 PAP TESTING PAP TESTING [facility] Start: 12-29-2023 Screening for malign ant neoplasm of cervix [facility] Start: 10-23-2023 Behavioral Health Screening Behavioral Health Screening [facility] Start: 09-08-2023 ANNUAL PCP TEAM MANAGER BAR JARAD DISEASE VISIT ANNUAL PCP TEAM CHRONIC DISEASE VISIT [facility] Start: 06-23-2023 Covid-19 Vaccine () Covid-19 Vaccine () [facility] Start: 06-23-2023 Influenza vaccination [facility] Start: 03-30-2023 [facility] Start: 03-30-2023 Suicide precautions [facility] Start: 02-07-2023 Mammography MAM[address] [facility] Start: 02-07-2023 Screening for malign ant neoplasm of breast Mammogram Screening [facility] Start: 10-23-2022 DEPRESSION ASSESSMENT DEPRESSION ASS ESSMENT [facility] Start: 09-08-2022 End: 11-08-2022 TOX SCREEN ROUT UR TOX SCREEN ROUT UR Lab Routine Lumbar radiculitis Expected: 09/08/2022, Expires: 11/08/2022 [facility] Work Phone: Comment on above: Expected: 09/08/2022 , Expires: 11/08/2022 Start: 06-23-2022 Influenza vaccination [facility] Start: 05-28-2022 [facility] Work Phone: Start: 05-27-2022 [facility] Work Phone: Start: 03-24-2022 ANNUAL PCP TEAM MANAGER BAR JARAD DISEASE VISIT ANNUAL PCP TEAM CHRONIC DISEASE VISIT [facility] Start: 10-23-2021 DEPRESSION ASSESSMENT DEPRESSION ASS ESSMENT [facility] Start: 2021 Mammography MAMMOGRAM [facility] Start: 06-14-2020 Adult depression screening assessment DEPRESSION SCREENING [facility] Start: 2000 Hepatitis B Vaccine (1 of 3 - 19+ 3-dose series) Hepatitis B Vaccine (1 of 3 - 19+ 3-dose series) [facility] Start: 2000 ONE PNEUMOVAX PRIOR TO AGE 65 ONE PNEUMOVAX PRIOR TO AGE [address] [facility] Start: 2000 Pneumococcal vaccination Pneum ococcal Vaccine (1 of 2 - PCV) [facility] Start: 2000 Urine microalbumin profile [facility] Start: 1999 BP CONTROLLED (<130/80) BP CONTROLLE D (<130/80) [facility] Start: 1999 Depression Screening Depression Scre ening [facility] Start: 1987 PNEUMOCOCCAL (1 - PCV) PNEUMOCOCCAL (1 - PCV) [facility] Start: 1987 Pneumococcal vaccination Pneum ococcal Vaccine (1 of 2 - PCV) [facility] Start: 1986 COVID-19 VACCINE (1) COVID-19 VACCIN E (1) [facility] Start: 02-18-1982 COVID-19 VACCINE (#1) COVID-19 VACCI NE (#1) [facility] Start: 1981 HEPATITIS B (1 of 3 - 3-dose series) HEPATITIS B (1 of 3 - 3-dose series) [facility] Bacteria identified in Urine by Culture Urine Culture [facility] BACTERIAL VAGINOSIS AMPLIFICATION BACTERIAL VAGINOSIS AMPLIFICATION Lab Routine Vaginal irritation 01/31/2022 11:38 AM EDT [facility] Work Phone: EVELYN / TRICHOMONA S AMPLIFICATION EVELYN / TRICHOMONAS AMPLIFICATION Lab Routine Screen for STD (sexually transmitted disease) Vaginal irritation 01/31/2022 11:38 AM EDT [facility] Work Phone: Chlamydia trachomatis+Neisseria gonorrhoeae DNA [Presence] in Unspecified specimen by JORGITO with probe detection GC/CHLAMYDIA DNA DET Lab Routine Encounter for gynecological examination (general) (routine) without abnormal findings Screen for STD (sexually transmitted disease) 01/31/2022 11:38 AM EDT [facility] Work Phone: End: 02-20-2026 DBT Breast - bilateral screening SLIME SCREENING W [facility]EC[facility] Radiology Routine Encounter for screening mammogram for breast cancer 1 Occurrences starting 01/21/2025 until 02/20/2026 [facility] Work Phone: Comment on above: 1 Occurrences starti ng 01/21/2025 until 02/20/2026 End: 04-13-2024 SLIME SCREENING SLIME SCREENING Radiology Routine Encounter for screening mammogram for breast cancer 1 Occurrences starting 03/15/2023 until 04/13/2024 [facility] Work Phone: Comment on above: 1 Occurrences starti ng 03/15/2023 until 04/13/2024 End: 03-22-2025 MG Breast Screening SLIME SCREENING Radiology Routine Encounter for screening mammogram for breast cancer 1 Occurrences starting 02/21/2024 until 03/22/2025 [facility] Work Phone: Comment on above: 1 Occurrences starti ng 02/21/2024 until 03/22/2025 PAIN PANEL, UR QUANT PAIN PANEL, UR QUANT Lab Routine Lumbar radiculitis Ordered: 09/08/2022 [facility] Work Phone: Comment on above: Ordered: 09/08/2022 PAIN PANEL, UR QUANT PAIN PANEL, UR QUANT Lab Routine Lumbar radiculitis Ordered: 09/08/2022 [facility] Work Phone: Comment on above: Ordered: 09/08/2022 Patient Education [facility] Work Phone: Patient referral [facility] Work Phone: End: 10-08-2023 Radex spine lumbosacral 2/3 views XR LUMBAR GENERAL 3V AP/LAT/L5-S1 Radiology Routine Lumbar radiculitis 1 Occurrences starting 09/08/2022 until 10/08/2023 [facility] Work Phone: Comment on above: 1 Occurrences starti ng 09/08/2022 until 10/08/2023 End: 03-02-2023 Screening mammography bi 2-view breast inc cad SLIME SCREENING Radiology Routine Encounter for screening mammogram for malignant neoplasm of breast 1 Occurrences starting 01/31/2022 until 03/02/2023 [facility] Work Phone: Comment on above: 1 Occurrences starti ng 01/31/2022 until 03/02/2023 SPECIMEN VALIDITY, URINE SPECIME N VALIDITY, URINE Lab Routine Lumbar radiculitis Ordered: 09/08/2022 [facility] Work Phone: Comment on above: Ordered: 09/08/2022 [facility] Immunizations Immunization Date Immunization Notes Care Provider [facility] 07-21-2020 influenza, seasonal, injectable [facility] 07-21-2020 influenza virus vaccine, unspecified formulation Basilio Colón MD Work Phone: [facility] 07-23-2016 influenza, seasonal, injectable Ayanna Bradford SENIOR TELLER.MULTISENSOR INTELLIGENCE OFFICER Work Phone: [facility] 09-11-2013 influenza virus vaccine, unspecified formulation Ayanna Bradford SENIOR TELLER.MULTISENSOR INTELLIGENCE OFFICER Work Phone: [facility] Payers Date Payer Category Payer Unknown [id number] 2022 Self-pay [id number] 2013 Medicaid [facility] MEDICA[facility] [id number] 2013-Present [phone] [address] [place] [address] Medicaid [id number] 2013 Medicaid [id number] 2013 Unknown [id number] 2013 Unknown [id number] 1981 Unknown [id number] 1981 Unknown [id number] 1981 Unknown [id number] Unknown [id number] Unknown [id number] Unknown [id number] Unknown [id number] Unknown [id number] Unknown [id number] Social History Date Type Detail Facility Start: 07-20-2020 End: 09-08-2022 Tobacco smoking status NHIS Smokes tobacco daily [facility] History of tobacco use Cigarette Smoker [facility] Start: 07-20-2020 End: 09-08-2022 Tobacco use and exposure Smokeless tobacco non-user [facility] Start: 01-31-2022 End: 05-26-2023 Alcohol intake Current non-drinker of alcohol (finding) [facility] Start: 04-26-2017 History SDOH Alcohol Comment occasionally [facility] Start: 06-14-2019 End: 09-08-2022 Tobacco Comment has a Juul, not used lately [facility] Start: 1980 Sex Assigned At Not on file [facility] Start: 01-21-2022 End: 01-31-2022 Exposure to SARS-CoV-2 (event) Not sure [facility] Start: 05-27-2022 End: 03-30-2023 Tobacco smoking status WVIS Unknown if ever smoked [facility] Start: 07-21-2020 Cigarettes [facility] Start: 1980 Sex Assigned At Female [facility] Start: 11-04-2022 End: 05-26-2023 History of Social function [facility] Start: 11-04-2022 End: 05-26-2023 Tobacco use panel [facility] Adult Depression Screening Assessment [address] [facility] Tobacco smoking status No Smoking Status Entered [facility] NEGATED: Highlighted row [facility] Medical Equipment Procedure Code Equipment Code Equipment Origin al Text Equipment Identifier Dates Appendectomy, laparoscopic 45mm Standard Reload FDA Start: 07-20-2020 Appendectomy, laparoscopic 45mm Standard Reload FDA Start: 07-20-2020 Appendectomy, laparoscopic 45mm Standard Reload FDA Start: 07-20-2020 Appendectomy, laparoscopic 45mm Standard Reload FDA Start: 07-20-2020 Functional Status Date Assessment Result Facility 03-26-2024 Functional Status [facility] ad [facility]bb [facility] 09-17-2023 Functional Status Independent Huy [facility] 09-24-2022 Are you deaf, or do you have serious difficulty hearing No 09/24/2022 5:38 PM Susanne Lin RN No [facility] 09-24-2022 Are you blind, or do you have serious difficulty seeing, even when wearing glasses No 09/24/2022 5:38 PM Susanne Lin RN No [facility] 09-24-2022 Do you have serious difficulty walking or climbing stairs No 09/24/2022 5:38 PM Susanne Lin RN No [facility] 09-24-2022 Do you have difficul ty dressing or bathing No 09/24/2022 5:38 PM Susanne Lin, ALONSO No [facility] 09-24-2022 Because of a physica l, mental, or emotional condition, do you have difficulty doing errands alone such as visiting a physician's office or shopping No 09/24/2022 5:38 PM Susanne Lin RN No [facility] Mental Status Date Assessment Result Facility 03-26-2024 Mental Status Orientation Oriented x 4 [facility] 03-26-2024 Mental Status [facility] 09-17-2023 Mental Status Orientation Oriented x 4 [facility] 09-17-2023 Mental Status [facility] 03-13-2023 Cognitive function Level Of Cons ciousness Awake;Alert [facility] Work Phone: 09-24-2022 Because of a physica l, mental, or emotional condition, do you have serious difficulty concentrating, remembering, or making decisions No 09/24/2022 5:38 PM EST Susanne Mora, RN No [facility] 05-28-2022 Cognitive function Level Of Cons ciousness Awake;Alert;Appropriate;Fol lows Commands [facility] Work Phone: 05-27-2022 Cognitive function Voice/Name [facility] Work Phone: Clinical Notes 12-11-2012 to 01-21-2025 Corey Conway APRN.MULTISENSOR INTELLIGENCE OFFICER - 05/26/2023 1:42 PM EDTTelephone Encounter - Nan Hernandez PA-C - 05/19/2023 2:11 PM EDT Note Date & Type Note Facility 01-21-2025 Note Patient Outreach (FA MPWS) KASSIDY LOCKE ([id number]) 1980 F Date Time Provider Department 01/21/25 BASILIO COLÓN During your visit today, we recorded the following information about you: Allergies As of Date: 01/21/2025 (No Known Allergies) Date Reviewed: 05/26/2023 Reviewed by: Corey Conway APRN.CNP - Fully Assessed Visit Diagnosis:Encounter for screening mammogram for breast cancer [Z12.31] Order(s):SLIME PEMBERTON [[id number]] Order #: [id number] FUTURE Prescriptions as of 02/21/2025 - gabapentin (NEURONTIN) 300 mg capsule Take 1 capsule by mouth daily at bedtime for 90 days. - lisinopril (ZESTRIL) 20 mg tablet Take 1 tablet by mouth once daily. - PARoxetine (PAXIL) 20 mg tablet Take 1 tablet by mouth once daily. - Blood Pressure Monitor (BLOOD PRESSURE KIT) 1 Each once daily. Problem List As Of Date 01/21/2025 Noted Resolved Depression [F32.A] 12/11/2012 03/24/2021 Anxiety [F41.9] 05/07/2013 Sciatica [M54.30] 03/19/2014 Essential hypertension [I10] 11/02/2016 Posterior tibial tendon dysfunction, bilateral *04/07/2017 Primary localized osteoarthrosis, ankle and carmel*04/07/2017 Flail joint, unspecified ankle and foot [M25.27*04/07/2017 Heroin use [F11.90] 05/10/2021 Accidental overdose of heroin (HCC) [T40.1X1A] 01/31/2022 Drug abuse (HCC) [F19.10] 01/31/2022 Gastroesophageal reflux disease [K21.9] 01/31/2022 Tobacco user [Z72.0] 01/31/2022 Lung nodules [R91.8] 06/08/2022 RLS (restless legs syndrome) [G25.81] 09/02/2022 Dental abscess [K04.7] 09/21/2022 09/24/2022 Antibiotic-induced yeast infection [B37.9, T36.*09/23/2022 09/24/2022 Nicotine use disorder, F17.2 [F17.200] 09/23/2022 Obesity, Class I, BMI 30-34.9 [E66.811] 09/23/2022 Encounter Status:Closed by NIEVES, PRODUSER on 02/21/25 [facility] 03-27-2024 Hospital Discharg e instructions Patient Education 03/26/2024 22:12:01 Abscess, Antibiotic Treatment Only Abscess (Antibiotic Treatment Only) An abscess (sometimes called a boil ) happens when bacteria get trapped under the skin and start to grow. Pus forms inside the abscess as the body responds to the bacteria. An abscess can happen with an insect bite, ingrown hair, blocked oil gland, pimple, cyst, or puncture wound. In the early stages, your wound may be red and tender. For this stage, you may get antibiotics. If the abscess does not get better with antibiotics, it will need to be drained with a small cut. Home care These tips will help you care for your abscess at home: Soak the wound in hot water or apply hot packs (small towel soaked in hot water) to the area for 20 minutes at a time. Do this 3 to 4 times a day. Do not cut, squeeze, or pop the boil yourself. Apply antibiotic cream or ointment to the skin 3 to 4 times a day, unless something else was prescribed. Some ointments include an antibiotic plus a pain reliever. If your doctor prescribed antibiotics, do not stop taking them until you have finished the medicine or the doctor tells you to stop. You may use an [id number] pain medicine to control pain, unless another pain medicine was prescribed. If you have chronic liver or kidney disease or ever had a stomach ulcer or gastrointestinal bleeding, talk with your doctor before using these any of these. Follow-up care Follow up with your healthcare provider, or as advised. Check your wound each day for the signs of worsening infection listed below. When to seek medical advice Get prompt medical attention if any of these occur: An increase in redness or swelling Red streaks in the skin leading away from the abscess An increase in local pain or swelling Fever of 100.4 F (38 C) or higher, or as directed by your healthcare provider Pus or fluid coming from the abscess Boil returns after getting better [phone] [employer]. [address] [place] [address]. All rights reserved. This information is not intended as a substitute for professional medical care. Always follow your healthcare professional's instructions. Follow Up Care 03/26/2024 20:16:41 With:BASILIO COLÓN MD Address: [facility] [address] [place] [address] [phone] When:2-4 days [facility] 03-26-2024 Note Discharge Instructions Thank you for allowing [facility] to assist you with your healthcare needs. The following is important discharge information regarding your hospital visit. What to Do Next Instructions from Your Care Team No qualifying data available. Post Acute Orders No qualifying data available. You Need to Schedule the Following Appointments Follow Up with BASILIO COLÓN MD When:Within 2-4 days Where:[facility] [address] [place] [address]- [phone] Allergies NKA Medications Please ask your primary doctor or pharmacist before taking any other medication not listed, including over the counter drugs, herbal medications, vitamins and or supplements as they may interact with your home medications. What How Much When Instructions Last Dose New cephalexin (cephalexin 500 mg oral capsule) 1 cap by mouth Four (4) times a day Duration: 10 Days Take with a probiotic Printed Prescription New doxycycline (doxycycline hyclate 100 mg oral tablet) 1 tab(s) by mouth Two (2) times a day Duration: 10 Days Take with a probiotic Printed Prescription Unchanged lisinopril (lisinopril 20 mg oral tablet) 1 tab(s) by mouth Every day Please take this list to your next doctor s visit. Bring all medications you take, including over the counter medications, herbals and other supplements with you to your doctor s visit. Patients and families are reminded to discard old lists and to update any records with all medication providers or retail pharmacies. Education Materials Abscess (Antibiotic Treatment Only) An abscess (sometimes called a boil ) happens when bacteria get trapped under the skin and start to grow. Pus forms inside the abscess as the body responds to the bacteria. An abscess can happen with an insect bite, ingrown hair, blocked oil gland, pimple, cyst, or puncture wound. In the early stages, your wound may be red and tender. For this stage, you may get antibiotics. If the abscess does not get better with antibiotics, it will need to be drained with a small cut. Home care These tips will help you care for your abscess at home: Soak the wound in hot water or apply hot packs (small towel soaked in hot water) to the area for 20 minutes at a time. Do this 3 to 4 times a day. Do not cut, squeeze, or pop the boil yourself. Apply antibiotic cream or ointment to the skin 3 to 4 times a day, unless something else was prescribed. Some ointments include an antibiotic plus a pain reliever. If your doctor prescribed antibiotics, do not stop taking them until you have finished the medicine or the doctor tells you to stop. You may use an aytc-lje-phzvjoy pain medicine to control pain, unless another pain medicine was prescribed. If you have chronic liver or kidney disease or ever had a stomach ulcer or gastrointestinal bleeding, talk with your doctor before using these any of these. Follow-up care Follow up with your healthcare provider, or as advised. Check your wound each day for the signs of worsening infection listed below. When to seek medical advice Get prompt medical attention if any of these occur: An increase in redness or swelling Red streaks in the skin leading away from the abscess An increase in local pain or swelling Fever of 100.4 F (38 C) or higher, or as directed by your healthcare provider Pus or fluid coming from the abscess Boil returns after getting better [phone] [employer]. [address] [place] [address]. All rights reserved. This information is not intended as a substitute for professional medical care. Always follow your healthcare professional's instructions. Additional Information VACCINATE! IT SAVES LIVES! Members of the community who have not yet received the COVID-19 vaccine and would like to receive it can visit one of [facility] vaccine clinics. There are many vaccine clinic locations within the [facility]. For locations and available times, please visit [email or web address] It is important to note that some COVID mobile vaccine clinics are held outdoors and may be canceled in rainy or stormy conditions. To learn more about pediatric vaccinations (ages 5-11), we invite you to visit the [facility] webpage. [email or web address]/p [email or web address]-Utsfu-Yeikbswkqhc-Freq [email or web address]-[email or web address] To learn more about the COVID-19 vaccine, we invite you to visit the CDC website for a list of frequently asked questions. https://www.cdc.gov/coronavirus/ 2019-ncov/vaccines/faq.html [facility] Patient Portal Access Instructions: Stay connected with your healthcare team and access your personal medical information anytime with the [facility] [facility] Patient Portal. If you would like a full copy of your medical records please contact the [facility] Medical Records Department Monday through Monday between 8a.m. and 4:30p.m. Please follow the directions below to access the portal: 1.Access the email account you provided upon registration to the hospital.2.Look for an invitation email from [facility].3.Open the email and access the invitation link: Accept Invitation to [employer]4.Fill in the required abdi to create your account. Sign into [email or web address] with your username and password that you created in the above steps to stay up to date. You can then view a summary of results, a summary of your visits, and the ability to download your summaries to your computer or send the information securely to a physician. Remember that your healthcare information is confidential, so carefully consider who you will allow to register on the [facility] Patient Portal for access to your information. You can also access the [employer] Patient Portal on the [employer] fior. Simply click on Health Records under Health Data and then click on the [employer] logo. HOW TO SAFELY DISPOSE OF PRESCRIPTION MEDICATIONS Please use one of the following methods to safely dispose of your unused medications. 1.Use a drug disposal kit: the drug disposal pouch allows you to safely discard your old and unused drugs. Ask your nurse to give you one when you are discharged.2.Visit a local take-back location: Many local pharmacies and police departments have programs that collect old and unwanted prescription drugs. Call your local pharmacy or go to http://[employer] Options/1Y2Wq1e to find one close to you.3.Make use of household items: Use cat litter or old coffee grounds to dispose medications if other options are not available. Mix your drugs with these household products, seal them in an airtight container and throw it into the garbage. Call [facility]: [phone] to be sure your drugs can be disposed of in this way. Some medicines may require a different approach.4.Never flush your medications down the toilet. IF YOU HAVE BEEN PRESCRIBED AN OPIOIDS FOR PAIN If you have been prescribed an opioid (such as hydrocodone, oxycodone or morphine), it is critical to understand the possible side effects and risks of opioid pain medications. Even when taken as directed, opioids can have several side effects including: Tolerance, meaning you might need to take more of a medication for the same pain relief. Nausea, vomiting and/or constipation. Sleepiness, dizziness, dry mouth, confusion, depression or itching. Physical dependence, meaning you have withdrawal symptoms when a medication is stopped ? this can develop within a few days. KNOW YOUR RESPONSIBILITIES It is important to know exactly how much and how often to take the opioid pain medications you are prescribed. Never take opioids in higher amounts or more often than prescribed. Do not combine opioids with alcohol or other drugs that cause drowsiness, such as benzodiazepines, also known as benzos, including diazepam and alprazolam, muscle relaxants or sleep aids. Never sell or share prescription opioids. This is illegal. Store opioids in a secure place and out of reach of others (including children, family, friends and visitors). The last page(s) of this document has been signed and retained as a CHART COPY Signatures Patient Education Materials Abscess, Antibiotic Treatment Only Medication Leaflets My discharge plan and instructions have been reviewed and explained to me and I,KASSIDY LOCKE understand my current condition and have read and understand these discharge instructions. I have received a written copy of the plan/instructions. If I have questions, I am aware that I should contact my doctor. Patient/Belt Cleaner Signature: Date/Time: Relationship to Patient: Witness Name/Signature: Date/Time: [facility] 09-17-2023 Hospital Discharg e instructions Patient Education 09/17/2023 01:48:29 Tennis Elbow Tennis Elbow Muscles connect to bones by thick, fibrous cords (tendons). When the muscles are overused by repeated motion, the tendons may become inflamed and painful. This condition is called tendonitis. Tennis elbow (lateral epicondylitis) is a form of tendonitis. It occurs when the forearm muscles are used again and again in a twisting motion. Pain from tennis elbow occurs mainly on the outside of the elbow. But the pain can spread into the forearm and wrist. Your elbow may also be swollen and tender to the touch. The pain may get worse when you move your arm or do simple activities. Bending your wrist back, shaking hands, or turning a doorknob may cause pain. The pain often gets worse after several weeks or months. Sometimes you may feel pain when your arm is still. Tennis players who use a backhand stroke with poor technique are more likely to get tennis elbow. But playing tennis is only one cause of tennis elbow. Other common activities that can cause it include: Hammering Painting Raking Besides tennis players, people at risk include unionmelt operator, gardeners, musicians, and dentists. Sometimes people get tennis elbow without doing anything that would cause the injury. Treatment includes resting the arm and taking anti-inflammatory medicines. Special splints can help ease symptoms. Symptoms should get better after 4 to 6 weeks of rest. You may need steroid injections if resting and using a splint don t help. After the pain is relieved, you should change your activities so the symptoms don t return. You may need physical therapy. It may include stretching, rprvl-fw-gfunpi, and strengthening exercises. These treatments help most cases. You may need surgery if your symptoms continue for 6 months despite treatment. Home care Follow these guidelines when caring for yourself at home: Rest your elbow as needed. Protect it from movement that causes pain. You may be told to use a forearm splint at night to ease symptoms in the morning. Your healthcare provider may recommend a special wrap or splint to compress the muscles of the forearm. This can ease pain during daytime activities. As your symptoms get better, start to move your elbow more. Put an ice pack on the injured area. Do this for 20 minutes every 1 to 2 hours the first day for pain relief. You can make an ice pack by wrapping a plastic bag of ice cubes in a thin towel. Continue using the ice pack 3 to 4 times a day for the next several days. Then use the ice pack as needed to ease pain and swelling. You may use acetaminophen or ibuprofen to control pain, unless another pain medicine was prescribed. If you have chronic liver or kidney disease, talk with your healthcare provider before using these medicines. Also talk with your provider if you ve had a stomach ulcer or gastrointestinal bleeding. After your elbow heals, avoid the motion that caused your pain. Or learn to move in a way that causes less stress on the tendon. Using a forearm wrap may keep tennis elbow from happening again. A tennis elbow strap may ease pain and keep you from further injury when you start playing tennis again. You can also lower your risk for injury by warming up before you play and cooling down afterward. You should also use the right equipment. For instance, make sure your racquet has the right applications chemist and is the right size for you. Follow-up care Follow up with your healthcare provider, or as advised, if your symptoms don t get better after 2 to 3 weeks of treatment. When to seek medical advice Call your healthcare provider right away if any of these occur: Redness over the painful area Pain, stiffness, or swelling at the elbow gets worse Any numbness or tingling in your arm, hands, or fingers Unexplained fever over 100.4 F (38 C) 3917-2542 [employer]. [address] [place] [address]. All rights reserved. This information is not intended as a substitute for professional medical care. Always follow your healthcare professional's instructions. 09/17/2023 01:48:17 Hypertension, Established Established High Blood Pressure High blood pressure (hypertension) is a chronic disease. Often, healthcare providers don t know what causes it. But it can be caused by certain health conditions and medicines. If you have high blood pressure, you may not have any symptoms. If you do have symptoms, they may include headache, dizziness, changes in your vision, chest pain, and shortness of breath. But even without symptoms, high blood pressure that s not treated raises your risk for heart attack, heart failure, and stroke. High blood pressure is a serious health risk and shouldn t be ignored. Blood pressure measurements are given as 2 numbers. Systolic blood pressure is the upper number. This is the pressure when the heart contracts. Diastolic blood pressure is the lower number. This is the pressure when the heart relaxes between beats. You will see your blood pressure readings written together. For example, a person with a systolic pressure of 118 and a diastolic pressure of 78 will have 118/78 written in the medical record. Blood pressure is categorized as normal, elevated, or stage 1 or stage 2 high blood pressure: Normal blood pressure is systolic of less than 120 and diastolic of less than 80 (120/80) Elevated blood pressure is systolic of 120 to 129 and diastolic less than 80 Stage 1 high blood pressure is systolic is 130 to 139 or diastolic between 80 to 89 Stage 2 high blood pressure is when systolic is 140 or higher or the diastolic is 90 or higher Home care If you have high blood pressure, follow these home care guidelines to help lower your blood pressure. If you are taking medicines for high blood pressure, these methods may reduce or end your need for medicines in the future. Start a weight-loss program if you are overweight. Cut back on how much salt you get in your diet. Here s how to do this: oDon t eat foods that have a lot of salt. These include olives, pickles, smoked meats, and salted potato chips. oDon t add salt to your food at the table. oUse only small amounts of salt when cooking. Start an exercise program. Talk with your healthcare provider about the type of exercise program that would be best for you. It doesn't have to be hard. Even brisk walking for 20 minutes 3 times a week is a good form of exercise. Don t take medicines that stimulate the heart. This includes many khre-rfi-pytanwb cold and sinus decongestant pills and sprays, as well as diet pills. Check the warnings about high blood pressure on the label. Before buying any oahd-gws-nuynmhs medicines or supplements, always ask the pharmacist about the product's potential interaction with your high blood pressure and your high blood pressure medicines. Stimulants such as amphetamine or cocaine could be deadly for someone with high blood pressure. Never take these. Limit how much caffeine you get in your diet. Switch to caffeine-free products. Stop smoking. If you are a long-time smoker, this can be hard. Talk to your healthcare provider about medicines and nicotine replacement options to help you. Also, enroll in a stop-smoking program to make it more likely that you will quit for good. Learn how to handle stress. This is an important part of any program to lower blood pressure. Learn about relaxation methods like meditation, yoga, or biofeedback. If your provider prescribed medicines, take them exactly as directed. Missing doses may cause your blood pressure get out of control. If you miss a dose or doses, check with your healthcare provider or pharmacist about what to do. Consider buying an automatic blood pressure machine to check your blood pressure at home. Ask your provider for a recommendation. You can get one of these at most pharmacies. The [place] [employer] recommends the following guidelines for home blood pressure monitoring: Don't smoke or drink coffee for 30 minutes before taking your blood pressure. Go to the bathroom before the test. Relax for 5 minutes before taking the measurement. Sit with your back supported (don't sit on a couch or soft chair); keep your feet on the floor uncrossed. Place your arm on a solid flat surface (like a table) with the upper part of the arm at heart level. Place the middle of the cuff directly above the bend of the elbow. Check the monitor's instruction manual for an illustration. Take multiple readings. When you measure, take 2 to 3 readings one minute apart and record all of the results. Take your blood pressure at the same time every day, or as your healthcare provider recommends. Record the date, time, and blood pressure reading. Take the record with you to your next medical appointment. If your blood pressure monitor has a built-in memory, simply take the monitor with you to your next appointment. Call your provider if you have several high readings. Don't be frightened by a single high blood pressure reading, but if you get several high readings, check in with your healthcare provider. Note: When blood pressure reaches a systolic (top number) of 180 or higher OR diastolic (bottom number) of 110 or higher, seek emergency medical treatment. Follow-up care You will need to see your healthcare provider regularly. This is to check your blood pressure and to make changes to your medicines. Make a follow-up appointment as directed. Bring the record of your home blood pressure readings to the appointment. When to seek medical advice Call your healthcare provider right away if any of these occur: Blood pressure reaches a systolic (upper number) of 180 or higher OR a diastolic (bottom number) of 110 or higher Chest pain or shortness of breath Severe headache Throbbing or rushing sound in the ears Nosebleed Sudden severe pain in your belly (abdomen) Extreme drowsiness, confusion, or fainting Dizziness or spinning sensation (vertigo) Weakness of an arm or leg or one side of the face You have problems speaking or seeing [id number] [employer]. [address] [place] [address]. All rights reserved. This information is not intended as a substitute for professional medical care. Always follow your healthcare professional's instructions. Follow Up Care 09/17/2023 00:40:12 With:Follow up with primary care provider Address:Unknown When[facility] [facility] Note Discharge Instructions Thank you for allowing [facility] to assist you with your healthcare needs. The following is important discharge information regarding your hospital visit. Diagnosis from Today's Visit Arm pain-swelling Hypertension Tendonitis What to Do Next Instructions from Your Care Team Discharge Home Equipment - Ordered -- Sling, Arm Left, 99 month(s), 09/17/23 1:51:00 EST Post Acute Orders No qualifying data available. You Need to Schedule the Following Appointments Follow Up with Follow up with primary care provider When Within 2-4 days Allergies No active allergies Medications Please ask your primary doctor or pharmacist before taking any other medication not listed, including over the counter drugs, herbal medications, vitamins and or supplements as they may interact with your home medications. What How Much When Instructions Last Dose New lisinopril (lisinopril 20 mg oral tablet) 1 tab(s) by mouth Every day Printed Prescription New naproxen (naproxen 250 mg oral tablet) 1 tab(s) by mouth Two (2) times a day Duration: 10 Days Printed Prescription Please take this list to your next doctor s visit. Bring all medications you take, including over the counter medications, herbals and other supplements with you to your doctor s visit. Patients and families are reminded to discard old lists and to update any records with all medication providers or retail pharmacies. Medication Leaflets naproxen (na PROX en) Aleve, Aleve Back and Muscle Pain, Aleve Easy Open Arthritis, Aleve Liquid Gels, Anaprox-DS, EC-Naprosyn, Naprelan, Naprosyn What is the most important information I should know about naproxen? Naproxen can increase your risk of fatal heart attack or stroke. Do not use this medicine just before or after heart bypass surgery (coronary artery bypass graft, or CABG). Naproxen may also cause stomach or intestinal bleeding, which can be fatal. What is naproxen? Naproxen is a nonsteroidal anti-inflammatory drug (NSAID). Naproxen is used to treat pain or inflammation caused by conditions such as arthritis, ankylosing spondylitis, tendinitis, bursitis, gout, or menstrual cramps. The delayed-release or extended-release tablets are slower-acting forms of naproxen that are used only for treating chronic conditions such as arthritis or ankylosing spondylitis. These forms of naproxen will not work fast enough to treat acute pain. Naproxen may also be used for purposes not listed in this medication guide. What should I discuss with my healthcare provider before taking naproxen? Naproxen can increase your risk of fatal heart attack or stroke, even if you don't have any risk factors. Do not use this medicine just before or after heart bypass surgery (coronary artery bypass graft, or CABG). Naproxen may also cause stomach or intestinal bleeding, which can be fatal. These conditions can occur without warning while you are using naproxen, especially in older adults. You should not use naproxen if you are allergic to it, or if you have ever had an asthma attack or severe allergic reaction after taking aspirin or an NSAID. Ask a doctor before giving naproxen to a child younger than 12 years old. Ask a doctor or pharmacist if this medicine is safe to use if you have: heart disease, high blood pressure, high cholesterol, diabetes, or if you smoke; a heart attack, stroke, or blood clot; stomach ulcers or bleeding; asthma; liver or kidney disease; fluid retention; or if you take aspirin to prevent heart attack or stroke. If you are , you should not take naproxen unless your doctor tells you to. Taking an NSAID during the last 20 weeks of can cause serious heart or kidney problems in the unborn baby and possible complications with your . It may not be safe to breastfeed while using this medicine. Ask your doctor about any risk. How should I take naproxen? Use exactly as directed on the label, or as prescribed by your doctor. Use the lowest dose that is effective in treating your condition. Shake the oral suspension (liquid) before you measure a dose. Measure a dose with the supplied measuring device (not a kitchen spoon). Take this medicine with food or milk if it upsets your stomach. Always follow directions on the medicine label about giving this medicine to a child. Naproxen doses are based on weight in children. Your child's dose needs may change if the child gains or loses weight. If you use naproxen long-term, you may need frequent medical tests. This medicine can affect the results of certain medical tests. Tell any doctor who treats you that you are using naproxen. Store at room temperature away from moisture, heat, and light. Keep the bottle tightly closed when not in use. What happens if I miss a dose? Since naproxen is used when needed, you may not be on a dosing schedule. Skip any missed dose if it's almost time for your next dose. Do not use two doses at one time. What happens if I overdose? Seek emergency medical attention or call the Poison Help line at . What should I avoid while taking naproxen? Avoid drinking alcohol. It may increase your risk of stomach bleeding. Avoid taking aspirin or other NSAIDs unless your doctor tells you to. Ask a doctor or pharmacist before using other medicines for pain, fever, swelling, or cold/flu symptoms. They may contain ingredients similar to naproxen (such as aspirin, ibuprofen, or ketoprofen). Ask your doctor before using an antacid, and use only the type your doctor recommends. Some antacids can make it harder for your body to absorb naproxen. What are the possible side effects of naproxen? Get emergency medical help if you have signs of an allergic reaction (runny or stuffy nose, wheezing or trouble breathing, hives, swelling in your face or throat) or a severe skin reaction (fever, sore throat, burning eyes, skin pain, red or purple skin rash with blistering and peeling). Stop using naproxen and seek medical treatment if you have a serious drug reaction that can affect many parts of your body. Symptoms may include skin rash, fever, swollen glands, muscle aches, severe weakness, unusual bruising, or yellowing of your skin or eyes. Get emergency medical help if you have signs of a heart attack or stroke: chest pain spreading to your jaw or shoulder, sudden numbness or weakness on one side of the body, slurred speech, leg swelling, feeling short of breath. Stop using naproxen and call your doctor at once if you have: shortness of breath (even with mild exertion); swelling or rapid weight gain; the first sign of any skin rash or blister, no matter how mild; signs of stomach bleeding--bloody or tarry stools, coughing up blood or vomit that looks like coffee grounds; liver problems--nausea, upper stomach pain, loss of appetite, dark urine, gabriella-colored stools, jaundice (yellowing of the skin or eyes); kidney problems--little or no urination, painful urination, swelling in your feet or ankles; or low red blood cells (anemia)--pale skin, unusual tiredness, feeling light-headed or short of breath, cold hands and feet. Common side effects may include: headache; indigestion, heartburn, stomach pain; or flu symptoms; This is not a complete list of side effects and others may occur. Call your doctor for medical advice about side effects. You may report side effects to FDA at 1-446-FHZ-9318. What other drugs will affect naproxen? Ask your doctor before using naproxen if you take an antidepressant. Taking certain antidepressants with an NSAID may cause you to bruise or bleed easily. Ask a doctor or pharmacist before using naproxen with any other medications, especially: other NSAIDs or salicylates (diflunisal, salsalate); antacids and sucralfate; cholestyramine; cyclosporine; digoxin; lithium; methotrexate; pemetrexed; probenecid; warfarin (Coumadin, Jantoven) or similar blood thinners; a diuretic or 'water pill'; or heart or blood pressure medication. This list is not complete. Other drugs may affect naproxen, including prescription and pnrw-hig-uzwjdno medicines, vitamins, and herbal products. Not all possible drug interactions are listed here. Where can I get more information? Your pharmacist can provide more information about naproxen. Remember, keep this and all other medicines out of the reach of children, never share your medicines with others, and use this medication only for the indication prescribed. Every effort has been made to ensure that the information provided by [employer]. [employer]') is accurate, up-to-date, and complete, but no guarantee is made to that effect. Drug information contained herein may be time sensitive. [employer] information has been compiled for use by healthcare practitioners and consumers in the [place] and therefore [employer] does not warrant that uses outside of the [place] are appropriate, unless specifically indicated otherwise. [employer]'s drug information does not endorse drugs, diagnose patients or recommend therapy. [facility] drug information is an informational resource designed to assist licensed healthcare practitioners in caring for their patients and/or to serve consumers viewing this service as a supplement to, and not a substitute for, the expertise, skill, knowledge and judgment of healthcare practitioners. The absence of a warning for a given drug or drug combination in no way should be construed to indicate that the drug or drug combination is safe, effective or appropriate for any given patient. [facility] does not assume any responsibility for any aspect of healthcare administered with the aid of information [facility] provides. The information contained herein is not intended to cover all possible uses, directions, precautions, warnings, drug interactions, allergic reactions, or adverse effects. If you have questions about the drugs you are taking, check with your doctor, nurse or pharmacist. Copyright 0560-5898 [facility] [employer]. Version: 22.. Revision Date: 05/25/2023. lisinopril (lyse [place] oh pril) Prinivil, Qbrelis, Zestril What is the most important information I should know about lisinopril? Do not use if you are . Stop using this medicine and tell your doctor right away if you become . Tell your doctor about all your other medicines. Some drugs should not be used with lisinopril. What is lisinopril? Lisinopril is used alone or in combination with other medications to treat high blood pressure in adults and children at least 6 years old. Lisinopril is also used in adults to treat congestive heart failure and to improve survival after a heart attack. Lisinopril may also be used for purposes not listed in this medication guide. What should I discuss with my healthcare provider before taking lisinopril? You should not use lisinopril if you are allergic to it or to any other SETH (angiotensin converting enzyme) inhibitor such as captopril, fosinopril, enalapril, benazepril, moexipril, perindopril, quinapril, ramipril, or trandolapril. Do not take lisinopril within 36 hours before or after taking medicine that contains sacubitril (such as Entresto). If you have diabetes, do not take lisinopril with any medication that contains aliskiren (a blood pressure medicine). Do not take lisinopril if you have a history of angioedema (severe allergic reaction). Tell your doctor if you have ever had: heart disease, heart problems such as a recent heart attack; low blood pressure; low white blood cell count; stomach pain; if you are on a low-salt diet; diabetes; liver disease; or kidney disease (or if you are on dialysis). You may also need to avoid taking lisinopril with aliskiren if you have kidney disease. Stop using this medicine and tell your doctor right away if you become . Lisinopril can cause injury or to the unborn baby if you use the medicine during your second or third trimester. Do not breastfeed. How should I take lisinopril? Follow all directions on your prescription label and read all medication guides or instruction sheets. Your doctor may occasionally change your dose. Use the medicine exactly as directed. You may take lisinopril with or without food. Measure liquid medicine with the supplied measuring device (not a kitchen spoon). Your blood pressure will need to be checked often and you may need frequent blood tests. Tell your doctor if you have a planned surgery. Call your doctor if you have ongoing vomiting or diarrhea, or if you are sweating more than usual. You can easily become dehydrated while taking lisinopril. This can lead to very low blood pressure, an electrolyte imbalance, or kidney failure. If you have high blood pressure, keep using this medicine even if you feel well. High blood pressure often has no symptoms. Store tightly closed at room temperature, away from moisture and heat. Do not freeze. What happens if I miss a dose? Take the medicine as soon as you can, but skip the missed dose if it is almost time for your next dose. Do not take two doses at one time. What happens if I overdose? Seek emergency medical attention or call the Poison Help line at . What should I avoid while taking lisinopril? Avoid getting up too fast from a sitting or lying position, or you may feel dizzy. Do not use potassium supplements or salt substitutes, unless your doctor has told you to. Avoid becoming overheated or dehydrated during exercise, in hot weather, or by not drinking enough fluids. Follow your doctor's instructions about the type and amount of liquids you should drink. In some cases, drinking too much liquid can be as unsafe as not drinking enough. What are the possible side effects of lisinopril? Get emergency medical help if you have signs of an allergic reaction: severe stomach pain, hives, difficult breathing, swelling of your face, lips, tongue, or throat. Call your doctor at once if you have: a light-headed feeling, like you might pass out; high blood potassium--nausea, weakness, tingly feeling, chest pain, irregular heartbeats, loss of movement; low white blood cell counts--fever, mouth sores, skin sores, sore throat, cough; kidney problems--swelling, urinating less, feeling tired or short of breath; or liver problems--loss of appetite, stomach pain (upper right side), tiredness, itching, dark urine, gabriella-colored stools, jaundice (yellowing of the skin or eyes). Common side effects may include: headache, dizziness; low blood pressure, cough; or chest pain. This is not a complete list of side effects and others may occur. Call your doctor for medical advice about side effects. You may report side effects to FDA at 7-360-YXK-6700. What other drugs will affect lisinopril? Lisinopril can harm your kidneys, especially if you also use certain medicines for infections, cancer, or osteoporosis. Tell your doctor about all your other medicines, especially: a diuretic or 'water pill' that may increase blood potassium such as spironolactone, triamterene, or amiloride; NSAIDs (nonsteroidal anti-inflammatory drugs)--aspirin, ibuprofen (Advil, Motrin), naproxen (Aleve), celecoxib, diclofenac, indomethacin, meloxicam, and others; insulin or diabetes medications; medicine to prevent organ transplant rejection such as temsirolimus, sirolimus, or everolimus; or heart or blood pressure medication. This list is not complete. Other drugs may affect lisinopril, including prescription and zlxm-nbo-urybome medicines, vitamins, and herbal products. Not all possible drug interactions are listed here. Where can I get more information? Your doctor or pharmacist can provide more information about lisinopril. Remember, keep this and all other medicines out of the reach of children, never share your medicines with others, and use this medication only for the indication prescribed. Every effort has been made to ensure that the information provided by [employer] is accurate, up-to-date, and complete, but no guarantee is made to that effect. Drug information contained herein may be time sensitive. [employer] information has been compiled for use by healthcare practitioners and consumers in the [place] and therefore [employer] does not warrant that uses outside of the [place] are appropriate, unless specifically indicated otherwise. [employer] drug information does not endorse drugs, diagnose patients or recommend therapy. [employer] drug information is an informational resource designed to assist licensed healthcare practitioners in caring for their patients and/or to serve consumers viewing this service as a supplement to, and not a substitute for, the expertise, skill, knowledge and judgment of healthcare practitioners. The absence of a warning for a given drug or drug combination in no way should be construed to indicate that the drug or drug combination is safe, effective or appropriate for any given patient. [employer] does not assume any responsibility for any aspect of healthcare administered with the aid of information [employer] provides. The information contained herein is not intended to cover all possible uses, directions, precautions, warnings, drug interactions, allergic reactions, or adverse effects. If you have questions about the drugs you are taking, check with your doctor, nurse or pharmacist. Copyright 3447-2468 [employer]. Version: 18.01. Revision Date: 04/17/2023. Education Materials Tennis Elbow Muscles connect to bones by thick, fibrous cords (tendons). When the muscles are overused by repeated motion, the tendons may become inflamed and painful. This condition is called tendonitis. Tennis elbow (lateral epicondylitis) is a form of tendonitis. It occurs when the forearm muscles are used again and again in a twisting motion. Pain from tennis elbow occurs mainly on the outside of the elbow. But the pain can spread into the forearm and wrist. Your elbow may also be swollen and tender to the touch. The pain may get worse when you move your arm or do simple activities. Bending your wrist back, shaking hands, or turning a doorknob may cause pain. The pain often gets worse after several weeks or months. Sometimes you may feel pain when your arm is still. Tennis players who use a backhand stroke with poor technique are more likely to get tennis elbow. But playing tennis is only one cause of tennis elbow. Other common activities that can cause it include: Hammering Painting Raking Besides tennis players, people at risk include unionmelt operator, gardeners, musicians, and dentists. Sometimes people get tennis elbow without doing anything that would cause the injury. Treatment includes resting the arm and taking anti-inflammatory medicines. Special splints can help ease symptoms. Symptoms should get better after 4 to 6 weeks of rest. You may need steroid injections if resting and using a splint don t help. After the pain is relieved, you should change your activities so the symptoms don t return. You may need physical therapy. It may include stretching, uemrc-uy-wkhknr, and strengthening exercises. These treatments help most cases. You may need surgery if your symptoms continue for 6 months despite treatment. Home care Follow these guidelines when caring for yourself at home: Rest your elbow as needed. Protect it from movement that causes pain. You may be told to use a forearm splint at night to ease symptoms in the morning. Your healthcare provider may recommend a special wrap or splint to compress the muscles of the forearm. This can ease pain during daytime activities. As your symptoms get better, start to move your elbow more. Put an ice pack on the injured area. Do this for 20 minutes every 1 to 2 hours the first day for pain relief. You can make an ice pack by wrapping a plastic bag of ice cubes in a thin towel. Continue using the ice pack 3 to 4 times a day for the next several days. Then use the ice pack as needed to ease pain and swelling. You may use acetaminophen or ibuprofen to control pain, unless another pain medicine was prescribed. If you have chronic liver or kidney disease, talk with your healthcare provider before using these medicines. Also talk with your provider if you ve had a stomach ulcer or gastrointestinal bleeding. After your elbow heals, avoid the motion that caused your pain. Or learn to move in a way that causes less stress on the tendon. Using a forearm wrap may keep tennis elbow from happening again. A tennis elbow strap may ease pain and keep you from further injury when you start playing tennis again. You can also lower your risk for injury by warming up before you play and cooling down afterward. You should also use the right equipment. For instance, make sure your racquet has the right applications chemist and is the right size for you. Follow-up care Follow up with your healthcare provider, or as advised, if your symptoms don t get better after 2 to 3 weeks of treatment. When to seek medical advice Call your healthcare provider right away if any of these occur: Redness over the painful area Pain, stiffness, or swelling at the elbow gets worse Any numbness or tingling in your arm, hands, or fingers Unexplained fever over 100.4 F (38 C) [phone] [employer]. [address] [place] [address]. All rights reserved. This information is not intended as a substitute for professional medical care. Always follow your healthcare professional's instructions. Established High Blood Pressure High blood pressure (hypertension) is a chronic disease. Often, healthcare providers don t know what causes it. But it can be caused by certain health conditions and medicines. If you have high blood pressure, you may not have any symptoms. If you do have symptoms, they may include headache, dizziness, changes in your vision, chest pain, and shortness of breath. But even without symptoms, high blood pressure that s not treated raises your risk for heart attack, heart failure, and stroke. High blood pressure is a serious health risk and shouldn t be ignored. Blood pressure measurements are given as 2 numbers. Systolic blood pressure is the upper number. This is the pressure when the heart contracts. Diastolic blood pressure is the lower number. This is the pressure when the heart relaxes between beats. You will see your blood pressure readings written together. For example, a person with a systolic pressure of 118 and a diastolic pressure of 78 will have 118/78 written in the medical record. Blood pressure is categorized as normal, elevated, or stage 1 or stage 2 high blood pressure: Normal blood pressure is systolic of less than 120 and diastolic of less than 80 (120/80) Elevated blood pressure is systolic of 120 to 129 and diastolic less than 80 Stage 1 high blood pressure is systolic is 130 to 139 or diastolic between 80 to 89 Stage 2 high blood pressure is when systolic is 140 or higher or the diastolic is 90 or higher Home care If you have high blood pressure, follow these home care guidelines to help lower your blood pressure. If you are taking medicines for high blood pressure, these methods may reduce or end your need for medicines in the future. Start a weight-loss program if you are overweight. Cut back on how much salt you get in your diet. Here s how to do this: oDon t eat foods that have a lot of salt. These include olives, pickles, smoked meats, and salted potato chips. oDon t add salt to your food at the table. oUse only small amounts of salt when cooking. Start an exercise program. Talk with your healthcare provider about the type of exercise program that would be best for you. It doesn't have to be hard. Even brisk walking for 20 minutes 3 times a week is a good form of exercise. Don t take medicines that stimulate the heart. This includes many xdin-xzy-knpvsoh cold and sinus decongestant pills and sprays, as well as diet pills. Check the warnings about high blood pressure on the label. Before buying any nkrz-yex-nomeifz medicines or supplements, always ask the pharmacist about the product's potential interaction with your high blood pressure and your high blood pressure medicines. Stimulants such as amphetamine or cocaine could be deadly for someone with high blood pressure. Never take these. Limit how much caffeine you get in your diet. Switch to caffeine-free products. Stop smoking. If you are a long-time smoker, this can be hard. Talk to your healthcare provider about medicines and nicotine replacement options to help you. Also, enroll in a stop-smoking program to make it more likely that you will quit for good. Learn how to handle stress. This is an important part of any program to lower blood pressure. Learn about relaxation methods like meditation, yoga, or biofeedback. If your provider prescribed medicines, take them exactly as directed. Missing doses may cause your blood pressure get out of control. If you miss a dose or doses, check with your healthcare provider or pharmacist about what to do. Consider buying an automatic blood pressure machine to check your blood pressure at home. Ask your provider for a recommendation. You can get one of these at most pharmacies. The [place] [employer] recommends the following guidelines for home blood pressure monitoring: Don't smoke or drink coffee for 30 minutes before taking your blood pressure. Go to the bathroom before the test. Relax for 5 minutes before taking the measurement. Sit with your back supported (don't sit on a couch or soft chair); keep your feet on the floor uncrossed. Place your arm on a solid flat surface (like a table) with the upper part of the arm at heart level. Place the middle of the cuff directly above the bend of the elbow. Check the monitor's instruction manual for an illustration. Take multiple readings. When you measure, take 2 to 3 readings one minute apart and record all of the results. Take your blood pressure at the same time every day, or as your healthcare provider recommends. Record the date, time, and blood pressure reading. Take the record with you to your next medical appointment. If your blood pressure monitor has a built-in memory, simply take the monitor with you to your next appointment. Call your provider if you have several high readings. Don't be frightened by a single high blood pressure reading, but if you get several high readings, check in with your healthcare provider. Note: When blood pressure reaches a systolic (top number) of 180 or higher OR diastolic (bottom number) of 110 or higher, seek emergency medical treatment. Follow-up care You will need to see your healthcare provider regularly. This is to check your blood pressure and to make changes to your medicines. Make a follow-up appointment as directed. Bring the record of your home blood pressure readings to the appointment. When to seek medical advice Call your healthcare provider right away if any of these occur: Blood pressure reaches a systolic (upper number) of 180 or higher OR a diastolic (bottom number) of 110 or higher Chest pain or shortness of breath Severe headache Throbbing or rushing sound in the ears Nosebleed Sudden severe pain in your belly (abdomen) Extreme drowsiness, confusion, or fainting Dizziness or spinning sensation (vertigo) Weakness of an arm or leg or one side of the face You have problems speaking or seeing [id number] [employer]. [address] [place] [address], [place] [address]. All rights reserved. This information is not intended as a substitute for professional medical care. Always follow your healthcare professional's instructions. Additional Information VACCINATE! IT SAVES LIVES! Members of the community who have not yet received the COVID-19 vaccine and would like to receive it can visit one of [facility] vaccine clinics. There are many vaccine clinic locations within the [facility]. For locations and available times, please visit [email or web address] It is important to note that some COVID mobile vaccine clinics are held outdoors and may be canceled in rainy or stormy conditions. To learn more about pediatric vaccinations (ages 5-11), we invite you to visit the [facility] webpage. [email or web address] To learn more about the COVID-19 vaccine, we invite you to visit the CDC website for a list of frequently asked questions. https://www.cdc.gov/coronavirus/ 2019-ncov/vaccines/faq.html [employer] Patient Portal Access Instructions: Stay connected with your healthcare team and access your personal medical information anytime with the [employer] Patient Portal. If you would like a full copy of your medical records please contact the [facility] Medical Records Department Monday through Monday between 8a.m. and 4:30p.m. Please follow the directions below to access the portal: 1.Access the email account you provided upon registration to the [facility].2.Look for an invitation email from [facility].3.Open the email and access the invitation link: Accept Invitation to [employer]4.Fill in the required abdi to create your account. Sign into [email or web address].[email or web address] with your username and password that you created in the above steps to stay up to date. You can then view a summary of results, a summary of your visits, and the ability to download your summaries to your computer or send the information securely to a physician. Remember that your healthcare information is confidential, so carefully consider who you will allow to register on the [employer] Patient Portal for access to your information. You can also access the [employer] Patient Portal on the [employer]ior. Simply click on Health Records under Health Data and then click on the [employer] logo. HOW TO SAFELY DISPOSE OF PRESCRIPTION MEDICATIONS Please use one of the following methods to safely dispose of your unused medications. 1.Use a drug disposal kit: the drug disposal pouch allows you to safely discard your old and unused drugs. Ask your nurse to give you one when you are discharged.2.Visit a local take-back location: Many local pharmacies and police departments have programs that collect old and unwanted prescription drugs. Call your local pharmacy or go to http://[employer]/1S7Vm8r to find one close to you.3.Make use of household items: Use cat litter or old coffee grounds to dispose medications if other options are not available. Mix your drugs with these household products, seal them in an airtight container and throw it into the garbage. Call [facility]: [phone] to be sure your drugs can be disposed of in this way. Some medicines may require a different approach.4.Never flush your medications down the toilet. IF YOU HAVE BEEN PRESCRIBED AN OPIOIDS FOR PAIN If you have been prescribed an opioid (such as hydrocodone, oxycodone or morphine), it is critical to understand the possible side effects and risks of opioid pain medications. Even when taken as directed, opioids can have several side effects including: Tolerance, meaning you might need to take more of a medication for the same pain relief. Nausea, vomiting and/or constipation. Sleepiness, dizziness, dry mouth, confusion, depression or itching. Physical dependence, meaning you have withdrawal symptoms when a medication is stopped ? this can develop within a few days. KNOW YOUR RESPONSIBILITIES It is important to know exactly how much and how often to take the opioid pain medications you are prescribed. Never take opioids in higher amounts or more often than prescribed. Do not combine opioids with alcohol or other drugs that cause drowsiness, such as benzodiazepines, also known as benzos, including diazepam and alprazolam, muscle relaxants or sleep aids. Never sell or share prescription opioids. This is illegal. Store opioids in a secure place and out of reach of others (including children, family, friends and visitors). The last page(s) of this document has been signed and retained as a CHART COPY Signatures Patient Education Materials Tennis Elbow Hypertension, Established Medication Leaflets naproxen, lisinopril My discharge plan and instructions have been reviewed and explained to me and I,KASSIDY LOCKE understand my current condition and have read and understand these discharge instructions. I have received a written copy of the plan/instructions. If I have questions, I am aware that I should contact my doctor. 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 The following is important discharge information regarding your hospital visit. Diagnosis from Today's Visit Arm pain-swelling Hypertension Tendonitis What to Do Next Instructions from Your Care Team Discharge Home Equipment - Ordered -- Sling, Arm Left, 99 month(s), 09/17/23 1:51:00 EST Post Acute Orders No qualifying data available. You Need to Schedule the Following Appointments Follow Up with Follow up with primary care provider When Within 2-4 days Allergies No active allergies Medications Please ask your primary doctor or pharmacist before taking any other medication not listed, including over the counter drugs, herbal medications, vitamins and or supplements as they may interact with your home medications. What How Much When Instructions Last Dose New lisinopril (lisinopril 20 mg oral tablet) 1 tab(s) by mouth Every day Printed Prescription New naproxen (naproxen 250 mg oral tablet) 1 tab(s) by mouth Two (2) times a day Duration: 10 Days Printed Prescription Please take this list to your next doctor s visit. Bring all medications you take, including over the counter medications, herbals and other supplements with you to your doctor s visit. Patients and families are reminded to discard old lists and to update any records with all medication providers or retail pharmacies. Medication Leaflets naproxen (na PROX en) Aleve, Aleve Back and Muscle Pain, Aleve Easy Open Arthritis, Aleve Liquid Gels, Anaprox-DS, EC-Naprosyn, Naprelan, Naprosyn What is the most important information I should know about naproxen? Naproxen can increase your risk of fatal heart attack or stroke. Do not use this medicine just before or after heart bypass surgery (coronary artery bypass graft, or CABG). Naproxen may also cause stomach or intestinal bleeding, which can be fatal. What is naproxen? Naproxen is a nonsteroidal anti-inflammatory drug (NSAID). Naproxen is used to treat pain or inflammation caused by conditions such as arthritis, ankylosing spondylitis, tendinitis, bursitis, gout, or menstrual cramps. The delayed-release or extended-release tablets are slower-acting forms of naproxen that are used only for treating chronic conditions such as arthritis or ankylosing spondylitis. These forms of naproxen will not work fast enough to treat acute pain. Naproxen may also be used for purposes not listed in this medication guide. What should I discuss with my healthcare provider before taking naproxen? Naproxen can increase your risk of fatal heart attack or stroke, even if you don't have any risk factors. Do not use this medicine just before or after heart bypass surgery (coronary artery bypass graft, or CABG). Naproxen may also cause stomach or intestinal bleeding, which can be fatal. These conditions can occur without warning while you are using naproxen, especially in older adults. You should not use naproxen if you are allergic to it, or if you have ever had an asthma attack or severe allergic reaction after taking aspirin or an NSAID. Ask a doctor before giving naproxen to a child younger than 12 years old. Ask a doctor or pharmacist if this medicine is safe to use if you have: heart disease, high blood pressure, high cholesterol, diabetes, or if you smoke; a heart attack, stroke, or blood clot; stomach ulcers or bleeding; asthma; liver or kidney disease; fluid retention; or if you take aspirin to prevent heart attack or stroke. If you are , you should not take naproxen unless your doctor tells you to. Taking an NSAID during the last 20 weeks of can cause serious heart or kidney problems in the unborn baby and possible complications with your . It may not be safe to breastfeed while using this medicine. Ask your doctor about any risk. How should I take naproxen? Use exactly as directed on the label, or as prescribed by your doctor. Use the lowest dose that is effective in treating your condition. Shake the oral suspension (liquid) before you measure a dose. Measure a dose with the supplied measuring device (not a kitchen spoon). Take this medicine with food or milk if it upsets your stomach. Always follow directions on the medicine label about giving this medicine to a child. Naproxen doses are based on weight in children. Your child's dose needs may change if the child gains or loses weight. If you use naproxen long-term, you may need frequent medical tests. This medicine can affect the results of certain medical tests. Tell any doctor who treats you that you are using naproxen. Store at room temperature away from moisture, heat, and light. Keep the bottle tightly closed when not in use. What happens if I miss a dose? Since naproxen is used when needed, you may not be on a dosing schedule. Skip any missed dose if it's almost time for your next dose. Do not use two doses at one time. What happens if I overdose? Seek emergency medical attention or call the Poison Help line at . What should I avoid while taking naproxen? Avoid drinking alcohol. It may increase your risk of stomach bleeding. Avoid taking aspirin or other NSAIDs unless your doctor tells you to. Ask a doctor or pharmacist before using other medicines for pain, fever, swelling, or cold/flu symptoms. They may contain ingredients similar to naproxen (such as aspirin, ibuprofen, or ketoprofen). Ask your doctor before using an antacid, and use only the type your doctor recommends. Some antacids can make it harder for your body to absorb naproxen. What are the possible side effects of naproxen? Get emergency medical help if you have signs of an allergic reaction (runny or stuffy nose, wheezing or trouble breathing, hives, swelling in your face or throat) or a severe skin reaction (fever, sore throat, burning eyes, skin pain, red or purple skin rash with blistering and peeling). Stop using naproxen and seek medical treatment if you have a serious drug reaction that can affect many parts of your body. Symptoms may include skin rash, fever, swollen glands, muscle aches, severe weakness, unusual bruising, or yellowing of your skin or eyes. Get emergency medical help if you have signs of a heart attack or stroke: chest pain spreading to your jaw or shoulder, sudden numbness or weakness on one side of the body, slurred speech, leg swelling, feeling short of breath. Stop using naproxen and call your doctor at once if you have: shortness of breath (even with mild exertion); swelling or rapid weight gain; the first sign of any skin rash or blister, no matter how mild; signs of stomach bleeding--bloody or tarry stools, coughing up blood or vomit that looks like coffee grounds; liver problems--nausea, upper stomach pain, loss of appetite, dark urine, gabriella-colored stools, jaundice (yellowing of the skin or eyes); kidney problems--little or no urination, painful urination, swelling in your feet or ankles; or low red blood cells (anemia)--pale skin, unusual tiredness, feeling light-headed or short of breath, cold hands and feet. Common side effects may include: headache; indigestion, heartburn, stomach pain; or flu symptoms; This is not a complete list of side effects and others may occur. Call your doctor for medical advice about side effects. You may report side effects to FDA at 6-533-RSZ-3401. What other drugs will affect naproxen? Ask your doctor before using naproxen if you take an antidepressant. Taking certain antidepressants with an NSAID may cause you to bruise or bleed easily. Ask a doctor or pharmacist before using naproxen with any other medications, especially: other NSAIDs or salicylates (diflunisal, salsalate); antacids and sucralfate; cholestyramine; cyclosporine; digoxin; lithium; methotrexate; pemetrexed; probenecid; warfarin (Coumadin, Jantoven) or similar blood thinners; a diuretic or 'water pill'; or heart or blood pressure medication. This list is not complete. Other drugs may affect naproxen, including prescription and zyxk-mme-yzjbjrt medicines, vitamins, and herbal products. Not all possible drug interactions are listed here. Where can I get more information? Your pharmacist can provide more information about naproxen. Remember, keep this and all other medicines out of the reach of children, never share your medicines with others, and use this medication only for the indication prescribed. Every effort has been made to ensure that the information provided by [employer] is accurate, up-to-date, and complete, but no guarantee is made to that effect. Drug information contained herein may be time sensitive. [employer] information has been compiled for use by healthcare practitioners and consumers in the [place] and therefore [employer] does not warrant that uses outside of the [place] are appropriate, unless specifically indicated otherwise. [employer] drug information does not endorse drugs, diagnose patients or recommend therapy. [employer] drug information is an informational resource designed to assist licensed healthcare practitioners in caring for their patients and/or to serve consumers viewing this service as a supplement to, and not a substitute for, the expertise, skill, knowledge and judgment of healthcare practitioners. The absence of a warning for a given drug or drug combination in no way should be construed to indicate that the drug or drug combination is safe, effective or appropriate for any given patient. [facility] does not assume any responsibility for any aspect of healthcare administered with the aid of information [facility] provides. The information contained herein is not intended to cover all possible uses, directions, precautions, warnings, drug interactions, allergic reactions, or adverse effects. If you have questions about the drugs you are taking, check with your doctor, nurse or pharmacist. Copyright 4658-5322 [facility] [employer]. Version: 22.. Revision Date: 05/25/2023. lisinopril (lyse [place] pril) Prinivil, Qbrelis, Zestril What is the most important information I should know about lisinopril? Do not use if you are . Stop using this medicine and tell your doctor right away if you become . Tell your doctor about all your other medicines. Some drugs should not be used with lisinopril. What is lisinopril? Lisinopril is used alone or in combination with other medications to treat high blood pressure in adults and children at least 6 years old. Lisinopril is also used in adults to treat congestive heart failure and to improve survival after a heart attack. Lisinopril may also be used for purposes not listed in this medication guide. What should I discuss with my healthcare provider before taking lisinopril? You should not use lisinopril if you are allergic to it or to any other SETH (angiotensin converting enzyme) inhibitor such as captopril, fosinopril, enalapril, benazepril, moexipril, perindopril, quinapril, ramipril, or trandolapril. Do not take lisinopril within 36 hours before or after taking medicine that contains sacubitril (such as Entresto). If you have diabetes, do not take lisinopril with any medication that contains aliskiren (a blood pressure medicine). Do not take lisinopril if you have a history of angioedema (severe allergic reaction). Tell your doctor if you have ever had: heart disease, heart problems such as a recent heart attack; low blood pressure; low white blood cell count; stomach pain; if you are on a low-salt diet; diabetes; liver disease; or kidney disease (or if you are on dialysis). You may also need to avoid taking lisinopril with aliskiren if you have kidney disease. Stop using this medicine and tell your doctor right away if you become . Lisinopril can cause injury or to the unborn baby if you use the medicine during your second or third trimester. Do not breastfeed. How should I take lisinopril? Follow all directions on your prescription label and read all medication guides or instruction sheets. Your doctor may occasionally change your dose. Use the medicine exactly as directed. You may take lisinopril with or without food. Measure liquid medicine with the supplied measuring device (not a kitchen spoon). Your blood pressure will need to be checked often and you may need frequent blood tests. Tell your doctor if you have a planned surgery. Call your doctor if you have ongoing vomiting or diarrhea, or if you are sweating more than usual. You can easily become dehydrated while taking lisinopril. This can lead to very low blood pressure, an electrolyte imbalance, or kidney failure. If you have high blood pressure, keep using this medicine even if you feel well. High blood pressure often has no symptoms. Store tightly closed at room temperature, away from moisture and heat. Do not freeze. What happens if I miss a dose? Take the medicine as soon as you can, but skip the missed dose if it is almost time for your next dose. Do not take two doses at one time. What happens if I overdose? Seek emergency medical attention or call the Poison Help line at . What should I avoid while taking lisinopril? Avoid getting up too fast from a sitting or lying position, or you may feel dizzy. Do not use potassium supplements or salt substitutes, unless your doctor has told you to. Avoid becoming overheated or dehydrated during exercise, in hot weather, or by not drinking enough fluids. Follow your doctor's instructions about the type and amount of liquids you should drink. In some cases, drinking too much liquid can be as unsafe as not drinking enough. What are the possible side effects of lisinopril? Get emergency medical help if you have signs of an allergic reaction: severe stomach pain, hives, difficult breathing, swelling of your face, lips, tongue, or throat. Call your doctor at once if you have: a light-headed feeling, like you might pass out; high blood potassium--nausea, weakness, tingly feeling, chest pain, irregular heartbeats, loss of movement; low white blood cell counts--fever, mouth sores, skin sores, sore throat, cough; kidney problems--swelling, urinating less, feeling tired or short of breath; or liver problems--loss of appetite, stomach pain (upper right side), tiredness, itching, dark urine, gabriella-colored stools, jaundice (yellowing of the skin or eyes). Common side effects may include: headache, dizziness; low blood pressure, cough; or chest pain. This is not a complete list of side effects and others may occur. Call your doctor for medical advice about side effects. You may report side effects to FDA at 8-171-CRZ-5050. What other drugs will affect lisinopril? Lisinopril can harm your kidneys, especially if you also use certain medicines for infections, cancer, or osteoporosis. Tell your doctor about all your other medicines, especially: a diuretic or 'water pill' that may increase blood potassium such as spironolactone, triamterene, or amiloride; NSAIDs (nonsteroidal anti-inflammatory drugs)--aspirin, ibuprofen (Advil, Motrin), naproxen (Aleve), celecoxib, diclofenac, indomethacin, meloxicam, and others; insulin or diabetes medications; medicine to prevent organ transplant rejection such as temsirolimus, sirolimus, or everolimus; or heart or blood pressure medication. This list is not complete. Other drugs may affect lisinopril, including prescription and lqrg-qsq-whxnvjw medicines, vitamins, and herbal products. Not all possible drug interactions are listed here. Where can I get more information? Your doctor or pharmacist can provide more information about lisinopril. Remember, keep this and all other medicines out of the reach of children, never share your medicines with others, and use this medication only for the indication prescribed. Every effort has been made to ensure that the information provided by [employer] is accurate, up-to-date, and complete, but no guarantee is made to that effect. Drug information contained herein may be time sensitive. [employer] information has been compiled for use by healthcare practitioners and consumers in the [place] and therefore [employer] does not warrant that uses outside of the [place] are appropriate, unless specifically indicated otherwise. [employer] drug information does not endorse drugs, diagnose patients or recommend therapy. [employer] drug information is an informational resource designed to assist licensed healthcare practitioners in caring for their patients and/or to serve consumers viewing this service as a supplement to, and not a substitute for, the expertise, skill, knowledge and judgment of healthcare practitioners. The absence of a warning for a given drug or drug combination in no way should be construed to indicate that the drug or drug combination is safe, effective or appropriate for any given patient. [employer] does not assume any responsibility for any aspect of healthcare administered with the aid of information [employer] provides. The information contained herein is not intended to cover all possible uses, directions, precautions, warnings, drug interactions, allergic reactions, or adverse effects. If you have questions about the drugs you are taking, check with your doctor, nurse or pharmacist. Copyright 0070-6699 [employer]. Version: 18.01. Revision Date: 04/17/2023. Education Materials Tennis Elbow Muscles connect to bones by thick, fibrous cords (tendons). When the muscles are overused by repeated motion, the tendons may become inflamed and painful. This condition is called tendonitis. Tennis elbow (lateral epicondylitis) is a form of tendonitis. It occurs when the forearm muscles are used again and again in a twisting motion. Pain from tennis elbow occurs mainly on the outside of the elbow. But the pain can spread into the forearm and wrist. Your elbow may also be swollen and tender to the touch. The pain may get worse when you move your arm or do simple activities. Bending your wrist back, shaking hands, or turning a doorknob may cause pain. The pain often gets worse after several weeks or months. Sometimes you may feel pain when your arm is still. Tennis players who use a backhand stroke with poor technique are more likely to get tennis elbow. But playing tennis is only one cause of tennis elbow. Other common activities that can cause it include: Hammering Painting Raking Besides tennis players, people at risk include unionmelt operator, gardeners, musicians, and dentists. Sometimes people get tennis elbow without doing anything that would cause the injury. Treatment includes resting the arm and taking anti-inflammatory medicines. Special splints can help ease symptoms. Symptoms should get better after 4 to 6 weeks of rest. You may need steroid injections if resting and using a splint don t help. After the pain is relieved, you should change your activities so the symptoms don t return. You may need physical therapy. It may include stretching, yjwjt-pp-piroal, and strengthening exercises. These treatments help most cases. You may need surgery if your symptoms continue for 6 months despite treatment. Home care Follow these guidelines when caring for yourself at home: Rest your elbow as needed. Protect it from movement that causes pain. You may be told to use a forearm splint at night to ease symptoms in the morning. Your healthcare provider may recommend a special wrap or splint to compress the muscles of the forearm. This can ease pain during daytime activities. As your symptoms get better, start to move your elbow more. Put an ice pack on the injured area. Do this for 20 minutes every 1 to 2 hours the first day for pain relief. You can make an ice pack by wrapping a plastic bag of ice cubes in a thin towel. Continue using the ice pack 3 to 4 times a day for the next several days. Then use the ice pack as needed to ease pain and swelling. You may use acetaminophen or ibuprofen to control pain, unless another pain medicine was prescribed. If you have chronic liver or kidney disease, talk with your healthcare provider before using these medicines. Also talk with your provider if you ve had a stomach ulcer or gastrointestinal bleeding. After your elbow heals, avoid the motion that caused your pain. Or learn to move in a way that causes less stress on the tendon. Using a forearm wrap may keep tennis elbow from happening again. A tennis elbow strap may ease pain and keep you from further injury when you start playing tennis again. You can also lower your risk for injury by warming up before you play and cooling down afterward. You should also use the right equipment. For instance, make sure your racquet has the right applications chemist and is the right size for you. Follow-up care Follow up with your healthcare provider, or as advised, if your symptoms don t get better after 2 to 3 weeks of treatment. When to seek medical advice Call your healthcare provider right away if any of these occur: Redness over the painful area Pain, stiffness, or swelling at the elbow gets worse Any numbness or tingling in your arm, hands, or fingers Unexplained fever over 100.4 F (38 C) [id number] [employer]. [address] [place] [address]. All rights reserved. This information is not intended as a substitute for professional medical care. Always follow your healthcare professional's instructions. Established High Blood Pressure High blood pressure (hypertension) is a chronic disease. Often, healthcare providers don t know what causes it. But it can be caused by certain health conditions and medicines. If you have high blood pressure, you may not have any symptoms. If you do have symptoms, they may include headache, dizziness, changes in your vision, chest pain, and shortness of breath. But even without symptoms, high blood pressure that s not treated raises your risk for heart attack, heart failure, and stroke. High blood pressure is a serious health risk and shouldn t be ignored. Blood pressure measurements are given as 2 numbers. Systolic blood pressure is the upper number. This is the pressure when the heart contracts. Diastolic blood pressure is the lower number. This is the pressure when the heart relaxes between beats. You will see your blood pressure readings written together. For example, a person with a systolic pressure of 118 and a diastolic pressure of 78 will have 118/78 written in the medical record. Blood pressure is categorized as normal, elevated, or stage 1 or stage 2 high blood pressure: Normal blood pressure is systolic of less than 120 and diastolic of less than 80 (120/80) Elevated blood pressure is systolic of 120 to 129 and diastolic less than 80 Stage 1 high blood pressure is systolic is 130 to 139 or diastolic between 80 to 89 Stage 2 high blood pressure is when systolic is 140 or higher or the diastolic is 90 or higher Home care If you have high blood pressure, follow these home care guidelines to help lower your blood pressure. If you are taking medicines for high blood pressure, these methods may reduce or end your need for medicines in the future. Start a weight-loss program if you are overweight. Cut back on how much salt you get in your diet. Here s how to do this: oDon t eat foods that have a lot of salt. These include olives, pickles, smoked meats, and salted potato chips. oDon t add salt to your food at the table. oUse only small amounts of salt when cooking. Start an exercise program. Talk with your healthcare provider about the type of exercise program that would be best for you. It doesn't have to be hard. Even brisk walking for 20 minutes 3 times a week is a good form of exercise. Don t take medicines that stimulate the heart. This includes many womk-jlp-joqjhji cold and sinus decongestant pills and sprays, as well as diet pills. Check the warnings about high blood pressure on the label. Before buying any nsqd-cay-qsbtrsd medicines or supplements, always ask the pharmacist about the product's potential interaction with your high blood pressure and your high blood pressure medicines. Stimulants such as amphetamine or cocaine could be deadly for someone with high blood pressure. Never take these. Limit how much caffeine you get in your diet. Switch to caffeine-free products. Stop smoking. If you are a long-time smoker, this can be hard. Talk to your healthcare provider about medicines and nicotine replacement options to help you. Also, enroll in a stop-smoking program to make it more likely that you will quit for good. Learn how to handle stress. This is an important part of any program to lower blood pressure. Learn about relaxation methods like meditation, yoga, or biofeedback. If your provider prescribed medicines, take them exactly as directed. Missing doses may cause your blood pressure get out of control. If you miss a dose or doses, check with your healthcare provider or pharmacist about what to do. Consider buying an automatic blood pressure machine to check your blood pressure at home. Ask your provider for a recommendation. You can get one of these at most pharmacies. The [place] [employer] recommends the following guidelines for home blood pressure monitoring: Don't smoke or drink coffee for 30 minutes before taking your blood pressure. Go to the bathroom before the test. Relax for 5 minutes before taking the measurement. Sit with your back supported (don't sit on a couch or soft chair); keep your feet on the floor uncrossed. Place your arm on a solid flat surface (like a table) with the upper part of the arm at heart level. Place the middle of the cuff directly above the bend of the elbow. Check the monitor's instruction manual for an illustration. Take multiple readings. When you measure, take 2 to 3 readings one minute apart and record all of the results. Take your blood pressure at the same time every day, or as your healthcare provider recommends. Record the date, time, and blood pressure reading. Take the record with you to your next medical appointment. If your blood pressure monitor has a built-in memory, simply take the monitor with you to your next appointment. Call your provider if you have several high readings. Don't be frightened by a single high blood pressure reading, but if you get several high readings, check in with your healthcare provider. Note: When blood pressure reaches a systolic (top number) of 180 or higher OR diastolic (bottom number) of 110 or higher, seek emergency medical treatment. Follow-up care You will need to see your healthcare provider regularly. This is to check your blood pressure and to make changes to your medicines. Make a follow-up appointment as directed. Bring the record of your home blood pressure readings to the appointment. When to seek medical advice Call your healthcare provider right away if any of these occur: Blood pressure reaches a systolic (upper number) of 180 or higher OR a diastolic (bottom number) of 110 or higher Chest pain or shortness of breath Severe headache Throbbing or rushing sound in the ears Nosebleed Sudden severe pain in your belly (abdomen) Extreme drowsiness, confusion, or fainting Dizziness or spinning sensation (vertigo) Weakness of an arm or leg or one side of the face You have problems speaking or seeing [id number] [employer]. [address] [place] [address], [place] [address]. All rights reserved. This information is not intended as a substitute for professional medical care. Always follow your healthcare professional's instructions. Additional Information VACCINATE! IT SAVES LIVES! Members of the community who have not yet received the COVID-19 vaccine and would like to receive it can visit one of [facility] vaccine clinics. There are many vaccine clinic locations within the [facility]. For locations and available times, please visit [email or web address] It is important to note that some COVID mobile vaccine clinics are held outdoors and may be canceled in rainy or stormy conditions. To learn more about pediatric vaccinations (ages 5-11), we invite you to visit the [facility] webpage. [email or web address] To learn more about the COVID-19 vaccine, we invite you to visit the CDC website for a list of frequently asked questions. https://www.cdc.gov/coronavirus/ 2019-ncov/vaccines/faq.html [employer] Patient Portal Access Instructions: Stay connected with your healthcare team and access your personal medical information anytime with the [employer] Patient Portal. If you would like a full copy of your medical records please contact the [facility] Medical Records Department Monday through Monday between 8a.m. and 4:30p.m. Please follow the directions below to access the portal: 1.Access the email account you provided upon registration to the hospital.2.Look for an invitation email from [facility].3.Open the email and access the invitation link: Accept Invitation to [facility] [employer] [facility]4.Fill in the required abdi to create your account. Sign into www.[email or web address] with your username and password that you created in the above steps to stay up to date. You can then view a summary of results, a summary of your visits, and the ability to download your summaries to your computer or send the information securely to a physician. Remember that your healthcare information is confidential, so carefully consider who you will allow to register on the [employer] Patient Portal for access to your information. You can also access the [employer] Patient Portal on the [employer] fior. Simply click on Health Records under Health Data and then click on the [employer] logo. HOW TO SAFELY DISPOSE OF PRESCRIPTION MEDICATIONS Please use one of the following methods to safely dispose of your unused medications. 1.Use a drug disposal kit: the drug disposal pouch allows you to safely discard your old and unused drugs. Ask your nurse to give you one when you are discharged.2.Visit a local take-back location: Many local pharmacies and police departments have programs that collect old and unwanted prescription drugs. Call your local pharmacy or go to http://[employer]/6T1Pw6w to find one close to you.3.Make use of household items: Use cat litter or old coffee grounds to dispose medications if other options are not available. Mix your drugs with these household products, seal them in an airtight container and throw it into the garbage. Call [facility]: [phone] to be sure your drugs can be disposed of in this way. Some medicines may require a different approach.4.Never flush your medications down the toilet. IF YOU HAVE BEEN PRESCRIBED AN OPIOIDS FOR PAIN If you have been prescribed an opioid (such as hydrocodone, oxycodone or morphine), it is critical to understand the possible side effects and risks of opioid pain medications. Even when taken as directed, opioids can have several side effects including: Tolerance, meaning you might need to take more of a medication for the same pain relief. Nausea, vomiting and/or constipation. Sleepiness, dizziness, dry mouth, confusion, depression or itching. Physical dependence, meaning you have withdrawal symptoms when a medication is stopped ? this can develop within a few days. KNOW YOUR RESPONSIBILITIES It is important to know exactly how much and how often to take the opioid pain medications you are prescribed. Never take opioids in higher amounts or more often than prescribed. Do not combine opioids with alcohol or other drugs that cause drowsiness, such as benzodiazepines, also known as benzos, including diazepam and alprazolam, muscle relaxants or sleep aids. Never sell or share prescription opioids. This is illegal. Store opioids in a secure place and out of reach of others (including children, family, friends and visitors). The last page(s) of this document has been signed and retained as a CHART COPY Signatures Patient Education Materials Tennis Elbow Hypertension, Established Medication Leaflets naproxen, lisinopril My discharge plan and instructions have been reviewed and explained to me and I,KASSIDY LOCKE understand my current condition and have read and understand these discharge instructions. I have received a written copy of the plan/instructions. If I have questions, I am aware that I should contact my doctor. 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 HISTORY: ORDERING SYSTEM PROVIDED HISTORY: Reason for Exam: pain FINDINGS: There is no fracture of the left elbow. Radiohumeral and ulnohumeral alignment is normal. The joint spaces are normal. There is no evidence of joint effusion. No soft tissue swelling is detected. IMPRESSION: No radiographic abnormality of the left elbow. Interpreted by: Walter Salazar MD Preliminary Report By: Walter Salazar MD Electronically signed By Walter Salazar MD Dictated Date: 09/17/2023 1:40:42 AM Prelim Date: 09/17/2023 1:41:53 AM Sign Date: 09/17/2023 1:41:53 AM Ordering Provider: JAIDEN ROMERO [facility] 05-26-2023 History of Presen t illness Narrative Images from the original note were not included. Subjective HPI HPI Kassidy Locke is a 42 year old female who presents today for CC of severe, shooting pain down both arms, finger numbness unable to sleep says she cries often. This started 2 days ago. Has tried neurontin for relief. Symptoms are worsened by nothing specific. Denies injury. .Patient presents with: hands and arm pain: X 2 days PAST MEDICAL HISTORY Diagnosis Date Dysthymic disorder Depression (non-psychotic) Generalized anxiety disorder Anxiety, Generalized Hypertension PAST SURGICAL HISTORY Procedure Laterality Date NONE ALLERGIES Patient has no known allergies. MEDICATIONS gabapentin (NEURONTIN) 300 mg capsule Take 1 capsule by mouth daily at bedtime for 90 days. lisinopril (ZESTRIL) 20 mg tablet Take 1 tablet by mouth once daily. PARoxetine (PAXIL) 20 mg tablet Take 1 tablet by mouth once daily. Blood Pressure Monitor (BLOOD PRESSURE KIT) 1 Each once daily. FAMILY HISTORY Problem Relation Age of Onset Diabetes Maternal Grandmother Diabetes Sister Social History Tobacco Use Smoking status: Every Day Types: Cigarettes Smokeless tobacco: Never Tobacco comments: has a Juul, not used lately Substance Use Topics Alcohol use: No Comment: occasionally Drug use: No ROS Objective Blood pressure 122/76, pulse 83, temperature 36.4 C (97.6 F), temperature source Tympanic, resp. rate 18, weight 83.4 kg (183 lb 12.8 oz), last menstrual period 01/21/2023. Physical Exam Constitutional: General: She is in acute distress (d/t severity of pain, is tearful). Appearance: She is not toxic-appearing or diaphoretic. HENT: Head: Normocephalic and atraumatic. Pulmonary: Effort: Pulmonary effort is normal. No accessory muscle usage or respiratory distress. Neurological: Mental Status: She is alert and oriented to person, place, and time. ASSESSMENT/PLAN: 1. Severe pain - ICD9: 780.96, ICD10: R52 D/t severity of pain, will refer to ER. pain out of proportion to exam. Corey Conway APRN.MULTISENSOR INTELLIGENCE OFFICER documented in this encounter [facility] 05-19-2023 Miscellaneous Notes Telephone on 05/19/23 CONSULT TO PRIMARY [facility] ADULT Mood disorder (hcc) (primary encounter diagnosis) Drug abuse (hcc) Thanks, Quincy Hernandez PA-C documented in this encounter [facility] 03-30-2023 Discharge summary Note Date/Time March 30, 2023 12:41pm [facility] Medical Records Department [address] [place] [address] Emergency Department Summary 03/30/23 MR#: [id number] Acct: [id number] Name: KASSIDY LOCKE Rep #:[id number] : 1980 42 From: Arun Armstrong MD PCP: Dr. Basilio Colón MD Status:REG E R Location: ED HPI HPI - Psych History of Present Illness Chief Complaint: Substance Abuse Informant: patient and EMS Narrative Narrative: Patient was brought here by EMS after the police were called because she was agitated, running around the neighborhood early in the morning, screaming, and altered. The was apparently alerted to this by the police and did not know this was occurring prior. The patient is here alone, when I asked her whatbrought her to the ER, she seems disoriented, she does not know, she tries to leave, she tries to go to the water fountain behind the nursing station, she tells staff this is ridiculous, what did you do with Jewel? The patient is redirected to her room, and she goes on and on about someone named him and is asking us what we did with Jewel, and that we should have him arrested, etc. She is not making any sense. She is not giving appropriate answers to questions. She admitted to police here that she had used methamphetamine and also admitted that she was having some type of hallucinations. [facility] Medical History Acute appendicitis Cocaine abuse Depression GERD (gastroesophageal reflux disease) Hypertension Physical exam, pre-employment Tobacco use disorder Home Medications fluoxetine 20 mg capsule 80 mg PO DAILY mood 02/28/14 [History Last Taken 07/19/20 22:00] gabapentin 300 mg capsule 300 mg PO QHS PRN Cramps 05/09/21 [History Last Taken Unknown] lisinopril 10 mg tablet 10 mg PO DAILY 05/09/21 [History Last Taken Unknown] carbamazepine 100 mg tablet,extended release,12 hr (Tegretol XR) 100 mg PO BID #14 tabs 08/12/22 [Rx Last Taken Unknown] hydrocodone-acetaminophen 5-325mg 5mg-325mg 1 tab PO Q6H PRN pain 3 days #10 tabs 09/20/22 [Rx Last Taken Unknown] penicillin V potassium 250 mg tablet 500 mg PO 4X/DAY #40 tabs 09/20/22 [Rx Last Taken Unknown] Allergy/AdvReac Type Severity Reaction Status Date / Time No Known Allergies Allergy Verified 09/20/22 20:58 Surgical History History of laparoscopic appendectomy (~07/20/20) Social History Smoking Status: Current some day smoker tobacco type: cigarettes substance use type: crack/cocaine ROS ROS ED Constitutional Constitutional ED: Denies chills or fever(s) Eyes Eyes: Denies change in vision or diplopia ENT ENT ED: Reports ear pain left; Denies rhinorrhea or sore throat Cardiovascular Cardiovascular: Denies chest pain or palpitations Respiratory/Chest Respiratory/Chest: Denies cough or dyspnea Gastrointestinal Gastrointestinal: Denies abdominal pain, diarrhea, nausea or vomiting Genitourinary Genitourinary ED: Denies dysuria or hematuria Musculoskeletal Musculoskeletal: Denies back pain or neck pain Integumentary Denies abscess or rash Neurologic Neurologic: Reports headache(s); Denies paresthesias or weakness Psychiatric Psychiatric: Reports as per HPI, confusion and paranoia; Denies suicidal ideation EXAM Physical Exam Const Vital Signs: 03/30/23 09:11 03/30/23 11:33 03/30/23 11:50 Temperature 98.1 F Temperature Source Temporal Pulse Rate 121 H 88 Respiratory Rate 16 17 Blood Pressure 161/106 H Blood Pressure Mean 124 Pulse Ox 98 97 Oxygen Delivery Method Room Air Room Air Room Air 03/30/23 13:01 03/30/23 15:10 Temperature Temperature Source Pulse Rate 94 Respiratory Rate 17 18 Blood Pressure 120/93 H Blood Pressure Mean 102 Pulse Ox 99 Oxygen Delivery Method Room Air Room Air Positive well nourished and well developed General Appearance ED: well developed and NAD HEENT Reports moist mucous membranes HEENT Narrative: normal external ear exam, nontender mastoid processes bilat. Refuses further ear examination. normocephalic and atraumatic Eyes PERRL and EOMs intact bilaterally Neck full ROM, no lymphadenopathy and supple General: Negative for tenderness Resp normal respiratory effort and clear to auscultation bilaterally Cardio regular rate, regular rhythm and no murmurs GI non-tender and non-distended Auscultation: normoactive bowel sounds Palpation: soft Back/Spine no CVA tenderness General Back: other FROM Extremity normal to inspection General Extremety ED: Negative for edema, pulses abnormal or tenderness General Extremity: Negative for edema or pulses abnormal Neuro CN's II-XII intact bilaterally, no sensory deficits noted and gait normal Neuro Narrative: not oriented; will not answer all questions; psychomotor agitation Sensorium / Orientation: awake and alert Motor Exam: strength 5/5 throughout Psych Psych Narrative: Agitated. Psychomotor agitation. Walking around the room in the hallways, occasionally redirectable, not physically violent. Keeps talking about Jewel and asking people where he is and does not understand why we would not know Skin no rashes or lesions noted and no wounds MDM MDM MDM Narrative Medical decision making narrative: The patient seems psychotic, and she does not appear to have the capacity to make appropriate decisions for herself and her care at this time, so I pink slipped her temporarily so that we could keep her here and run medical testing. See below, the capacity assessment was performed at this time. I tried multipletimes, as did staff to redirect the patient verbally, but she really was not comprehending any of this. I put an order in for a as needed dose of Geodon, she ended up being amenable to it and we gave it to her so that we could help keep her from being so agitated to enable us to perform testing including a CT of the head which was done. I reviewed the images and the report which I agree with. An MRI was recommended since the patient has an abnormality in the frontal lobe on CT that is nonspecific. Before getting the MRI, her Timarrived who was not here before, and I had this discussion with him, and expressed my concern that the frontal lobe manages behavior and this abnormalitycould be related to her acute psychosis. He understands this, and the reason for the MRI, but states she is much better now and he suspects this was all related to her using methamphetamine which she has a history of doing but she has never been this bad as far as being agitated and psychotic. We were able toobtain the MRI reviewed those images and the report which I agree with, basically shows chronic abnormalities that could be consistent with a demyelinating or other primary COFFEE ROASTER pathology, it could also be due to chronic abnormalities due to microvascular disease which could be related to her chronicdrug use in my judgment. I discussed all this with the patient and her . She is comfortable with going home with them, she is making more sense now and is redirectable verbally, and I am comfortable with him taking her home which iswhat he wants to do. I recommend close outpatient neurologic follow-up, and advised that it may be helpful to see if her condition persists if she stops using methamphetamine. The rest of her work-up was unremarkable. It is noted that she tested positive for nitrite on her urine, but the rest of it is negative so I am sending it for a culture but I do not think it needs to be treated, she denies any urinary symptoms. History & Record Review Discussion w/independent historian: Patient and Family Additional record(s) reviewed:: Prior ED visit (prior episodes of paranoia, suspected to be drug-induced) Lab Data Attestation: I reviewed the patient's lab results. Labs: Laboratory Results - last 24 hr 03/30/23 03/30/23 03/30/23 10:03 10:03 10:03 WBC 9.3 RBC 4.27 Hgb 12.1 Hct 36.8 L MCV 86.2 MCH 28.3 MCHC 32.9 RDW Std Deviation 44.3 H RDW Coeff of Lyndsey 14.1 Plt Count 536 H MPV 8.7 Immature Gran % (Auto) 0.500 Neut % (Auto) 62.6 Lymph % (Auto) 27.1 Arthur % (Auto) 9.0 Eos % (Auto) 0.2 Baso % (Auto) 0.6 Absolute Neuts (auto) 5.8 Absolute Lymphs (auto) 2.53 Nucleated RBC % 0 Sodium 136 Potassium 3.9 Chloride 109 H Carbon Dioxide 21.0 Anion Gap 6 BUN 22 H Creatinine 1.47 H Estim Creat Clear Calc 47.15 Est GFR (MDRD) Af Amer 50 L Est GFR (MDRD) Non-Af 42 L BUN/Creatinine Ratio 15.0 Glucose 98 Calcium 9.5 Total Bilirubin 0.80 AST 19 ALT 24 Alkaline Phosphatase 60 Total Protein 8.3 H Albumin 4.3 Globulin 4.0 Albumin/Globulin Ratio 1.1 TSH 0.95 Serum , Qual Urine Color Urine Clarity Urine pH Ur Specific [place] Urine Protein Urine Glucose (UA) Urine Ketones Urine Occult Blood Urine Nitrite Urine Bilirubin Urine Urobilinogen Ur Leukocyte Esterase Urine RBC Urine WBC Ur Squamous Epith Cells Ur Transition Epith Cell Urine Bacteria Urine Mucus Urine Opiates Screen Urine Methadone Screen Ur Barbiturates Screen Ur Phencyclidine Scrn Ur Amphetamines Screen MDMA (Ecstasy) Screen U Benzodiazepines Scrn Urine Cocaine Screen U Cannabinoids Screen Ur Drug Screen Comment Ethyl Alcohol < 3.0 03/30/23 03/30/23 03/30/23 10:03 10:10 10:10 WBC RBC Hgb Hct MCV MCH MCHC RDW Std Deviation RDW Coeff of Lyndsey Plt Count MPV Immature Gran % (Auto) Neut % (Auto) Lymph % (Auto) Arthur % (Auto) Eos % (Auto) Baso % (Auto) Absolute Neuts (auto) Absolute Lymphs (auto) Nucleated RBC % Sodium Potassium Chloride Carbon Dioxide Anion Gap BUN Creatinine Estim Creat Clear Calc Est GFR (MDRD) Af Amer Est GFR (MDRD) Non-Af BUN/Creatinine Ratio Glucose Calcium Total Bilirubin AST ALT Alkaline Phosphatase Total Protein Albumin Globulin Albumin/Globulin Ratio TSH Serum , Qual NEGATIVE Urine Color Yellow Urine Clarity Sl. Cloudy Urine pH 5.0 Ur Specific [place] 1.030 Urine Protein 30 H Urine Glucose (UA) 50 H Urine Ketones 50 H Urine Occult Blood 25 H Urine Nitrite Positive H Urine Bilirubin Negative Urine Urobilinogen 1 H Ur Leukocyte Esterase 25 H Urine RBC 0-5 SEEN Urine WBC 0-5 SEEN Ur Squamous Epith Cells 0-5 SEEN Ur Transition Epith Cell 0-5 SEEN Urine Bacteria 2+ Urine Mucus 0 SEEN Urine Opiates Screen NEGATIVE Urine Methadone Screen NEGATIVE Ur Barbiturates Screen NEGATIVE Ur Phencyclidine Scrn NEGATIVE Ur Amphetamines Screen POSITIVE H MDMA (Ecstasy) Screen POSITIVE H U Benzodiazepines Scrn NEGATIVE Urine Cocaine Screen NEGATIVE U Cannabinoids Screen NEGATIVE Ur Drug Screen Comment Ethyl Alcohol Radiography Diagnostic Testing: Clinical Impression(s) from Imaging Studies Brain CT 03/30/23 10:42 IMPRESSION: Questionable focal area of decreased attenuation in the right frontal lobe deep in the white matter. Correlation with MRI is recommended. Electronically Signed: Camacho Staley MD at 11:07 EDT , Brain MRI 03/30/23 12:34 IMPRESSION: Moderate chronic white matter changes which can be seen with chronic small vessel ischemic gliosis, other vascular etiology, or sequela of nonspecific demyelination or inflammation. No evidence for acute infarct. Electronically Signed: Mary Najera MD at 15:01 EDT , Rhythm Strip Rhythm Strip: Sinus Tach Rate: 115 Ectopy: None Discharge Plan Triage Chief Complaint: Substance Abuse ED Provider: Arun Armstrong Dx/Rx/DC Orders Clinical Impression: Acute psychosis, Methamphetamine abuse Prescriptions: No Action fluoxetine 20 MG capsule 80 mg PO DAILY lisinopril 10 mg tablet 10 mg PO DAILY gabapentin 300 mg capsule 300 mg PO QHS PRN (Reason: Cramps) Label Comments: take 1 capsule by mouth at bedtime carbamazepine [Tegretol XR] 100 mg tablet extended release 12 hr 100 mg PO BID Qty: 14 0RF penicillin V potassium 250 mg tablet 500 mg PO 4X/DAY Qty: 40 0RF hydrocodone-acetaminophen 5-325 mg tablet 1 tab PO Q6H PRN (Reason: pain) 3 Days Qty: 10 0RF Primary Care Provider: Basilio Colón Referrals: Omar Dickerson MD [Non-Staff -Ordering Privileges] - As soon as possible Basilio Coóln MD [Primary Care Provider] - [facility] [Non-Staff] - (if desired for addiction/drug abuse problems) Disposition Disposition: Home, Self Care Capacity Capacity Assessment Tool Can the patient make a choice & communicate that choice?: No Can the patient understand benefits, risks and alternatives?: No Can the patient make a logical, rational choice?: No Is there an impending, emergent risk to the patient?: Unable to Determine (Priorto testing/work-up, but nothing obvious clinically on exam) Does the patient have an Advance Directive?: No Is there a Surrogate Available?: No What to do if you have Problems For any increased pain, shortness of breath, bleeding, nausea or vomiting, chestpain, or any unexpected problems, contact your Primary Care Provider. Call [facility] ([phone]) or report to the closest Emergency Room. Call 911 if necessary. 03/30/23 [id number] <Electronically signed by Arun Armstrong MD> Cosigner Signature (if applicable): CC: Dr. Omar Dickerson MD; Dr. Basilio Colón MD ~ Signed [facility] Work Phone: [phone] 156-355405-08-2023 Miscellaneous Notes* Telephone Encounter - Guadalupe Reed LPN - 02/27/2023 10:51 AM EDT Pt notified and voiced understanding with no further questions or concerns. Guadalupe Reed LPN * Telephone Encounter - Guadalupe Reed LPN - 02/24/2023 3:50 PM EDT 2nd attempt to contact pt with test results. Message left asking pt to call the office . Guadalupe Reed LPN * Telephone Encounter - Guadalupe Reed LPN - 02/23/2023 8:55 AM EDT Message left asking pt to call the office for results. Guadalupe Reed LPN' * Telephone Encounter - Guadalupe Reed LPN - 02/23/2023 8:54 AM EDT ----- Message from Robina Gong APRN.CNM sent at 02/23/2023 7:56 AM EDT ----- STD screening negative. Please notify patient. Robina Gong APRN.CNM [facility] History of Present illness Narrative* Robina Gong APRN.CNM - 02/21/2023 9:42 AM EDT Surveyor Helper Rod offered: Patient declines. Kassidy Locke is a 42 year old female who presents for problem visit for vaginal discharge and testing. HPI: Vaginal discharge and odor and knows something does not feel right. Would like STD screening. Denies irregular bleeding or pelvic pain. OB History T2 L2 SAB0 IAB0 Ectopic0 Multiple0 Live Births0 [employer] History LMP: 01/21/2023 (Within Days), Having periods Age at Menarche: Age at First : Age at Menopause: [employer] History Comments: Sexual Activity: Yes; Male; ok Contraception: None PAST MEDICAL HISTORY Diagnosis Date Dysthymic disorder Depression (non-psychotic) Generalized anxiety disorder Anxiety, Generalized Hypertension PAST SURGICAL HISTORY Procedure Laterality Date NONE FAMILY HISTORY Problem Relation Age of Onset Diabetes Maternal Grandmother Diabetes Sister Social History Tobacco Use Smoking status: Every Day Types: Cigarettes Smokeless tobacco: Never Tobacco comments: has a Juul, not used lately Substance Use Topics Alcohol use: No Comment: occasionally Drug use: No Current Outpatient Medications Medication Sig gabapentin (NEURONTIN) 300 mg capsule Take 1 capsule by mouth three times daily for 90 days. (Patient taking differently: Take 300 mg by mouth three times daily as needed (sciatic nerve pain).) FLUoxetine (PROZAC) 20 mg capsule Take 3 capsules by mouth once daily. lisinopril (ZESTRIL, PRINIVIL) 10 mg tablet Take 1 tablet by mouth once daily. HYDROcodone-acetaminophen (NORCO) 5-325 mg per tablet Take 1 tablet by mouth every 6 hours as needed for pain. (Patient not taking: Reported on 02/21/2023) No current facility-administered medications for this visit. Allergies As of Date: 02/21/2023 (No Known Allergies) Fully Assessed 02/21/2023 REVIEW OF SYSTEMS Abdomen: No bloating, early satiety, indigestion, or increased flatulence. No abdominal pain, nausea, vomiting, diarrhea, or constipation. Bladder: No dysuria, gross hematuria, urinary frequency, urinary urgency, or incontinence. Breast: No breast lumps, nipple d/c, overlying skin changes, redness or skin retraction. Expanded ROS: N/A Allergies and current medication updated:Yes EXAM: BP 122/74 Wt 204 lb (92.5kg) LMP 01/21/2023 GENERAL: pleasant, female in no apparent distress HEENT: Normocephalic and atraumatic NECK: Supple and full range of motion DERMATOLOGY: Normal and without lesions PELVIC: external genitalia normal, normal Bartholin's glands, urethra, [place]'s glands, no vulvar lesions, no cervical lesions, good vaginal support, physiologic discharge present, normal appearing perineal body and perianal region BIMANUAL: uterus normal size, shape and consistency, no adnexal masses, and non-tender NEURO: alert and oriented x3,exam grossly non-focal EXTREMITIES: normal ASSESSMENT AND PLAN: Encounter Diagnosis ICD-10-CM 1. Vaginal discharge N89.8 BV, yeast and STD screening. Will call with results. Robina Gong APRN.CNM documented in this encounterMer[facility]22 NoteHNO ID: [id number] Author: Sheila To RN Service: Nursing Author Type: Registered Nurse Type: Nursing Progress Note Filed: 09/23/2022 3:09 PM Note Text: Tooth removed per , no specimen to lab.[facility]12-02-2022 NoteHNO ID: [id number] Author: JIM Mcleod Service: ? Author Type: Preschool Assistant Teacher Type: Anesthesia Procedure Notes Filed: 09/23/2022 2:21 PM Note Text: ANESTHESIOLOGY PROCEDURE NOTE Airway General Information Procedure Start Time/Medication Administration: 09/23/2022 2:12 PM Patient location during procedure: OR Timeout Performed Pre-procedure: timeout performed Consent Obtained: Yes Patient identity confirmed: arm band Staffing Anesthesiologist: Carlito Manuel DO CAA: JIM Mcleod Performed by: UNIQUE student Indications and Patient Condition Indications for airway management: anesthesia Preoxygenated: yes anesthesia circuit Final Airway Details Final airway type: supraglottic airway Number of attempts at approach: 1 Final Supraglottic Airway: LMA LarySeal Size 4 Seal Adequate: yes SIGNATURE: JIM Mcleod PATIENT NAME: Kassidy Locke DATE: September 23, 2022 TIME: 2:21 PM CSN: [id number] [facility]12[facility]22 NoteHNO ID: [id number] Author: Sara Noland RN Service: Care Management Author Type: Registered Nurse Type: Care Mgt Progress Note Filed: 09/23/2022 2:05 PM Note Text: CARE MANAGEMENT PROGRESS NOTE SERVICE DATE: 09/23/2022 SERVICE TIME: 1404 LOS: 2 days NPO for surgery today. IV Cleocin. D/C plan is home. No needs at this time. SIGNATURE: Sara Noland RN PATIENT NAME: Kassidy Locke DATE: September 23, 2022 TIME: 2:04 PM PAGER/CONTACT #: [phone] Lakes [facility] Center12-02-2022 NoteHNO ID: [id number] Author: Maria C Burnett RN Service: ? Author Type: Registered Nurse Type: Nursing Progress Note Filed: 09/23/2022 2:33 PM Note Text: Cleocin sent to Same Day per phone call with surgery.[facility] 09-23-2022 History of Past illness Narrative* Problem Noted Date Resolved Date Antibiotic-induced yeast infection 09/23/2022 09/24/2022 Dental abscess 09/21/2022 09/24/2022 Depression 12/11/2012 03/24/2021 Overview: In counseling at [facility]. Had a dui. documented as of this encounter (statuses as of 02/23/2023) [facility]12-[facility] History of Past illness Narrative* Problem Noted Date Resolved Date Antibiotic-induced yeast infection 09/23/2022 09/24/2022 Dental abscess 09/21/2022 09/24/2022 Depression 12/11/2012 03/24/2021 Overview: In counseling at [facility]. Had a dui. documented as of this encounter (statuses as of 02/27/2023) [facility]12-[facility] History of Past illness Narrative* Problem Noted Date Resolved Date Antibiotic-induced yeast infection 09/23/2022 09/24/2022 Dental abscess 09/21/2022 09/24/2022 Depression 12/11/2012 03/24/2021 Overview: In counseling at [facility]. Had a dui. documented as of this encounter (statuses as of 03/20/2023) [facility]12-02-[facility] History of Past illness Narrative* Problem Noted Date Diagnosed Date Resolved Date Antibiotic-induced yeast infection 09/23/2022 09/24/2022 Dental abscess 09/21/2022 09/24/2022 Depression 12/11/2012 03/24/2021 Overview: In counseling at [facility]. Had a dui. documented as of this encounter (statuses as of 05/26/2023) [facility]12-02-[facility] History of Past illness Narrative* Problem Noted Date Diagnosed Date Resolved Date Antibiotic-induced yeast infection 09/23/2022 09/24/2022 Dental abscess 09/21/2022 09/24/2022 Depression 12/11/2012 03/24/2021 Overview: In counseling at [facility]. Had a dui. documented as of this encounter (statuses as of 06/09/2023) [facility]12-02-2022 NoteHNO ID: [id number] Author: Eva Christianson DO Service: Hospital Medicine Author Type: Physician Type: Progress Notes Filed: 09/23/2022 9:29 AM Note Text: INPATIENT PROGRESS NOTE SERVICE DATE: 09/23/2022 SERVICE TIME: 9:12 PM PRIMARY SERVICE: Hospitalist Subjective CHIEF COMPLAINT: Growing yeast infection INTERVAL HPI: Patient having far less soreness and feeling improvement on antibiotics with swelling down, able to tolerate pills and stated she was allowed some tomato soup last night but was not allowed a full meal, now n.p.o. again for anticipated procedure this afternoon. She thinks she is starting to get a yeast infection from her initial penicillin dosing that she got prior to arrival and that this normally happens with the penicillin derivative antibiotics, she is unsure if it would have been with the current antibiotic. Current Facility-Administered Medications Medication Dose Route Frequency NaCl 0.9% iv flush bag 20 mL INTRAVENOUS PRN sodium chloride 0.9 % (flush) 3-5 mL (BD POSIFLUSH) 3-5 mL INTRAVENOUS q 12 H dextrose 5% in NaCl 0.9% iv infusion 75 mL/hr INTRAVENOUS CONTINUOUS morphine 4 mg injection 4 mg INTRAVENOUS q 3 H PRN senna 17.2 mg tab(s) (SENOKOT) 17.2 mg ORAL DAILY PRN lisinopril 10 mg tab(s) (ZESTRIL, PRINIVIL) 10 mg ORAL DAILY clindamycin iv piggyback 600 mg in D5W 50 mL (CLEOCIN) 600 mg INTRAVENOUS q 6 H keTORolac 15 mg injection (TORADOL) 15 mg INTRAVENOUS q 6 H FLUoxetine 60 mg cap(s) (PROzac) 60 mg ORAL DAILY gabapentin 300 mg cap(s) (NEURONTIN) 300 mg ORAL q 8 H PRN famotidine 20 mg injection (PEPCID) 20 mg INTRAVENOUS BID fluconazole 200 mg tab(s) (DIFLUCAN) 200 mg ORAL ONCE Objective PHYSICAL EXAM: BP 154/95 Pulse 80 Temp (Src) 98 (Oral) Resp 18 Ht 5' 7 (1.70m) Wt 213 lb 3.2 oz (96.7kg) SpO2 97% LMP 01/11/2022 BMI 33.38 kg/(m2). O2 Therapy: Room Air Physical Exam Performed GENERAL: Alert, no distress, cooperative LUNGS: Lungs clear to auscultation, Good diaphragmatic excursion CARDIAC: Normal S1 and S2; no rubs, murmurs, or gallops ABDOMEN: Abdomen soft, non-tender, BS normal, No masses or organomegaly EXTREMITIES: Extremities normal, no deformities, edema, clubbing or skin discoloration. Good capillary refill., No ulcers NEURO: Grossly normal cognition, motor function, and cranial nerves III-XII Dental exam deferred, externally no erythema or obvious swelling/asymmetry DATA: Diagnostic tests reviewed for today's visit: Most recent labs and imaging results. Assessment/Plan Principal Problem: Dental abscess POA: Yes Assessment AND Plan: Oral Surgery pending, on iv clindamycin with clinical improvement. Follow up tomorrow for next steps depending on findings/intervention, likely oral antibiotic course and keep on clindamycin Active Problems: Yeast infection POA: Unknown Assessment AND Plan: We will give a one-time dose of Diflucan 200 mg p.o. assess for clinical efficacy tomorrow Anxiety POA: Yes Assessment AND Plan: Fluoxetine to resume at home dosing today Sciatica POA: Yes Assessment AND Plan: Gabapentin PRN can be ordered if needed, this is not a standard regimen but apparently how she takes it Essential hypertension POA: Yes Assessment AND Plan: Lisinopril continued from home dose, slightly elevated more in the 150s but she is on Toradol for pain control Gastroesophageal reflux disease POA: Yes Assessment AND Plan: Asymptomatic but patient on toradol so pantoprazole or famotidine would be appropriate for ulcer prophylaxis, clindamycin has risk of c-diff as do PP-I's so famotidine it is, started last night Tobacco user POA: Yes Assessment AND Plan: Nicotine if needed RLS (restless legs syndrome) POA: Yes Assessment AND Plan: Gabapentin PRN Resolved Problems: * No resolved hospital problems. * Medication and Non-Pharmacologic VTE Prophylaxis/Anticoagulants VTE Prophylaxis: VTE prophylaxis appropriate SIGNATURE: Eva Christianson DO PATIENT NAME: Kassidy Locke DATE: September 23, 2022 TIME: 9:28 [facility]MSky [facility]12-[facility]22 NoteHNO ID: [id number] Author: Eva Christianson DO Service: Hospital Medicine Author Type: Physician Type: Progress Notes Filed: 09/22/2022 3:17 PM Note Text: INPATIENT PROGRESS NOTE SERVICE DATE: 09/22/2022 SERVICE TIME: 3:12 PM PRIMARY SERVICE: Hospitalist Subjective CHIEF COMPLAINT: Dental pain INTERVAL HPI: Patient still having soreness but feeling improvement on antibiotics with swelling down, able to tolerate pills and would presumably tolerate diet but made NPO pending surgical plan. States she is ok off her gabapentin because it is as needed for RLS or sciatica but definitely wants to start getting her fluoxetine again tomorrow morning. Hasn't stooled but passing gas and urinating as normal. Current Facility-Administered Medications Medication Dose Route Frequency NaCl 0.9% iv flush bag 20 mL INTRAVENOUS PRN sodium chloride 0.9 % (flush) 3-5 mL (BD POSIFLUSH) 3-5 mL INTRAVENOUS q 12 H dextrose 5% in NaCl 0.9% iv infusion 75 mL/hr INTRAVENOUS CONTINUOUS morphine 4 mg injection 4 mg INTRAVENOUS q 3 H PRN senna 17.2 mg tab(s) (SENOKOT) 17.2 mg ORAL DAILY PRN lisinopril 10 mg tab(s) (ZESTRIL, PRINIVIL) 10 mg ORAL DAILY clindamycin iv piggyback 600 mg in D5W 50 mL (CLEOCIN) 600 mg INTRAVENOUS q 6 H keTORolac 15 mg injection (TORADOL) 15 mg INTRAVENOUS q 6 H [START ON 09/23/2022] FLUoxetine 60 mg cap(s) (PROzac) 60 mg ORAL DAILY Objective PHYSICAL EXAM: BP 136/79 Pulse 78 Temp (Src) 98.2 (Oral) Resp 18 Ht 5' 7 (1.70m) Wt 213 lb 3.2 oz (96.7kg) SpO2 97% LMP 01/11/2022 BMI 33.38 kg/(m2). O2 Therapy: Room Air Physical Exam Performed GENERAL: Alert, no distress, cooperative LUNGS: Lungs clear to auscultation, Good diaphragmatic excursion CARDIAC: Normal S1 and S2; no rubs, murmurs, or gallops ABDOMEN: Abdomen soft, non-tender, BS normal, No masses or organomegaly EXTREMITIES: Extremities normal, no deformities, edema, clubbing or skin discoloration. Good capillary refill., No ulcers NEURO: Grossly normal cognition, motor function, and cranial nerves III-XII Dental exam deferred, externally no erythema or obvious swelling/asymmetry DATA: Diagnostic tests reviewed for today's visit: Most recent labs and imaging results. Assessment/Plan Principal Problem: Dental abscess POA: Yes Assessment AND Plan: Oral Surgery plan pending, on iv clindamycin with clinical improvement. Follow up tomorrow for next steps depending on findings/intervention. Active Problems: Anxiety POA: Yes Assessment AND Plan: Fluoxetine to resume at home dosing tomorrow morning due to lateness today Sciatica POA: Yes Assessment AND Plan: Gabapentin PRN can be ordered if needed Essential hypertension POA: Yes Assessment AND Plan: Lisinopril continued from home dose Gastroesophageal reflux disease POA: Yes Assessment AND Plan: Asymptomatic but patient on toradol so pantoprazole or famotidine would be appropriate for ulcer prophylaxis, clindamycin has risk of c-diff as do PP-I's so famotidine it is, starting tonight Tobacco user POA: Yes Assessment AND Plan: Nicotine if needed RLS (restless legs syndrome) POA: Yes Assessment AND Plan: Gabapentin PRN Resolved Problems: * No resolved hospital problems. * Medication and Non-Pharmacologic VTE Prophylaxis/Anticoagulants VTE Prophylaxis: VTE prophylaxis appropriate SIGNATURE: Eva Christianson DO PATIENT NAME: Kassidy Locke DATE: September 22, 2022 TIME: 3:12 [facility]12-[facility]-2022 NoteHNO ID: [id number] Author: Mara Shrestha RN Service: Nursing Author Type: Registered Nurse Type: Nursing Progress Note Filed: 09/22/2022 12:04 PM Note Text: Dr. Price contacted this nurse at this time and gave new orders at this time.[facility]11-30-2022 NoteHNO ID: [id number] Author: Patrick Dooley RN Service: Care Management Author Type: Registered Nurse Type: Care Mgt Initial Assessment Filed: 09/21/2022 6:54 PM Note Text: CARE MANAGEMENT: ASSESSMENT AND DISCHARGE PLAN SERVICE DATE: September 21, 2022 SERVICE TIME: 6:48 PM PRIMARY CARE PHYSICIAN: Basilio Colón MD Primary Contact: No emergency contact information on file. ADMISSION STATUS: Inpatient Insurance Provider: [facility] MEDICAID NEEDS PRIOR TO DISCHARGE Needs Prior to Discharge: Other: See Comment (Dental consult) POTENTIAL TRANSITION PLANS Home Based on clinical judgement, Care Management will address the following needs: Medical Patient's perception of need for this admission: Tooth abscess ADVANCE DIRECTIVES Current Advance Directive: None Exhauster Attempted to Assist with AD Completion: Yes Action: Patient Unwilling MS/BEHAVIOR Baseline Mental Status Prior to this Illness what was the patient's Baseline Mental Status?: Alert AND Oriented Prior to this illness, has anyone described the patient having any of the following behaviors?: Not Applicable Relationship of the informant to the patient:: Self READMISSION Last Discharge Date: N/A Is this Within the Past 30 days? 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 scores in the EMR?: No Any potential risks related to substance abuse and/or behavioral health?: No Based on clinical judgement, Care Management will address the following needs: Medical CAREGIVER ASSESSMENT Caregiver is ready, willing and able to meet the patient's needs as recommended by the inter-professional team:: No Caregiver needed Patient's transition needs and plan for meeting these needs: She is independent MEDICAL Medical Needs: Other Needs (dental consult) FREEDOM OF CHOICE EXPLAINED: Are you interested in bedside delivery of your medications? No ASSESSMENT AND PLAN: Patient in the ER with abscess tooth. She is independent. She has ride and is current with PCP. Her goal is to get better and return home. She does not anticipate any discharge needs at this time. Dental is consulted. Care management to follow and assist with discharge needs.. SIGNATURE: Patrick Dooley RN PATIENT NAME: Kassidy Locke DATE: September 21, 2022 TIME: 6:48 PM CONTACT #: [phone] [facility] Center11-17-2022 Instructions * Patient Instructions* Nan Hernandez PA-C - 09/08/2022 4:02 PM EST [place] as directed per prescription for pain being careful to limit to 1-2 doses a day unless it is more severe pain. Do not drive or operate dangerous machinery while on this medication: It may cause drowsiness or impair judgment and cause increased risk for falls. This medication may be habit forming if used regularly, and may cause drowsiness, so use caution. This medication may cause constipation so increase fiber and exercise if possible. Stimulant laxatives such as pericolace or Sennekot OTC may help if needed but should not be used over long periods. [place] is governed by federal regulations for schedule 2 narcotics: you may not share this medication with anyone else, this constitutes a felony. It must be locked or secured in a safe place and cannot be replaced if lost, damaged, or stolen. Try to avoid activities which increase pain. Position for comfort with pillows under or between legs to decrease stress on low back and hip when in bed. Sleeping conditions are very important to backhealth. You need to sleep on a surface that supports your hips in a neutral position. Sagging in the hip or shoulder areas will contribute to muscle irritation. Using a low footstool when sitting upright may also reduce low back pain. Try to arrange seating toallow support in the area where your back curves, especially while watching TV or playing video games. Sitting or standing with a hunched posture will cause or aggravate muscle pain in the neck and low back. Ice or moist heat or both may help with pain and stiffness. Apply for 10-15min as needed. May also use Ibuprofen 600mg q6-8h with food routinely until pain is fully resolved, then prn. documented in this encounterMer[facility]11-17-2022 History of Present illness Narrative* Nan Hernandez PA-C - 09/08/2022 3:08 PM EST 42 year old female with c/o back pain x2 weeks Says the pain is constant and relentless and she is ready to commit suicide. She said nothing is helping the pain and she cannot take it anymore. The pain is prohibiting her from sleeping; sleeps at most 3 hours at a time. Feels like a westley horse, squeezing pain on the entire top of her left thigh and left lower back. Sitting and bending down worsen the pain; driving her car is excruciating. Lying down and standing are the most comfortable positions for her. Cannot think of any precipitating events. 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 Has tried OTC ibuprofen with no relief. Went to Urgent care and received steroid and muscle relaxers for the pain, which did not help at all. Denies paresthesias, incontinence, fevers/chills, or limited ROM. On 09/02/2022 saw Bailee Lew CNP where she recommended PT and NSAIDs. She does take GabaPENTIN as needed for restless leg syndrome. Takes it once or twice a week. HISTORIES FAMILY HISTORY Problem Relation Age of Onset Diabetes Maternal Grandmother Diabetes Sister PAST MEDICAL HISTORY Diagnosis Date Dysthymic disorder Depression (non-psychotic) Generalized anxiety disorder Anxiety, Generalized Hypertension PAST SURGICAL HISTORY Procedure Laterality Date NONE Social History Tobacco Use Smoking status: Every Day Types: Cigarettes Smokeless tobacco: Never Tobacco comments: has a Juul, not used lately Substance Use Topics Alcohol use: No Comment: occasionally Drug use: No ACTIVE PROBLEM LIST Anxiety Sciatica Essential Hypertension Posterior Tibial Tendon Dysfunction, Bilateral Primary Localized Osteoarthrosis, Ankle and Foot Flail Joint, Unspecified Ankle and Foot Heroin Use Accidental Overdose of Heroin (Hcc) Drug Abuse (Hcc) Gastroesophageal Reflux Disease Tobacco User Lung Nodules Rls (Restless Legs Syndrome) Current Outpatient Medications Medication Sig Dispense Refill FLUoxetine (PROZAC) 20 mg capsule Take 3 capsules by mouth once daily. 90 capsule 5 lisinopril (ZESTRIL, PRINIVIL) 10 mg tablet Take 1 tablet by mouth once daily. 30 tablet 5 L. acidophilus-L. rhamnosus 15 billion cell cap Take 1 capsule by mouth once daily. Keep in the refrigerator. 30 capsule 11 gabapentin (NEURONTIN) 300 mg capsule Take 1 capsule by mouth daily at bedtime for 90 days. 30 capsule 5 busPIRone (BUSPAR) 5 mg tablet Take 1 tablet by mouth three times daily. 90 tablet 5 cyclobenzaprine (FLEXERIL) 10 mg tablet Take 1 tablet by mouth three times daily as needed (primarily bedtime). 30 tablet 1 omeprazole (PRILOSEC) 20 mg capsule Take 1 capsule by mouth daily before breakfast. 1/2 hr before meal. 30 capsule 1 ondansetron orally disintegrating (ZOFRAN ODT) 4 mg disintegrating tablet Take 1 tablet by mouth every 8 hours as needed. 20 tablet 0 No current facility-administered medications for this visit. HEPATITIS B(1 of 3 - 3-dose series) Never done COVID-19 VACCINE(1) Never done PNEUMOCOCCAL(1 - PCV) Never done BP CONTROLLED (<130/80) Never done DTAP,TDAP,TD(1 - Tdap) Never done DEPRESSION ASSESSMENT Never done INFLUENZA(1) due on 06/23/2022 REVIEW OF SYSTEMS GENERAL: No weight loss, malaise or fevers HEENT: Negative for frequent or significant headaches, No changes in hearing or vision, no nose bleeds or other nasal problems RESPIRATORY: Negative for cough, hemoptysis, wheezing, COPD, dyspnea or shortness of breath CARDIOVASCULAR: Negative for chest pain, leg swelling, hypertension, CHF or palpitations GI: No nausea, vomiting, or diarrhea MUSCULOSKELETAL: back pain see HPI. EXAM: BP (!) 171/130 Pulse 101 Resp 20 LMP 01/11/2022 (Exact Date) SpO2 100% Pleasant 42 year old female in obvious discomfort. Alert and oriented all spheres. Normal affect and cognition. Speech normal. No deficits to learning or comprehension. Skin warm, dry, pink to lips and nailbeds. Normal turgor. Cardiopulm: RRR, no MRG. Lungs CTA b/l. Respirations regular and unlabored. Extrem: no clubbing or cyanosis. Edema: none. Extremities are warm and pink with prompt capillary refill. Neuromuscular: Lumbar spine and hip ROM grossly normal. Muscular strength intact. Left lower tungsten tender to palpation. Right side without tenderness. Patellar and Achilles reflexes intact bilaterally. Anterior left thigh tender to palpation. +SLR on left side, normal on right. Intact sensation to dull and sharp touch bilaterally. ASSESSMENT/PLAN: 1. Lumbar radiculitis - ICD9: 724.4, ICD10: M54.16 Mechanical low back pain - Ice for localized tenderness and to take ibuprofen prn Increase gabapentin to 300mg 3x daily and titrate as need to pain control Begin: - HYDROCODONE 5 MG-ACETAMINOPHEN 325 MG TABLET Check: - TOX SCREEN ROUT UR - PAIN PANEL, UR QUANT - PAIN PANEL, UR QUANT - SPECIMEN VALIDITY, URINE - XR LUMBAR GENERAL 3V AP/LAT/L5-S1 Discussed PT, pain management: declined for now. F/u in next few weeks if not improving. Educated on pain medications and schedule 2 rules, warnings and side effects Nan Hernandez PA-C Some of this note may have been copied and pasted for the purpose of history context and comparison. documented in this encounterMer[facility]04-18-2022 Miscellaneous Notes* Letter - Mammography Coordinator - 02/07/2022 10:24 AM EDT February 07, 2022 PID: [id number] Kassidy Locke [address] [place] [address] [address] Dear Ms. Locke, We are pleased to inform you that the results of your recent breast imaging exam on 02/07/2022 are normal. Early detection of cancer is very important. We also understand recommendations regarding breast cancer screening are controversial. Please discuss with your primary care provider which strategy is best for you and whether a mammogram is right for you. Your imaging studies and report will be kept on file at [facility] as part of your permanent medical record and are available for your continuing care. Thank you for allowing us to help in meeting your health care needs. Sincerely, Dr. St Interpreting Radiologist [facility] (Normal over 40) documented in this encounterMercy Health St. [facility]04-12-2022 Miscellaneous Notes* Telephone Encounter - Alisia Clemons LPN - 02/01/2022 3:25 PM EDT Patient notified * Telephone Encounter - Ayanna Richardson APRN.CNP - 02/01/2022 2:26 PM EDT +yeast, Diflucan sent. Please notify pt. Ayanna Richardson APRN.KOTA documented in this encounterMer[facility] Health [facility]. [facility]04-11-2022 History of Present illness Narrative* Ayanna Richardson APRN.CNP - 01/31/2022 10:52 AM EDT Kassidy is a 41 year old who presents for an annual gynecologic exam without complaints. Relates yeast infection symptoms around menses, either before or after. She slightly feels itching and an infection coming on. Usually uses OTC cream when symptoms come on, that take care of it. Menses: cycles every 28-30 days and 3 days of flow. Contraception: none HPV vaccine: No Last Pap: 01/02/2019 normal HPV: 01/01/2019 negative History of abnormal pap: Yes, colpo in past Last mammogram: never Sexually active: Yes History of STDS: None Patient concerns for STD exposure: Yes OB History T2 L2 SAB0 IAB0 Ectopic0 Multiple0 Live Births0 [employer] History LMP: 01/11/2022 (Exact Date), Having periods Age at Menarche: Age at First : Age at Menopause: [employer] History Comments: Sexual Activity: Yes; Male; ok Contraception: None PAST MEDICAL HISTORY Diagnosis Date Dysthymic disorder Depression (non-psychotic) Generalized anxiety disorder Anxiety, Generalized Hypertension PAST SURGICAL HISTORY Procedure Laterality Date NONE FAMILY HISTORY Problem Relation Age of Onset Diabetes Maternal Grandmother Diabetes Sister SOCIAL HISTORY Social History Tobacco Use Smoking status: Current Every Day Smoker Types: Cigarettes Smokeless tobacco: Never Used Tobacco comment: has a Juul, not used lately Substance Use Topics Alcohol use: No Comment: occasionally Drug use: No REVIEW OF SYSTEMS Abdomen: No abdominal pain, nausea, vomiting, diarrhea, or constipation. No bloating, early satiety, indigestion, or increased flatulence. Bladder: No dysuria, gross hematuria, urinary frequency, urinary urgency, or incontinence. Breast: No breast lumps, nipple d/c, overlying skin changes, redness or skin retraction. Allergies and current medication updated:Yes EXAM: BP 128/86 Ht 5' 5.5 (1.66m) Wt 214 lb (97.1kg) LMP 01/11/2022 BMI 35.06 kg/(m^2). GENERAL: pleasant, female in no apparent distress HEENT: Normocephalic NECK: Supple BREAST: soft, non-tender, symmetric, no dominant mass, normal nipple-areolar complex, no lymphadenopathy and no nipple discharge CHEST: Normal inspiratory effort ABDOMEN: soft, non-tender and no masses PELVIC: external genitalia normal, normal Bartholin's glands, urethra, Green Level's glands, no vulvar lesions, no cervical lesions, good vaginal support, physiologic discharge present, normal appearing perineal body and perianal region, + white discharge BIMANUAL: uterus normal size, shape and consistency, no adnexal masses and non-tender RECTOVAGINAL: deferred. NEURO: alert and oriented x3,exam grossly non-focal EXTREMITIES: normal ASSESSMENT/PLAN: 1) Health maintenance: Pap/HPV up to date. Vaginal swab obtained. Encourage SBE monthly. Start probiotic for recurrent yeast infections. Mammogram ordered. Nutrition, exercise and routine health maintenance exams reviewed. Calcium/Vitamin D supplementation information provided. 2) Contraception: none. Contraceptive options reviewed and information provided. 3) STD screening: Accepted STD check for Gonorrhea and Chlamydia. 4) Follow up one year or sooner as needed Danyelle Chaidez APRN student TEACHING PROVIDER (Physician/PA/SENIOR TELLER) NOTE OF PERSONAL INVOLVEMENT IN CARE: I have personally seen and examined the patient and performed the medical decision-making components. I have reviewed the Advanced Practice Registered Nurse (SENIOR TELLER) Student's documentation and verified the findings in the note as written. Any additions or changes are noted in bold/italics. Signature: Ayanna Richardson Date: 01/31/2022 Time: 11:40 AM [facility] of Past illness Narrative* Problem Noted Date Resolved Date Essential hypertension 11/02/2016 1 Depression 12/11/2012 03/24/2021 Overview: In counseling at [facility]. Had a dui. documented as of this encounter (statuses as of 01/31/2022) [facility] History of Past illness Narrative* Problem Noted Date Resolved Date Essential hypertension 11/02/2016 1 Depression 12/11/2012 03/24/2021 Overview: In counseling at [facility]. Had a dui. documented as of this encounter (statuses as of 02/01/2022) [facility] History of Past illness Narrative* Problem Noted Date Resolved Date Essential hypertension 11/02/2016 1 Depression 12/11/2012 03/24/2021 Overview: In counseling at [facility]. Had a dui. documented as of this encounter (statuses as of 02/08/2022) [facility] History of Past illness Narrative* Problem Noted Date Resolved Date Essential hypertension 11/02/2016 1 Depression 12/11/2012 03/24/2021 Overview: In counseling at [facility]. Had a dui. documented as of this encounter (statuses as of 02/09/2022) [facility] History of Past illness Narrative* Problem Noted Date Resolved Date Depression 12/11/2012 03/24/2021 Overview: In counseling at [facility]. Had a dui. documented as of this encounter (statuses as of 09/08/2022) [facility] No data available for this section [facility] Evaluation note* Diagnosis Encounter for gynecological examination (general) (routine) without abnormal findings- Primary Screen for STD (sexually transmitted disease) Screening examination for venereal disease Vaginal irritation Unspecified noninflammatory disorder of vagina Encounter for screening mammogram for malignant neoplasm of breast Other screening mammogram documented in this encounter [facility] note* Diagnosis Encounter for screening mammogram for malignant neoplasm of breast Other screening mammogram documented in this encounter [facility] noteNo assessment information availableWShelby [facility] Work Phone: Evaluation note* Diagnosis Lumbar radiculitis- Primary Thoracic or lumbosacral neuritis or radiculitis, unspecified documented in this encounter [facility] note* Diagnosis Vaginal discharge- Primary Leukorrhea, not specified as infective Screening examination for STD (sexually transmitted disease) Screening examination for venereal disease documented in this encounter [facility] note* Diagnosis Encounter for screening mammogram for breast cancer documented in this encounter [facility] note* Diagnosis Severe pain- Primary documented in this encounter [facility] note* Diagnosis Mood disorder (HCC)- Primary Unspecified episodic mood disorder Drug abuse (HCC) Other, mixed, or unspecified nondependent drug abuse, unspecified documented in this encounter [facility] note* Diagnosis Encounter for screening mammogram for breast cancer documented in this encounter [facility] note* Diagnosis Encounter for screening mammogram for breast cancer [facility] Additional Instructions Follow-up with your dentist as soon as possible.[facility] Work Phone: Reason for referral (narrative)* Diagnostic Procedure Only (Routine) - Authorized Specialty Diagnoses / Procedures Referred By Gregg t Referred To Contact BR IMAGING Diagnoses Encounter for screening mammogram for malignant neoplasm of breast Procedures SLIME SCREENING SCREENING MAMMOGRAPHY BI 2-VIEW BREAST INC Ayanna Sun APRN.CNP [address] [place] [address] [facility] [address] [place] [address] Referral ID Status Reason Start Date Expiration Date Visits Requested Visits Authorized [id number] Authorized Auto-Generat ed Referral 01/31/2022 03/02/2023 1 1 [facility] for referral (narrative)* Diagnostic Procedure Only (Routine) - Closed Specialty Diagnoses / Procedures Referred By Contac t Referred To Contact BR IMAGING Diagnoses Encounter for screening mammogram for malignant neoplasm of breast Procedures SLIME SCREENING SCREENING MAMMOGRAPHY BI 2-VIEW BREAST INC CAD Ayanna Richardson APRN.CNP [address] [address] [facility] [address] [place] [address] Referral ID Status Reason Start Date Expiration Date V isits Requested Visits Authorized [id number] Closed Auto-Generate d Referral 01/31/2022 03/02/2023 1 1 [facility] for referral (narrative)* Diagnostic Procedure Only (Routine) - Pending Review Specialty Diagnoses / Procedures Referred By Gregg t Referred To Contact XR IMAGING Diagnoses Lumbar radiculitis Procedures XR LUMBAR GENERAL 3V AP/LAT/L5-S1 RADEX SPINE LUMBOSACRAL 2/3 VIEWS Nan Hernandez PA-C [address] [place] [address] Xr Imaging Referral ID Status Reason Start Date Expiration Date Visits Requested Visits Authorized [id number] Pending Review Auto-Generat ed Referral 10/08/2023 1 1 [facility] for referral (narrative)* Diagnostic Procedure Only (Routine) - Pending Review Specialty Diagnoses / Procedures Referred By Gregg t Referred To Contact [facility] IMAGING Diagnoses Encounter for screening mammogram for breast cancer Procedures SLIME SCREENING SCREENING MAMMOGRAPHY BI 2-VIEW BREAST INC CAD Basilio Colón MD [address] [place] [address] [facility] [address] [place] [address] Referral ID Status Reason Start Date Expiration Date Visits Requested Visits Authorized [id number] Pending Review Auto-Generat ed Referral 03/15/2023 04/13/2024 1 1 [facility] for referral (narrative)* Diagnostic Procedure Only (Routine) - Pending Review Specialty Diagnoses / Procedures Referred By Gregg quiñones Referred To Contact BR IMAGING Diagnoses Encounter for screening mammogram for breast cancer Procedures SLIME SCREENING SCREENING MAMMOGRAPHY BI 2-VIEW BREAST INC CAD Basilio Colón MD [address] [place] [address] [facility] [address] [place] [address] Referral ID Status Reason Start Date Expiration Date Visits Requested Visits Authorized [id number] Pending Review Auto-Generat ed Referral 02/21/2024 03/22/2025 1 1 [facility] for visit Narrative* Diagnostic Procedure Only (Routine) - Closed Specialty Diagnoses / Procedures Referred By Gregg quiñones Referred To Contact BR IMAGING Diagnoses Encounter for screening mammogram for malignant neoplasm of breast Procedures SLIME SCREENING SCREENING MAMMOGRAPHY BI 2-VIEW BREAST INC CAD Ayanna Richardson, NILAM.MULTISENSOR INTELLIGENCE OFFICER [address] [place] [address] [facility] [address] [place] [address] Referral ID Status Reason Start Date Expiration Date V isits Requested Visits Authorized [id number] Closed Auto-Generate d Referral 01/31/2022 03/02/2023 [address] [facility] Summary Purpose Family History No Family History Records Found Relationship Condition Age at Onset Recorded Date/T ani Unknown Family History?No pe rtinent history Unknown July 20, 2020 10:48pm Relationship Condition Age at Onset Recorded Date/T ani Unknown Family History?No pe rtinent history Unknown July 20, 2020 9:48pm Advance Directives No Advanced Directives Records Found Advance Directive Response Recorded Date/ Time Living Will No May 27, 2022 8:45pm Power of Bottle Booth Attendant No May 27 8:45pm Advance Directive Response Recorded Date/ Time Living Will No May 28, 2022 9:05pm Power of Bottle Booth Attendant No May 28 9:05pm Advance Directive Response Recorded Date/ Time Living Will No September 20 10:29pm Power of Bottle Booth Attendant No September 20, 2022 10:29pm Latest Code Status on File Code Status Date Activated Date Inactivated Comments Full Code 09/21/2022 6:50 PM 09/24/2022 5:15 PM Full Code Order Discussed With: Patient Latest Code Status on File Code Status Date Activated Date Inactivated Comments Full Code 09/21/2022 6:50 PM 09/24/2022 5:15 PM Advance Directive Response Recorded Date/ Time Living Will No March 30, 2023 9 :26am Power of Bottle Booth Attendant No March 30, 2023 9:26am Latest Code Status on File Code Status Date Activated Date Inactivated Comments Full Code 09/21/2022 6:50 PM 09/24/2022 5:15 PM Question Answer Comments Full Code Order Discussed With: Patient Date Activated Date Inactivated Comments 09/21/2022 6:50 PM 09/24/2022 5:15 PM Question Answer Comments Full Code Order Discussed With: Patient Chief Complaint and Reason for Visit Chief Complaint chest pain Chief Complaint chest pain SOB,VISION LOSS, DIAPHORESIS,PALMA Chief Complaint chest pain SOB,VISION LOSS, DIAPHORESIS,PALMA EAR PAIN DENTAL Chief Complaint Poisoning substance abuse Additional Source Comments INFORMATION SOURCE (unrecogn ized section and content) DATE CREATED AUTHOR 04/17/[address] [facility] DATE CREATED AUTHOR AUTHOR'S ORGANIZ ATION 09/27/2022 [facility] DATE CREATED AUTHOR AUTHOR'S ORGANIZ ATION 04/04/[address] [facility] DATE CREATED AUTHOR AUTHOR'S ORGANIZ ATION 04/04/2024 [facility] ([place] DATE CREATED AUTHOR AUTHOR'S ORGANIZ ATION 11/01/2024 [facility] DATE CREATED AUTHOR AUTHOR'S ORGANIZ ATION 02/26/2025 [facility] Source Comments (unrecognize d section and content) In the event this informatio n is protected by the Federal Confidentiality of Alcohol and Drug Abuse Patient Records regulations: The Federal rules restrict any use of the information to criminally investigate or prosecute any alcohol or drug abuse patient.[facility] the event this information is protected by the Federal Confidentiality of Alcohol and Drug Abuse Patient Records regulations: The Federal rules restrict any use of the information to criminally investigate or prosecute any alcohol or drug abuse patient.[facility] Center[facility] the event this information is protected by the Federal Confidentiality of Alcohol and Drug Abuse Patient Records regulations: The Federal rules restrict any use of the information to criminally investigate or prosecute any alcohol or drug abuse patient.[facility] CenterIn the event this information is protected by the Federal Confidentiality of Alcohol and Drug Abuse Patient Records regulations: The Federal rules restrict any use of the information to criminally investigate or prosecute any alcohol or drug abuse patient.[facility] Center[facility] the event this information is protected by the Federal Confidentiality of Alcohol and Drug Abuse Patient Records regulations: The Federal rules restrict any use of the information to criminally investigate or prosecute any alcohol or drug abuse patient.[facility] Center[facility] the event this information is protected by the Federal Confidentiality of Alcohol and Drug Abuse Patient Records regulations: The Federal rules restrict any use of the information to criminally investigate or prosecute any alcohol or drug abuse patient.[facility] CenterIn the event this information is protected by the Federal Confidentiality of Alcohol and Drug Abuse Patient Records regulations: The Federal rules restrict any use of the information to criminally investigate or prosecute any alcohol or drug abuse patient.[facility] CenterIn the event this information is protected by the Federal Confidentiality of Alcohol and Drug Abuse Patient Records regulations: The Federal rules restrict any use of the information to criminally investigate or prosecute any alcohol or drug abuse patient.[facility] CenterIn the event this information is protected by the Federal Confidentiality of Alcohol and Drug Abuse Patient Records regulations: The Federal rules restrict any use of the information to criminally investigate or prosecute any alcohol or drug abuse patient.[facility] CenterIn the event this information is protected by the Federal Confidentiality of Alcohol and Drug Abuse Patient Records regulations: The Federal rules restrict any use of the information to criminally investigate or prosecute any alcohol or drug abuse patient.[facility] CenterIn the event this information is protected by the Federal Confidentiality of Alcohol and Drug Abuse Patient Records regulations: The Federal rules restrict any use of the information to criminally investigate or prosecute any alcohol or drug abuse patient.[facility] CenterIn the event this information is protected by the Federal Confidentiality of Alcohol and Drug Abuse Patient Records regulations: The Federal rules restrict any use of the information to criminally investigate or prosecute any alcohol or drug abuse patient.[facility] Reason for Visit (unrecogniz ed section and content) Reason Comments Yearly Exam Reason Comments Results Reason Comments Back Pain Reason Comments hands and arm pain X 2 days Care Teams (unrecognized sec tion and content) Oxygen Therapy Technician Relationship Specialty Start Date End Date Basilio Colón MD [address] [place] [address] PCP - General Family Practice 09/11/13 Oxygen Therapy Technician Relationship Specialty Start Date End Date Basilio Colón MD [address] [place] [address] PCP - General Family Practice 09/11/13 Oxygen Therapy Technician Relationship Specialty Start Date End Date Basilio Colón MD [address] [place] [address] PCP - General Family Practice 09/11/13 Oxygen Therapy Technician Relationship Specialty Start Date End Date Basilio Colón MD [address] [place] [address] PCP - General Family Practice 09/11/13 Oxygen Therapy Technician Relationship Specialty Start Date End Date Basilio Colón MD [address] [place] [address] PCP - General Family Medicine 09/11/13 Oxygen Therapy Technician Relationship Specialty Start Date End Date Basilio Colón MD [address] [place] [address] PCP - General Family Medicine 09/11/13 Demario Hilton MD, DDS [address] [address] Maxillofacial Surgery 09/23/22 Oxygen Therapy Technician Relationship Specialty Start Date End Date Basilio Colón MD [address] [place] [address] PCP - General Family Medicine 09/11/13 Demario Hilton MD, DDS [address] [address] Maxillofacial Surgery 09/23/22 Oxygen Therapy Technician Relationship Specialty Start Date End Date Basilio Colón MD [address] [place] [address] PCP - General Family Medicine 09/11/13 Demario Hilton MD, DDS [address] [address] Maxillofacial Surgery 09/23/22 Team Status: Active Member Role Status Dates Dr. Basilio Colón MD Family Provider Active Dr. Basilio Colón MD Primary Care Provider Active Team Status: Inactive Member Role Status Dates Dr. Basilio Colón MD Primary Care Provider Active Dr. Manjeet Champion MD Attending Provider, Emergency Provider Active Team Status: Inactive Member Role Status Dates Dr. Basilio Colón MD Primary Care Provider Active Dr. Arun Armstrong MD Emergency Provider Active Oxygen Therapy Technician Relationship Specialty Start Date End Date Basilio Colón MD [address] [place] [address] PCP - General Family Medicine 09/11/13 Demario Hilton MD, DDS [address] [address] Maxillofacial Surgery 09/23/22 Oxygen Therapy Technician Relationship Specialty Start Date End Date Basilio Colón MD [address] [place] [address] PCP - General Family Medicine 09/11/13 Demario Hilton MD, DDS [address] [address] Maxillofacial Surgery 09/23/22 Oxygen Therapy Technician Relationship Specialty Start Date End Date Basilio Colón MD [address] [place] [address] PCP - General Family Medicine 09/11/13 Demario Hilton MD, DDS [address] [address] Maxillofacial Surgery 09/23/22 Oxygen Therapy Technician Relationship Specialty Start Date End Date Basilio Colón MD [address] [place], [place] [address] PCP - General Family Medicine 09/11/13 Demario Hilton MD, DDS [address] [facility] [address] [place] [address] Maxillofacial Surgery 09/23/22 Steffanie Christian APRN.MULTISENSOR INTELLIGENCE OFFICER [address] [place], [place] [address] [facility] 09/30/24 Marine Moya APRN.MULTISENSOR INTELLIGENCE OFFICER [address] [place], [place] [address] [facility] 09/30/24 Goals (unrecognized section and content) Goals may be documented in a n alternate sectionGoals may be documented in an alternate sectionGoals may be documented in an alternate sectionGoals may be documented in an alternate section No data available for this section No data available for this section FOR RECORDS PERTAINING TO PATIENTS WHO ARE OR HAVE BEEN ENROLLED IN A CHEMICAL DEPENDENCY/SUBSTANCEABUSE PROGRAM, SOME INFORMATION MAY BE OMITTED. This clinical summary was aggregated from multiple sources. Caution should be exercised in using it in the provision of clinical care. This summary normalizes information from multiple sources, and as a consequence, information in this document may materially change the coding, format and clinical context of patient data. In addition, data may be omitted in some cases. CLINICAL DECISIONS SHOULD BE BASED ON THE PRIMARY CLINICAL RECORDS. [facility]. provides no warranty or guarantee of the accuracy or completeness of information in this document.
--- NOTE | 2025-05-08 22:49 | EX.ED.DYSGE1 ---
HPI History of Present Illness Chief Complaint: Anxiety Informant: patient and police/customer account executive Narrative Narrative: Patient is a 44-year-old female with past medical history of hypertension anxiety and depression and previous drug use. She was arrested today as she had an outstanding warrant. After being sentenced she became very emotional and began complaining of multiple symptoms. In order to medically clear to patient for placement and skilled nursing/police custody she was brought to the ER for evaluation. The patient states that she has not taken her blood pressure medication for over 1 year. She states even when she was taking it her blood pressure was reading high. She states she has had headaches for the past 4 months but feels like it is worse today after being sentenced to skilled nursing. She also feels that her life is over and has thoughts of self-harm. [facility] Medical History Cocaine abuse Physical exam, pre-employment GERD (gastroesophageal reflux disease) Hypertension Depression Acute appendicitis Tobacco use disorder Home Medications ?Medication ?Instructions ?Recorded ?Last Taken ?Type fluoxetine 20 mg capsule 80 mg PO DAILY mood 02/28/14 07/19/20 22:00 History gabapentin 300 mg capsule 300 mg PO QHS PRN Cramps 05/09/21 Unknown History lisinopril 10 mg tablet 10 mg PO DAILY 05/09/21 Unknown History carbamazepine 100 mg 100 mg PO BID #14 tabs 08/12/22 Unknown Rx tablet,extended release,12 hr (Tegretol XR) hydrocodone-acetaminophen 5-325mg 1 tab PO Q6H PRN pain 3 days #10 09/20/22 Unknown Rx 5mg-325mg tabs penicillin V potassium 250 mg 500 mg (2 x 250 mg) PO 4X/DAY #40 09/20/22 Unknown Rx tablet tabs Allergy/AdvReac Type Severity Reaction Status Date / Time No Known Allergies Allergy Verified 09/20/22 20:58 Surgical History History of laparoscopic appendectomy (~07/20/20) Social History (Updated 05/08/25 @ 21:33 by Coco Gomes) household members: family Smoking Status: Current some day smoker tobacco type: cigarettes substance use type: crack/cocaine ROS ROS ED Constitutional Constitutional ED: Denies chills or fever(s) Eyes Eyes: Denies change in vision ENT ENT ED: Denies sore throat Cardiovascular Cardiovascular: Denies chest pain Respiratory/Chest Respiratory/Chest: Denies cough or dyspnea Gastrointestinal Gastrointestinal: Denies abdominal pain, diarrhea, nausea or vomiting Genitourinary Genitourinary ED: Denies dysuria Musculoskeletal Musculoskeletal: Denies myalgias Integumentary Denies rash Neurologic Neurologic: Reports headache(s) Psychiatric Psychiatric: Reports anxiety Hematologic/Lymphatic Hematologic/Lymphatic: Denies easy bleeding or easy bruising EXAM Physical Exam Const Vital Signs: 05/08/25 21:25 Temperature 98.8 F Temperature Source Oral Pulse Rate 100 Respiratory Rate 20 H Blood Pressure 252/164 H Blood Pressure Mean 193 Pulse Ox 99 Oxygen Delivery Method Room Air Positive well nourished, well developed and obese General Appearance ED: well developed; Negative for pallor Nutritional Appearance: obese HEENT HEENT Narrative: Normocephalic atraumatic Eyes PERRL and EOMs intact bilaterally General Eye ED: Negative for scleral icterus Neck supple and no JVD Neck Narrative: No nuchal rigidity or meningeal signs noted Resp normal respiratory effort and clear to auscultation bilaterally Cardio regular rate and regular rhythm Rate: other Other Details: Regular rate and rhythm without murmurs rubs or gallops Radial and carotid pulses are equal and symmetric GI normal to inspection, nondistended, normoactive bowel sounds, non-tender, non-distended and no masses GI Narrative: Soft nontender nondistended with normal active bowel sounds. No voluntary guarding or rigidity or pulsatile mass Auscultation: normoactive bowel sounds Palpation: soft Extremity normal to inspection Extremity Narrative: No asymmetric edema no pitting edema negative Homans' sign bilaterally Neuro oriented x3, CN's II-XII intact bilaterally and no sensory deficits noted Neuro Narrative: GCS of 15 Cranial nerves II through XII are grossly intact without focal neurologic deficit NIH stroke scale score of 0 Sensorium / Orientation: alert Motor Exam: strength 5/5 throughout Psych Mood & Affect: anxious Skin no rashes or lesions noted General Skin Exam: Negative for jaundice or pallor MDM MDM MDM Narrative Medical decision making narrative: Patient arrived to the ER hypertensive but has a past medical history of this and was also visibly anxious which would increase this value. She has not been taking her blood pressure medication for over a year. She also reports that she has been having headaches but these been present for the last few months as well. All of her symptoms have worsened after she was arrested and sentenced to skilled nursing time. At this time her neurologic exam is normal she is awake and alert she does not have signs of hypertensive encephalopathy. There is no peripheral edema to suggest renal disease. There is no pulsatile mass or abdominal pain to suggest aortic aneurysm. Her EKG confirms no STEMI or signs of ischemia. Therefore I do not feel there is need for further intervention as the patient's symptoms are chronic she has refused treatment in the past and all of her symptoms have been present for multiple months and only worsened after she received news about going to skilled nursing. Therefore at this time I believe she is medically cleared and can be placed in skilled nursing. She did have mention of self-harm however again I feel this is behavioral related to her situation. The skilled nursing can place her on suicide watch if desired and have crisis center display associate but as I feel this is a behavioral aspect not a true suicidal ideation or plan there is no need for emergent crisis center evaluation. History & Record Review Discussion w/independent historian: Patient Discharge Plan Triage Chief Complaint: Anxiety ED Provider: Justus Ortega Dx/Rx/DC Orders Clinical Impression: Hypertension, Anxiety, Depression Instructions: ED Anxiety Reaction, ED Hypertension, Established Prescriptions: No Action fluoxetine 20 MG capsule 80 mg PO DAILY lisinopril 10 mg tablet 10 mg PO DAILY gabapentin 300 mg capsule 300 mg PO QHS PRN (Reason: Cramps) Patient Comments: take 1 capsule by mouth at bedtime carbamazepine [Tegretol XR] 100 mg tablet extended release 12 hr 100 mg PO BID Qty: 14 0RF penicillin V potassium 250 mg tablet 500 mg PO 4X/DAY Qty: 40 0RF hydrocodone-acetaminophen 5-325 mg tablet 1 tab PO Q6H PRN (Reason: pain) 3 Days Qty: 10 0RF Primary Care Provider: Basilio Dunham Referrals: Basilio Dunham MD [Primary Care Provider] - Activity Restrictions/Additional Instructions: The patient has chronic hypertension which she has not been taking medication for. 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 At this time there is no sign of endorgan damage as she is awake and alert with normal EKG. I also feel that part of the hypertension is related to an anxiety state. The patient has made comments of self-harm now that she is going to skilled nursing and I feel this is behavioral in nature however if she continues to voice these opinion she can be placed under suicide watch and have crisis center evaluate her at the facility for potential placement. She has been given Ativan in the ER to help reduce her anxiety stay. However as her neurologic exam is normal her EKG shows no sign of active heart damage and she is awake and alert I do not feel there is any need for further testing and she is medically cleared to be placed in skilled nursing/police custody. Print Language: Turkmen Disposition Disposition: Home, Self Care Discharge Date/Time: 05/08/25 23:10
--- NOTE | 2025-05-08 22:59 | ED.RN ---
Pt in police custody. Pt disruptive and loudly crying/yelling throughout visit. After being seen by Dr. Ortega and informed that she would be discharged after an EKG, pt begins to complain of a headache and states that she has had it for 4 months. This nurse educated that her headache is most likely due to elevated BP, that she needed to follow up with PCP for both HTN and headache. Informed Dr Ortega of same, he states pt can be medicated with tylenol or motrin at the nursing home. Pt given IM lorazepam for anxiety and informed that would also help with her anxiety which was also contributing to her headache. Pt states I have black holes in my fucking brain. Informed pt that since her headache has been present for 4 months, it was a chronic issue and not acute per Dr. Ortega. Pt states thanks for your concern and called this nurse a helena martinez. Pt given discharge instructions and was discharged to police custody. While assisting pt out of department, pt swearing at deputies, yelling fucking you, you fucking pricks. I hate you.
== END 2025-05-08 23:10 | disposition home or self-care (01) ==
PROVIDERS: Emergency Provider Emergency Medicine; PCP Family Medicine; Visit Provider Emergency Medicine
DX: I10 Essential (primary) hypertension (principal); F41.9 Anxiety disorder, unspecified; E66.9 Obesity, unspecified; K21.9 Gastro-esophageal reflux disease without esophagitis; F32.A Depression, unspecified; F17.210 Nicotine dependence, cigarettes, uncomplicated; Z79.899 Other long term (current) drug therapy; Z91.148 Patient's other noncompliance with medication regimen for other reason
CPT/HCPCS: 93005; 96372; 99284